=== PATIENT | female | born 1950 | race Caucasian/White ===

== ENCOUNTER → 2016-07-30 | Outpatient (CLI) | payer MEDICARE, MEDICAID ==
[~2016-07-30] MED LIST: ALBU8.5H2 IH; BONINE PO; BUDE10.22 IH; CETI10CA PO; CIPR500T78 PO; CLIN-81 PO; DICL75TA2 PO; ESTR0.5T PO; ESTR1TAB24 PO; FLUT16SP22 NS; FLUT9.9S INH; HYDR-3583 PO; IBUP-30 PO; IBUP200T48 PO; LACT10SO33 PO; LACT10SO46 PO; LCT30U PO; MECL25TA56 PO; METO25TA PO; METR500T PO; MIRT30TA6 PO; MONT10TA21 PO; PRM25T PO; PROC5TAB PO; SCOP1PAT TD; SERT50TA2 PO; SLMFT1E INH; SOFO400T PO; TMZP15C PO; TRAM-42 PO; VENL150T4 PO; VENL75TA6 PO; ZOLP10TA5 PO; [UNRECOGNIZED DRUG - CODE]; [UNRECOGNIZED DRUG - CODE] PO; depression med; lactulose PO
== END ==
DX: I65.23 Occlusion and stenosis of bilateral carotid arteries (principal); G89.29 Other chronic pain; R06.00 Dyspnea, unspecified; B19.20 Unspecified viral hepatitis C without hepatic coma; E78.2 Mixed hyperlipidemia

== ENCOUNTER → 2016-09-24 | Outpatient (CLI) | payer MEDICARE, MEDICAID ==
--- NOTE | 2016-09-24 09:47 | Diagnostic Imaging Report ---
Hepatic ultrasound. INDICATION: Hepatitis. On the prior abdominal ultrasound exam of 07/10/2009, the liver was enlarged measuring 21 cm in maximum dimension. On this study the liver remains enlarged measuring 20 cm in maximum dimension. There is still no focal mass involving the liver, and the biliary tree is not abnormally dilated. Spectral and color flow imaging of the portal vein shows that the vein is patent and that there is normal directional flow within the vein. The hepatic veins also seem unremarkable. As noted on the prior exam the gallbladder is surgically absent. The common bile duct is not dilated measuring 6.2 mm. Previously it measures 7.0 mm. The right kidney is unremarkable. The pancreas is obscured by bowel gas. IMPRESSION: 1. The liver is enlarged but seems similar in appearance to the prior exam. There is no acute abnormality involving the liver. 2. The gallbladder is surgically absent. Dictated by: Dictated on workstation # [id number]
== END ==
LOC: RAD 08:32
PROVIDERS: ATTEND Internal Medicine
DX: B18.2 Chronic viral hepatitis C (principal); Z90.49 Acquired absence of other specified parts of digestive tract
CPT/HCPCS: 76705

== ENCOUNTER → 2016-11-25 | Outpatient (CLI) | payer MEDICARE, MEDICAID ==
[~2016-11-25] VITALS: Ht 154.9 cm; Wt 97.1 kg
[~2016-11-25] MED LIST changes: +CATHETER FLUSH 10 ML SYR IV PRN; +REGADENOSON 0.4 MG/5 ML SYR (LEXISCAN) IV ONE
[2016-11-25 09:35] VITALS: BP 137/45
--- NOTE | 2016-11-26 08:46 | STRESS TEST ---
DATE OF SERVICE: 11/25/2016 LEXISCAN MYOVIEW STRESS TEST REPORT Baseline heart rate is 75. Baseline blood pressure 137/45. Baseline EKG is sinus rhythm with no ischemic changes. In summary, the patient was injected with 10.06 mCi of technetium-99 Myoview and the resting images were obtained. Then, the patient received 0.4 mg of Lexiscan followed by 29.2 mCi of technetium-99 Myoview. Throughout the test, there were no EKG changes. The resting and stress images were reviewed and compared in the short axis, horizontal long axis, and vertical long axis views. Review of the images showed breast attenuation with no significant ischemia or infarction on SPECT images. SSS 4, SDS 0, TID value 1.09. On the gated images, the left ventricle appeared to be normal size with normal contractility. Calculated ejection fraction 71%. CONCLUSION: 1. The patient tolerated Lexiscan well. 2. Breast attenuation with no significant ischemia or infarction on SPECT images. 3. Normal left ventricular size with normal contractility. Calculated ejection fraction 71%. Job ID: [id number] DocumentID: [id number] Dictated Date: 11/25/2016 13:45:31 [employer]pper Date: 11/25/2016 21:22:30 Dictated By: DAVID BERNARD MD
== END ==
LOC: CARD 07:32
PROVIDERS: ATTEND Internal Medicine Cardiovascular Disease
DX: I65.23 Occlusion and stenosis of bilateral carotid arteries (principal); R06.00 Dyspnea, unspecified; E78.2 Mixed hyperlipidemia; G89.29 Other chronic pain; B19.20 Unspecified viral hepatitis C without hepatic coma
CPT/HCPCS: 78452; 93017

== ENCOUNTER 2017-12-06 15:00 | Outpatient (RCR) | payer MEDICARE, MEDICAID ==
[~2017-12-06 15:00] MED LIST changes: +ALBU18HF2 INH; -CATHETER FLUSH 10 ML SYR IV PRN; +CIPR500T4 PO; +CYCL10TA9 PO; +FLUT1BLS IH; +LACT10SO64 PO; +MECL-106 PO; +MELO7.5T46 PO; +METO-387 PO; -REGADENOSON 0.4 MG/5 ML SYR (LEXISCAN) IV ONE; -SCOP1PAT TD; +SCOP1PAT11 TD; +SPIR50TA4 PO; +TEMA15CA PO; +VENL75CA93 PO
== END 2018-01-19 10:32 | disposition home or self-care (01) ==
PROVIDERS: ATTEND Internal Medicine
DX: H81.13 Benign paroxysmal vertigo, bilateral (principal)

== ENCOUNTER 2018-05-08 20:29 | Emergency (ER) | payer MEDICARE, MEDICAID ==
[~2018-05-08] VITALS: Ht 154.9 cm; Wt 90.7 kg
--- OUTSIDE RECORDS SUMMARY | 2018-05-08 20:35 | XMS REPORT ---
Author Author Migration, Doctor Organization [facility] Address Unknown Phone Unavailable Care Team Providers Care [employer]p [employer] Name Role Phone Migration, Doctor Unavailable Unavailable PROBLEMS Type Condition ICD9-CM Code LPW56-OF Code Onset Dates Condition Status SNOMED Code Problem Sleep apnea, unspecified type G47.30 Active 10832026 Problem Benign positional vertigo, bilateral H81.13 Active 506399102 Problem Arthritis M19.90 Active 9970513 Problem Peripheral vascular disease I73.9 Active 864564786 Problem Chronic obstructive pulmonary disease, unspecified COPD type J44.9 Active 20519659 Problem Other cirrhosis of liver K74.69 Active 57718022 Problem Chronic viral hepatitis C B18.2 Active 432003351 Problem Insomnia G47.00 Active 183010832 Problem Vertigo R42 Active 706224972 Problem Prediabetes R73.03 Active 107265625 Problem Recurrent major depressive disorder, in full remission F33.42 Active 280608513 ALLERGIES No Information ENCOUNTERS Encounter Location Date Diagnosis [address] [address] Apr, [facility] [id number] [place] [address] 42808- 4176 Mar, [facility] [id number] [place] [address] 76425- 4509 Feb, [facility] [id number] [place] [address] 97739- 5011 Jan, [facility] [id number] [place] [address] 04689- 0314 Dec, [facility] [id number] [place] [address] 67271- 8881 Nov, [facility] [id number] [place] [address] 49775- 1212 Nov, Benign positional vertigo, bilateral H81.13 [facility] [address] [address] 45[address] Nov, [facility] [id number] [place] [address] 60838- 4004 Nov, [facility] [id number] [place] [address] 62539- 2202 Nov, [facility] [id number] [place] [address] 15802- 8965 Oct, [facility] [id number] [place] [address] 10817- 1001 Sep, [facility] [id number] [place] [address] 53114- 5480 Sep, Compression fracture of body of thoracic vertebra S22.000A and Benign positional vertigo, bilateral H81.13 [facility] [id number] [place] [address] 62498- 9533 Sep, [facility] [id number] [address] 27[address] Sep, Benign positional vertigo, bilateral H81.13 ; Impacted cerumen of both ears H61.23 ; Chronic obstructive pulmonary disease, unspecified COPD type J44.9 ; Recurrent major depressive disorder, in full remission F33.42 and Other cirrhosis of liver K74.69 [facility] [address] [address] Aug, [facility] [address] [address] 54[address] Aug, Lightheadedness R42 [facility] [id number] [address] 2[address] Jul, Lightheadedness R42 [facility] [address] [address] 9[address] Jul, Medicare annual wellness visit, initial Z00.00 ; Chronic obstructive pulmonary disease, unspecified COPD type J44.9 ; Depression, unspecified depression type F32.9 ; Insomnia G47.00 ; Chronic viral hepatitis C B18.2 ; Parkinson disease G20 ; Prediabetes R73.03 ; Arthritis M19.90 ; Routine adult health maintenance Z00.00 and Encounter for immunization Z23 [facility] [id number] [place] [address] 23897- 4403 Jul, [facility] [id number] [place] [address] 71499- 8050 June, [facility] [id number] [place] [address] 10405- 9512 June, [facility] [id number] [place] [address] 25412- 1729 June, [facility] [id number] [place] [address] 03489- 3899 June, [facility] [id number] [place] [address] 30067- 6848 May, Acute cystitis without hematuria N30.00 [facility] [id number] [place] [address] 55763- 1392 May, Prediabetes R73.03 [place] [id number] [place] [address] 70719- 2397 May, Acute cystitis without hematuria N30.00 ; Type 2 diabetes mellitus without complication, without long-term current use of insulin E11.9 ; Vertigo R42 ; Chronic obstructive pulmonary disease, unspecified COPD type J44.9 ; Chronic viral hepatitis C B18.2 and Prediabetes R73.03 [place] [id number] [place] [address] 10668- 2287 May, [facility] [id number] [place] [address] 75451- 1467 May, Chronic viral hepatitis C B18.2 [facility] [id number] [place] [address] 41764- 6134 Mar, [facility] [id number] [place] [address] 30552- 8720 Dec, Vertigo R42 [facility] [address] 78915- 2907 Dec, Neck pain M54.2 ; Encounter for immunization Z23 ; Vertigo R42 and Parkinson disease G20 [facility] [address] 02552- 1832 Nov, [facility] [id number] [place] [address] 43802- 9070 Nov, [facility] [address] 69076- 7705 Sep, [place] [address] 54537- 1303 Sep, Chronic viral hepatitis C B18.2 [facility] [id number] [place] [address] 48535- 6213 Sep, Chronic viral hepatitis C B18.2 [place] [address] 32560- 2531 Sep, Chronic viral hepatitis C B18.2 [facility] [id number] [place] [address] 09912- 8773 Aug, Type 2 diabetes mellitus without complication, without long- term current use of insulin E11.9 ; Chronic viral hepatitis C B18.2 ; Vertigo R42 and Depression, unspecified depression type F32.9 [facility] [id number] [place] [address] 31269- 8886 Jul, Insomnia G47.00 [facility] [id number] [place] [address] 45509- 2159 Jul, Type 2 diabetes mellitus without complication, without long- term current use of insulin E11.9 [place] [id number] [place] [address] 49337- 5559 Apr, [facility] [id number] [address] Apr, Dental examination Z01.20 [facility] [id number] [place] [address] [id number] Feb, Encounter for dental examination Z01.20 [facility] [address] [id number] Jan, Dental caries K02.9 [facility] [id number] [place] [address] 97549- 6412 Jan, Arthritis M19.90 [facility] [address] 17110- 7570 Jan, Benign positional vertigo, bilateral H81.13 and Type 2 diabetes mellitus without complication, without long-term current use of insulin E11.9 [place] [id number] [place] [address] 24973- 6594 Dec, [facility] [id number] [place] [address] 87998- 8368 Dec, [facility] [id number] [place] [address] 52417- 4456 Dec, Encounter for immunization Z23 and Elevated blood pressure reading R03.0 [facility] [id number] [place] [address] 05324- 9245 Dec, [facility] [id number] [place] [address] 72342- 2375 Dec, [facility] [id number] [place] [address] 80731- 0524 Nov, Type 2 diabetes mellitus without complication, without long- term current use of insulin E11.9 and Chronic viral hepatitis C B18.2 [facility] [id number] [place] [address] 26289- 9849 Nov, [facility] [id number] [place] [address] 21690- 9760 Nov, [facility] [address], [place] [address]- 9726 Oct, [facility] [address] [id number] Oct, Dental examination Z01.20 [facility] [id number] [place] [address] 20006- 8795 Sep, [facility] [id number] [place] [address] 35794- 6965 Sep, [facility] [id number] [place] [address] 99903- 4667 Sep, Type 2 diabetes mellitus without complication, without long- term current use of insulin E11.9 and Chronic obstructive pulmonary disease, unspecified COPD type J44.9 [facility] [id number] [place] [address] 80060- 9361 Sep, Rectal bleeding K62.5 [facility] [id number] [place] [address] 28693 -6913 Aug, Rectal bleeding K62.5 ; Postmenopausal vaginal bleeding N95.0 ; Dysuria R30.0 ; Dermatitis L30.9 ; Acute cystitis with hematuria N30.01 ; Glycosuria R81 and Adnexal pain R10.2 [facility] [address] [address]- 3141 May, [facility] [id number] [place] [address] 04293- 5605 May, Chronic viral hepatitis C B18.2 [facility] [id number] [place] [address] 66515- 2490 Apr, [facility] [id number] [place] [address] 91571- 6855 Mar, [facility] [id number] [place] [address] 47508- 1372 Mar, Insomnia G47.00 [facility] [id number] [place] [address] 99281- 9598 Feb, Chronic viral hepatitis C B18.2 and Fatigue R53.83 [facility] [address] 35436- 1008 15 Feb, 2015 Rash R21 ; Fatigue R53.83 and Chronic viral hepatitis C B18.2 [facility] [address] 24167- 7154 Feb, Chronic viral hepatitis C B18.2 [facility] [address] 37904- 7128 Jan, Dermatitis L30.9 and Chronic viral hepatitis C B18.2 [facility] [address] 63587- 9550 Jan, [facility] [address] 86076- 3914 Dec, [facility] [address] 59442- 9678 Nov, [facility] [address] 05885- 2100 Nov, Hep C w/o coma, chronic 070.54 [facility] [address] 30735- 7315 Oct, Lower back pain 724.2 and Urinary tract infection 599.0 [facility] [id number] [place] [address] 72889- 8912 Oct, [facility] [address] 46687- 3905 Oct, [facility] [address] 58024- 2357 Oct, Dark urine 791.9 and Rectal bleeding 569.3 [facility] [address] [place] [address]- 2657 Sep, Hep C w/o coma, chronic 070.54 [facility] [id number] [place] [address] 03957- 0899 Sep, [facility] [address] [address]- 5012 Aug, [facility] [id number] [place] [address] 91136- 4470 Aug, [facility] [id number] [place] [address] 24591- 0399 Jul, Hep C w/o coma, chronic 070.54 [facility] [id number] [place] [address] 93211- 9377 Jul, Hep C w/o coma, chronic 070.54 [facility] [id number] [place] [address] 28725- 7136 June, Local infection of skin and subcutaneous tissue 686.9 [facility] [address] [address]- 2432 June, Foot pain, right 729.5 [facility] [address] [address]- 2999 June, [facility] [address] [address]- 1477 May, [facility] [address] [address]- 4070 May, [facility] [address] [address]- 5393 Apr, [facility] [address] 7433 Apr, [facility] [address] [address]- 1254 Apr, [facility] [id number] [place] [address]- 5850 Apr, [facility] [place] [facility] [address] [id number] [place] [address]- 6361 Apr, [facility] [place] [facility] [address] [id number] [place] [address]- 3101 Apr, [facility] [place] [facility] [address] [id number] [place] [address]- 4725 Jan, [facility] [place] [facility] [address] [id number] [place] [address]- 7374 Jan, [facility] [place] [facility] [address] [id number] [place] [address]- 3750 Jan, [facility] [place] [facility] [address] [id number] [place] [address]- 1613 Dec, [facility] [place] [facility] [address] [id number] [place] [address]- 0280 Dec, [facility] [place] [facility] [address] [id number] [place] [address]- 0070 Dec, [facility] [place] [facility] [address] [id number] [place] [address]- 7032 Dec, [facility] [place] [facility] [address] [facility] [id number] [place] [address]- 1300 Nov, [facility] [place] [facility] [address] [id number] [place] [address]- 8882 Nov, [facility] [place] [facility] [address] [id number] [place] [address]- 5114 Nov, [facility] [place] [facility] [address] [id number] [place] [address]- 1311 Nov, [facility] [place] [facility] [address] [id number] [place] [address]- 1399 Nov, [facility] [place] [facility] [address] [id number] [place] [address]- 2524 Nov, [facility] [place] [facility] [address] [id number] [place] [address]- 9258 14 Nov, 2013 [facility] [place] [facility] [address] [id number] [place] [address]- 6985 Nov, [facility] [place] [facility] [address] [id number] [place] 0446 Nov, [facility] [place] [facility] [address] [id number] [place] [address]- 2744 Nov, [facility] [place] [facility] [address] [id number] [place] [address]- 2523 Oct, [facility] [place] [facility] [address] [id number] [place] [address]- 8939 Oct, [facility] [place] [facility] [address] [id number] [place] [address]- 3463 Oct, [facility] [place] [facility] [address] [id number] [place] [address]- 1770 24 Oct, 2013 [facility] [place] [facility] [address] [id number] [place] [address]- 1934 Oct, [facility] [place] [facility] [address] [id number] [place] [address]- 1076 Oct, [facility] [place] [facility] [address] [id number] [place] [address]- 5607 Oct, [facility] [place] [facility] [address] [id number] [place] [address]- 7241 Oct, [facility] [place] [facility] [address] [id number] [place] [address]- 7265 Aug, [facility] [place] [facility] [address] [id number] [place] [address]- 3306 Aug, [facility] [place] [facility] [address] [id number] [place] [address]- 0732 Aug, [facility] [place] [facility] [address] [id number] [place] [address]- 1192 Aug, [facility] [place] [facility] [address] [id number] [place] [address]- 6359 Aug, [facility] [place] [facility] [address] [id number] [place] [address]- 8276 Aug, [facility] [place] [facility] [address] [id number] [place] [address]- 2093 Aug, [facility] [place] [facility] [address] [id number] [place] [address]- 0019 Aug, [facility] [place] [facility] [address] [id number] [place] [address]- 1334 June, [facility] [place] [facility] [address] [id number] [place] [address]- 5907 June, [facility] [place] [facility] [address] [id number] [place] [address]- 6866 May, [facility] [place] [facility] [address] [id number] [place] [address]- 5283 May, [facility] [place] [facility] [address] [id number] [place] [address]- 0518 Apr, [facility] [place] [facility] [address] [id number] [place] [address]- 9361 Apr, [facility] [place] [facility] [address] [id number] [place] [address]- 7626 Apr, [facility] [place] [facility] [address] [id number] [place] [address]- 7852 Mar, [facility] [place] [facility] [address] [id number] [place] [address]- 8200 Mar, [facility] [place] [facility] [address] [id number] [place] [address]- 5675 Mar, [facility] [place] [facility] [address] [id number] [place] [address]- 7387 Mar, [facility] [place] [facility] [address] [id number] [place] [address]- 4657 Mar, [facility] [place] [facility] [address] [id number] [place] [address]- 2066 Mar, [facility] [place] [facility] [address] [id number] [place] [address]- 9649 Jan, [facility] [place] [facility] [address] [id number] [place] [address]- 4248 Jan, [facility] [place] [facility] [address] [id number] [place] [address]- 9609 Jan, [facility] [place] [facility] [address] [id number] [place] [address]- 5497 Jan, [facility] [place] [facility] [address] [facility] [id number] [place] [address]- 9252 Jan, [facility] [place] [facility] [address] [id number] [place] [address]- 9477 Jan, [facility] [place] [facility] [address] [id number] [place] [address]- 7444 14 Dec, 2012 [facility] [place] [facility] [address] [id number] [place] [address]- 5340 14 Dec, 2012 [facility] [place] [facility] [address] [id number] [place] [address]- 7828 Dec, [facility] [place] [facility] [address] [id number] [place] [address]- 6955 Dec, [facility] [place] [facility] [address] [id number] [place] [address]- 2036 Dec, [facility] [place] [facility] [address] [id number] [place] [address]- 8730 07 Dec, 2012 [facility] [place] [facility] [address] [id number] [place] [address]- 3633 07 Dec, 2012 [facility] [place] [facility] [address] [id number] [place] [address]- 1966 Dec, [facility] [address] [id number] [place] [address]- 4387 26 Oct, 2012 [facility] [address] [id number] [place] [address]- 2546 17 Oct, 2012 [facility] [address] [id number] [place] [address] 2546 Sep, [facility] [place] [facility] [address] [id number] [place] [address]- 8917 Aug, [facility] [address] [id number] [place] [address]- 3995 Aug, [facility] [address] [id number] [place] [address]- 6134 June, [facility] [address] [id number] [place] [address]- 1506 June, [facility] [address] [id number] [place] [address]- 2117 June, [facility] [address] [id number] [place] [address]- 8257 June, [facility] [address] [id number] [place] [address]- 2856 May, [facility] [address] [id number] [place] [address] 2543 May, [facility] [place] [facility] [address] [id number] [place] [address]- 2546 Apr, [facility] [place] [facility] [address] [id number] [place] [address]- 2546 Apr, [facility] [place] [facility] [address] [id number] [place] [address] Jan, [facility] [place] [facility] [address] [id number] [place] [address] Jan, [facility] [address] [id number] [place] [address] 24 Jan, 2012 [facility] [address] [id number] [place] [address] 17 Jan, 2012 [facility] [place] [facility] [address] [id number] [place] 17 Jan, 2012 [facility] [address] [id number] [place] [address] 13 Jan, 2012 [facility] [place] [facility] [address] [id number] [place] [address] 13 Jan, 2012 [facility] [address] [id number] [place] [address] 10 Jan, 2012 [facility] [address] [id number] [place] [address] 10 Jan, 2012 [facility] [address] [id number] [place] [address] 05 Jan, 2012 [facility] [address] [id number] [place] [address] 04 Jan, 2012 [facility] [place] [facility] [address] [id number] [place] [address] 29 Dec, 2011 [facility] [address] [facility] [id number] [place] [address] 29 Dec, 2011 [facility] [place] [facility] [address] [id number] [place] [address] 254 Dec, [facility] [place] [facility] [address] [id number] [place] [address] 23 Dec, 2011 [facility] [place] [facility] [address] [id number] [place] [address] 14 Dec, 2011 [facility] [place] [facility] [address] [id number] [place] [address] 14 Dec, 2011 [facility] [place] [facility] [address] [id number] [place] [address] Nov, [facility] [place] [facility] [address] [id number] [place] [address] Nov, [facility] [place] [facility] [address] [id number] [place] [address] Nov, [facility] [place] [facility] [address] [id number] [place] [address] Oct, [facility] [place] [facility] [address] [id number] [place] [address] Oct, [facility] [place] [facility] [address] [id number] [place] [address] Sep, [facility] [place] [facility] [address] [id number] [place] [address] Sep, [facility] [place] [facility] [address] [id number] [place] [address] Sep, [facility] [place] [facility] [address] [id number] [place] [address] Sep, [facility] [place] [facility] [address] [id number] [place] [address] Aug, [facility] [place] [facility] [address] [id number] [place] [address] June, [facility] [place] [facility] [address] [id number] [place] [address] May, [facility] [place] [facility] [address] [id number], [place] [address] 16 May, 2011 [facility] [place] [facility] [address] [id number] [place] [address] 14 May, 2011 [facility] [place] [facility] [address] [id number] [place] [address] 05 May, 2011 [facility] [place] [facility] [address] [id number] [place] [address] Apr, [facility] [place] [facility] [address] [id number], [place] [address] 15 Mar, 2011 [facility] [address] [id number] [place] [address] 10 Mar, 2011 [facility] [address] [id number] [place] [address] 20 Feb, 2011 [facility] [address] [id number] [place] [address] Feb, [facility] [place] [facility] [address] [id number] [place] [address] 10 Feb, 2011 [facility] [address] [id number] [place] [address] Jan, [facility] [place] [facility] [address] [id number] [place] [address] 16 Jan, 2011 [facility] [address] [facility] [id number] [place] [address] 16 Jan, 2011 [facility] [place] [facility] [address] [id number] [place] [address] 15 Jan, 2011 [facility] [address] [id number] [place] [address] Jan, [facility] [address] [facility] [id number] [place] [address] Jan, [facility] [address] [id number] [place] [address] 05 Jan, 2011 [facility] [place] [facility] [address] [id number] [place] [address] 28 Dec, 2010 [facility] [place] [facility] [address] [id number] [place] [address] 17 Dec, 2010 [facility] [place] [facility] [address] [id number] [place] [address] 10 Dec, 2010 [facility] [place] [facility] [address] [facility] [id number] [place] [address] Dec, [facility] [place] [facility] [address] [id number] [address] Dec, [facility] [address] [id number] [address] Nov, [facility] [id number] [address] Nov, [facility] [id number] [place] [address] Jul, [facility] [id number] [place] [address] June, [facility] [id number] [place] [address] Mar, [facility] [id number] [address] Feb, [facility] [id number], [place] [address] Dec, IMMUNIZATIONS No Known Immunizations SOCIAL HISTORY Never Assessed REASON FOR VISIT EMR-[facility] [place]AN OF CARE VITAL SIGNS MEDICATIONS Unknown Medications RESULTS No Results PROCEDURES No Known procedures INSTRUCTIONS MEDICATIONS ADMINISTERED No Known Medications MEDICAL (GENERAL) HISTORY Type Description Date Medical History hepatitis C (completed 24 weeks of Sovaldi/Ribipack 11/2014) Medical History chronic obstructive pulmonary disease (COPD) Medical History plantar fasciitis Medical History cardiovascular disease Surgical History partial hysterectomy Surgical History cholecystectomy Surgical History hemorrhoidectomy Surgical History spine surgery Hospitalization History surgeries Hospitalization History Sepsis 2/2 UTI from actinomyces- [facility] 05/19/17 Hospitalization History Constipation 06/25
--- OUTSIDE RECORDS SUMMARY | 2018-05-08 20:35 | XMS REPORT ---
Author Author Migration, Doctor Organization [facility] Address Unknown Phone Unavailable Care Team Providers Care Behavior Analyst Name Role Phone Migration, Doctor Unavailable Unavailable PROBLEMS Type Condition ICD9-CM Code JGE60-VX Code Onset Dates Condition Status SNOMED Code Problem Sleep apnea, unspecified type G47.30 Active 46867615 Problem Benign positional vertigo, bilateral H81.13 Active 789817737 Problem Arthritis M19.90 Active 4603966 Problem Peripheral vascular disease I73.9 Active 691044246 Problem Chronic obstructive pulmonary disease, unspecified COPD type J44.9 Active 83072108 Problem Other cirrhosis of liver K74.69 Active 70734542 Problem Chronic viral hepatitis C B18.2 Active 136116705 Problem Insomnia G47.00 Active 731907007 Problem Vertigo R42 Active 963994009 Problem Prediabetes R73.03 Active 981008566 Problem Recurrent major depressive disorder, in full remission F33.42 Active [id number] ALLERGIES No Information ENCOUNTERS Encounter Location Date Diagnosis [address] [address] Apr, [facility] [id number] [place] [address] 35396- 1022 Mar, [facility] [id number] [place] [address] 06705- 3092 Feb, [facility] [id number] [place] [address] 40962- 1846 Jan, [facility] [id number] [place] [address] 61463- 3080 Dec, [facility] [id number] [place] [address] 76764- 8120 Nov, [facility] [id number] [place] [address] 09046- 4975 Nov, Benign positional vertigo, bilateral H81.13 [facility] [address] [address] 0083 Nov, [facility] [id number] [place] [address] 84522- 1943 Nov, [facility] [id number] [place] [address] 47123- 4004 Nov, [facility] [id number] [place] [address] 18798- 3511 Oct, [facility] [id number] [place] [address] 81183- 7568 Sep, [facility] [id number] [place] [address] 59436- 6353 Sep, Compression fracture of body of thoracic vertebra S22.000A and Benign positional vertigo, bilateral H81.13 [facility] [id number] [place] [address] 32427- 4341 Sep, [facility] [id number] [address] Sep, Benign positional vertigo, bilateral H81.13 ; Impacted cerumen of both ears H61.23 ; Chronic obstructive pulmonary disease, unspecified COPD type J44.9 ; Recurrent major depressive disorder, in full remission F33.42 and Other cirrhosis of liver K74.69 [facility] [address] [address] Aug, [facility] [address] [address] Aug, Lightheadedness R42 [facility] [id number] [address] 8279 Jul, Lightheadedness R42 [facility] [address] [address] 36[address] Jul, Medicare annual wellness visit, initial Z00.00 ; Chronic obstructive pulmonary disease, unspecified COPD type J44.9 ; Depression, unspecified depression type F32.9 ; Insomnia G47.00 ; Chronic viral hepatitis C B18.2 ; Parkinson disease G20 ; Prediabetes R73.03 ; Arthritis M19.90 ; Routine adult health maintenance Z00.00 and Encounter for immunization Z23 [facility] [id number] [place] [address] 42513- 7584 Jul, [facility] [id number] [place] [address] 28152- 9326 June, [facility] [id number] [place] [address] 67648- 3430 June, [facility] [id number] [place] [address] 81723- 1695 June, [facility] [id number] [place] [address] 99072- 9717 June, [facility] [id number] [place] [address] 88804- 9245 May, Acute cystitis without hematuria N30.00 [facility] [id number] [place] [address] 57224- 2356 May, Prediabetes R73.03 [facility] [id number] [place] [address] 61907- 9162 May, Acute cystitis without hematuria N30.00 ; Type 2 diabetes mellitus without complication, without long-term current use of insulin E11.9 ; Vertigo R42 ; Chronic obstructive pulmonary disease, unspecified COPD type J44.9 ; Chronic viral hepatitis C B18.2 and Prediabetes R73.03 [facility] [id number] [place] [address] 71722- 1956 May, [facility] [id number] [place] [address] 10051- 4781 May, Chronic viral hepatitis C B18.2 [facility] [id number] [place] [address] 14488- 4855 Mar, [facility] [id number] [place] [address] 08184- 9955 Dec, Vertigo R42 [facility] [address] 20392- 6730 Dec, Neck pain M54.2 ; Encounter for immunization Z23 ; Vertigo R42 and Parkinson disease G20 [facility] [address] 86276- 3092 Nov, [facility] [id number] [place] [address] 52147- 0079 Nov, [facility] [address] 00692- 3537 Sep, [facility] [address] 23269- 2187 Sep, Chronic viral hepatitis C B18.2 [facility] [id number] [place] [address] 39470- 0702 Sep, Chronic viral hepatitis C B18.2 [facility] [address] 83827- 7493 Sep, Chronic viral hepatitis C B18.2 [facility] [id number] [place] [address] 19347- 9183 Aug, Type 2 diabetes mellitus without complication, without long- term current use of insulin E11.9 ; Chronic viral hepatitis C B18.2 ; Vertigo R42 and Depression, unspecified depression type F32.9 [facility] [id number] [place] [address] 45447- 9923 Jul, Insomnia G47.00 [facility] [id number] [place] [address] 72662- 3965 Jul, Type 2 diabetes mellitus without complication, without long- term current use of insulin E11.9 [facility] [id number] [place] [address] 93917- 3056 Apr, [facility] [id number] [address] Apr, Dental examination Z01.20 [facility] [id number] [place] [address] [id number] Feb, Encounter for dental examination Z01.20 [facility] [address] [address] Jan, Dental caries K02.9 [facility] [id number] [place] [address] 69037- 2410 Jan, Arthritis M19.90 [facility] [address] 09036- 7129 Jan, Benign positional vertigo, bilateral H81.13 and Type 2 diabetes mellitus without complication, without long-term current use of insulin E11.9 [facility] [id number] [place] [address] 62321- 9438 Dec, [facility] [id number] [place] [address] 82798- 5862 Dec, [facility] [id number] [place] [address] 45136- 6368 Dec, Encounter for immunization Z23 and Elevated blood pressure reading R03.0 [facility] [id number] [place] [address] 46379- 0588 Dec, [facility] [id number] [place] [address] 95675- 8268 Dec, [facility] [id number] [place] [address] 24245- 8099 Nov, Type 2 diabetes mellitus without complication, without long- term current use of insulin E11.9 and Chronic viral hepatitis C B18.2 [facility] [id number] [place] [address] 48196- 1026 Nov, [facility] [id number] [place] [address] 03533- 3321 Nov, [facility] [address], [place] [address]- 2909 Oct, [facility] [address] [id number] Oct, Dental examination Z01.20 [facility] [id number] [place] [address] 31606- 4519 Sep, [facility] [id number] [place] [address] 27980- 7265 Sep, [facility] [id number] [place] [address] 42298- 7379 Sep, Type 2 diabetes mellitus without complication, without long- term current use of insulin E11.9 and Chronic obstructive pulmonary disease, unspecified COPD type J44.9 [facility] [id number] [place] [address] 33185- 5789 Sep, Rectal bleeding K62.5 [facility] [id number] [place] [address] 35762 -5506 Aug, Rectal bleeding K62.5 ; Postmenopausal vaginal bleeding N95.0 ; Dysuria R30.0 ; Dermatitis L30.9 ; Acute cystitis with hematuria N30.01 ; Glycosuria R81 and Adnexal pain R10.2 [facility] [address] [address]- 8411 May, [facility] [id number] [place] [address] 26259- 0186 May, Chronic viral hepatitis C B18.2 [facility] [id number] [place] [address] 79662- 4314 Apr, [facility] [id number] [place] [address] 84743- 4504 Mar, [facility] [address] [place] [address] 60053- 0356 Mar, Insomnia G47.00 [facility] [id number] [place] [address] 61221- 1500 Feb, Chronic viral hepatitis C B18.2 and Fatigue R53.83 [facility] [address] 59286- 6852 15 Feb, 2015 Rash R21 ; Fatigue R53.83 and Chronic viral hepatitis C B18.2 [facility] [address] 30118- 1951 Feb, Chronic viral hepatitis C B18.2 [facility] [address] 10271- 6839 Jan, Dermatitis L30.9 and Chronic viral hepatitis C B18.2 [facility] [address] 45897- 8617 Jan, [facility] [address] 10042- 5589 Dec, [facility] [address] 62127- 8313 Nov, [facility] [address] 54649- 9383 Nov, Hep C w/o coma, chronic 070.54 [facility] [address] 75981- 9935 Oct, Lower back pain 724.2 and Urinary tract infection 599.0 [facility] [id number] [place] [address] 02174- 1553 Oct, [facility] [address] 27788- 3307 Oct, [facility] [address] 76627- 0309 Oct, Dark urine 791.9 and Rectal bleeding 569.3 [facility] [address] [place] [address]- 0797 Sep, Hep C w/o coma, chronic 070.54 [facility] [id number] [place] [address] 85752- 0297 Sep, [facility] [address] [address]- 8488 Aug, [facility] [id number] [place] [address] 72967- 1067 Aug, [facility] [id number] [place] [address] 66788- 3740 Jul, Hep C w/o coma, chronic 070.54 [facility] [id number] [place] [address] 38452- 7740 Jul, Hep C w/o coma, chronic 070.54 [facility] [id number] [place] [address] 63470- 5094 June, Local infection of skin and subcutaneous tissue 686.9 [facility] [address] [address]- 7437 June, Foot pain, right 729.5 [facility] [address], [place] [address]- 7528 June, [facility] [address], [place] [address]- 1260 May, [facility] [address], [place] [address]- 2517 May, [facility] [address], [place] [address]- 4548 Apr, [facility] [address] 7071 Apr, [facility] [address], [place] [address]- 6543 Apr, [facility] [id number] [place] [address]- 1851 Apr, [facility] [place] [facility] [address] [id number] [place] [address]- 0875 Apr, [facility] [place] [facility] [address] [id number] [place] [address]- 7460 Apr, [facility] [place] [facility] [address] [id number] [place] [address]- 6126 Jan, [facility] [place] [facility] [address] [id number] [place] [address]- 5278 Jan, [facility] [place] [facility] [address] [id number] [place] [address]- 1664 Jan, [facility] [place] [facility] [address] [id number] [place] [address]- 0347 Dec, [facility] [place] [facility] [address] [id number] [place] [address]- 9371 Dec, [facility] [place] [facility] [address] [id number] [place] [address]- 9849 Dec, [facility] [place] [facility] [address] [id number] [place] [address]- 8832 Dec, [facility] [place] [facility] [address] [facility] [id number] [place] [address]- 6827 Nov, [facility] [place] [facility] [address] [id number] [place] [address]- 9285 Nov, [facility] [place] [facility] [address] [id number] [place] [address]- 3218 Nov, [facility] [place] [facility] [address] [id number] [place] [address]- 3174 Nov, [facility] [place] [facility] [address] [id number] [place] [address]- 3251 Nov, [facility] [place] [facility] [address] [id number] [place] [address]- 2666 Nov, [facility] [place] [facility] [address] [id number] [place] [address]- 8462 14 Nov, 2013 [facility] [place] [facility] [address] [id number] [place] [address]- 2805 Nov, [facility] [place] [facility] [address] [id number] [place] 7691 Nov, [facility] [place] [facility] [address] [id number] [place] [address]- 1778 Nov, [facility] [place] [facility] [address] [id number] [place] [address]- 8124 Oct, [facility] [place] [facility] [address] [id number] [place] [address]- 4030 Oct, [facility] [place] [facility] [address] [id number] [place] [address]- 1122 Oct, [facility] [place] [facility] [address] [id number] [place] [address]- 5331 24 Oct, 2013 [facility] [place] [facility] [address] [id number] [place] [address]- 1064 Oct, [facility] [place] [facility] [address] [id number] [place] [address]- 1730 Oct, [facility] [place] [facility] [address] [id number] [place] [address]- 1842 Oct, [facility] [place] [facility] [address] [id number] [place] [address]- 3798 Oct, [facility] [place] [facility] [address] [id number] [place] [address]- 3438 Aug, [facility] [place] [facility] [address] [id number] [place] [address]- 2937 Aug, [facility] [place] [facility] [address] [id number] [place] [address]- 9316 Aug, [facility] [place] [facility] [address] [id number] [place] [address]- 0729 Aug, [facility] [place] [facility] [address] [id number] [place] [address]- 8837 Aug, [facility] [place] [facility] [address] [id number] [place] [address]- 2023 Aug, [facility] [place] [facility] [address] [id number] [place] [address]- 9041 Aug, [facility] [place] [facility] [address] [id number] [place] [address]- 3415 Aug, [facility] [place] [facility] [address] [id number] [place] [address]- 7767 June, [facility] [place] [facility] [address] [id number] [place] [address]- 7211 June, [facility] [place] [facility] [address] [id number] [place] [address]- 4181 May, [facility] [place] [facility] [address] [id number] [place] [address]- 7556 May, [facility] [place] [facility] [address] [id number] [place] [address]- 1685 Apr, [facility] [place] [facility] [address] [id number] [place] [address]- 1494 Apr, [facility] [place] [facility] [address] [id number] [place] [address]- 4229 Apr, [facility] [place] [facility] [address] [id number] [place] [address]- 5714 Mar, [facility] [place] [facility] [address] [id number] [place] [address]- 9067 Mar, [facility] [place] [facility] [address] [id number] [place] [address]- 4439 Mar, [facility] [place] [facility] [address] [id number] [place] [address]- 9491 Mar, [facility] [place] [facility] [address] [id number] [place] [address]- 8961 Mar, [facility] [place] [facility] [address] [id number] [place] [address]- 7183 Mar, [facility] [place] [facility] [address] [id number] [place] [address]- 5429 Jan, [facility] [place] [facility] [address] [id number] [place] [address]- 7696 Jan, [facility] [place] [facility] [address] [id number] [place] [address]- 4002 Jan, [facility] [place] [facility] [address] [id number] [place] [address]- 7291 Jan, [facility] [place] [facility] [address] [facility] [id number] [place] [address]- 2943 Jan, [facility] [place] [facility] [address] [id number] [place] [address]- 4906 Jan, [facility] [place] [facility] [address] [id number] [place] [address]- 1419 14 Dec, 2012 [facility] [place] [facility] [address] [id number] [place] [address]- 2842 14 Dec, 2012 [facility] [place] [facility] [address] [id number] [place] [address]- 7424 Dec, [facility] [place] [facility] [address] [id number] [place] [address]- 7066 Dec, [facility] [place] [facility] [address] [id number] [place] [address]- 3405 Dec, [facility] [place] [facility] [address] [id number] [place] [address]- 1916 07 Dec, 2012 [facility] [place] [facility] [address] [id number] [place] [address]- 4441 07 Dec, 2012 [facility] [place] [facility] [address] [id number] [place] [address]- 1116 Dec, [facility] [address] [id number] [place] [address]- 5509 26 Oct, 2012 [facility] [address] [id number] [place] [address]- 2546 17 Oct, 2012 [facility] [address] [id number] [place] [address] 2546 Sep, [facility] [place] [facility] [address] [id number] [place] [address]- 3769 Aug, [facility] [address] [id number] [place] [address]- 8738 Aug, [facility] [address] [id number] [place] [address]- 7317 June, [facility] [address] [id number] [place] [address]- 1966 June, [facility] [address] [id number] [place] [address]- 5567 June, [facility] [address] [id number] [place] [address]- 9114 June, [facility] [address] [id number] [place] [address]- 1037 May, [facility] [address] [id number] [place] [address] 2549 May, [facility] [place] [facility] [address] [id number] [place] [address]- 2546 Apr, [facility] [place] [facility] [address] [id number] [place] [address]- 2546 Apr, [facility] [place] [facility] [address] [id number] [place] [address] 2546 Jan, [facility] [place] [facility] [address] [id number] [place] [address]- 2546 Jan, [facility] [address] [id number] [place] [address]- 7655 24 Jan, 2012 [facility] [address] [id number] [place] [address]- 1896 17 Jan, 2012 [facility] [place] [facility] [address] [id number] [place] 9456 17 Jan, 2012 [facility] [address] [id number] [place] [address]- 8046 13 Jan, 2012 [facility] [place] [facility] [address] [id number] [place] [address]- 6175 13 Jan, 2012 [facility] [address] [id number] [place] [address]- 7455 10 Jan, 2012 [facility] [address] [id number] [place] [address] 10 Jan, 2012 [facility] [address] [id number] [place] [address] 05 Jan, 2012 [facility] [address] [id number] [place] [address] 04 Jan, 2012 [facility] [place] [facility] [address] [id number] [place] [address] 29 Dec, [address] [facility] [address] [facility] [id number] [place] [address] 29 Dec, 2011 [facility] [place] [facility] [address] [id number] [place] [address] Dec, [facility] [place] [facility] [address] [id number] [place] [address] 2836 23 Dec, 2011 [facility] [place] [facility] [address] [id number] [place] [address]707 14 Dec, 2011 [facility] [place] [facility] [address] [id number] [place] [address]96 14 Dec, 2011 [facility] [place] [facility] [address] [id number] [place] [address] Nov, [facility] [place] [facility] [address] [id number] [place] [address] Nov, [facility] [place] [facility] [address] [id number] [place] [address] 79[address] Nov, [facility] [place] [facility] [address] [id number] [place] [address] Oct, [facility] [place] [facility] [address] [id number] [place] [address] Oct, [facility] [place] [facility] [address] [id number] [place] [address] Sep, [facility] [place] [facility] [address] [id number] [place] [address] Sep, [facility] [place] [facility] [address] [id number] [place] [address] Sep, [facility] [place] [facility] [address] [id number] [place] [address] Sep, [facility] [place] [facility] [address] [id number] [place] [address]278 Aug, [facility] [place] [facility] [address] [id number] [place] [address] June, [facility] [place] [facility] [address] [id number] [place] [address] May, [facility] [place] [facility] [address] [id number] [address] 16 May, 2011 [facility] [place] [facility] [address] [id number] [place] [address] 14 May, 2011 [facility] [place] [facility] [address] [id number] [place] [address] 4281 05 May, 2011 [facility] [place] [facility] [address] [id number] [place] [address]453 Apr, [facility] [place] [facility] [address] [id number] [address] 15 Mar, 2011 [facility] [address] [id number] [place] [address] 2542 10 Mar, 2011 [facility] [address] [id number] [place] [address] 20 Feb, 2011 [facility] [address] [id number] [place] [address] 35[address] Feb, [facility] [place] [facility] [address] [id number] [place] [address]60 10 Feb, 2011 [facility] [address] [id number] [place] [address] Jan, [facility] [place] [facility] [address] [id number] [place] [address]296 16 Jan, 2011 [facility] [address] [facility] [id number] [place] [address] 16 Jan, 2011 [facility] [place] [facility] [address] [id number] [place] [address] 8827 15 Jan, 2011 [facility] [address] [id number] [place] [address] Jan, [facility] [facility] [address] [facility] [id number] [place] [address] Jan, [facility] [address] [id number] [place] [address] 05 Jan, 2011 [facility] [place] [facility] [address] [id number] [place] [address] 28 Dec, 2010 [facility] [place] [facility] [address] [id number] [place] [address] 17 Dec, 2010 [facility] [place] [facility] [address] [id number] [place] [address] 10 Dec, 2010 [facility] [place] [facility] [address] [facility] [id number] [place] [address] Dec, [facility] [place] [facility] [address] [id number] [address] Dec, [facility] [address] [id number] [address] Nov, [facility] [id number] [address] Nov, [facility] [id number] [address] Jul, [facility] [id number] [address] June, [facility] [id number] [address] Mar, [facility] [id number] [address] Feb, [facility] [id number] [address] Dec, IMMUNIZATIONS No Known Immunizations SOCIAL HISTORY Never Assessed REASON FOR VISIT EMR-[facility] [place] [facility] PLAN OF CARE VITAL SIGNS MEDICATIONS Unknown [...] Hospitalization History Sepsis 2/2 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
--- OUTSIDE RECORDS SUMMARY | 2018-05-08 20:36 | XMS REPORT ---
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 Name Role Phone TORREY FELIX Unavailable PROBLEMS Type Condition ICD9-CM Code KIQ64-ZW Code Onset Dates Condition Status SNOMED Code Problem Sleep apnea, unspecified type G47.30 Active 80644639 Problem Arthritis M19.90 Active 0504713 Problem Benign positional vertigo, bilateral H81.13 Active 408147344 Problem Chronic viral hepatitis C B18.2 Active 128467647 Problem Chronic obstructive pulmonary disease, unspecified COPD type J44.9 Active 39082181 Problem Other cirrhosis of liver K74.69 Active 04142469 Problem Peripheral vascular disease I73.9 Active 712118943 Problem Vertigo R42 Active 716060622 Problem Insomnia G47.00 Active 253862034 Problem Recurrent major depressive disorder, in full remission F33.42 Active 320077495 Problem Prediabetes R73.03 Active 723960111 ALLERGIES No Information ENCOUNTERS Encounter Location Date Diagnosis [facility] [id number] [place] [address] 96143- 1883 Jan, [facility] [id number] [place] [address] 01434- 1552 Dec, [facility] [id number] [place] [address] 34228- 3826 Nov, [facility] [id number] [place] [address] 57387- 0448 Nov, Benign positional vertigo, bilateral H81.13 [facility] [id number] [place] [address] 92393- 9137 Nov, [facility] [address] 24606- 6524 Nov, [place] [id number] [place] [address] 374487- 2319 Nov, [facility] [id number] [place] [address] 359248- 2863 Oct, [place] [id number] [place] [address] 993136- 6695 Sep, [place] [id number] [place] [address] 99333- 4500 Sep, Compression fracture of body of thoracic vertebra S22.000A and Benign positional vertigo, bilateral H81.13 [place] [id number] [place] [address] 52344- 1737 Sep, [place] [id number] [place] [address] 91947- 4319 Sep, Benign positional vertigo, bilateral H81.13 ; Impacted cerumen of both ears H61.23 ; Chronic obstructive pulmonary disease, unspecified COPD type J44.9 ; Recurrent major depressive disorder, in full remission F33.42 and Other cirrhosis of liver K74.69 [place] [id number] [place] [address] 43178- 1466 Aug, [place] [id number] [place] [address] 94124- 3610 Aug, Lightheadedness R42 [place] [id number] [place] [address] 30048- 4559 Jul, Lightheadedness R42 [place] [id number] [place] [address] 19662- 2127 Jul, Medicare annual wellness visit, initial Z00.00 ; Chronic obstructive pulmonary disease, unspecified COPD type J44.9 ; Depression, unspecified depression type F32.9 ; Insomnia G47.00 ; Chronic viral hepatitis C B18.2 ; Parkinson disease G20 ; Prediabetes R73.03 ; Arthritis M19.90 ; Routine adult health maintenance Z00.00 and Encounter for immunization Z23 [facility] [address] [address] 7377 Jul, [facility] [address] [address]- 2223 June, [facility] [address] [address]- 9610 June, [facility] [id number] [place] [address] 31769- 0351 June, [facility] [id number] [place] [address] 54100- 5008 June, [facility] [id number] [place] [address] 74569- 1057 May, Acute cystitis without hematuria N30.00 [facility] [id number] [place] [address] 20892- 9995 May, Prediabetes R73.03 [facility] [address], [place] [address]- 9980 May, Acute cystitis without hematuria N30.00 ; Type 2 diabetes mellitus without complication, without long-term current use of insulin E11.9 ; Vertigo R42 ; Chronic obstructive pulmonary disease, unspecified COPD type J44.9 ; Chronic viral hepatitis C B18.2 and Prediabetes R73.03 [facility] [address], [place] [address]- 5306 May, [facility] [address] [place] [address]- 3045 May, Chronic viral hepatitis C B18.2 [facility] [address] [address]- 7726 Mar, [facility] [address] [place] [address]- 0388 Dec, Vertigo R42 [facility] [id number] [place] [address] 82990- 2864 Dec, Neck pain M54.2 ; Encounter for immunization Z23 ; Vertigo R42 and Parkinson disease G20 [place] [id number] [place] [address] 39099- 2254 Nov, [facility] [address] 16876- 9719 Nov, [place] [address] 70507- 0598 Sep, [place] [address] 54872- 1279 Sep, Chronic viral hepatitis C B18.2 [place] [id number] [place] [address] 70590- 8159 Sep, Chronic viral hepatitis C B18.2 [place] [address] 60559- 9345 Sep, Chronic viral hepatitis C B18.2 [place] [id number] [place] [address] 58490- 4343 Aug, Type 2 diabetes mellitus without complication, without long- term current use of insulin E11.9 ; Chronic viral hepatitis C B18.2 ; Vertigo R42 and Depression, unspecified depression type F32.9 [place] [id number] [place] [address] 24126- 9656 Jul, Insomnia G47.00 [place] [id number] [place] [address] 33893- 4153 Jul, Type 2 diabetes mellitus without complication, without long- term current use of insulin E11.9 [place] [id number] [place] [address] 40572- 2985 Apr, [facility] [id number] [place] [address] [id number] Apr, Dental examination Z01.20 [facility] [address] [id number] Feb, Encounter for dental examination Z01.20 [facility] [address] [place] [address] [id number] Jan, Dental caries K02.9 [facility] [id number] [place] [address] 11992- 3363 Jan, Arthritis M19.90 [facility] [id number] [place] [address] 50129- 5426 Jan, Benign positional vertigo, bilateral H81.13 and Type 2 diabetes mellitus without complication, without long-term current use of insulin E11.9 [facility] [id number] [place] [address] 93273- 4676 Dec, [facility] [id number] [place] [address] 31201- 9751 Dec, [facility] [id number] [place] [address] 31813- 4538 Dec, Encounter for immunization Z23 and Elevated blood pressure reading R03.0 [facility] [id number] [place] [address] 87002- 4873 Dec, [facility] [id number] [place] [address] 45479- 0779 Dec, [facility] [id number] [place] [address] 61139- 5370 Nov, Type 2 diabetes mellitus without complication, without long- term current use of insulin E11.9 and Chronic viral hepatitis C B18.2 [facility] [id number] [place] [address] 01772- 9918 Nov, [facility] [id number] [place] [address] 41258- 7814 Nov, [facility] [id number] [place] [address] 24928- 6064 Oct, [facility] [id number] [place] [address] [id number] Oct, Dental examination Z01.20 [facility] [id number] [place] [address] 85467- 2927 Sep, [facility] [id number] [place] [address] 63422- 0418 Sep, [place] [id number] [place] [address] 35447- 0683 Sep, Type 2 diabetes mellitus without complication, without long- term current use of insulin E11.9 and Chronic obstructive pulmonary disease, unspecified COPD type J44.9 [place] [id number] [place] [address] 62755- 1466 Sep, Rectal bleeding K62.5 [facility] [id number] [place] [address] 83920 -0953 Aug, Rectal bleeding K62.5 ; Postmenopausal vaginal bleeding N95.0 ; Dysuria R30.0 ; Dermatitis L30.9 ; Acute cystitis with hematuria N30.01 ; Glycosuria R81 and Adnexal pain R10.2 [place] [id number] [place] [address] 96072- 3033 May, [place] [id number] [place] [address] 22711- 9259 May, Chronic viral hepatitis C B18.2 [place] [id number] [place] [address] 71938- 5618 Apr, [facility] [id number] [place] [address] 51123- 8775 Mar, [place] [id number] [place] [address] 94261- 5341 Mar, Insomnia G47.00 [place] [id number] [place] [address] 68751- 0511 Feb, Chronic viral hepatitis C B18.2 and Fatigue R53.83 [place] [address] 00509- 6488 Feb, Rash R21 ; Fatigue R53.83 and Chronic viral hepatitis C B18.2 [facility] [address] 19748- 1400 Feb, Chronic viral hepatitis C B18.2 [facility] [address] 05983- 5744 Jan, Dermatitis L30.9 and Chronic viral hepatitis C B18.2 [facility] [address] 04518- 9190 Jan, [facility] [address] 20045- 0166 Dec, [facility] [address] 79700- 7703 Nov, [facility] [address] 85292- 4284 Nov, Hep C w/o coma, chronic 070.54 [facility] [address] 02418- 2739 Oct, Lower back pain 724.2 and Urinary tract infection 599.0 [place] [id number] [place] [address] 49206- 3901 Oct, [facility] [address] 50151- 1356 Oct, [facility] [id number] [place] [address] 00823- 7217 Oct, Dark urine 791.9 and Rectal bleeding 569.3 [place] [address] 97945- 8222 Sep, Hep C w/o coma, chronic 070.54 [facility] [id number] [place] [address] 23771- 7616 Sep, [place] [address] [facility] [id number] [address]- 3384 Aug, [facility] [address], [place] [address]- 4436 Aug, [facility] [address], [place] [address]- 6187 Jul, Hep C w/o coma, chronic 070.54 [facility] [address] [facility] [id number] [address]- 6152 Jul, Hep C w/o coma, chronic 070.54 [facility] [id number] [place] [address] 67590- 9019 June, Local infection of skin and subcutaneous tissue 686.9 [facility] [address], [place] [address]- 9038 June, Foot pain, right 729.5 [facility] [address], [place] [address]- 9763 June, [facility] [address], [place] [address]- 6036 May, [facility] [address], [place] [address]- 9764 May, [facility] [address], [place] [address]- 1616 Apr, [facility] [id number] [address]- 4204 Apr, [facility] [id number] [address]- 6670 Apr, [facility] [id number] [address]- 2358 Apr, [facility] [id number], [place] [address]- 4184 Apr, [facility] [address] [address]- 9874 Apr, [facility] [place] [facility] [address] [id number] [place] [address]- 2356 Jan, [facility] [place] [facility] [address] [id number] [place] 9424 Jan, [facility] [place] [facility] [address] [id number] [place] [address]- 9992 Jan, [facility] [place] [facility] [address] [id number] [place] [address]- 4128 Dec, [facility] [place] [facility] [address] [id number] [place] 0859 Dec, [facility] [place] [facility] [address] [id number] [place] [address]- 4723 Dec, [facility] [place] [facility] [address] [id number] [place] [address]- 8453 Dec, [facility] [place] [facility] [address] [id number] [place] [address]- 8825 Nov, [facility] [place] [facility] [address] [id number] [place] [address]- 4546 Nov, [facility] [place] [facility] [address] [id number] [place] [address]- 4080 Nov, [facility] [place] [facility] [address] [id number] [place] [address]- 6755 Nov, [facility] [place] [facility] [address] [id number] [place] [address]- 9233 Nov, [facility] [place] [facility] [address] [id number] [place] 8800 Nov, [facility] [place] [facility] [address] [id number] [place] [address]- 7041 14 Nov, 2013 [facility] [place] [facility] [address] [id number] [place] 1894 Nov, [facility] [place] [facility] [address] [id number] [place] [address]- 7698 Nov, [facility] [place] [facility] [address] [id number] [place] [address]- 5545 Nov, [facility] [place] [facility] [address] [id number] [place] [address]- 1511 Oct, [facility] [place] [facility] [address] [id number] [place] [address]- 4094 Oct, [facility] [place] [facility] [address] [id number] [place] [address]- 9749 Oct, [facility] [place] [facility] [address] [id number] [place] [address]- 8095 Oct, [facility] [place] [facility] [address] [id number] [place] [address]- 1294 Oct, [facility] [place] [facility] [address] [id number] [place] [address]- 8612 Oct, [facility] [place] [facility] [address] [id number] [place] [address]- 2593 Oct, [facility] [place] [facility] [address] [id number] [place] [address]- 9423 Oct, [facility] [place] [facility] [address] [id number] [place] [address]- 3771 Aug, [facility] [place] [facility] [address] [id number] [place] [address]- 0406 Aug, [facility] [place] [facility] [address] [id number] [place] [address]- 6395 Aug, [facility] [place] [facility] [address] [id number] [place] [address]- 9134 Aug, [facility] [place] [facility] [address] [id number] [place] [address]- 7193 Aug, [facility] [place] [facility] [address] [id number] [place] [address]- 2546 Aug, [facility] [place] [facility] [address] [id number] [place] [address]- 5120 Aug, [facility] [place] [facility] [address] [id number] [place] [address]- 5942 Aug, [facility] [place] [facility] [address] [id number] [place] [address]- 3743 June, [facility] [place] [facility] [address] [id number] [place] [address]- 1687 June, [facility] [place] [facility] [address] [id number] [place] [address]- 3331 May, [facility] [place] [facility] [address] [id number] [place] [address]- 7631 May, [facility] [place] [facility] [address] [id number] [place] [address]- 9188 Apr, [facility] [place] [facility] [address] [id number] [place] [address]- 7951 Apr, [facility] [place] [facility] [address] [id number] [place] [address]- 6604 Apr, [facility] [place] [facility] [address] [id number] [place] [address]- 8112 Mar, [facility] [place] [facility] [address] [id number] [place] [address]- 2450 Mar, [facility] [place] [facility] [address] [id number] [place] [address]- 7912 Mar, [facility] [place] [facility] [address] [id number] [place] 0820 Mar, [facility] [place] [facility] [address] [id number] [place] [address]- 6156 Mar, [facility] [place] [facility] [address] [facility] [id number] [place] [address]- 8221 Mar, [facility] [place] [facility] [address] [id number] [place] [address]- 2634 09 Jan, 2012 [facility] [place] [facility] [address] [id number] [place] [address]- 5831 Jan, [facility] [place] [facility] [address] [id number] [place] [address]- 2543 Jan, 2012 [facility] [place] [facility] [address] [id number] [place] [address]- 0449 05 Jan, 2013 [facility] [place] [facility] [address] [id number] [place] [address]- 8742 Jan, [facility] [place] [facility] [address] [id number] [place] [address]- 1694 Jan, [facility] [address] [id number] [place] [address]- 4598 14 Dec, 2012 [facility] [place] [facility] [address] [id number] [place] [address]- 1719 14 Dec, 2012 [facility] [place] [facility] [address] [id number] [place] [address]- 3714 Dec, [facility] [place] [facility] [address] [id number] [place] [address]- 2226 Dec, [facility] [place] [facility] [address] [id number] [place] [address]- 8230 Dec, [facility] [place] [facility] [address] [id number] [place] [address]- 9518 07 Dec, 2012 [facility] [place] [facility] [address] [id number] [place] [address]- 7928 Dec, [facility] [place] [facility] [address] [id number] [place] [address]- 3291 Dec, [facility] [place] [facility] [address] [id number] [place] [address]- 5885 26 Oct, 2012 [facility] [place] [facility] [address] [id number] [place] [address]- 4008 Oct, [facility] [address] [id number] [place] [address]- 6699 Sep, [facility] [address] [id number] [place] [address]- 3266 Aug, [facility] [address] [id number] [place] [address] 2546 Aug, [facility] [address] [id number] [place] [address]- 7656 June, [facility] [address] [id number] [place] [address]- 2626 June, [facility] [address] [id number] [place] [address]- 7796 June, [facility] [address] [id number] [place] [address]- 2546 June, [facility] [address] [id number] [place] [address]- 0340 May, [facility] [address] [id number] [place] [address]- 4679 May, [facility] [place] [facility] [address] [id number] [place] [address] 2546 Apr, [facility] [address] [id number] [place] [address]- 2546 Apr, [facility] [place] [facility] [address] [id number] [place] [address]- 2946 Jan, [facility] [place] [facility] [address] [id number] [place] [address]- 5716 Jan, [facility] [place] [facility] [address] [id number] [place] [address]- 9696 Jan, [facility] [place] [facility] [address] [id number] [place] [address]- 2546 Jan, [facility] [place] [facility] [address] [id number] [place] [address]- 7784 17 Jan, 2012 [facility] [address] [id number] [place] [address]- 3128 13 Jan, 2012 [facility] [place] [facility] [address] [id number] [place] [address] 13 Jan, 2012 [facility] [address] [id number] [place] [address] 10 Jan, 2012 [facility] [place] [facility] [address] [id number] [place] [address] 9661 10 Jan, 2012 [facility] [place] [facility] [address] [id number] [place] [address] 05 Jan, 2012 [facility] [place] [facility] [address] [id number] [place] [address] Jan, [facility] [place] [facility] [address] [id number] [place] [address] Dec, [facility] [place] [facility] [address] [id number] [place] [address] 29 Dec, 2011 [facility] [place] [facility] [address] [id number] [place] [address] Dec, [facility] [place] [facility] [address] [facility] [id number] [place] [address] 23 Dec, 2011 [facility] [place] [facility] [address] [id number] [place] [address] 29[address] 14 Dec, 2011 [facility] [place] [facility] [address] [id number] [place] [address] 38[address] 14 Dec, 2011 [facility] [place] [facility] [address] [id number] [place] [address] Nov, [facility] [place] [facility] [address] [id number] [place] [address] Nov, [facility] [place] [facility] [address] [id number] [place] [address] Nov, [facility] [place] [facility] [address] [id number] [place] [address] Oct, [facility] [place] [facility] [address] [id number] [place] [address] Oct, [facility] [place] [facility] [address] [id number] [place] [address] Sep, [facility] [place] [facility] [address] [id number] [place] [address] Sep, [facility] [place] [facility] [address] [id number] [place] [address] 79[address] Sep, [facility] [place] [facility] [address] [id number] [place] [address] Sep, [facility] [place] [facility] [address] [id number] [place] [address] Aug, [facility] [place] [facility] [address] [id number] [place] [address] 98[address] June, [facility] [place] [facility] [address] [id number] [place] [address] May, [facility] [place] [facility] [address] [id number] [place] [address] 16 May, 2011 [facility] [place] [facility] [address] [id number] [place] [address] May, [facility] [place] [facility] [address] [id number], [place] [address] 05 May, 2011 [facility] [place] [facility] [address] [id number] [place] [address] Apr, [facility] [place] [facility] [address] [id number] [place] [address] 15 Mar, 2011 [facility] [place] [facility] [address] [id number] [place] [address] 68[address] Mar, [facility] [place] [facility] [address] [id number], [place] [address] 20 Feb, 2011 [facility] [address] [id number] [place] [address] Feb, [facility] [place] [facility] [address] [id number] [place] [address] 9[address] 10 Feb, 2011 [facility] [address] [facility] [id number] [place] [address] Jan, [facility] [place] [facility] [address] [id number] [place] [address] 0[address] 16 Jan, 2011 [facility] [address] [id number] [place] [address] 1785 16 Jan, 2011 [facility] [place] [facility] [address] [id number] [place] [address] 15 Jan, 2011 [facility] [address] [facility] [id number] [place] [address] Jan, [facility] [place] [facility] [address] [facility] [id number] [place] [address] Jan, [facility] [address] [id number] [address] 05 Jan, 2011 [facility] [place] [facility] [address] [facility] [id number] [place] [address] 47[address] 28 Dec, 2010 [facility] [address] [id number], [place] [address] 17 Dec, 2010 [facility] [place] [facility] [address] [id number], [place] [address] 10 Dec, 2010 [facility] [place] [facility] [address] [id number] [place] [address] 10 Dec, 2010 [facility] [place] [facility] [address] [facility] [id number], [place] [address] 09 Dec, 2009 [facility] [place] [facility] [address] [facility] [id number], [place] [address] 16 Nov, 2009 [facility] [place] [facility] [address] [facility] [id number] [address] 11 Nov, 2009 [facility] [address] [id number], [place] [address] Jul, [facility] [address] [id number], [place] [address] June, [facility] [address] [facility] [id number], [place] [address] Mar, [facility] [address] [id number], [place] [address] Feb, [facility] [address] [id number], [place] [address] Dec, IMMUNIZATIONS No Known Immunizations SOCIAL HISTORY Never Assessed REASON FOR VISIT Controlled Med Refill 01/27 PLAN OF CARE VITAL SIGNS MEDICATIONS Medication Instructions Dosage Frequency Start Date End Date Duration Status Temazepam 15MG Orally Once a day 1 capsule 24h Active RESULTS No Results PROCEDURES No Known procedures [...] Hospitalization History Sepsis 2/2 UTI from actinomyces- [facility] 05/19/17 Hospitalization History Constipation 06/25
--- OUTSIDE RECORDS SUMMARY | 2018-05-08 20:36 | XMS REPORT ---
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 Name Role Phone Migration, Doctor Unavailable Unavailable PROBLEMS Type Condition ICD9-CM Code WGV21-YV Code Onset Dates Condition Status SNOMED Code Problem Sleep apnea, unspecified type G47.30 Active 98960786 Problem Benign positional vertigo, bilateral H81.13 Active 428311741 Problem Arthritis M19.90 Active 9822736 Problem Peripheral vascular disease I73.9 Active 448961043 Problem Chronic obstructive pulmonary disease, unspecified COPD type J44.9 Active 02870977 Problem Other cirrhosis of liver K74.69 Active 28708689 Problem Chronic viral hepatitis C B18.2 Active 172917787 Problem Insomnia G47.00 Active 520818617 Problem Vertigo R42 Active 266507304 Problem Prediabetes R73.03 Active 153386646 Problem Recurrent major depressive disorder, in full remission F33.42 Active 428499082 ALLERGIES No Information ENCOUNTERS Encounter Location Date Diagnosis [facility] [address] [address] Mar, [facility] [id number] [place] [address] 26486- 1942 Feb, [facility] [id number] [place] [address] 77420- 7026 Jan, [facility] [id number] [place] [address] 10876- 1606 Dec, [facility] [address] [address]- 2470 Nov, [facility] [id number] [place] [address] 13033- 3773 Nov, Benign positional vertigo, bilateral H81.13 [facility] [address] [address]- 5598 Nov, [facility] [address] [address] 15[address] Nov, [facility] [id number] [place] [address] 912635- 5006 Nov, [facility] [id number] [place] [address] 44280- 5927 Oct, [facility] [id number] [place] [address] 527447- 6072 Sep, [facility] [id number] [place] [address] 77058- 0737 Sep, Compression fracture of body of thoracic vertebra S22.000A and Benign positional vertigo, bilateral H81.13 [facility] [id number] [place] [address] 45629- 6129 Sep, [facility] [id number] [place] [address] 23179- 0712 Sep, Benign positional vertigo, bilateral H81.13 ; Impacted cerumen of both ears H61.23 ; Chronic obstructive pulmonary disease, unspecified COPD type J44.9 ; Recurrent major depressive disorder, in full remission F33.42 and Other cirrhosis of liver K74.69 [facility] [address] [address]- 2423 Aug, [facility] [id number] [place] [address] 84071- 7720 Aug, Lightheadedness R42 [facility] [address] [address]- 7323 Jul, Lightheadedness R42 [facility] [address] [address]- 7692 Jul, Medicare annual wellness visit, initial Z00.00 ; Chronic obstructive pulmonary disease, unspecified COPD type J44.9 ; Depression, unspecified depression type F32.9 ; Insomnia G47.00 ; Chronic viral hepatitis C B18.2 ; Parkinson disease G20 ; Prediabetes R73.03 ; Arthritis M19.90 ; Routine adult health maintenance Z00.00 and Encounter for immunization Z23 [facility] [address] [address]- 0770 Jul, [facility] [id number] [address]- 5883 June, [facility] [id number] [place] [address] 87043- 1033 June, [facility] [id number] [place] [address] 88235- 6257 June, [facility] [id number] [place] [address] 01374- 0928 June, [facility] [id number] [place] [address] 62178- 3351 May, Acute cystitis without hematuria N30.00 [facility] [address] [address]- 2853 May, Prediabetes R73.03 [facility] [id number] [place] [address] 57960- 0941 May, Acute cystitis without hematuria N30.00 ; Type 2 diabetes mellitus without complication, without long-term current use of insulin E11.9 ; Vertigo R42 ; Chronic obstructive pulmonary disease, unspecified COPD type J44.9 ; Chronic viral hepatitis C B18.2 and Prediabetes R73.03 [facility] [address] [address]- 4044 May, [facility] [id number] [place] [address] 58458- 9045 May, Chronic viral hepatitis C B18.2 [facility] [address] [address]- 9333 Mar, [facility] [id number] [place] [address] 21221- 1518 Dec, Vertigo R42 [facility] [id number] [place] [address] 77676- 0316 Dec, Neck pain M54.2 ; Encounter for immunization Z23 ; Vertigo R42 and Parkinson disease G20 [facility] [id number] [place] [address] 44837- 6040 Nov, [facility] [address] 32471- 3859 Nov, [facility] [id number] [place] [address] 49587- 8315 Sep, [facility] [address] 34184- 7949 Sep, Chronic viral hepatitis C B18.2 [facility] [address] 81794- 2804 Sep, Chronic viral hepatitis C B18.2 [facility] [id number] [place] [address] 92996- 3683 Sep, Chronic viral hepatitis C B18.2 [facility] [id number] [place] [address] 16685- 0079 Aug, Type 2 diabetes mellitus without complication, without long- term current use of insulin E11.9 ; Chronic viral hepatitis C B18.2 ; Vertigo R42 and Depression, unspecified depression type F32.9 [facility] [id number] [place] [address] 01876- 5455 Jul, Insomnia G47.00 [facility] [id number] [place] [address] 72691- 2466 Jul, Type 2 diabetes mellitus without complication, without long- term current use of insulin E11.9 [facility] [id number] [place] [address] 14107- 3604 Apr, [facility] [id number] [place] [address] [id number] Apr, Dental examination Z01.20 [facility] [id number] [id number] Feb, Encounter for dental examination Z01.20 [facility] [address] [id number] Jan, Dental caries K02.9 [facility] [id number] [place] [address] 19114- 0051 Jan, Arthritis M19.90 [facility] [id number] [place] [address] 07504- 9556 Jan, Benign positional vertigo, bilateral H81.13 and Type 2 diabetes mellitus without complication, without long-term current use of insulin E11.9 [facility] [address] [place] [address] 97812- 8997 Dec, [facility] [id number] [place] [address] 78648- 3665 Dec, [facility] [id number] [place] [address] 04458- 8323 Dec, Encounter for immunization Z23 and Elevated blood pressure reading R03.0 [facility] [id number] [place] [address] 99041- 7952 Dec, [facility] [id number] [place] [address] 03128- 6817 Dec, [facility] [id number] [place] [address] 49980- 5123 Nov, Type 2 diabetes mellitus without complication, without long- term current use of insulin E11.9 and Chronic viral hepatitis C B18.2 [facility] [id number] [place] [address] 50340- 7382 Nov, [facility] [id number] [place] [address] 88753- 3807 Nov, [facility] [address] [address]- 1739 Oct, [facility] [id number] [place] [address] [id number] Oct, Dental examination Z01.20 [facility] [id number] [place] [address] 80479- 3619 Sep, [facility] [id number] [place] [address] 19437- 8584 Sep, [facility] [id number] [place] [address] 28097- 6037 Sep, Type 2 diabetes mellitus without complication, without long- term current use of insulin E11.9 and Chronic obstructive pulmonary disease, unspecified COPD type J44.9 [facility] [id number] [place] [address] 20956- 1043 Sep, Rectal bleeding K62.5 [facility] [id number] [place] [address] 62908 -8831 Aug, Rectal bleeding K62.5 ; Postmenopausal vaginal bleeding N95.0 ; Dysuria R30.0 ; Dermatitis L30.9 ; Acute cystitis with hematuria N30.01 ; Glycosuria R81 and Adnexal pain R10.2 [facility] [address] [place] [address] 32900- 0033 May, [facility] [id number] [place] [address] 33352- 8002 May, Chronic viral hepatitis C B18.2 [facility] [id number] [place] [address] 51320- 9870 Apr, [facility] [id number] [place] [address] 34157- 3007 Mar, [facility] [id number] [place] [address] 94685- 6747 Mar, Insomnia G47.00 [facility] [id number] [place] [address] 98101- 6353 Feb, Chronic viral hepatitis C B18.2 and Fatigue R53.83 [facility] [address] 53924- 9250 Feb, Rash R21 ; Fatigue R53.83 and Chronic viral hepatitis C B18.2 [facility] [address] 94097- 8238 Feb, Chronic viral hepatitis C B18.2 [facility] [address] 09081- 2034 Jan, Dermatitis L30.9 and Chronic viral hepatitis C B18.2 [facility] [address] 40781- 7974 Jan, [facility] [address] 09251- 8215 Dec, [facility] [address] 50715- 3943 Nov, [facility] [address] 78127- 0543 Nov, Hep C w/o coma, chronic 070.54 [facility] [id number] [place] [address] 90890- 4133 Oct, Lower back pain 724.2 and Urinary tract infection 599.0 [facility] [id number] [place] [address] 24570- 2148 Oct, [facility] [address] 27671- 3905 Oct, [facility] [address] 27222- 3473 Oct, Dark urine 791.9 and Rectal bleeding 569.3 [facility] [id number] [place] [address] 55974- 1893 Sep, Hep C w/o coma, chronic 070.54 [facility] [address] [address]- 3248 Sep, [facility] [address] [place] [address] 72757- 3153 Aug, [facility] [address] [address]- 2620 Aug, [facility] [address] [place] [address] 89493- 7390 Jul, Hep C w/o coma, chronic 070.54 [facility] [id number] [place] [address] 95690- 5012 Jul, Hep C w/o coma, chronic 070.54 [facility] [id number] [place] [address] 66348- 5264 June, Local infection of skin and subcutaneous tissue 686.9 [facility] [address] [address]- 1920 June, Foot pain, right 729.5 [facility] [address] [place] [address] 19089- 4494 June, [facility] [address] [address]- 1561 May, [facility] [address] [address]- 3806 May, [facility] [address] [address]- 7108 Apr, [facility] [address] [address]- 0433 Apr, [facility] [address] [address]- 2234 Apr, [facility] [address] [address]- 1707 Apr, [facility] [place] [facility] [address] [id number] [place] [address]- 8016 Apr, 2014 [facility] [place] [facility] [address] [id number] [place] 3259 Apr, [facility] [place] [facility] [address] [id number] [place] 1857 Jan, [facility] [place] [facility] [address] [id number] [place] [address]- 8949 Jan, [facility] [place] [facility] [address] [id number] [place] 7446 Jan, [facility] [place] [facility] [address] [id number] [place] [address]- 4233 Dec, [facility] [place] [facility] [address] [id number] [place] [address]- 7747 Dec, [facility] [place] [facility] [address] [id number] [place] [address]- 0864 Dec, [facility] [place] [facility] [address] [id number] [place] [address]- 6346 Dec, [facility] [place] [facility] [address] [id number] [place] [address]- 8398 Nov, [facility] [place] [facility] [address] [id number] [place] [address]- 9992 Nov, [facility] [place] [facility] [address] [id number] [place] [address]- 8304 Nov, [facility] [place] [facility] [address] [id number] [place] [address]- 8940 Nov, [facility] [place] [facility] [address] [id number] [place] [address]- 5766 Nov, [facility] [place] [facility] [address] [id number] [place] [address]- 8972 Nov, [facility] [place] [facility] [address] [id number] [place] [address]- 6201 14 Nov, 2013 [facility] [place] [facility] [address] [id number] [place] [address]- 8701 14 Nov, 2013 [facility] [place] [facility] [address] [id number] [place] [address]- 4499 Nov, [facility] [place] [facility] [address] [id number] [place] [address]- 6527 Nov, [facility] [place] [facility] [address] [id number] [place] [address]- 1985 Oct, [facility] [place] [facility] [address] [id number] [place] [address]- 3904 Oct, [facility] [place] [facility] [address] [id number] [place] [address]- 4589 Oct, [facility] [place] [facility] [address] [id number] [place] [address]- 6440 Oct, [facility] [place] [facility] [address] [id number] [place] [address]- 8227 Oct, [facility] [place] [facility] [address] [id number] [place] [address]- 8651 Oct, [facility] [place] [facility] [address] [id number] [place] [address]- 2240 Oct, [facility] [place] [facility] [address] [id number] [place] [address]- 9992 Oct, [facility] [place] [facility] [address] [id number] [place] [address]- 1948 Aug, [facility] [place] [facility] [address] [id number] [place] [address]- 9496 Aug, [facility] [place] [facility] [address] [id number] [place] [address]- 4096 Aug, [facility] [place] [facility] [address] [id number] [place] [address]- 7963 Aug, [facility] [place] [facility] [address] [id number] [place] [address]- 2154 Aug, [facility] [place] [facility] [address] [id number] [place] [address]- 0018 Aug, [facility] [place] [facility] [address] [id number] [place] [address]- 2307 Aug, [facility] [place] [facility] [address] [id number] [place] [address]- 9511 Aug, [facility] [place] [facility] [address] [id number] [place] [address]- 0289 June, [facility] [place] [facility] [address] [id number] [place] [address]- 8927 June, [facility] [place] [facility] [address] [id number] [place] [address]- 0207 May, [facility] [place] [facility] [address] [id number] [place] [address]- 5256 May, [facility] [place] [facility] [address] [id number] [place] [address]- 5137 Apr, [facility] [place] [facility] [address] [id number] [place] [address]- 1522 Apr, [facility] [place] [facility] [address] [facility] [id number] [place] [address]- 3273 Apr, [facility] [place] [facility] [address] [id number] [place] [address]- 5863 Mar, [facility] [place] [facility] [address] [id number] [place] [address]- 6840 Mar, [facility] [place] [facility] [address] [id number] [place] [address]- 4180 Mar, [facility] [place] [facility] [address] [id number] [place] [address]- 6455 Mar, [facility] [place] [facility] [address] [id number] [place] [address]- 3963 Mar, [facility] [address] [id number] [place] [address]- 7424 Mar, [facility] [place] [facility] [address] [id number] [place] [address]- 0770 Jan, [facility] [place] [facility] [address] [id number] [place] 2275 Jan, [facility] [place] [facility] [address] [id number] [place] [address]- 2618 Jan, [facility] [place] [facility] [address] [id number] [place] [address]- 5360 Jan, [facility] [place] [facility] [address] [id number] [place] [address]- 1264 Jan, [facility] [place] [facility] [address] [id number] [place] [address]- 7930 Jan, [facility] [place] [facility] [address] [id number] [place] [address]- 6189 14 Dec, 2012 [facility] [place] [facility] [address] [id number] [place] [address]- 2241 14 Dec, 2012 [facility] [place] [facility] [address] [facility] [id number] [place] [address]- 3080 Dec, [facility] [place] [facility] [address] [id number] [place] [address]- 9775 Dec, [facility] [place] [facility] [address] [id number] [place] [address]- 4904 Dec, [facility] [place] [facility] [address] [id number] [place] [address]- 9840 Dec, [facility] [place] [facility] [address] [id number] [place] [address]- 2968 Dec, [facility] [place] [facility] [address] [facility] [id number] [place] [address]- 7828 Dec, [facility] [place] [facility] [address] [id number] [place] [address]- 6542 26 Oct, 2012 [facility] [address] [id number] [place] [address]- 0413 17 Oct, 2012 [facility] [address] [id number] [place] [address]- 4766 16 Sep, 2012 [facility] [address] [id number] [place] [address]- 8647 Aug, [facility] [address] [id number] [place] [address]- 9005 Aug, [facility] [address] [id number] [place] [address]- 4492 June, [facility] [address] [id number] [place] [address]- 8036 June, [facility] [address] [id number] [place] [address]- 4055 June, [facility] [address] [id number] [place] [address]- 0092 June, [facility] [address] [id number] [place] [address]- 0710 May, [facility] [address] [id number] [place] [address]- 8239 May, [facility] [address] [id number] [place] [address]- 9946 Apr, [facility] [address] [id number] [place] [address]- 2546 Apr, [facility] [address] [id number] [place] [address]- 2374 Jan, [facility] [address] [id number] [place] [address]- 6166 Jan, [facility] [address] [id number] [place] [address]- 0706 Jan, [facility] [place] [facility] [address] [id number] [place] [address]- 5986 17 Jan, 2012 [facility] [place] [facility] [address] [id number] [place] [address] 17 Jan, 2012 [facility] [place] [facility] [address] [id number] [place] [address]46 13 Jan, 2012 [facility] [place] [facility] [address] [id number] [place] [address] 13 Jan, 2012 [facility] [place] [facility] [address] [id number] [place] [address]46 10 Jan, 2012 [facility] [place] [facility] [address] [id number] [place] [address] Jan, [facility] [place] [facility] [address] [id number] [place] [address] 05 Jan, 2012 [facility] [place] [facility] [address] [id number] [place] [address] Jan, [facility] [place] [facility] [address] [id number] [place] [address] Dec, [facility] [place] [facility] [address] [id number] [place] [address] 2543 29 Dec, 2011 [facility] [place] [facility] [address] [id number] [place] [address] Dec, [facility] [place] [facility] [address] [id number] [place] [address] Dec, [facility] [place] [facility] [address] [id number] [place] [address]46 14 Dec, 2011 [facility] [place] [facility] [address] [id number] [place] [address] 14 Dec, 2011 [facility] [place] [facility] [address] [id number] [place] [address] Nov, [facility] [place] [facility] [address] [id number] [place] [address] Nov, [facility] [place] [facility] [address] [id number] [place] [address] Nov, [facility] [place] [facility] [address] [id number] [place] [address] Oct, [facility] [place] [facility] [address] [id number] [place] [address] Oct, [facility] [place] [facility] [address] [id number] [place] [address] Sep, [facility] [place] [facility] [address] [id number] [place] [address] Sep, [facility] [place] [facility] [address] [id number] [place] [address] Sep, [facility] [place] [facility] [address] [id number] [place] [address] Sep, [facility] [place] [facility] [address] [id number] [place] [address] Aug, [facility] [place] [facility] [address] [id number] [place] [address] June, [facility] [place] [facility] [address] [id number] [place] [address] May, [facility] [place] [facility] [address] [id number] [place] [address] 16 May, 2011 [facility] [place] [facility] [address] [id number] [place] [address] 14 May, 2011 [facility] [place] [facility] [address] [id number] [place] [address] May, [facility] [place] [facility] [address] [id number] [place] [address] Apr, [facility] [place] [facility] [address] [id number] [place] [address] 15 Mar, 2011 [facility] [place] [facility] [address] [id number] [place] [address]68 10 Mar, 2011 [facility] [address] [id number] [place] [address] Feb, [facility] [address] [id number] [place] [address] 19 Feb, 2011 [facility] [address] [id number] [place] [address] Feb, [facility] [address] [id number] [place] [address] Jan, [facility] [address] [id number] [place] [address] 16 Jan, 2011 [facility] [address] [id number] [place] [address] 16 Jan, 2011 [facility] [address] [id number] [place] [address] 15 Jan, 2011 [facility] [address] [id number] [place] [address] Jan, [facility] [address] [id number] [place] [address] Jan, [facility] [address] [facility] [id number] [place] [address] 05 Jan, 2011 [facility] [address] [id number] [place] [address] 28 Dec, 2010 [facility] [address] [id number] [place] [address] 17 Dec, 2010 [facility] [place] [facility] [address] [id number] [place] [address] 10 Dec, 2010 [facility] [place] [facility] [address] [id number] [place] [address] Dec, [facility] [address] [id number] [place] [address] Dec, [facility] [id number] [address] Nov, [facility] [address] [id number] [address] Nov, [facility] [id number] [address] Jul, [facility] [id number] [address] June, [facility] [id number] [address] Mar, [facility] [id number] [address] Feb, [facility] [id number] [address] Dec, IMMUNIZATIONS No Known Immunizations SOCIAL HISTORY Never Assessed REASON FOR VISIT [facility] PLAN OF CARE VITAL SIGNS MEDICATIONS Unknown [...] surgeries Hospitalization History Sepsis 2/2 [facility] 05/19/17 Hospitalization History Constipation 06/25
--- OUTSIDE RECORDS SUMMARY | 2018-05-08 20:37 | XMS REPORT ---
Author Author TORREY FELIX Organization [facility] Address [address] [place] [address] Care Team Providers Care Ventilating Expert Name Role Phone TORREY FELIX Unavailable PROBLEMS Type Condition ICD9-CM Code WRS97-FB Code Onset Dates Condition Status SNOMED Code Problem Sleep apnea, unspecified type G47.30 Active 04554205 Problem Arthritis M19.90 Active 9040202 Problem Benign positional vertigo, bilateral H81.13 Active 453005928 Problem Chronic viral hepatitis C B18.2 Active 755628970 Problem Chronic obstructive pulmonary disease, unspecified COPD type J44.9 Active 24232820 Problem Other cirrhosis of liver K74.69 Active 94974143 Problem Peripheral vascular disease I73.9 Active 677789702 Problem Vertigo R42 Active 677081913 Problem Insomnia G47.00 Active 818044778 Problem Recurrent major depressive disorder, in full remission F33.42 Active 542566964 Problem Prediabetes R73.03 Active 281856275 ALLERGIES No Information ENCOUNTERS Encounter Location Date Diagnosis [facility] [id number] [place] [address] 94609- 3364 Nov, [facility] [id number] [place] [address] 21338- 0624 Nov, Benign positional vertigo, bilateral H81.13 [facility] [id number] [place] [address] 51402- 6087 Nov, [facility] [address] 17489- 4968 Nov, [facility] [id number] [place] [address] 91701- 9427 Nov, [facility] [id number] [place] [address] 21973- 1414 Oct, [place] [id number] [place] [address] 97625- 0697 Sep, [place] [id number] [place] [address] 23175- 2740 Sep, Compression fracture of body of thoracic vertebra S22.000A and Benign positional vertigo, bilateral H81.13 [place] [id number] [place] [address] 71004- 0259 Sep, [place] [id number] [place] [address] 50973- 9803 Sep, Benign positional vertigo, bilateral H81.13 ; Impacted cerumen of both ears H61.23 ; Chronic obstructive pulmonary disease, unspecified COPD type J44.9 ; Recurrent major depressive disorder, in full remission F33.42 and Other cirrhosis of liver K74.69 [place] [id number] [place] [address] 03096- 9533 Aug, [place] [id number] [place] [address] 31374- 9688 Aug, Lightheadedness R42 [place] [id number] [place] [address] 65633- 2577 Jul, Lightheadedness R42 [place] [id number] [place] [address] 65960- 6201 Jul, Medicare annual wellness visit, initial Z00.00 ; Chronic obstructive pulmonary disease, unspecified COPD type J44.9 ; Depression, unspecified depression type F32.9 ; Insomnia G47.00 ; Chronic viral hepatitis C B18.2 ; Parkinson disease G20 ; Prediabetes R73.03 ; Arthritis M19.90 ; Routine adult health maintenance Z00.00 and Encounter for immunization Z23 [place] [id number] [place] [address] 50998- 8084 Jul, [place] [id number] [place] [address] 56884- 6239 June, [facility] [id number] [place] [address] 26131- 5226 June, [facility] [id number] [place] [address] 08059- 2799 June, [facility] [id number] [place] [address] 43305- 2381 June, [facility] [id number] [place] [address] 61345- 5048 May, Acute cystitis without hematuria N30.00 [facility] [id number] [place] [address] 67187- 8774 May, Prediabetes R73.03 [facility] [id number] [place] [address] 23424- 9716 May, Acute cystitis without hematuria N30.00 ; Type 2 diabetes mellitus without complication, without long-term current use of insulin E11.9 ; Vertigo R42 ; Chronic obstructive pulmonary disease, unspecified COPD type J44.9 ; Chronic viral hepatitis C B18.2 and Prediabetes R73.03 [place] [id number] [place] [address] 61795- 3165 May, [facility] [id number] [place] [address] 20006- 2767 May, Chronic viral hepatitis C B18.2 [place] [id number] [place] [address] 61557- 0885 Mar, [facility] [id number] [place] [address] 92454- 5870 Dec, Vertigo R42 [facility] [id number] [place] [address] 39165- 6766 Dec, Neck pain M54.2 ; Encounter for immunization Z23 ; Vertigo R42 and Parkinson disease G20 [facility] [id number] [place] [address] 13667- 8764 Nov, [facility] [address] [address]- 7963 Nov, [facility] [id number] [place] [address] 49518- 5731 Sep, [facility] [id number] [place] [address] 47527- 3746 Sep, Chronic viral hepatitis C B18.2 [facility] [id number] [place] [address] 28342- 2314 Sep, Chronic viral hepatitis C B18.2 [facility] [id number] [place] [address] 07694- 0865 Sep, Chronic viral hepatitis C B18.2 [facility] [id number] [place] [address] 65266- 5132 Aug, Type 2 diabetes mellitus without complication, without long- term current use of insulin E11.9 ; Chronic viral hepatitis C B18.2 ; Vertigo R42 and Depression, unspecified depression type F32.9 [facility] [id number] [place] [address] 34546- 2748 Jul, Insomnia G47.00 [facility] [id number] [place] [address] 22653- 9168 Jul, Type 2 diabetes mellitus without complication, without long- term current use of insulin E11.9 [facility] [address] [address]- 3066 Apr, [facility] [id number] [place] [address] [id number] Apr, Dental examination Z01.20 [facility] [id number] [place] [address] [id number] Feb, Encounter for dental examination Z01.20 [facility] [id number] [place] [address] [id number] Jan, Dental caries K02.9 [facility] [id number] [place] [address] 23412- 1211 Jan, Arthritis M19.90 [facility] [address] 46897- 3669 Jan, Benign positional vertigo, bilateral H81.13 and Type 2 diabetes mellitus without complication, without long-term current use of insulin E11.9 [facility] [address] 06136- 3855 Dec, [facility] [address] 11042- 2610 Dec, [place] [address] 20047- 9432 Dec, Encounter for immunization Z23 and Elevated blood pressure reading R03.0 [place] [address] 83282- 2267 Dec, [facility] [address] 43919- 4291 Dec, [facility] [address] 96218- 8268 Nov, Type 2 diabetes mellitus without complication, without long- term current use of insulin E11.9 and Chronic viral hepatitis C B18.2 [place] [address] 07467- 8880 Nov, [facility] [address] 29261- 8720 Nov, [facility] [id number] [place] [address] 15210- 6155 Oct, [facility] [address] [id number] Oct, Dental examination Z01.20 [facility] [address] 03313- 1297 Sep, [facility] [address] [place] [address]- 4860 Sep, [place] [address] 34509- 5451 Sep, Type 2 diabetes mellitus without complication, without long- term current use of insulin E11.9 and Chronic obstructive pulmonary disease, unspecified COPD type J44.9 [place] [id number] [place] [address] 58778- 4345 Sep, Rectal bleeding K62.5 [facility] [id number] [place] [address] 93939 -7111 Aug, Rectal bleeding K62.5 ; Postmenopausal vaginal bleeding N95.0 ; Dysuria R30.0 ; Dermatitis L30.9 ; Acute cystitis with hematuria N30.01 ; Glycosuria R81 and Adnexal pain R10.2 [place] [address] 23732- 5658 May, [place] [address] 05086- 3254 May, Chronic viral hepatitis C B18.2 [place] [address] 56089- 4039 Apr, [place] [id number] [place] [address] 60023- 6937 Mar, [place] [address] 22205- 5545 Mar, Insomnia G47.00 [place] [address] 89146- 9588 Feb, Chronic viral hepatitis C B18.2 and Fatigue R53.83 [place] [address] 58239- 8888 Feb, Rash R21 ; Fatigue R53.83 and Chronic viral hepatitis C B18.2 [place] [address] 00631- 8244 Feb, Chronic viral hepatitis C B18.2 [facility] [id number] [place] [address] 66062- 3686 Jan, Dermatitis L30.9 and Chronic viral hepatitis C B18.2 [facility] [id number] [place] [address] 558040- 0624 Jan, [facility] [address] 83129- 0256 Dec, [facility] [id number] [place] [address] 05638- 9499 Nov, [facility] [address] 48202- 4024 Nov, Hep C w/o coma, chronic 070.54 [facility] [id number] [place] [address] 47436- 3852 Oct, Lower back pain 724.2 and Urinary tract infection 599.0 [facility] [id number] [place] [address] 45030- 6839 Oct, [facility] [id number] [place] [address] 98799- 6360 Oct, [facility] [id number] [place] [address] 02342- 2420 Oct, Dark urine 791.9 and Rectal bleeding 569.3 [facility] [id number] [place] [address] 25187- 5532 Sep, Hep C w/o coma, chronic 070.54 [facility] [id number] [place] [address] 75353- 5427 Sep, [facility] [id number] [place] [address] 99394- 0793 Aug, [facility] [id number] [place] [address] 42978- 8637 Aug, [facility] [address] [facility] [id number] [address]- 9259 Jul, Hep C w/o coma, chronic 070.54 [facility] [address] [address]- 8299 Jul, Hep C w/o coma, chronic 070.54 [facility] [id number] [place] [address] 05843- 3448 June, Local infection of skin and subcutaneous tissue 686.9 [facility] [address] [address]- 3987 June, Foot pain, right 729.5 [facility] [id number] [place] [address] 42303- 4565 June, [facility] [id number] [address]- 5124 May, [facility] [address] [address]- 4765 May, [facility] [address] [address]- 2722 Apr, [facility] [address] [address]- 0620 Apr, [facility] [address] [address]- 4299 Apr, [facility] [address] [place] [address]- 3426 Apr, [facility] [id number] [address]- 8031 Apr, [facility] [address] [place] [address]- 4480 Apr, [facility] [id number] [address]- 1539 Jan, [facility] [id number] [place] [address]- 8350 Jan, [facility] [place] [facility] [address] [id number] [place] 1713 Jan, [facility] [place] [facility] [address] [id number] [place] [address]- 2637 Dec, [facility] [place] [facility] [address] [id number] [place] [address]- 2703 Dec, [facility] [place] [facility] [address] [id number] [place] [address]- 9350 Dec, [facility] [place] [facility] [address] [id number] [place] 6713 Dec, [facility] [place] [facility] [address] [id number] [place] [address]- 7076 Nov, [facility] [place] [facility] [address] [id number] [place] [address]- 7264 Nov, [facility] [place] [facility] [address] [id number] [place] [address]- 2659 Nov, [facility] [place] [facility] [address] [id number] [place] [address]- 7922 Nov, [facility] [place] [facility] [address] [id number] [place] [address]- 2323 Nov, [facility] [place] [facility] [address] [id number] [place] [address]- 2519 Nov, [facility] [place] [facility] [address] [id number] [place] [address]- 4343 Nov, [facility] [place] [facility] [address] [id number] [place] [address]- 9444 Nov, [facility] [place] [facility] [address] [id number] [place] [address]- 8189 Nov, [facility] [place] [facility] [address] [id number] [place] 1705 Nov, [facility] [place] [facility] [address] [id number] [place] [address]- 6242 Oct, 2013 [facility] [place] [facility] [address] [id number] [place] [address]- 7218 Oct, [facility] [place] [facility] [address] [id number] [place] [address]- 7897 Oct, [facility] [place] [facility] [address] [id number] [place] [address]- 4177 Oct, 2013 [facility] [place] [facility] [address] [id number] [place] [address]- 3622 Oct, [facility] [place] [facility] [address] [id number] [place] [address]- 3213 Oct, [facility] [place] [facility] [address] [id number] [place] [address]- 8984 Oct, [facility] [place] [facility] [address] [id number] [place] [address]- 7308 Oct, [facility] [place] [facility] [address] [id number] [place] [address]- 7252 Aug, [facility] [place] [facility] [address] [id number] [place] [address]- 2847 Aug, [facility] [place] [facility] [address] [id number] [place] [address]- 5552 Aug, [facility] [place] [facility] [address] [id number] [place] [address]- 7590 Aug, [facility] [place] [facility] [address] [id number] [place] [address]- 6168 Aug, [facility] [place] [facility] [address] [id number] [place] [address]- 7362 Aug, [facility] [place] [facility] [address] [id number] [place] [address]- 1189 Aug, [facility] [place] [facility] [address] [id number] [place] [address]- 2546 Aug, [facility] [place] [facility] [address] [id number] [place] [address]- 7193 June, [facility] [place] [facility] [address] [id number] [place] [address]- 2696 June, [facility] [place] [facility] [address] [facility] [id number] [place] [address]- 4362 May, [facility] [place] [facility] [address] [id number] [place] [address]- 9151 May, [facility] [place] [facility] [address] [id number] [place] 9578 Apr, [facility] [place] [facility] [address] [facility] [id number] [place] 4995 Apr, [facility] [place] [facility] [address] [facility] [id number] [place] [address]- 2919 Apr, [facility] [place] [facility] [address] [id number] [place] [address]- 9034 Mar, [facility] [place] [facility] [address] [id number] [place] [address]- 2371 Mar, [facility] [place] [facility] [address] [facility] [id number] [place] [address]- 9618 Mar, [facility] [place] [facility] [address] [id number] [place] [address]- 9758 Mar, [facility] [place] [facility] [address] [facility] [id number] [place] [address]- 6442 Mar, [facility] [place] [facility] [address] [id number] [place] [address]- 6767 Mar, [facility] [place] [facility] [address] [facility] [id number] [place] [address]- 7072 Jan, [facility] [place] [facility] [address] [facility] [id number] [place] [address]- 0870 Jan, [facility] [place] [facility] [address] [id number] [place] [address]- 5893 05 Jan, 2013 [facility] [place] [facility] [address] [id number] [place] [address]- 9465 05 Jan, 2013 [facility] [place] [facility] [address] [id number] [place] [address]- 1545 Jan, [facility] [place] [facility] [address] [id number] [place] [address]- 4506 02 Jan, 2013 [facility] [place] [facility] [address] [id number] [place] [address]- 0839 14 Dec, 2012 [facility] [place] [facility] [address] [id number] [place] [address]- 4511 14 Dec, 2012 [facility] [place] [facility] [address] [id number] [place] [address]- 9440 Dec, [facility] [place] [facility] [address] [id number] [place] [address]- 2870 Dec, [facility] [place] [facility] [address] [id number] [place] [address]- 0070 Dec, [facility] [place] [facility] [address] [id number] [place] [address]- 5743 Dec, [facility] [place] [facility] [address] [id number] [place] [address]- 1375 Dec, [facility] [place] [facility] [address] [id number] [place] [address]- 8377 Dec, [facility] [place] [facility] [address] [id number] [place] [address]- 4654 26 Oct, 2012 [facility] [place] [facility] [address] [id number] [place] [address]- 3259 17 Oct, 2012 [facility] [place] [facility] [address] [id number] [place] [address]- 2460 16 Sep, 2012 [facility] [place] [facility] [address] [id number] [place] [address]- 9238 Aug, [facility] [address] [id number] [place] [address]- 0330 Aug, [facility] [address] [id number] [place] [address]- 4936 June, [facility] [address] [id number] [place] [address] 2546 June, [facility] [address] [id number] [place] [address]- 2546 June, [facility] [address] [id number] [place] [address]- 2546 June, [facility] [address] [id number] [place] [address]- 0806 May, [facility] [address] [id number] [place] [address]- 3626 May, [facility] [address] [id number] [place] [address]- 9673 Apr, [facility] [address] [id number] [place] [address]- 6820 Apr, [facility] [address] [id number] [place] [address]- 3726 Jan, [facility] [address] [id number] [place] [address]- 0359 Jan, [facility] [place] [facility] [address] [id number] [place] [address] 254 24 Jan, 2012 [facility] [place] [facility] [address] [id number] [place] [address]- 2546 Jan, [facility] [place] [facility] [address] [id number] [place] [address]- 0036 Jan, [facility] [place] [facility] [address] [id number] [place] [address]- 2546 Jan, [facility] [place] [facility] [address] [id number] [place] [address]- 8971 13 Jan, 2012 [facility] [address] [id number] [place] [address]- 1311 Jan, [facility] [place] [facility] [address] [id number] [place] [address]- 1276 10 Jan, 2012 [facility] [address] [id number] [place] [address]- 5419 05 Jan, 2012 [facility] [place] [facility] [address] [id number] [place] [address] Jan, [facility] [place] [facility] [address] [id number] [place] [address] Dec, [facility] [place] [facility] [address] [id number] [place] [address] Dec, [facility] [place] [facility] [address] [id number] [place] [address] Dec, [facility] [place] [facility] [address] [id number] [place] [address] Dec, [facility] [place] [facility] [address] [id number] [place] [address] Dec, [facility] [place] [facility] [address] [facility] [id number] [place] [address] 14 Dec, 2011 [facility] [place] [facility] [address] [id number] [place] [address] Nov, [facility] [place] [facility] [address] [id number] [place] [address] Nov, [facility] [place] [facility] [address] [id number] [place] [address] 08 Nov, 2011 [facility] [place] [facility] [address] [id number] [place] [address] 27 Oct, 2011 [facility] [place] [facility] [address] [id number] [place] [address] Oct, [facility] [place] [facility] [address] [id number] [place] [address] Sep, [facility] [place] [facility] [address] [id number] [place] [address]- [address] Sep, [facility] [place] [facility] [address] [id number] [place] [address] Sep, [facility] [place] [facility] [address] [id number] [place] [address] Sep, [facility] [place] [facility] [address] [id number] [place] [address] Aug, [facility] [place] [facility] [address] [id number] [place] [address] June, [facility] [place] [facility] [address] [id number] [place] [address] May, [facility] [place] [facility] [address] [id number] [place] [address] May, [facility] [place] [facility] [address] [id number] [place] [address] May, [facility] [place] [facility] [address] [id number] [place] [address] May, [facility] [place] [facility] [address] [id number] [place] [address] Apr, [facility] [place] [facility] [address] [id number][place] [address] 15 Mar, 2011 [facility] [place] [facility] [address] [id number] [place] [address] Mar, [facility] [place] [facility] [address] [id number] [place] [address] Feb, [facility] [place] [facility] [address] [id number] [place] [address] Feb, [facility] [place] [facility] [address] [id number], [place] [address] 10 Feb, 2011 [facility] [address] [id number] [place] [address] Jan, [facility] [place] [facility] [address] [id number] [place] [address] 16 Jan, 2011 [facility] [place] [facility] [address] [facility] [id number] [place] [address]- [address] 16 Jan, 2011 [facility] [place] [facility] [address] [id number] [place] [address] 15 Jan, 2011 [facility] [address] [facility] [id number] [place] [address] Jan, [facility] [place] [facility] [address] [facility] [id number] [place] [address] Jan, [facility] [address] [facility] [id number], [place] [address] 05 Jan, 2011 [facility] [place] [facility] [address] [id number] [place] [address] 28 Dec, 2010 [facility] [id number] [address] 17 Dec, 2010 [facility] [address] [facility] [id number] [address] Dec, [facility] [address] [facility] [id number], [place] [address] 10 Dec, 2010 [facility] [address] [facility] [id number][place] [address] 09 Dec, 2009 [facility] [address] [id number][place] [address] 16 Nov, 2009 [facility] [address] [facility] [id number][place] [address] 11 Nov, 2009 [facility] [address] [facility] [id number], [place] [address] 15 Jul, 2009 [facility] [address] [facility] [id number] [place] [address] June, [facility] [address] [facility] [id number][place] [address] Mar, [facility] [address] [facility] [id number][place] [address] Feb, [facility] [address] [facility] [id number], [place] [address] Dec, IMMUNIZATIONS No Known Immunizations SOCIAL HISTORY Never Assessed REASON FOR VISIT PA for Transdermal sc 1.5MG PLAN OF CARE VITAL SIGNS MEDICATIONS Unknown [...] Hospitalization History Sepsis 2/2 UTI from actinomyces- [facility] 05/19/17 Hospitalization History Constipation 06/25
--- OUTSIDE RECORDS SUMMARY | 2018-05-08 20:37 | XMS REPORT ---
Author Author TORREY FELIX Organization [facility] Address [address] [place] [address] Care Team Providers Care Training Project Manager Name Role Phone TORREY FELIX Unavailable PROBLEMS Type Condition ICD9-CM Code FIA93-CV Code Onset Dates Condition Status SNOMED Code Problem Sleep apnea, unspecified type G47.30 Active 89446997 Problem Arthritis M19.90 Active 9438431 Problem Benign positional vertigo, bilateral H81.13 Active 652248677 Problem Chronic viral hepatitis C B18.2 Active 189808477 Problem Chronic obstructive pulmonary disease, unspecified COPD type J44.9 Active 08741715 Problem Other cirrhosis of liver K74.69 Active 68631960 Problem Peripheral vascular disease I73.9 Active 876162185 Problem Vertigo R42 Active 102655135 Problem Insomnia G47.00 Active 966447260 Problem Recurrent major depressive disorder, in full remission F33.42 Active 549769533 Problem Prediabetes R73.03 Active 633331516 ALLERGIES No Information ENCOUNTERS Encounter Location Date Diagnosis [facility] [id number] [place] [address] 57767- 7331 Dec, [facility] [id number] [place] [address] 96319- 6195 Nov, [facility] [id number] [place] [address] 50729- 5510 Nov, Benign positional vertigo, bilateral H81.13 [facility] [id number] [place] [address] 82398- 7718 Nov, [facility] [id number] [place] [address] 44282- 6904 Nov, [facility] [id number] [place] [address] 61352- 3822 Nov, [place] [address], [place] [address] 6209 Oct, [facility] [id number] [place] [address] 78433- 3258 Sep, [facility] [id number] [place] [address] 66367- 8859 Sep, Compression fracture of body of thoracic vertebra S22.000A and Benign positional vertigo, bilateral H81.13 [facility] [id number] [place] [address] 30120- 9230 Sep, [facility] [id number] [place] [address] 38830- 2709 Sep, Benign positional vertigo, bilateral H81.13 ; Impacted cerumen of both ears H61.23 ; Chronic obstructive pulmonary disease, unspecified COPD type J44.9 ; Recurrent major depressive disorder, in full remission F33.42 and Other cirrhosis of liver K74.69 [facility] [id number] [place] [address] 46283- 6035 Aug, [facility] [id number] [place] [address] 15429- 7253 Aug, Lightheadedness R42 [facility] [id number] [place] [address] 21292- 5211 Jul, Lightheadedness R42 [facility] [id number] [place] [address] 87547- 2842 Jul, Medicare annual wellness visit, initial Z00.00 ; Chronic obstructive pulmonary disease, unspecified COPD type J44.9 ; Depression, unspecified depression type F32.9 ; Insomnia G47.00 ; Chronic viral hepatitis C B18.2 ; Parkinson disease G20 ; Prediabetes R73.03 ; Arthritis M19.90 ; Routine adult health maintenance Z00.00 and Encounter for immunization Z23 [facility] [facility] [id number] [place] [address] 45480- 5108 Jul, [facility] [address], [place] [address] 8105 June, [facility] [id number] [place] [address] 28695- 0416 June, [facility] [id number] [place] [address] 50640- 3814 June, [facility] [id number] [place] [address] 62129- 9550 June, [facility] [id number] [place] [address] 86787- 1950 May, Acute cystitis without hematuria N30.00 [facility] [id number] [place] [address] 99112- 1591 May, Prediabetes R73.03 [facility] [id number] [place] [address] 41095- 5261 16 May, 2017 Acute cystitis without hematuria N30.00 ; Type 2 diabetes mellitus without complication, without long-term current use of insulin E11.9 ; Vertigo R42 ; Chronic obstructive pulmonary disease, unspecified COPD type J44.9 ; Chronic viral hepatitis C B18.2 and Prediabetes R73.03 [facility] [id number] [place] [address] 26073- 0204 May, [facility] [id number] [place] [address] 18333- 9893 May, Chronic viral hepatitis C B18.2 [facility] [id number] [place] [address] 99358- 4812 Mar, [facility] [id number] [place] [address] 91141- 4356 Dec, Vertigo R42 [facility] [id number] [place] [address] 46960- 7196 Dec, Neck pain M54.2 ; Encounter for immunization Z23 ; Vertigo R42 and Parkinson disease G20 [facility] [address], [place] [address]- 2408 Nov, [facility] [id number] [place] [address] 76731- 1796 Nov, [facility] [id number] [place] [address] 85989- 5835 Sep, [facility] [id number] [place] [address] 32227- 7343 Sep, Chronic viral hepatitis C B18.2 [facility] [id number] [place] [address] 46086- 3531 Sep, Chronic viral hepatitis C B18.2 [facility] [id number] [place] [address] 96235- 3264 Sep, Chronic viral hepatitis C B18.2 [facility] [id number] [place] [address] 24720- 6031 Aug, Type 2 diabetes mellitus without complication, without long- term current use of insulin E11.9 ; Chronic viral hepatitis C B18.2 ; Vertigo R42 and Depression, unspecified depression type F32.9 [facility] [address] [place] [address] 04448- 3266 Jul, Insomnia G47.00 [facility] [id number] [place] [address] 95381- 6324 Jul, Type 2 diabetes mellitus without complication, without long- term current use of insulin E11.9 [facility] [id number] [place] [address] 69580- 3850 Apr, [facility] [id number] [place] [address] [id number] Apr, Dental examination Z01.20 [facility] [id number] [place] [address] [id number] Feb, Encounter for dental examination Z01.20 [facility] [id number] [place] [address] [id number] Jan, Dental caries K02.9 [facility] [id number] [place] [address] 28171- 2108 Jan, Arthritis M19.90 [facility] [address] 32825- 3014 Jan, Benign positional vertigo, bilateral H81.13 and Type 2 diabetes mellitus without complication, without long-term current use of insulin E11.9 [facility] [id number] [place] [address] 87415- 6985 Dec, [facility] [address] 17981- 8805 Dec, [facility] [address] 11009- 8002 Dec, Encounter for immunization Z23 and Elevated blood pressure reading R03.0 [facility] [id number] [place] [address] 62067- 0379 Dec, [facility] [address] 15924- 2526 Dec, [facility] [id number] [place] [address] 21209- 8063 Nov, Type 2 diabetes mellitus without complication, without long- term current use of insulin E11.9 and Chronic viral hepatitis C B18.2 [facility] [id number] [place] [address] 05358- 9066 Nov, [facility] [id number] [place] [address] 08789- 7672 Nov, [facility] [id number] [place] [address] 63697- 7301 Oct, [facility] [id number] [place] [address] [id number] Oct, Dental examination Z01.20 [facility] [address] 68473- 4702 Sep, [facility] [address] 85864- 2491 Sep, [place] [address] 48306- 4797 Sep, Type 2 diabetes mellitus without complication, without long- term current use of insulin E11.9 and Chronic obstructive pulmonary disease, unspecified COPD type J44.9 [place] [address] 00052- 9470 Sep, Rectal bleeding K62.5 [facility] [address] 39700 -3001 Aug, Rectal bleeding K62.5 ; Postmenopausal vaginal bleeding N95.0 ; Dysuria R30.0 ; Dermatitis L30.9 ; Acute cystitis with hematuria N30.01 ; Glycosuria R81 and Adnexal pain R10.2 [place] [address] 10102- 8873 May, [place] [address] 45966- 2865 May, Chronic viral hepatitis C B18.2 [place] [address] 93385- 8794 Apr, [place] [address] 85143- 2988 Mar, [place] [address] 63924- 7754 Mar, Insomnia G47.00 [place] [address] 09433- 8894 Feb, Chronic viral hepatitis C B18.2 and Fatigue R53.83 [place] [address] 04960- 7069 Feb, Rash R21 ; Fatigue R53.83 and Chronic viral hepatitis C B18.2 [facility] [id number] [place] [address] 90197- 6216 Feb, Chronic viral hepatitis C B18.2 [facility] [id number] [place] [address] 58432- 4602 Jan, Dermatitis L30.9 and Chronic viral hepatitis C B18.2 [facility] [address] 73726- 7757 Jan, [facility] [id number] [place] [address] 81541- 3196 Dec, [facility] [address] 88325- 7719 Nov, [facility] [address] 05868- 1933 Nov, Hep C w/o coma, chronic 070.54 [facility] [id number] [place] [address] 06144- 3416 Oct, Lower back pain 724.2 and Urinary tract infection 599.0 [facility] [address] 62896- 7057 Oct, [facility] [address] 52484- 0489 Oct, [facility] [address] 21400- 8477 Oct, Dark urine 791.9 and Rectal bleeding 569.3 [facility] [id number] [place] [address] 36778- 0433 Sep, Hep C w/o coma, chronic 070.54 [facility] [id number] [place] [address] 06208- 9276 Sep, [facility] [id number] [place] [address] 45531- 9362 Aug, [facility] [address] [facility] [id number] [address]- 9240 Aug, [facility] [address] [facility] [id number], [place] [address]- 6401 Jul, Hep C w/o coma, chronic 070.54 [facility] [address] [facility] [id number] [address]- 8506 Jul, Hep C w/o coma, chronic 070.54 [facility] [address] [facility] [id number], [place] [address]- 0905 June, Local infection of skin and subcutaneous tissue 686.9 [facility] [id number] [address]- 4792 June, Foot pain, right 729.5 [facility] [address], [place] [address]- 2229 June, [facility] [address], [place] [address]- 5726 May, [facility] [address], [place] [address]- 8248 May, [facility] [address], [place] [address]- 8367 Apr, [facility] [address], [place] [address]- 9757 Apr, [facility] [address] [facility] [id number], [place] [address]- 0419 Apr, [facility] [address] [facility] [id number], [place] [address]- 2638 Apr, [facility] [id number], [place] [address]- 6794 Apr, [facility] [id number], [place] [address]- 5965 Apr, [facility] [address] [facility] [id number] [place] 7044 Jan, [facility] [place] [facility] [address] [id number] [place] [address]- 5529 Jan, [facility] [place] [facility] [address] [id number] [place] 7950 Jan, [facility] [place] [facility] [address] [id number] [place] 9158 Dec, [facility] [place] [facility] [address] [id number] [place] [address]- 3041 Dec, [facility] [place] [facility] [address] [id number] [place] [address]- 4384 Dec, [facility] [place] [facility] [address] [id number] [place] [address]- 9903 Dec, [facility] [place] [facility] [address] [id number] [place] [address]- 8068 Nov, [facility] [place] [facility] [address] [id number] [place] [address]- 2160 Nov, [facility] [place] [facility] [address] [id number] [place] [address]- 8308 Nov, [facility] [place] [facility] [address] [id number] [place] [address]- 0557 Nov, [facility] [place] [facility] [address] [id number] [place] [address]- 1783 Nov, [facility] [place] [facility] [address] [id number] [place] [address]- 1973 17 Nov, 2013 [facility] [place] [facility] [address] [id number] [place] [address]- 0165 14 Nov, 2013 [facility] [place] [facility] [address] [id number] [place] [address]- 1587 14 Nov, 2013 [facility] [place] [facility] [address] [id number] [place] 9316 Nov, [facility] [place] [facility] [address] [id number] [place] [address]- 3748 Nov, [facility] [place] [facility] [address] [id number] [place] [address]- 9983 Oct, [facility] [place] [facility] [address] [id number] [place] [address]- 8473 Oct, [facility] [place] [facility] [address] [id number] [place] [address]- 8527 Oct, [facility] [place] [facility] [address] [id number] [place] [address]- 4244 Oct, [facility] [place] [facility] [address] [id number] [place] [address]- 2095 Oct, [facility] [place] [facility] [address] [id number] [place] [address]- 4676 Oct, [facility] [place] [facility] [address] [id number] [place] [address]- 8050 Oct, [facility] [place] [facility] [address] [id number] [place] [address]- 2179 Oct, [facility] [place] [facility] [address] [id number] [place] [address]- 4855 Aug, [facility] [place] [facility] [address] [id number] [place] [address]- 3161 Aug, [facility] [place] [facility] [address] [id number] [place] [address]- 8036 Aug, [facility] [place] [facility] [address] [id number] [place] [address]- 0744 Aug, [facility] [place] [facility] [address] [id number] [place] [address]- 4525 Aug, [facility] [place] [facility] [address] [id number] [place] [address]- 2670 Aug, [facility] [place] [facility] [address] [id number] [place] [address]- 2546 Aug, [facility] [place] [facility] [address] [id number] [place] [address]- 4447 Aug, [facility] [place] [facility] [address] [id number] [place] [address]- 0188 June, [facility] [place] [facility] [address] [id number] [place] [address]- 9185 June, [facility] [place] [facility] [address] [id number] [place] [address]- 3525 May, [facility] [place] [facility] [address] [id number] [place] [address]- 1959 May, [facility] [place] [facility] [address] [id number] [place] [address]- 7472 Apr, [facility] [place] [facility] [address] [id number] [place] [address]- 1172 Apr, [facility] [place] [facility] [address] [id number] [place] [address]- 6884 Apr, [facility] [place] [facility] [address] [id number] [place] [address]- 9741 Mar, [facility] [place] [facility] [address] [id number] [place] [address]- 7615 Mar, [facility] [place] [facility] [address] [id number] [place] [address]- 4361 Mar, [facility] [place] [facility] [address] [id number] [place] [address]- 5435 Mar, [facility] [place] [facility] [address] [id number] [place] [address]- 2635 Mar, [facility] [place] [facility] [address] [id number] [place] [address]- 2186 Mar, [facility] [place] [facility] [address] [facility] [id number] [place] [address]- 7338 Jan, [facility] [place] [facility] [address] [id number] [place] [address]- 0524 09 Jan, 2013 [facility] [place] [facility] [address] [id number] [place] [address]- 5145 Jan, [facility] [place] [facility] [address] [id number] [place] [address]- 6902 05 Jan, 2013 [facility] [place] [facility] [address] [id number] [place] [address]- 8325 Jan, [facility] [place] [facility] [address] [id number] [place] [address]- 4060 Jan, [facility] [place] [facility] [address] [id number] [place] [address]- 4022 Dec, [facility] [place] [facility] [address] [id number] [place] [address]- 3439 14 Dec, 2012 [facility] [place] [facility] [address] [id number] [place] [address]- 2020 Dec, [facility] [place] [facility] [address] [id number] [place] [address]- 5831 Dec, [facility] [place] [facility] [address] [id number] [place] [address]- 9515 Dec, [facility] [place] [facility] [address] [id number] [place] [address]- 0377 Dec, [facility] [place] [facility] [address] [id number] [place] [address]- 4186 Dec, [facility] [place] [facility] [address] [id number] [place] [address]- 8729 07 Dec, 2012 [facility] [place] [facility] [address] [id number] [place] [address]- 2150 26 Oct, 2012 [facility] [place] [facility] [address] [id number] [place] [address]- 2902 17 Sep2012 [facility] [place] [facility] [address] [id number] [place] [address]- 9337 Sep, [facility] [address] [id number] [place] [address]- 4429 Aug, [facility] [address] [id number] [place] [address]- 9176 Aug, [facility] [address] [id number] [place] [address] 2546 June, [facility] [place] [facility] [address] [id number] [place] [address]- 2546 June, [facility] [address] [id number] [place] [address]- 2546 June, [facility] [address] [id number] [place] [address]- 9186 June, [facility] [address] [id number] [place] [address]- 2936 May, [facility] [place] [facility] [address] [id number] [place] [address]- 1300 May, [facility] [address] [id number] [place] [address]- 3322 Apr, [facility] [place] [facility] [address] [id number] [place] [address] 2546 Apr, [facility] [address] [id number] [place] [address]- 6849 Jan, [facility] [place] [facility] [address] [id number] [place] [address]- 7476 Jan, [facility] [place] [facility] [address] [id number] [place] [address]- 7[address] Jan, [facility] [place] [facility] [address] [id number] [place] [address] Jan, [facility] [place] [facility] [address] [id number] [place] [address] Jan, [facility] [place] [facility] [address] [id number] [place] [address] 13 Jan, 2012 [facility] [address] [id number] [place] [address] 13 Jan, 2012 [facility] [place] [facility] [address] [id number] [place] [address] Jan, [facility] [address] [id number] [place] [address] Jan, [facility] [place] [facility] [address] [id number] [place] [address]77 05 Jan, 2012 [facility] [place] [facility] [address] [id number] [place] [address] Jan, [facility] [place] [facility] [address] [id number] [place] [address] Dec, [facility] [place] [facility] [address] [id number] [place] [address] Dec, [facility] [place] [facility] [address] [id number] [place] [address] Dec, [facility] [place] [facility] [address] [id number] [place] [address] Dec, [facility] [address] [facility] [id number] [place] [address] Dec, [facility] [place] [facility] [address] [id number] [place] [address] 8426 Dec, [facility] [place] [facility] [address] [id number] [place] [address] Nov, [facility] [place] [facility] [address] [id number] [place] [address] 8518 Nov, [facility] [place] [facility] [address] [facility] [id number] [place] [address] Nov, [facility] [place] [facility] [address] [id number] [place] [address] 27 Oct, 2011 [facility] [place] [facility] [address] [id number] [place] [address] Oct, [facility] [place] [facility] [address] [id number] [place] [address]- [address] Sep, [facility] [place] [facility] [address] [id number] [place] [address] Sep, [facility] [place] [facility] [address] [id number] [place] [address]- [address] Sep, [facility] [place] [facility] [address] [id number] [place] [address] Sep, [facility] [place] [facility] [address] [id number] [place] [address] 6847 Aug, [facility] [place] [facility] [address] [id number] [place] [address] 2027 June, [facility] [place] [facility] [address] [id number] [place] [address] May, [facility] [place] [facility] [address] [id number] [place] [address]293 May, [facility] [place] [facility] [address] [id number] [place] [address]297 May, [facility] [place] [facility] [address] [id number] [place] [address] 8417 May, [facility] [place] [facility] [address] [id number], [place] [address] Apr, [facility] [place] [facility] [address] [id number] [place] [address] 15 Mar, 2011 [facility] [place] [facility] [address] [id number] [place] [address]64 10 Mar, 2011 [facility] [place] [facility] [address] [id number] [place] [address] Feb, [facility] [place] [facility] [address] [id number], [place] [address] Feb, [facility] [address] [id number] [place] [address] Feb, [facility] [place] [facility] [address] [id number] [place] [address] Jan, [facility] [place] [facility] [address] [facility] [id number] [place] [address] 16 Jan, 2011 [facility] [place] [facility] [address] [id number] [place] [address] 16 Jan, 2011 [facility] [place] [facility] [address] [facility] [id number] [place] [address] 15 Jan, 2011 [facility] [place] [facility] [address] [facility] [id number] [place] [address] 1069 Jan, [facility] [address] [id number] [place] [address] Jan, [facility] [place] [facility] [address] [id number] [place] [address]- [address]20 05 Jan, 2011 [facility] [place] [facility] [address] [id number] [place] [address] 28 Dec, 2010 [facility] [place] [facility] [address] [facility] [id number] [place] [address]209 17 Dec, 2010 [facility] [place] [facility] [address] [facility] [id number], [place] [address] Dec, [facility] [place] [facility] [address] [id number], [place] [address] Dec, [facility] [place] [facility] [address] [facility] [id number], [place] [address] 09 Dec, 2009 [facility] [address] [facility] [id number], [place] [address] 16 Nov, 2009 [facility] [address] [facility] [id number], [place] [address] 11 Nov, 2009 [facility] [address] [facility] [id number] [place] [address] 15 Jul, 2009 [facility] [address] [facility] [id number], [place] [address] June, [facility] [address] [id number], [place] [address] Mar, [facility] [address] [facility] [id number], [place] [address] Feb, [facility] [address] [facility] [id number], [place] [address] Dec, IMMUNIZATIONS No Known Immunizations SOCIAL HISTORY Never Assessed REASON FOR VISIT Controlled Med Refill PLAN OF CARE VITAL SIGNS MEDICATIONS Medication [...] Hospitalization History Sepsis 2/2 UTI from actinomyces- [facility] 05/19/17 Hospitalization History Constipation 06/25
--- OUTSIDE RECORDS SUMMARY | 2018-05-08 20:38 | XMS REPORT ---
Author Author RICHIE MENDOZA Organization [facility] Address [address] [place] [address] Care Team Providers Care Load Builder Name Role Phone RICHIE MENDOZA Unavailable PROBLEMS Type Condition ICD9-CM Code FDC46-KT Code Onset Dates Condition Status SNOMED Code Problem Sleep apnea, unspecified type G47.30 Active 37318028 Problem Arthritis M19.90 Active 7152556 Problem Benign positional vertigo, bilateral H81.13 Active 526938210 Problem Chronic viral hepatitis C B18.2 Active 399509722 Problem Chronic obstructive pulmonary disease, unspecified COPD type J44.9 Active 12501229 Problem Other cirrhosis of liver K74.69 Active 11736333 Problem Peripheral vascular disease I73.9 Active 394997654 Problem Vertigo R42 Active 328680231 Problem Insomnia G47.00 Active 646813765 Problem Recurrent major depressive disorder, in full remission F33.42 Active 600365713 Problem Prediabetes R73.03 Active 553652457 ALLERGIES No Information ENCOUNTERS Encounter Location Date Diagnosis [facility] [id number] [place] [address] 42792- 3838 Nov, [facility] [address] [address] 3928 Nov, [facility] [id number] [place] [address] 20696- 2782 Nov, [facility] [id number] [place] [address] 67611- 4047 Nov, [facility] [id number] [place] [address] 86461- 9232 Oct, [facility] [address] [address] 6125 Sep, [facility] [id number] [place] [address] 03454- 7607 Sep, Compression fracture of body of thoracic vertebra S22.000A and Benign positional vertigo, bilateral H81.13 [facility] [id number] [place] [address] 82478- 6788 Sep, [facility] [id number] [place] [address] 11809- 9608 Sep, Benign positional vertigo, bilateral H81.13 ; Impacted cerumen of both ears H61.23 ; Chronic obstructive pulmonary disease, unspecified COPD type J44.9 ; Recurrent major depressive disorder, in full remission F33.42 and Other cirrhosis of liver K74.69 [facility] [id number] [place] [address] 26542- 6691 Aug, [facility] [id number] [place] [address] 14161- 0717 Aug, Lightheadedness R42 [facility] [id number] [place] [address] 38417- 6399 Jul, Lightheadedness R42 [facility] [id number] [place] [address] 21030- 7688 Jul, Medicare annual wellness visit, initial Z00.00 ; Chronic obstructive pulmonary disease, unspecified COPD type J44.9 ; Depression, unspecified depression type F32.9 ; Insomnia G47.00 ; Chronic viral hepatitis C B18.2 ; Parkinson disease G20 ; Prediabetes R73.03 ; Arthritis M19.90 ; Routine adult health maintenance Z00.00 and Encounter for immunization Z23 [facility] [id number] [place] [address] 25529- 5471 Jul, [facility] [id number] [place] [address] 26959- 7552 June, [facility] [address] [address]- 6204 June, [facility] [id number] [place] [address] 24655- 4562 June, [facility] [id number] [place] [address] 82849- 0759 June, [facility] [id number] [place] [address] 92441- 2235 May, Acute cystitis without hematuria N30.00 [facility] [address] 97697- 3872 May, Prediabetes R73.03 [facility] [id number] [place] [address] 92873- 2674 May, Acute cystitis without hematuria N30.00 ; Type 2 diabetes mellitus without complication, without long-term current use of insulin E11.9 ; Vertigo R42 ; Chronic obstructive pulmonary disease, unspecified COPD type J44.9 ; Chronic viral hepatitis C B18.2 and Prediabetes R73.03 [facility] [id number] [place] [address] 11610- 9739 May, [facility] [id number] [place] [address] 54153- 7945 May, Chronic viral hepatitis C B18.2 [facility] [id number] [place] [address] 62367- 7584 Mar, [facility] [id number] [place] [address] 67371- 7432 Dec, Vertigo R42 [facility] [id number] [place] [address] 07342- 0333 Dec, Neck pain M54.2 ; Encounter for immunization Z23 ; Vertigo R42 and Parkinson disease G20 [facility] [id number] [place] [address] 04688- 9616 Nov, [facility] [id number] [place] [address] 43465- 7981 Nov, [facility] [address] [address]- 4676 Sep, [facility] [id number] [place] [address] 09346- 8919 Sep, Chronic viral hepatitis C B18.2 [facility] [id number] [place] [address] 66426- 1422 Sep, Chronic viral hepatitis C B18.2 [facility] [id number] [place] [address] 29323- 4358 Sep, Chronic viral hepatitis C B18.2 [facility] [id number] [place] [address] 17350- 4050 Aug, Type 2 diabetes mellitus without complication, without long- term current use of insulin E11.9 ; Chronic viral hepatitis C B18.2 ; Vertigo R42 and Depression, unspecified depression type F32.9 [facility] [id number] [place] [address] 77707- 2087 Jul, Insomnia G47.00 [facility] [id number] [place] [address] 22931- 0338 Jul, Type 2 diabetes mellitus without complication, without long- term current use of insulin E11.9 [facility] [id number] [place] [address] 89943- 3018 Apr, [facility] [id number] [place] [address] [id number] Apr, Dental examination Z01.20 [facility] [id number] [place] [address] [id number] Feb, Encounter for dental examination Z01.20 [facility] [id number] [place] [address] [id number] Jan, Dental caries K02.9 [facility] [id number] [place] [address] 17029- 2331 Jan, Arthritis M19.90 [facility] [id number] [place] [address] 13316- 5919 Jan, Benign positional vertigo, bilateral H81.13 and Type 2 diabetes mellitus without complication, without long-term current use of insulin E11.9 [facility] [id number] [place] [address] 96885- 5195 Dec, [facility] [id number] [place] [address] 27329- 5876 Dec, [facility] [id number] [place] [address] 35004- 1364 Dec, Encounter for immunization Z23 and Elevated blood pressure reading R03.0 [facility] [address] 99843- 2752 Dec, [facility] [id number] [place] [address] 55088- 6235 Dec, [facility] [id number] [place] [address] 31269- 0974 Nov, Type 2 diabetes mellitus without complication, without long- term current use of insulin E11.9 and Chronic viral hepatitis C B18.2 [facility] [id number] [place] [address] 15751- 6544 Nov, [facility] [id number] [place] [address] 68287- 9362 Nov, [facility] [id number] [place] [address] 44797- 3388 Oct, [facility] [id number] [place] [address] [id number] Oct, Dental examination Z01.20 [facility] [id number] [place] [address] 61645- 4208 Sep, [facility] [id number] [place] [address] 30422- 7179 Sep, [facility] [id number] [place] [address] 29876- 2092 Sep, Type 2 diabetes mellitus without complication, without long- term current use of insulin E11.9 and Chronic obstructive pulmonary disease, unspecified COPD type J44.9 [facility] [address] 08387- 9249 Sep, Rectal bleeding K62.5 [facility] [address] 00797 -2092 Aug, Rectal bleeding K62.5 ; Postmenopausal vaginal bleeding N95.0 ; Dysuria R30.0 ; Dermatitis L30.9 ; Acute cystitis with hematuria N30.01 ; Glycosuria R81 and Adnexal pain R10.2 [facility] [address] 17801- 4546 May, [facility] [address] 61097- 2606 May, Chronic viral hepatitis C B18.2 [facility] [address] 64042- 1797 Apr, [facility] [address] 86737- 4349 Mar, [facility] [address] 24135- 7509 Mar, Insomnia G47.00 [facility] [address] 02861- 6701 Feb, Chronic viral hepatitis C B18.2 and Fatigue R53.83 [facility] [address] 16643- 1299 Feb, Rash R21 ; Fatigue R53.83 and Chronic viral hepatitis C B18.2 [facility] [address] 93860- 0237 Feb, Chronic viral hepatitis C B18.2 [facility] [address] 26003- 7749 Jan, Dermatitis L30.9 and Chronic viral hepatitis C B18.2 [facility] [id number] [place] [address] 44135- 2816 Jan, [facility] [id number] [place] [address] 36466- 2372 Dec, [facility] [address] 99780- 8667 Nov, [facility] [address] 28519- 8441 Nov, Hep C w/o coma, chronic 070.54 [facility] [address] 17747- 5229 Oct, Lower back pain 724.2 and Urinary tract infection 599.0 [facility] [address] 04479- 3373 Oct, [facility] [id number] [place] [address] 31127- 8880 Oct, [facility] [id number] [place] [address] 80805- 4331 Oct, Dark urine 791.9 and Rectal bleeding 569.3 [facility] [id number] [place] [address] 31984- 3297 Sep, Hep C w/o coma, chronic 070.54 [facility] [id number] [place] [address] 02199- 7200 Sep, [facility] [id number] [place] [address] 46667- 6900 Aug, [facility] [id number] [place] [address] 75321- 5006 Aug, [facility] [id number] [place] [address] 05410- 0044 Jul, Hep C w/o coma, chronic 070.54 [facility] [address] [facility] [id number] [place] [address]- 4203 Jul, Hep C w/o coma, chronic 070.54 [facility] [address] [place] [address]- 9782 June, Local infection of skin and subcutaneous tissue 686.9 [facility] [address] [place] [address]- 4396 June, Foot pain, right 729.5 [facility] [address] [facility] [id number] [place] [address]- 7467 June, [facility] [address] [place] [address], [place] [address]- 9688 May, [facility] [address] [place] [address]- 7220 May, [facility] [address] [place] [address], [place] [address]- 1062 Apr, [facility] [id number] [place] [address]- 7696 Apr, [facility] [address] [place] [address]- 8060 Apr, [facility] [id number] [place] [address]- 5268 Apr, [facility] [address] [place] [address]- 7517 Apr, [facility] [address] [facility] [id number] [place] [address]- 4158 Apr, [facility] [address] [place] [address]- 5431 Jan, [facility] [address] [facility] [id number] [place] [address]- 2216 Jan, [facility] [id number] [place] [address]- 2528 Jan, [facility] [place] [facility] [address] [id number] [place] [address]- 5351 Dec, [facility] [place] [facility] [address] [id number] [place] [address]- 8132 Dec, [facility] [place] [facility] [address] [id number] [place] [address]- 2494 Dec, [facility] [place] [facility] [address] [id number] [place] [address]- 9689 Dec, [facility] [place] [facility] [address] [id number] [place] [address]- 9785 Nov, [facility] [place] [facility] [address] [id number] [place] [address]- 6686 Nov, [facility] [place] [facility] [address] [id number] [place] [address]- 4200 Nov, [facility] [place] [facility] [address] [id number] [place] [address]- 1178 Nov, [facility] [place] [facility] [address] [id number] [place] [address]- 3903 Nov, [facility] [place] [facility] [address] [id number] [place] [address]- 6703 Nov, [facility] [place] [facility] [address] [id number] [place] [address]- 5397 Nov, [facility] [place] [facility] [address] [id number] [address]- 3634 Nov, [facility] [place] [facility] [address] [id number] [place] [address]- 5452 Nov, [facility] [place] [facility] [address] [id number] [place] 6308 Nov, [facility] [place] [facility] [address] [id number] [place] [address]- 9741 Oct, [facility] [place] [facility] [address] [id number] [place] [address]- 1330 26 Oct, 2013 [facility] [place] [facility] [address] [id number] [place] [address]- 4450 24 Oct, 2013 [facility] [place] [facility] [address] [id number] [place] [address]- 3708 Oct, [facility] [place] [facility] [address] [id number] [place] [address]- 9596 Oct, 2013 [facility] [place] [facility] [address] [id number] [place] [address]- 9514 Oct, [facility] [place] [facility] [address] [id number] [place] [address]- 1380 Oct, [facility] [place] [facility] [address] [id number] [place] [address]- 9468 Oct, [facility] [place] [facility] [address] [id number] [place] [address]- 3856 Aug, [facility] [place] [facility] [address] [id number] [place] [address]- 9884 Aug, [facility] [place] [facility] [address] [id number] [place] [address]- 6371 Aug, [facility] [place] [facility] [address] [id number] [place] [address]- 9514 Aug, [facility] [place] [facility] [address] [id number] [place] [address]- 0545 Aug, [facility] [place] [facility] [address] [id number] [place] [address]- 5319 Aug, [facility] [place] [facility] [address] [id number] [place] [address]- 0696 Aug, [facility] [place] [facility] [address] [id number] [place] [address]- 1287 Aug, [facility] [place] [facility] [address] [id number] [place] [address]- 9039 June, [facility] [place] [facility] [address] [id number] [place] [address]- 9966 June, [facility] [place] [facility] [address] [id number] [place] [address]- 1599 May, [facility] [place] [facility] [address] [id number] [place] [address]- 7710 May, [facility] [place] [facility] [address] [id number] [place] [address]- 6505 Apr, [facility] [place] [facility] [address] [id number] [place] [address]- 5953 Apr, [facility] [place] [facility] [address] [id number] [place] [address]- 4248 Apr, [facility] [place] [facility] [address] [facility] [id number] [place] [address]- 2856 Mar, [facility] [place] [facility] [address] [id number] [place] [address]- 0586 Mar, [facility] [place] [facility] [address] [id number] [place] [address]- 3079 Mar, [facility] [place] [facility] [address] [facility] [id number] [place] [address]- 0168 Mar, [facility] [place] [facility] [id number] [place] [address]- 0730 Mar, [facility] [place] [facility] [address] [id number] [place] [address]- 4814 Mar, [facility] [place] [facility] [address] [id number] [place] [address]- 2502 Jan, [facility] [place] [facility] [address] [id number] [place] [address]- 9486 Jan, [facility] [place] [facility] [address] [facility] [id number] [place] [address]- 4999 Jan, [facility] [place] [facility] [address] [facility] [id number] [place] [address]- 7300 05 Jan, 2013 [facility] [address] [id number] [place] [address]- 0140 02 Jan, 2013 [facility] [place] [facility] [address] [id number] [place] [address]- 8843 02 Jan, 2013 [facility] [address] [facility] [id number] [place] [address]- 8638 14 Dec, 2012 [facility] [place] [facility] [address] [id number] [place] [address]- 6043 14 Dec, 2012 [facility] [address] [facility] [id number] [place] [address]- 8984 Dec, [facility] [place] [facility] [address] [id number] [place] [address]- 1686 Dec, [facility] [address] [address]- 2393 07 Dec, 2012 [facility] [place] [facility] [address] [facility] [id number] [place] [address]- 7303 07 Dec, 2012 [facility] [address] [id number] [place] [address]- 8262 07 Dec, 2012 [facility] [place] [facility] [address] [id number] [place] [address]- 1323 07 Dec, 2012 [facility] [address] [facility] [id number] [place] [address]- 2358 26 Oct, 2012 [facility] [place] [facility] [address] [id number] [place] [address]- 2570 17 Oct, 2012 [facility] [place] [facility] [address] [id number] [place] [address]- 5522 16 Sep, 2012 [facility] [place] [facility] [address] [facility] [id number] [place] [address]- 0799 24 Aug, 2012 [facility] [place] [facility] [address] [facility] [id number] [place] [address]- 7339 18 Aug, 2012 [facility] [place] [facility] [address] [id number] [place] [address]- 2546 June, [facility] [address] [id number] [place] [address]- 7816 June, [facility] [place] [facility] [address] [id number] [place] [address]- 2546 June, [facility] [address] [id number] [place] [address]- 2546 June, [facility] [place] [facility] [address] [id number] [place] [address]- 3636 May, [facility] [place] [facility] [address] [id number] [place] [address]- 8976 May, [facility] [address] [id number] [place] [address]- 2546 Apr, [facility] [place] [facility] [address] [id number] [place] [address]- 2546 Apr, [facility] [address] [id number] [place] [address]- 0589 Jan, [facility] [address] [id number] [place] [address]- 7886 24 Jan, 2012 [facility] [address] [id number] [place] [address]- 5202 24 Jan, 2012 [facility] [place] [facility] [address] [id number] [place] [address]- 5066 17 Jan, 2012 [facility] [place] [facility] [address] [id number] [place] [address]- 2546 17 Jan, 2012 [facility] [place] [facility] [address] [id number] [place] [address]- 5616 13 Jan, 2012 [facility] [place] [facility] [address] [id number] [place] [address]- 2546 13 Jan, 2012 [facility] [place] [facility] [address] [id number] [place] [address] Jan, [facility] [place] [facility] [address] [id number] [place] [address] Jan, [facility] [place] [facility] [address] [id number] [place] [address] Jan, [facility] [place] [facility] [address] [facility] [id number] [place] [address] Jan, [facility] [place] [facility] [address] [id number] [place] [address] Dec, [facility] [place] [facility] [address] [id number] [place] [address] Dec, [facility] [place] [facility] [address] [id number] [place] [address] Dec, [facility] [place] [facility] [address] [id number] [place] [address] Dec, [facility] [place] [facility] [address] [id number] [place] [address] Dec, [facility] [place] [facility] [address] [id number] [place] [address] Dec, [facility] [place] [facility] [address] [facility] [id number] [place] [address] Nov, [facility] [place] [facility] [address] [id number] [address] Nov, [facility] [place] [facility] [address] [id number] [place] [address] Nov, [facility] [place] [facility] [address] [id number] [place] [address] Oct, [facility] [place] [facility] [address] [id number] [place] [address] Oct, [facility] [place] [facility] [address] [facility] [id number] [place] [address] Sep, [facility] [place] [facility] [address] [id number] [place] [address] Sep, [facility] [address] [id number] [place] [address] Sep, [facility] [place] [facility] [address] [id number] [place] [address] Sep, [facility] [address] [id number] [place] [address] Aug, [facility] [place] [facility] [address] [id number] [place] [address] June, [facility] [address] [id number] [place] [address] May, [facility] [place] [facility] [address] [id number] [place] [address] 16 May, 2011 [facility] [address] [id number] [place] [address] May, [facility] [address] [id number] [place] [address] May, [facility] [address] [id number] [place] [address] Apr, [facility] [address] [id number] [place] [address] 15 Mar, 2011 [facility] [address] [id number] [place] [address] Mar, [facility] [place] [facility] [address] [id number] [place] [address] Feb, [facility] [place] [facility] [address] [id number] [place] [address] Feb, [facility] [place] [facility] [address] [id number] [place] [address] Feb, [facility] [place] [facility] [address] [id number] [place] [address] Jan, [facility] [place] [facility] [address] [id number] [place] [address] 16 Jan, 2011 [facility] [place] [facility] [address] [id number] [place] [address] 16 Jan, 2011 [facility] [place] [facility] [address] [id number] [place] [address] 15 Jan, 2011 [facility] [place] [facility] [address] [id number] [place] [address] Jan, [facility] [place] [facility] [address] [id number] [place] [address] Jan, [facility] [place] [facility] [address] [id number] [place] [address] 05 Jan, 2011 [facility] [place] [facility] [address] [id number] [place] [address] 28 Dec, 2010 [facility] [place] [facility] [address] [id number] [place] [address] 17 Dec, 2010 [facility] [place] [facility] [address] [id number] [place] [address] Dec, [facility] [place] [facility] [address] [id number] [place] [address] Dec, [facility] [place] [facility] [address] [id number] [place] [address] Dec, [facility] [place] [facility] [address] [id number] [place] [address] 16 Nov, 2009 [facility] [place] [facility] [address] [id number] [place] [address] Nov, [facility] [place] [facility] [address] [id number] [place] [address] 15 Jul, 2009 [facility] [place] [facility] [address] [id number] [place] [address] June, [facility] [place] [facility] [address] [id number] [place] [address] Mar, [facility] [address] [facility] [id number] [place] [address] Feb, [facility] [address] [facility] [id number] [place] [address] Dec, IMMUNIZATIONS No Known Immunizations SOCIAL HISTORY Never Assessed REASON FOR VISIT Medication question PLAN OF CARE VITAL SIGNS MEDICATIONS Medication Instructions Dosage Frequency Start Date End Date Duration Status Venlafaxine HCl ER 150 MG Orally Once a day 1 Capsule 24h 90 Active Temazepam 15MG Orally Once a day 1 capsule 24h Active Aldactone 50 mg Orally Twice a day 1 tablet 12h Active Mobic 7.5 MG Orally Once a day 1 tablet 24h 30 Active RESULTS No Results PROCEDURES No Known [...] Hospitalization History Sepsis 2/2 UTI from actinomyces- [facility] 05/19/17 Hospitalization History Constipation 06/25
--- OUTSIDE RECORDS SUMMARY | 2018-05-08 20:38 | XMS REPORT ---
Author Author TORREY FELIX Organization [facility] Address [address] [place] [address] Care Team Providers Care Cost Recovery Technician Name Role Phone TORREY FELIX Unavailable PROBLEMS Type Condition ICD9-CM Code PZT11-AS Code Onset Dates Condition Status SNOMED Code Problem Sleep apnea, unspecified type G47.30 Active 33878211 Problem Arthritis M19.90 Active 0274574 Problem Benign positional vertigo, bilateral H81.13 Active 482342225 Problem Chronic viral hepatitis C B18.2 Active 048800027 Problem Chronic obstructive pulmonary disease, unspecified COPD type J44.9 Active 31292222 Problem Other cirrhosis of liver K74.69 Active 51743882 Problem Peripheral vascular disease I73.9 Active 891336322 Problem Vertigo R42 Active 185538833 Problem Insomnia G47.00 Active 186054485 Problem Recurrent major depressive disorder, in full remission F33.42 Active 396730965 Problem Prediabetes R73.03 Active [id number] ALLERGIES No Information ENCOUNTERS Encounter Location Date Diagnosis [place] [id number] [place] [address] 55581- 0933 Nov, [facility] [id number] [place] [address] 36826- 2869 Oct, [facility] [id number] [place] [address] 08664- 3201 Sep, [facility] [id number] [place] [address] 81744- 6387 Sep, Compression fracture of body of thoracic vertebra S22.000A and Benign positional vertigo, bilateral H81.13 [facility] [id number] [place] [address] 70425- 6219 Sep, [place] [address] [place] [address] 456[address] Sep, Benign positional vertigo, bilateral H81.13 ; Impacted cerumen of both ears H61.23 ; Chronic obstructive pulmonary disease, unspecified COPD type J44.9 ; Recurrent major depressive disorder, in full remission F33.42 and Other cirrhosis of liver K74.69 [facility] [id number] [place] [address] 40564- 9885 Aug, [facility] [id number] [place] [address] 88794- 1580 Aug, Lightheadedness R42 [place] [id number] [place] [address] 18976- 8252 Jul, Lightheadedness R42 [place] [id number] [place] [address] 21708- 6607 Jul, Medicare annual wellness visit, initial Z00.00 ; Chronic obstructive pulmonary disease, unspecified COPD type J44.9 ; Depression, unspecified depression type F32.9 ; Insomnia G47.00 ; Chronic viral hepatitis C B18.2 ; Parkinson disease G20 ; Prediabetes R73.03 ; Arthritis M19.90 ; Routine adult health maintenance Z00.00 and Encounter for immunization Z23 [facility] [id number] [place] [address] 84242- 9001 Jul, [facility] [id number] [place] [address] 51151- 2920 June, [facility] [id number] [place] [address] 29154- 5957 June, [facility] [id number] [place] [address] 75571- 6242 June, [facility] [id number] [place] [address] 29980- 7975 June, [facility] [id number] [place] [address] 02528- 7661 May, Acute cystitis without hematuria N30.00 [facility] [id number] [place] [address] 65144- 9172 16 May, 2017 Prediabetes R73.03 [facility] [id number] [place] [address] 39718- 8166 16 May, 2017 Acute cystitis without hematuria N30.00 ; Type 2 diabetes mellitus without complication, without long-term current use of insulin E11.9 ; Vertigo R42 ; Chronic obstructive pulmonary disease, unspecified COPD type J44.9 ; Chronic viral hepatitis C B18.2 and Prediabetes R73.03 [facility] [id number] [place] [address] 41854- 3486 May, [facility] [id number] [place] [address] 37965- 8744 May, Chronic viral hepatitis C B18.2 [place] [address] 80396- 4763 Mar, [facility] [id number] [place] [address] 79955- 0348 Dec, Vertigo R42 [facility] [address] 91464- 2426 Dec, Neck pain M54.2 ; Encounter for immunization Z23 ; Vertigo R42 and Parkinson disease G20 [facility] [id number] [place] [address] 86568- 6871 Nov, [facility] [id number] [place] [address] 32491- 0921 Nov, [facility] [id number] [place] [address] 17452- 5516 Sep, [facility] [id number] [place] [address] 82616- 0561 Sep, Chronic viral hepatitis C B18.2 [facility] [id number] [place] [address] 93968- 6184 Sep, Chronic viral hepatitis C B18.2 [place] [id number] [place] [address] 16533- 5263 Sep, Chronic viral hepatitis C B18.2 [place] [id number] [place] [address] 60089- 9023 Aug, Type 2 diabetes mellitus without complication, without long- term current use of insulin E11.9 ; Chronic viral hepatitis C B18.2 ; Vertigo R42 and Depression, unspecified depression type F32.9 [place] [id number] [place] [address] 40424- 1010 Jul, Insomnia G47.00 [place] [address] 97147- 5917 Jul, Type 2 diabetes mellitus without complication, without long- term current use of insulin E11.9 [place] [address] 41244- 7526 Apr, [facility] [address] [id number] Apr, Dental examination Z01.20 [facility] [address] [id number] Feb, Encounter for dental examination Z01.20 [facility] [address] [id number] Jan, Dental caries K02.9 [place] [id number] [place] [address] 61468- 0255 Jan, Arthritis M19.90 [place] [address] 47728- 8918 Jan, Benign positional vertigo, bilateral H81.13 and Type 2 diabetes mellitus without complication, without long-term current use of insulin E11.9 [place] [id number] [place] [address] 45932- 4451 Dec, [place] [address] 25677- 8349 Dec, [facility] [id number] [place] [address] 76065- 3281 Dec, Encounter for immunization Z23 and Elevated blood pressure reading R03.0 [facility] [id number] [place] [address] 29537- 6148 Dec, [facility] [id number] [place] [address] 45630- 4123 Dec, [facility] [id number] [place] [address] 70202- 2993 Nov, Type 2 diabetes mellitus without complication, without long- term current use of insulin E11.9 and Chronic viral hepatitis C B18.2 [facility] [id number] [place] [address] 21885- 0261 Nov, [facility] [id number] [place] [address] 36226- 5970 Nov, [facility] [id number] [place] [address] 61147- 9616 Oct, [facility] [id number] [place] [address] [id number] Oct, Dental examination Z01.20 [facility] [id number] [place] [address] 05871- 2260 Sep, [facility] [id number] [place] [address] 90716- 7918 Sep, [facility] [id number] [place] [address] 19930- 2375 Sep, Type 2 diabetes mellitus without complication, without long- term current use of insulin E11.9 and Chronic obstructive pulmonary disease, unspecified COPD type J44.9 [facility] [id number] [place] [address] 25197- 2783 Sep, Rectal bleeding K62.5 [facility] [id number] [place] [address] 62702 -3799 Aug, Rectal bleeding K62.5 ; Postmenopausal vaginal bleeding N95.0 ; Dysuria R30.0 ; Dermatitis L30.9 ; Acute cystitis with hematuria N30.01 ; Glycosuria R81 and Adnexal pain R10.2 [place] [id number] [place] [address] 87647- 0937 May, [place] [address] 10313- 7712 May, Chronic viral hepatitis C B18.2 [place] [address] 93819- 9277 Apr, [place] [address] 21294- 1787 Mar, [place] [address] 19402- 0370 Mar, Insomnia G47.00 [place] [address] 27339- 0471 Feb, Chronic viral hepatitis C B18.2 and Fatigue R53.[address] 90572- 9669 Feb, Rash R21 ; Fatigue R53.83 and Chronic viral hepatitis C B18.2 [place] [id number] [place] [address] 87181- 1673 Feb, Chronic viral hepatitis C B18.2 [place] [id number] [place] [address] 32201- 8024 Jan, Dermatitis L30.9 and Chronic viral hepatitis C B18.2 [place] [address] 74650- 6616 Jan, [place] [id number] [place] [address] 37858- 2702 Dec, [place] [address] [place] [address]- 1492 Nov, [facility] [id number] [place] [address] 25833- 5208 Nov, Hep C w/o coma, chronic 070.54 [facility] [address] [place] [address] 79201- 9607 Oct, Lower back pain 724.2 and Urinary tract infection 599.0 [facility] [id number] [place] [address] 85333- 3576 Oct, [facility] [id number] [place] [address] 09793- 3323 Oct, [facility] [id number] [place] [address] 21190- 2219 Oct, Dark urine 791.9 and Rectal bleeding 569.3 [facility] [id number] [place] [address] 09190- 3622 Sep, Hep C w/o coma, chronic 070.54 [facility] [id number] [place] [address] 16319- 4720 Sep, [facility] [id number] [place] [address] 15192- 1104 Aug, [facility] [address] [place] [address] 03480- 8790 Aug, [facility] [address] [place] [address] 78327- 9304 Jul, Hep C w/o coma, chronic 070.54 [facility] [address] [place] [address] 45789- 4125 Jul, Hep C w/o coma, chronic 070.54 [facility] [id number] [place] [address] 54300- 3484 June, Local infection of skin and subcutaneous tissue 686.9 [facility] [id number] [place] [address]- 7633 June, Foot pain, right 729.5 [facility] [address] [id number] [place] [address]- 5025 June, [facility] [place] [facility] [address] [id number] [place] [address]- 9809 May, [facility] [place] [facility] [id number] [place] [address], [place] [address]- 6569 May, [facility] [place] [facility] [address] [id number] [place] [address]- 7816 Apr, [facility] [place] [facility] [address] [id number] [place] [address]- 3181 Apr, [facility] [place] [facility] [address] [facility] [id number] [place] [address]- 3199 Apr, [facility] [place] [facility] [id number] [place] [address]- 4123 Apr, [facility] [place] [facility] [address] [facility] [id number] [place] [address]- 5059 Apr, [facility] [place] [facility] [address] [facility] [id number] [place] [address]- 3438 Apr, [facility] [place] [facility] [address] [facility] [id number] [place] [address]- 9661 Jan, [facility] [place] [facility] [address] [facility] [id number] [place] [address]- 3655 Jan, [facility] [place] [facility] [address] [facility] [id number] [place] [address]- 9285 Jan, [facility] [place] [facility] [address] [facility] [id number] [place] 9718 Dec, [facility] [place] [facility] [address] [facility] [id number] [place] [address]- 3147 Dec, [facility] [place] [facility] [address] [facility] [id number] [place] [address]- 8338 Dec, [facility] [place] [facility] [address] [id number] [place] [address]- 3195 Dec, [facility] [place] [facility] [address] [id number] [place] [address]- 6707 Nov, [facility] [place] [facility] [address] [id number] [place] 2090 Nov, [facility] [place] [facility] [address] [id number] [place] [address]- 2613 Nov, [facility] [place] [facility] [address] [id number] [place] [address]- 9658 Nov, [facility] [place] [facility] [address] [id number] [place] [address]- 8043 Nov, [facility] [place] [facility] [address] [id number] [place] [address]- 1957 Nov, [facility] [place] [facility] [address] [id number] [place] [address]- 2025 Nov, [facility] [place] [facility] [address] [id number] [place] [address]- 7801 Nov, [facility] [place] [facility] [address] [id number] [place] [address]- 6796 Nov, [facility] [place] [facility] [address] [id number] [place] [address]- 7446 Nov, [facility] [place] [facility] [address] [id number], [place] [address]- 5887 Oct, [facility] [place] [facility] [address] [id number] [place] [address]- 6618 Oct, [facility] [place] [facility] [address] [id number] [place] [address]- 5420 24 Oct, 2013 [facility] [place] [facility] [address] [id number] [place] [address]- 2264 24 Oct, 2013 [facility] [place] [facility] [address] [id number] [place] [address]- 3855 2013 [facility] [address] [id number] [place] [address]- 7968 Oct, [facility] [place] [facility] [address] [id number] [place] 3777 Oct, [facility] [place] [facility] [address] [id number] [place] [address]- 3705 Oct, [facility] [place] [facility] [address] [id number] [place] [address]- 8217 Aug, [facility] [place] [facility] [address] [id number] [place] [address]- 1564 Aug, [facility] [place] [facility] [address] [id number] [place] [address]- 7883 Aug, [facility] [place] [facility] [address] [id number] [place] [address]- 7389 Aug, [facility] [address] [id number] [place] [address]- 6818 Aug, [facility] [place] [facility] [address] [id number] [place] [address]- 4117 Aug, [facility] [place] [facility] [address] [id number] [place] [address]- 5863 Aug, [facility] [place] [facility] [address] [id number] [place] [address]- 2451 Aug, [facility] [place] [facility] [address] [id number] [place] [address]- 8985 June, [facility] [place] [facility] [address] [id number] [place] [address]- 3088 June, [facility] [place] [facility] [address] [id number] [place] [address]- 4596 May, [facility] [place] [facility] [address] [id number] [place] [address]- 0620 May, [facility] [place] [facility] [address] [id number] [place] [address]- 1953 Apr, [facility] [place] [facility] [address] [id number] [place] [address]- 2344 Apr, [facility] [place] [facility] [address] [id number] [place] [address]- 1126 Apr, [facility] [place] [facility] [address] [id number] [place] [address]- 6228 Mar, [facility] [place] [facility] [address] [id number] [place] [address]- 3088 Mar, [facility] [place] [facility] [address] [id number] [place] [address]- 9834 Mar, [facility] [place] [facility] [address] [id number] [place] [address]- 4503 Mar, [facility] [place] [facility] [address] [id number] [place] [address]- 9656 Mar, [facility] [place] [facility] [address] [id number] [place] [address]- 8916 Mar, [facility] [place] [facility] [address] [facility] [id number] [place] [address]- 5441 Jan, [facility] [place] [facility] [address] [facility] [id number], [place] [address]- 9498 Jan, [facility] [place] [facility] [address] [id number], [place] [address]- 3593 Jan, [facility] [place] [facility] [address] [id number] [place] [address]- 8329 Jan, [facility] [place] [facility] [address] [id number] [place] [address]- 1631 Jan, [facility] [place] [facility] [address] [facility] [id number] [place] [address]- 8269 Jan, [facility] [place] [facility] [address] [id number] [place] [address]- 3395 14 Dec, 2012 [facility] [address] [id number] [place] [address]- 0415 14 Dec, 2012 [facility] [place] [facility] [address] [id number] [place] [address]- 5856 13 Dec, 2012 [facility] [address] [id number] [place] [address]- 6940 13 Dec, 2012 [facility] [place] [facility] [address] [id number] [place] [address]- 9830 07 Dec, 2012 [facility] [address] [id number] [place] 4180 07 Dec, 2012 [facility] [place] [facility] [address] [id number] [place] [address]- 3450 07 Dec, 2012 [facility] [address] [id number] [place] [address]- 0424 07 Dec, 2012 [facility] [place] [facility] [address] [id number] [place] [address]- 7904 26 Oct, 2012 [facility] [place] [facility] [address] [id number] [place] [address]- 8818 17 Oct, 2012 [facility] [place] [facility] [address] [id number] [place] [address]- 7898 16 Sep, 2012 [facility] [place] [facility] [address] [id number] [place] [address]- 8237 Aug, [facility] [place] [facility] [address] [id number] [place] [address]- 3565 Aug, [facility] [place] [facility] [address] [id number] [place] [address]- 8089 June, [facility] [place] [facility] [address] [id number] [place] [address]- 4812 June, [facility] [place] [facility] [address] [id number] [place] [address]- 1534 June, [facility] [place] [facility] [address] [id number] [place] [address]- 9498 June, [facility] [address] [id number] [place] [address]- 4341 May, [facility] [address] [id number] [place] [address]- 5044 May, [facility] [address] [id number] [place] [address]- 4158 Apr, [facility] [address] [id number] [place] [address]- 6440 Apr, [facility] [address] [id number] [place] [address]- 9097 Jan, [facility] [address] [id number] [place] [address]- 3749 Jan, [facility] [address] [id number] [place] [address]- 7778 24 Jan, 2012 [facility] [address] [id number] [place] [address]- 2866 Jan, [facility] [address] [id number] [place] [address]- 5365 Jan, [facility] [address] [id number] [place] [address]- 4495 Jan, [facility] [address] [id number] [place] [address]- 6262 Jan, [facility] [address] [id number] [place] 0743 Jan, [facility] [place] [facility] [address] [id number] [place] [address]- 5926 Jan, [facility] [address] [id number] [place] [address]- 3416 05 Jan, 2012 [facility] [address] [id number] [place] [address]- 8520 Jan, [facility] [place] [facility] [address] [id number] [place] [address]- 7488 Dec, [facility] [place] [facility] [address] [id number] [place] 0816 Dec, [facility] [place] [facility] [address] [id number] [place] [address]- 4053 Dec, [facility] [place] [facility] [address] [id number] [place] [address]- 8069 Dec, [facility] [place] [facility] [address] [id number] [place] [address]- 7485 Dec, [facility] [place] [facility] [address] [id number] [place] [address] Dec, [facility] [place] [facility] [address] [id number] [place] [address] Nov, [facility] [place] [facility] [address] [id number] [place] [address] Nov, [facility] [place] [facility] [address] [id number] [place] [address] Nov, [facility] [place] [facility] [address] [id number] [place] [address] Oct, [facility] [place] [facility] [address] [id number] [place] [address] Oct, [facility] [place] [facility] [address] [id number] [place] [address] Sep, [facility] [place] [facility] [address] [id number] [place] [address] Sep, [facility] [place] [facility] [address] [id number] [place] [address] Sep, [facility] [place] [facility] [address] [id number] [place] [address] Sep, [facility] [place] [facility] [address] [id number] [place] [address] 31 Aug, 2011 [facility] [address] [id number] [place] [address] June, [facility] [address] [id number] [place] [address] 26 May, 2011 [facility] [address] [id number] [place] [address] 16 May, 2011 [facility] [address] [id number] [place] [address] 14 May, 2011 [facility] [address] [id number] [place] [address] 05 May, 2011 [facility] [address] [id number] [place] [address] Apr, [facility] [address] [id number] [place] [address] 15 Mar, 2011 [facility] [address] [id number] [place] [address] 10 Mar, 2011 [facility] [address] [id number] [place] [address] Feb, [facility] [address] [id number] [place] [address] Feb, [facility] [address] [id number] [place] [address] Feb, [facility] [address] [id number] [place] [address] Jan, [facility] [place] [facility] [address] [id number] [place] [address] Jan, [facility] [place] [facility] [address] [id number] [place] [address] Jan, [facility] [place] [facility] [address] [id number] [place] [address] Jan, [facility] [address] [facility] [id number], [place] [address] Jan, [facility] [address] [facility] [id number], [place] [address] Jan, [facility] [address] [facility] [id number][place] [address] [address] Jan, [facility] [address] [facility] [id number], [place] [address] Dec, [facility] [address] [facility] [id number], [place] [address] Dec, [facility] [address] [facility] [id number], [place] [address] Dec, [facility] [address] [facility] [id number], [place] [address] Dec, [facility] [address] [id number], [place] [address] Dec, [facility] [address] [facility] [id number], [place] [address] Nov, [facility] [address] [facility] [id number], [place] [address] Nov, [facility] [address] [facility] [id number], [place] [address] Jul, [facility] [address] [facility] [id number], [place] [address] June, [facility] [address] [facility] [id number], [place] [address] Mar, [facility] [address] [facility] [id number], [place] [address] 16 Feb, 2009 [facility] [address] [facility] [id number], [place] [address] Dec, IMMUNIZATIONS No Known Immunizations SOCIAL HISTORY Never Assessed REASON FOR VISIT PA-Flexeril (approved) PLAN OF CARE VITAL SIGNS MEDICATIONS Unknown Medications RESULTS No Results PROCEDURES No Known procedures INSTRUCTIONS MEDICATIONS ADMINISTERED No Known Medications MEDICAL (GENERAL) HISTORY Type Description Date Medical History hepatitis C (completed 24 weeks of Sovaldi/Ribipaclinton 11/2014) Medical History chronic obstructive pulmonary disease (COPD) Medical History plantar fasciitis Medical History cardiovascular disease Surgical History partial hysterectomy Surgical History cholecystectomy Surgical History hemorrhoidectomy Surgical History spine surgery Hospitalization History surgeries Hospitalization History Sepsis 2/2 UTI from [facility] [place] 05/19/17 Hospitalization History Constipation 06/25
--- OUTSIDE RECORDS SUMMARY | 2018-05-08 20:39 | XMS REPORT ---
Author Author TORREY FELIX Organization [facility] Address [address] [place] [address] Care Team Providers Care Executive Community Planning Name Role Phone TORREY FELIX Unavailable PROBLEMS Type Condition ICD9-CM Code EWE62-XF Code Onset Dates Condition Status SNOMED Code Problem Sleep apnea, unspecified type G47.30 Active 12117935 Problem Arthritis M19.90 Active 7624546 Problem Benign positional vertigo, bilateral H81.13 Active 964384338 Problem Chronic viral hepatitis C B18.2 Active 903858458 Problem Chronic obstructive pulmonary disease, unspecified COPD type J44.9 Active 82347806 Problem Other cirrhosis of liver K74.69 Active 70266259 Problem Peripheral vascular disease I73.9 Active 563538522 Problem Vertigo R42 Active 885395869 Problem Insomnia G47.00 Active 511982059 Problem Recurrent major depressive disorder, in full remission F33.42 Active 965759130 Problem Prediabetes R73.03 Active 435443406 ALLERGIES Substance Reaction Event Type Date Status Hydrocodone-Acetaminophen vomiting Drug Allergy Sep, Active Plastic tape Unknown Non Drug Allergy Sep, Active ENCOUNTERS Encounter Location Date Diagnosis [facility] [address] [address] Nov, [facility] [id number] [place] [address] 33959- 9305 Sep, [facility] [id number] [place] [address] 67172- 0405 Sep, Compression fracture of body of thoracic vertebra S22.000A and Benign positional vertigo, bilateral H81.13 [facility] [address] [address] Sep, [facility] [id number] [place] [address] 30990- 9507 Sep, Benign positional vertigo, bilateral H81.13 ; Impacted cerumen of both ears H61.23 ; Chronic obstructive pulmonary disease, unspecified COPD type J44.9 ; Recurrent major depressive disorder, in full remission F33.42 and Other cirrhosis of liver K74.69 [facility] [id number] [address] Aug, [facility] [id number] [place] [address] 98104- 5076 Aug, Lightheadedness R42 [facility] [id number] [place] [address] 03693- 4298 Jul, Lightheadedness R42 [facility] [id number] [place] [address] 81479- 4484 Jul, Medicare annual wellness visit, initial Z00.00 ; Chronic obstructive pulmonary disease, unspecified COPD type J44.9 ; Depression, unspecified depression type F32.9 ; Insomnia G47.00 ; Chronic viral hepatitis C B18.2 ; Parkinson disease G20 ; Prediabetes R73.03 ; Arthritis M19.90 ; Routine adult health maintenance Z00.00 and Encounter for immunization Z23 [facility] [id number] [address] 4978 Jul, [facility] [id number] [address] 3369 June, [facility] [id number] [place] [address] 26556- 6745 June, [facility] [id number] [place] [address] 05980- 1465 June, [facility] [id number] [place] [address] 86522- 2310 June, [facility] [id number] [address]- 2093 May, Acute cystitis without hematuria N30.00 [facility] [id number] [place] [address] 01926- 5266 May, Prediabetes R73.03 [facility] [id number] [place] [address] 60102- 2504 May, Acute cystitis without hematuria N30.00 ; Type 2 diabetes mellitus without complication, without long-term current use of insulin E11.9 ; Vertigo R42 ; Chronic obstructive pulmonary disease, unspecified COPD type J44.9 ; Chronic viral hepatitis C B18.2 and Prediabetes R73.03 [facility] [id number] [place] [address] 77754- 9742 May, [facility] [id number] [place] [address] 47684- 1440 May, Chronic viral hepatitis C B18.2 [facility] [id number] [place] [address] 56909- 8909 Mar, [facility] [id number] [place] [address] 08679- 0131 Dec, Vertigo R42 [facility] [id number] [place] [address] 50930- 3854 Dec, Neck pain M54.2 ; Encounter for immunization Z23 ; Vertigo R42 and Parkinson disease G20 [facility] [id number] [place] [address] 75102- 8095 Nov, [facility] [id number] [place] [address] 02233- 1614 Nov, [facility] [id number] [place] [address] 68647- 4219 Sep, [facility] [id number] [place] [address] 91251- 6981 Sep, Chronic viral hepatitis C B18.2 [facility] [id number] [place] [address] 10852- 5722 Sep, Chronic viral hepatitis C B18.2 [facility] [id number] [place] [address] 14410- 3536 Sep, Chronic viral hepatitis C B18.2 [facility] [id number] [place] [address] 456695- 1516 Aug, Type 2 diabetes mellitus without complication, without long- term current use of insulin E11.9 ; Chronic viral hepatitis C B18.2 ; Vertigo R42 and Depression, unspecified depression type F32.9 [facility] [id number] [place] [address] 72172- 0220 Jul, Insomnia G47.00 [facility] [address] 66482- 5591 Jul, Type 2 diabetes mellitus without complication, without long- term current use of insulin E11.9 [facility] [id number] [place] [address] 88737- 3189 Apr, [facility] [address] [id number] Apr, Dental examination Z01.20 [facility] [address] [id number] Feb, Encounter for dental examination Z01.20 [facility] [address] [id number] Jan, Dental caries K02.9 [facility] [id number] [place] [address] 00206- 0068 Jan, Arthritis M19.90 [facility] [id number] [place] [address] 58676- 2974 Jan, Benign positional vertigo, bilateral H81.13 and Type 2 diabetes mellitus without complication, without long-term current use of insulin E11.9 [facility] [id number] [place] [address] 49524- 3353 Dec, [facility] [address] 21724- 9712 Dec, [facility] [id number] [place] [address] 16870- 8511 Dec, Encounter for immunization Z23 and Elevated blood pressure reading R03.0 [facility] [id number] [place] [address] 05171- 2990 Dec, [facility] [address] 68617- 6156 Dec, [facility] [address] 05310- 8407 Nov, Type 2 diabetes mellitus without complication, without long- term current use of insulin E11.9 and Chronic viral hepatitis C B18.2 [facility] [id number] [place] [address] 22085- 5476 Nov, [facility] [address] 20924- 8593 Nov, [facility] [id number] [place] [address] 07240- 9010 Oct, [facility] [address] [id number] Oct, Dental examination Z01.20 [facility] [id number] [place] [address] 27985- 5617 Sep, [facility] [id number] [place] [address] 15754- 7779 Sep, [facility] [id number] [place] [address] 57645- 3877 Sep, Type 2 diabetes mellitus without complication, without long- term current use of insulin E11.9 and Chronic obstructive pulmonary disease, unspecified COPD type J44.9 [facility] [id number] [place] [address] 32343- 1954 Sep, Rectal bleeding K62.5 [facility] [id number] [place] [address] 63493 -7171 Aug, Rectal bleeding K62.5 ; Postmenopausal vaginal bleeding N95.0 ; Dysuria R30.0 ; Dermatitis L30.9 ; Acute cystitis with hematuria N30.01 ; Glycosuria R81 and Adnexal pain R10.2 [facility] [id number] [place] [address] 27780- 6100 May, [facility] [address] 40352- 0879 May, Chronic viral hepatitis C B18.2 [facility] [address] 66461- 7498 Apr, [facility] [address] 51980- 9899 Mar, [facility] [address] 31073- 5916 Mar, Insomnia G47.00 [facility] [address] 83420- 9769 Feb, Chronic viral hepatitis C B18.2 and Fatigue R53.[address] 14344- 9302 Feb, Rash R21 ; Fatigue R53.83 and Chronic viral hepatitis C B18.2 [facility] [address] 59647- 1404 Feb, Chronic viral hepatitis C B18.2 [facility] [address] 86920- 2518 Jan, Dermatitis L30.9 and Chronic viral hepatitis C B18.2 [facility] [address] 62674- 4830 Jan, [facility] [address] 27080- 7252 Dec, [facility] [address] 20853- 0878 Nov, [facility] [address] [address]84 Nov, Hep C w/o coma, chronic 070.54 [facility] [address] [address]- 2982 Oct, Lower back pain 724.2 and Urinary tract infection 599.0 [facility] [id number] [place] [address] 45416- 8546 Oct, [facility] [id number] [place] [address] 237497- 4791 Oct, [facility] [id number] [place] [address] 18064- 1320 Oct, Dark urine 791.9 and Rectal bleeding 569.3 [facility] [id number] [place] [address] 93381- 5496 Sep, Hep C w/o coma, chronic 070.54 [facility] [id number] [place] [address] 71787- 4387 Sep, [facility] [id number] [place] [address] 00816- 5023 Aug, [facility] [address] [address]- 6674 Aug, [facility] [id number] [place] [address] 34832971- 8902 Jul, Hep C w/o coma, chronic 070.54 [facility] [id number] [place] [address] 042109- 1934 Jul, Hep C w/o coma, chronic 070.54 [facility] [id number] 6979 June, Local infection of skin and subcutaneous tissue 686.9 [facility] [id number] [place] [address] [place] [address]- 7364 June, Foot pain, right 729.5 [facility] [address] [id number] [place] [address]- 0853 June, [facility] [address] [id number] [place] [address]- 3635 May, [facility] [address] [id number] [place] [address]- 9937 May, [facility] [address] [id number] [place] [address]- 2706 Apr, [facility] [address] [id number] [place] [address]- 9576 Apr, [facility] [address] [facility] [id number] [place] [address]- 9927 Apr, [facility] [address] [place] [address]- 3961 Apr, [facility] [address] [id number] [place] [address]- 0076 Apr, [facility] [address] [place] [address]- 4010 Apr, [facility] [id number] [place] [address]- 9305 Jan, [facility] [address] [id number] [place] [address]- 6076 Jan, [facility] [address] [id number] [place] [address]- 1772 Jan, [facility] [place] [facility] [address] [id number] [place] [address]- 6845 Dec, [facility] [place] [facility] [address] [facility] [id number] [place] [address]- 9346 Dec, [facility] [id number] [place] [address]- 2467 Dec, [facility] [place] [facility] [address] [id number] [place] [address]- 7442 Dec, [facility] [place] [facility] [address] [id number] [place] [address]- 3817 Nov, [facility] [place] [facility] [address] [id number] [place] [address]- 9252 Nov, [facility] [place] [facility] [address] [id number] [place] [address]- 3834 Nov, [facility] [place] [facility] [address] [id number] [place] [address]- 7493 Nov, [facility] [place] [facility] [address] [id number] [place] [address]- 6421 Nov, [facility] [place] [facility] [address] [id number] [place] [address]- 8705 Nov, [facility] [place] [facility] [address] [id number] [place] [address]- 3928 Nov, [facility] [place] [facility] [address] [id number] [place] [address]- 7111 Nov, [facility] [place] [facility] [address] [id number] [place] [address]- 9030 Nov, [facility] [place] [facility] [address] [id number] [place] [address]- 2063 Nov, [facility] [place] [facility] [address] [id number] [address]- 4275 Oct, [facility] [place] [facility] [address] [id number] [place] [address]- 5008 Oct, [facility] [place] [facility] [address] [id number] [place] [address]- 4849 Oct, [facility] [place] [facility] [address] [id number] [place] [address]- 3322 24 Oct, 2013 [facility] [place] [facility] [address] [id number] [place] [address]- 1056 Oct, [facility] [place] [facility] [address] [id number] [place] [address]- 7302 Oct, [facility] [place] [facility] [address] [id number] [place] [address]- 9720 Oct, [facility] [place] [facility] [address] [id number] [place] [address]- 3810 Oct, [facility] [place] [facility] [address] [id number] [place] [address]- 6095 Aug, [facility] [place] [facility] [address] [id number] [place] [address]- 5540 Aug, [facility] [place] [facility] [address] [id number] [place] [address]- 8217 Aug, [facility] [place] [facility] [address] [id number] [place] [address]- 8713 Aug, [facility] [place] [facility] [address] [id number] [place] [address]- 9896 Aug, [facility] [place] [facility] [address] [id number] [place] [address]- 0938 Aug, [facility] [place] [facility] [address] [id number] [place] [address]- 1193 Aug, [facility] [place] [facility] [address] [id number] [place] [address]- 5857 Aug, [facility] [place] [facility] [address] [id number] [place] [address]- 8722 June, [facility] [place] [facility] [address] [id number] [place] [address]- 8833 June, [facility] [place] [facility] [address] [id number] [place] [address]- 7673 May, [facility] [place] [facility] [address] [id number] [place] [address]- 9271 May, [facility] [place] [facility] [address] [id number] [place] [address]- 1859 Apr, [facility] [place] [facility] [address] [id number] [place] [address]- 5912 Apr, [facility] [place] [facility] [address] [id number] [place] [address]- 1707 Apr, [facility] [place] [facility] [address] [id number] [place] [address]- 6629 Mar, [facility] [place] [facility] [address] [id number] [place] [address]- 5488 Mar, [facility] [place] [facility] [address] [id number] [place] [address]- 5281 Mar, [facility] [place] [facility] [address] [facility] [id number] [place] [address]- 0463 Mar, [facility] [place] [facility] [address] [facility] [id number] [place] [address]- 8624 Mar, [facility] [place] [facility] [address] [facility] [id number] [place] [address]- 1242 Mar, [facility] [place] [facility] [address] [facility] [id number] [place] [address]- 4818 Jan, [facility] [place] [facility] [address] [facility] [id number] [address]- 5111 Jan, [facility] [place] [facility] [address] [id number] [place] [address]- 9375 Jan, [facility] [place] [facility] [address] [id number] [place] [address]- 6564 Jan, [facility] [place] [facility] [address] [id number] [place] [address]- 0928 Jan, [facility] [place] [facility] [address] [facility] [id number] 6775 Jan, [facility] [place] [facility] [address] [id number] [place] [address]- 8140 14 Dec, 2012 [facility] [address] [id number] [place] [address]- 9006 14 Dec, 2012 [facility] [place] [facility] [address] [id number] [place] [address]- 7659 Dec, [facility] [place] [facility] [address] [id number] [place] [address]- 8290 13 Dec, 2012 [facility] [place] [facility] [address] [id number] [place] [address]- 2001 07 Dec, 2012 [facility] [place] [facility] [address] [id number] [place] [address]- 9227 07 Dec, 2012 [facility] [place] [facility] [address] [id number] [place] [address]- 2127 07 Dec, 2012 [facility] [address] [id number] [place] [address]- 7130 Dec, [facility] [place] [facility] [address] [id number] [place] [address]- 3744 26 Oct, 2012 [facility] [place] [facility] [address] [id number] [place] [address]- 8352 17 Oct, 2012 [facility] [place] [facility] [address] [id number] [place] [address]- 2975 Sep, [facility] [place] [facility] [address] [id number] [place] [address]- 2635 Aug, [facility] [place] [facility] [address] [id number] [place] [address]- 0359 Aug, [facility] [place] [facility] [address] [id number] [place] 6653 June, [facility] [place] [facility] [address] [id number] [place] [address]- 7712 June, [facility] [place] [facility] [address] [facility] [id number] [place] [address]- 7728 June, [facility] [place] [facility] [address] [id number] [place] [address] 2546 07 Jun, 2012 [facility] [address] [id number] [place] [address]- 3726 May, [facility] [place] [facility] [address] [id number] [place] [address]- 2546 May, [facility] [address] [id number] [place] [address]- 8316 Apr, [facility] [place] [facility] [address] [id number] [place] [address]- 2546 Apr, [facility] [address] [id number] [place] [address]- 9350 Jan, [facility] [address] [id number] [place] [address]- 3497 24 Jan, 2012 [facility] [address] [id number] [place] [address]- 8339 24 Jan, 2012 [facility] [address] [id number] [place] [address]- 4641 17 Jan, 2012 [facility] [address] [id number] [place] [address]- 4786 17 Jan, 2012 [facility] [address] [id number] [place] 5566 13 Jan, 2012 [facility] [place] [facility] [address] [id number] [place] [address]- 2946 13 Jan, 2012 [facility] [place] [facility] [address] [id number] [place] [address]- 2546 10 Jan, 2012 [facility] [place] [facility] [address] [id number] [place] [address]- 9626 10 Jan, 2012 [facility] [place] [facility] [address] [id number] [place] [address]- 2546 05 Jan, 2012 [facility] [place] [facility] [address] [id number] [place] [address]- 2637 Jan, [facility] [place] [facility] [address] [id number] [place] [address]- 8317 Dec, [facility] [place] [facility] [address] [id number] [place] [address]- 5180 Dec, [facility] [place] [facility] [address] [id number] [place] [address]- 6881 Dec, [facility] [place] [facility] [address] [id number] [place] [address]- 8839 Dec, [facility] [place] [facility] [address] [id number] [place] [address]- 2267 Dec, [facility] [place] [facility] [address] [id number] [place] [address]- 1163 Dec, [facility] [place] [facility] [address] [facility] [id number] [place] [address]- 4298 Nov, [facility] [place] [facility] [address] [id number] [place] [address]- 9667 Nov, [facility] [place] [facility] [address] [id number] [place] [address]- 7282 Nov, [facility] [place] [facility] [address] [id number] [place] [address]- 5175 Oct, [facility] [place] [facility] [address] [id number] [place] [address]- 8078 Oct, [facility] [place] [facility] [address] [id number] [place] [address]- [address] Sep, [facility] [place] [facility] [address] [id number] [place] [address] Sep, [facility] [place] [facility] [address] [id number] [place] [address] Sep, [facility] [place] [facility] [address] [facility] [id number] [place] [address] Sep, [facility] [place] [facility] [address] [id number] [place] [address] 31 Aug, 2011 [facility] [address] [id number] [place] [address] June, [facility] [place] [facility] [address] [id number] [place] [address] 26 May, 2011 [facility] [address] [id number] [place] [address] 16 May, 2011 [facility] [place] [facility] [address] [id number] [place] [address] 14 May, 2011 [facility] [address] [id number] [place] [address] 05 May, 2011 [facility] [place] [facility] [address] [id number] [place] [address] Apr, [facility] [address] [id number] [place] [address] 15 Mar, 2011 [facility] [address] [id number] [place] [address] 10 Mar, 2011 [facility] [place] [facility] [address] [id number] [place] [address] Feb, [facility] [address] [id number] [place] [address] Feb, [facility] [place] [facility] [address] [id number] [place] [address] Feb, [facility] [place] [facility] [address] [id number] [place] [address] Jan, [facility] [place] [facility] [address] [id number] [place] [address] 16 Jan, 2011 [facility] [place] [facility] [address] [id number] [place] [address] 16 Jan, 2011 [facility] [place] [facility] [address] [id number] [place] [address] 15 Jan, 2011 [facility] [address] [facility] [id number] [place] [address] Jan, [facility] [address] [facility] [id number] [place] [address] Jan, [facility] [address] [facility] [id number] [place] [address] Jan, [facility] [address] [facility] [id number] [place] [address] Dec, [facility] [address] [facility] [id number] [place] [address] Dec, [facility] [address] [facility] [id number] [place] [address] Dec, [facility] [address] [id number] [place] [address] Dec, [facility] [address] [id number] [address] Dec, [facility] [address] [id number] [address] Nov, [facility] [address] [id number] [address] Nov, [facility] [id number] [address] Jul, [facility] [address] [id number] [address] June, [facility] [address] [facility] [id number] [place] [address] Mar, [facility] [address] [id number] [address] Feb, [facility] [address] [id number] [address] Dec, IMMUNIZATIONS No Known Immunizations SOCIAL HISTORY Never Assessed REASON FOR VISIT Dizziness-JUAN carrillo, falling down a lot PLAN OF CARE Activity Details Follow Up 2 Months Reason: Pending Test Ultrasound : Liver Future/Pending Procedure EAR L[facility] VITAL SIGNS Height 61 in 2017-09-20 Weight 210.2 lbs 2017-09-20 Temperature 98.4 degrees Fahrenheit 2017-09-20 Heart Rate 75 bpm 2017-09-20 Respiratory Rate 20 2017-09-20 Oximetry on room air:98 % 2017-09-20 BMI 39.71 kg/m2 2017-09-20 Blood pressure systolic 103 mmHg 2017-09-20 Blood pressure diastolic 64 mmHg 2017-09-20 MEDICATIONS Medication Instructions Dosage Frequency Start Date End Date Duration Status Lactulose 10GM/15 TAKE THREE TEASPOONSFUL BY MOUTH TWICE DAILY Active Ventolin HFA 108 (90 Base) MCG/ACT Inhalation every 4 hrs 2 puffs as needed 4h Active Cetirizine HCl 10 MG Orally Once a day 1 tablet 24h Active Mobic 7.500MG Orally Once a day 1 tablet 24h Not-Taking Aldactone 50MG Orally Twice a day 1 tablet 12h Active Folding Walker/Adult - to assist ambulation Jan, Active Breo Ellipta 200-25 MCG/INH Inhalation Once a day 1 puff 24h 05 Sep, 2015 Active Venlafaxine HCl ER 75MG TAKE TWO CAPSULES BY MOUTH ONCE DAILY WITH FOOD 90 Active Metoprolol Succinate ER 25 MG Orally Once a day 1 tablet 24h Active Cyclobenzaprine HCl 10MG Orally hs 1 Active Mobic 7.5 MG Orally Once a day 1 tablet 24h 30 Active Temazepam 15MG Orally Once a day 1 capsule 24h Active Meclizine HCl 25MG Orally 4 times a day, prn dizziness 1 tablet Active RESULTS No Results PROCEDURES Procedure Date Ordered Result Body Site EAR IRRIGATION Sep 20, 2017 INSTRUCTIONS MEDICATIONS ADMINISTERED No Known Medications MEDICAL (GENERAL) HISTORY Type Description Date Medical History hepatitis C (completed 24 weeks of Sovaldi/Ribipack 11/2014) Medical History chronic obstructive pulmonary disease (COPD) Medical History plantar fasciitis Medical History cardiovascular disease Surgical History partial hysterectomy Surgical History cholecystectomy Surgical History hemorrhoidectomy Surgical History spine surgery Hospitalization History surgeries Hospitalization History Sepsis 2/2 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
--- OUTSIDE RECORDS SUMMARY | 2018-05-08 20:39 | XMS REPORT ---
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 Name Role Phone TORREY FELIX Unavailable PROBLEMS Type Condition ICD9-CM Code GPN80-VT Code Onset Dates Condition Status SNOMED Code Problem Sleep apnea, unspecified type G47.30 Active 16070374 Problem Arthritis M19.90 Active 2169357 Problem Benign positional vertigo, bilateral H81.13 Active 366144531 Problem Chronic viral hepatitis C B18.2 Active 528905357 Problem Chronic obstructive pulmonary disease, unspecified COPD type J44.9 Active 29324337 Problem Other cirrhosis of liver K74.69 Active 51391923 Problem Peripheral vascular disease I73.9 Active 064378159 Problem Vertigo R42 Active 801298695 Problem Insomnia G47.00 Active 217376456 Problem Recurrent major depressive disorder, in full remission F33.42 Active 455129267 Problem Prediabetes R73.03 Active 398587691 ALLERGIES No Information ENCOUNTERS Encounter Location Date Diagnosis [facility] [id number] [place] [address] 96474- 3695 Nov, [facility] [id number] [place] [address] 19029- 7788 Oct, [facility] [id number] [place] [address] 66646- 8128 Sep, [facility] [id number] [place] [address] 50142- 1153 Sep, Compression fracture of body of thoracic vertebra S22.000A and Benign positional vertigo, bilateral H81.13 [facility] [id number] [place] [address] 33092- 5520 Sep, [facility] [address] [place] [address] 3388 Sep, Benign positional vertigo, bilateral H81.13 ; Impacted cerumen of both ears H61.23 ; Chronic obstructive pulmonary disease, unspecified COPD type J44.9 ; Recurrent major depressive disorder, in full remission F33.42 and Other cirrhosis of liver K74.69 [facility] [id number] [place] [address] 09381- 2684 Aug, [facility] [id number] [place] [address] 34821- 4663 Aug, Lightheadedness R42 [facility] [id number] [place] [address] 82576- 0731 Jul, Lightheadedness R42 [facility] [id number] [place] [address] 62395- 8781 Jul, Medicare annual wellness visit, initial Z00.00 ; Chronic obstructive pulmonary disease, unspecified COPD type J44.9 ; Depression, unspecified depression type F32.9 ; Insomnia G47.00 ; Chronic viral hepatitis C B18.2 ; Parkinson disease G20 ; Prediabetes R73.03 ; Arthritis M19.90 ; Routine adult health maintenance Z00.00 and Encounter for immunization Z23 [facility] [id number] [place] [address] 17998- 0411 Jul, [facility] [id number] [place] [address] 93205- 8643 June, [facility] [id number] [place] [address] 47469- 0002 June, [facility] [id number] [place] [address] 45282- 1342 June, [facility] [id number] [place] [address] 16451- 3032 June, [facility] [id number] [place] [address] 48511- 6967 May, Acute cystitis without hematuria N30.00 [facility] [id number] [place] [address] 97829- 5899 16 May, 2017 Prediabetes R73.03 [facility] [id number] [place] [address] 19545- 1230 16 May, 2017 Acute cystitis without hematuria N30.00 ; Type 2 diabetes mellitus without complication, without long-term current use of insulin E11.9 ; Vertigo R42 ; Chronic obstructive pulmonary disease, unspecified COPD type J44.9 ; Chronic viral hepatitis C B18.2 and Prediabetes R73.03 [facility] [id number] [place] [address] 49984- 2948 May, [facility] [id number] [place] [address] 39316- 2155 May, Chronic viral hepatitis C B18.2 [facility] [address] 57793- 8430 Mar, [facility] [id number] [place] [address] 81067- 8161 Dec, Vertigo R42 [facility] [address] 56906- 0416 Dec, Neck pain M54.2 ; Encounter for immunization Z23 ; Vertigo R42 and Parkinson disease G20 [facility] [id number] [place] [address] 22964- 4007 Nov, [facility] [id number] [place] [address] 41520- 5974 Nov, [facility] [id number] [place] [address] 92466- 1930 Sep, [facility] [id number] [place] [address] 75540- 2174 Sep, Chronic viral hepatitis C B18.2 [facility] [id number] [place] [address] 07325- 9229 Sep, Chronic viral hepatitis C B18.2 [facility] [id number] [place] [address] 16075- 3508 Sep, Chronic viral hepatitis C B18.2 [facility] [id number] [place] [address] 06246- 3110 Aug, Type 2 diabetes mellitus without complication, without long- term current use of insulin E11.9 ; Chronic viral hepatitis C B18.2 ; Vertigo R42 and Depression, unspecified depression type F32.9 [facility] [id number] [place] [address] 23236- 0787 Jul, Insomnia G47.00 [facility] [address] 35991- 6273 Jul, Type 2 diabetes mellitus without complication, without long- term current use of insulin E11.9 [facility] [address] 41850- 4327 Apr, [facility] [address] [id number] Apr, Dental examination Z01.20 [facility] [address] [id number] Feb, Encounter for dental examination Z01.20 [facility] [address] [id number] Jan, Dental caries K02.9 [facility] [id number] [place] [address] 07031- 3523 Jan, Arthritis M19.90 [facility] [address] 53048- 7511 Jan, Benign positional vertigo, bilateral H81.13 and Type 2 diabetes mellitus without complication, without long-term current use of insulin E11.9 [facility] [id number] [place] [address] 38330- 6453 Dec, [facility] [address] 32406- 4171 Dec, [facility] [id number] [place] [address] 87461- 0106 Dec, Encounter for immunization Z23 and Elevated blood pressure reading R03.0 [facility] [id number] [place] [address] 34438- 5575 Dec, [facility] [id number] [place] [address] 76866- 8554 Dec, [facility] [id number] [place] [address] 80942- 1519 Nov, Type 2 diabetes mellitus without complication, without long- term current use of insulin E11.9 and Chronic viral hepatitis C B18.2 [facility] [id number] [place] [address] 71585- 5974 Nov, [facility] [id number] [place] [address] 04181- 6947 Nov, [facility] [id number] [place] [address] 03528- 5616 Oct, [facility] [id number] [place] [address] [id number] Oct, Dental examination Z01.20 [facility] [id number] [place] [address] 72935- 3991 Sep, [facility] [id number] [place] [address] 72085- 2053 Sep, [facility] [id number] [place] [address] 05548- 8705 Sep, Type 2 diabetes mellitus without complication, without long- term current use of insulin E11.9 and Chronic obstructive pulmonary disease, unspecified COPD type J44.9 [facility] [id number] [place] [address] 04210- 1721 Sep, Rectal bleeding K62.5 [facility] [id number] [place] [address] 08366 -0492 Aug, Rectal bleeding K62.5 ; Postmenopausal vaginal bleeding N95.0 ; Dysuria R30.0 ; Dermatitis L30.9 ; Acute cystitis with hematuria N30.01 ; Glycosuria R81 and Adnexal pain R10.2 [facility] [id number] [place] [address] 41607- 9575 May, [facility] [address] 18130- 0593 May, Chronic viral hepatitis C B18.2 [facility] [address] 86977- 7491 Apr, [facility] [facility] [address] 02633- 8016 Mar, [facility] [facility] [address] 25714- 2117 Mar, Insomnia G47.00 [facility] [facility] [address] 78273- 5664 Feb, Chronic viral hepatitis C B18.2 and Fatigue R53.[address] 24046- 9187 Feb, Rash R21 ; Fatigue R53.83 and Chronic viral hepatitis C B18.2 [facility] [facility] [id number] [place] [address] 16075- 5192 Feb, Chronic viral hepatitis C B18.2 [facility] [id number] [place] [address] 65181- 2099 Jan, Dermatitis L30.9 and Chronic viral hepatitis C B18.2 [facility] [address] 65944- 8173 Jan, [facility] [id number] [place] [address] 83642- 4945 Dec, [facility] [address] [place] [address]- 7761 Nov, [facility] [id number] [place] [address] 28843- 1827 Nov, Hep C w/o coma, chronic 070.54 [facility] [id number] [place] [address] 36814- 5486 Oct, Lower back pain 724.2 and Urinary tract infection 599.0 [facility] [id number] [place] [address] 35530- 0418 Oct, [facility] [id number] [place] [address] 50801- 4703 Oct, [facility] [id number] [place] [address] 07128- 7373 Oct, Dark urine 791.9 and Rectal bleeding 569.3 [facility] [id number] [place] [address] 44573- 4004 Sep, Hep C w/o coma, chronic 070.54 [facility] [id number] [place] [address] 62259- 9900 Sep, [facility] [id number] [place] [address] 99755- 9015 Aug, [facility] [id number] [place] [address] 98412- 4016 Aug, [facility] [address] [place] [address] 66741- 4348 Jul, Hep C w/o coma, chronic 070.54 [facility] [address] [place] [address] 70936- 1431 Jul, Hep C w/o coma, chronic 070.54 [facility] [id number] [place] [address] 82256- 8780 June, Local infection of skin and subcutaneous tissue 686.9 [facility] [id number] [address]- 9652 June, Foot pain, right 729.5 [facility] [address] [id number] [place] [address]- 4992 June, [facility] [place] [facility] [address] [id number] [place] [address]- 8241 May, [facility] [place] [facility] [id number] [place] [address], [place] [address]- 4083 May, [facility] [place] [facility] [address] [id number] [place] [address]- 0175 Apr, [facility] [place] [facility] [address] [id number] [place] [address]- 8705 Apr, [facility] [place] [facility] [address] [facility] [id number] [place] [address]- 0930 Apr, [facility] [place] [facility] [id number] [place] [address]- 0352 Apr, [facility] [place] [facility] [address] [facility] [id number] [place] [address]- 0515 Apr, [facility] [place] [facility] [address] [facility] [id number] [place] [address]- 2425 Apr, [facility] [place] [facility] [address] [facility] [id number] [place] [address]- 3628 Jan, [facility] [place] [facility] [address] [facility] [id number] [place] [address]- 9230 Jan, [facility] [place] [facility] [address] [facility] [id number] [place] [address]- 7950 Jan, [facility] [place] [facility] [address] [facility] [id number] [place] [address]- 9245 Dec, [facility] [place] [facility] [address] [facility] [id number] [place] [address]- 6547 Dec, [facility] [place] [facility] [address] [facility] [id number] [place] [address]- 4673 Dec, [facility] [place] [facility] [address] [id number] [place] [address]- 6523 Dec, [facility] [place] [facility] [address] [id number] [place] [address]- 3829 Nov, [facility] [place] [facility] [address] [id number] [place] 6197 Nov, [facility] [place] [facility] [address] [id number] [place] [address]- 6055 Nov, [facility] [place] [facility] [address] [id number] [place] [address]- 6954 Nov, [facility] [place] [facility] [address] [id number] [place] [address]- 4173 Nov, [facility] [place] [facility] [address] [id number] [place] [address]- 4980 Nov, [facility] [place] [facility] [address] [id number] [place] [address]- 5786 Nov, [facility] [place] [facility] [address] [id number] [place] [address]- 0232 Nov, [facility] [place] [facility] [address] [id number] [place] [address]- 6633 Nov, [facility] [place] [facility] [address] [id number] [place] [address]- 4805 Nov, [facility] [place] [facility] [address] [id number], [place] [address]- 0468 Oct, [facility] [place] [facility] [address] [id number] [place] [address]- 6186 Oct, [facility] [place] [facility] [address] [id number] [place] [address]- 4589 24 Oct, 2013 [facility] [place] [facility] [address] [id number] [place] [address]- 6506 24 Oct, 2013 [facility] [place] [facility] [address] [id number] [place] [address]- 2293 2013 [facility] [address] [id number] [place] [address]- 0163 Oct, [facility] [place] [facility] [address] [id number] [place] 7055 Oct, [facility] [place] [facility] [address] [id number] [place] [address]- 6654 Oct, [facility] [place] [facility] [address] [id number] [place] [address]- 7629 Aug, [facility] [place] [facility] [address] [id number] [place] [address]- 4271 Aug, [facility] [place] [facility] [address] [id number] [place] [address]- 8676 Aug, [facility] [place] [facility] [address] [id number] [place] [address]- 2649 Aug, [facility] [address] [id number] [place] [address]- 6218 Aug, [facility] [place] [facility] [address] [id number] [place] [address]- 5441 Aug, [facility] [place] [facility] [address] [id number] [place] [address]- 7747 Aug, [facility] [place] [facility] [address] [id number] [place] [address]- 8263 Aug, [facility] [place] [facility] [address] [id number] [place] [address]- 1498 June, [facility] [place] [facility] [address] [id number] [place] [address]- 3509 June, [facility] [place] [facility] [address] [id number] [place] [address]- 2868 May, [facility] [place] [facility] [address] [id number] [place] [address]- 1582 May, [facility] [place] [facility] [address] [id number] [place] [address]- 5251 Apr, [facility] [place] [facility] [address] [id number] [place] [address]- 9506 Apr, [facility] [place] [facility] [address] [id number] [place] [address]- 3466 Apr, [facility] [place] [facility] [address] [id number] [place] [address]- 6574 Mar, [facility] [place] [facility] [address] [id number] [place] [address]- 4147 Mar, [facility] [place] [facility] [address] [id number] [place] [address]- 3929 Mar, [facility] [place] [facility] [address] [id number] [place] [address]- 8748 Mar, [facility] [place] [facility] [address] [id number] [place] [address]- 4525 Mar, [facility] [place] [facility] [address] [id number] [place] [address]- 2840 Mar, [facility] [place] [facility] [address] [facility] [id number] [place] [address]- 0013 Jan, [facility] [place] [facility] [address] [facility] [id number], [place] [address]- 2050 Jan, [facility] [place] [facility] [address] [id number], [place] [address]- 7260 Jan, [facility] [place] [facility] [address] [id number] [place] [address]- 8918 Jan, [facility] [place] [facility] [address] [id number] [place] [address]- 1799 Jan, [facility] [place] [facility] [address] [facility] [id number] [place] [address]- 0921 Jan, [facility] [place] [facility] [address] [id number] [place] [address]- 4461 14 Dec, 2012 [facility] [address] [id number] [place] [address]- 4972 14 Dec, 2012 [facility] [place] [facility] [address] [id number] [place] [address]- 8984 13 Dec, 2012 [facility] [address] [id number] [place] [address]- 9982 13 Dec, 2012 [facility] [place] [facility] [address] [id number] [place] [address]- 9777 07 Dec, 2012 [facility] [address] [id number] [place] 6714 07 Dec, 2012 [facility] [place] [facility] [address] [id number] [place] [address]- 6406 07 Dec, 2012 [facility] [address] [id number] [place] [address]- 2880 07 Dec, 2012 [facility] [place] [facility] [address] [id number] [place] [address]- 8289 26 Oct, 2012 [facility] [place] [facility] [address] [id number] [place] [address]- 2249 17 Oct, 2012 [facility] [place] [facility] [address] [id number] [place] [address]- 7995 16 Sep, 2012 [facility] [place] [facility] [address] [id number] [place] [address]- 8254 Aug, [facility] [place] [facility] [address] [id number] [place] [address]- 5611 Aug, [facility] [place] [facility] [address] [id number] [place] [address]- 7362 June, [facility] [place] [facility] [address] [id number] [place] [address]- 4267 June, [facility] [place] [facility] [address] [id number] [place] [address]- 5631 June, [facility] [place] [facility] [address] [id number] [place] [address]- 5146 June, [facility] [address] [id number] [place] [address]- 8669 May, [facility] [address] [id number] [place] [address]- 4128 May, [facility] [address] [id number] [place] [address]- 3702 Apr, [facility] [address] [id number] [place] [address]- 6554 Apr, [facility] [address] [id number] [place] [address]- 5801 Jan, [facility] [address] [id number] [place] [address]- 8241 Jan, [facility] [address] [id number] [place] [address]- 5220 24 Jan, 2012 [facility] [address] [id number] [place] [address]- 8612 Jan, [facility] [address] [id number] [place] [address]- 6879 Jan, [facility] [address] [id number] [place] [address]- 4135 Jan, [facility] [address] [id number] [place] [address]- 5992 Jan, [facility] [address] [id number] [place] 4865 Jan, [facility] [place] [facility] [address] [id number] [place] [address] Jan, [facility] [address] [id number] [place] [address] 05 Jan, 2012 [facility] [address] [id number] [place] [address] Jan, [facility] [place] [facility] [address] [id number] [place] [address] Dec, [facility] [place] [facility] [address] [id number] [place] [address] Dec, [facility] [place] [facility] [address] [id number] [place] [address] Dec, [facility] [place] [facility] [address] [id number] [place] [address] Dec, [facility] [place] [facility] [address] [id number] [place] [address] Dec, [facility] [place] [facility] [address] [id number] [place] [address] Dec, [facility] [place] [facility] [address] [id number] [place] [address] Nov, [facility] [place] [facility] [address] [id number] [place] [address] Nov, [facility] [place] [facility] [address] [id number] [place] [address] Nov, [facility] [place] [facility] [address] [id number] [place] [address] Oct, [facility] [place] [facility] [address] [id number] [place] [address] Oct, [facility] [place] [facility] [address] [id number] [place] [address] Sep, [facility] [place] [facility] [address] [id number] [place] [address] Sep, [facility] [place] [facility] [address] [id number] [place] [address] Sep, [facility] [place] [facility] [address] [id number] [place] [address] Sep, [facility] [place] [facility] [address] [id number] [place] [address] 31 Aug, 2011 [facility] [address] [id number] [place] [address] June, [facility] [address] [id number] [place] [address] 26 May, 2011 [facility] [address] [id number] [place] [address] 16 May, 2011 [facility] [address] [id number] [place] [address] 14 May, 2011 [facility] [address] [id number] [place] [address] 05 May, 2011 [facility] [address] [id number] [place] [address] Apr, [facility] [address] [id number] [place] [address] 15 Mar, 2011 [facility] [address] [id number] [place] [address] 10 Mar, 2011 [facility] [address] [id number] [place] [address] Feb, [facility] [address] [id number] [place] [address] Feb, [facility] [address] [id number] [place] [address] Feb, [facility] [address] [id number] [place] [address] Jan, [facility] [place] [facility] [address] [id number] [place] [address] Jan, [facility] [place] [facility] [address] [id number] [place] [address] Jan, [facility] [facility] [place] [facility] [address] [id number] [place] [address] Jan, [facility] [address] [facility] [id number], [place] [address] Jan, [facility] [address] [id number], [place] [address] Jan, [facility] [address] [facility] [id number] [address] Jan, [facility] [address] [facility] [id number], [place] [address] Dec, [facility] [address] [facility] [id number] [place] [address] Dec, [facility] [address] [facility] [id number], [place] [address] Dec, [facility] [address] [facility] [id number], [place] [address] Dec, [facility] [address] [facility] [id number], [place] [address] Dec, [facility] [address] [facility] [id number], [place] [address] Nov, [facility] [address] [facility] [id number], [place] [address] Nov, [facility] [address] [facility] [id number], [place] [address] Jul, [facility] [address] [facility] [id number], [place] [address] June, [facility] [address] [facility] [id number], [place] [address] Mar, [facility] [address] [facility] [id number], [place] [address] 16 Feb, 2009 [facility] [address] [facility] [id number], [place] [address] Dec, IMMUNIZATIONS No Known Immunizations SOCIAL HISTORY Never Assessed REASON FOR VISIT Controlled Med Refill PLAN OF CARE VITAL SIGNS MEDICATIONS Medication Instructions Dosage Frequency Start Date End Date Duration Status Temazepam 15MG Orally Once a day 1 capsule 24h Active Cyclobenzaprine HCl 10MG Orally hs 1 Active RESULTS No Results PROCEDURES No Known [...] Hospitalization History Sepsis 2/2 UTI from actinomyces- [facility] 05/19/17 Hospitalization History Constipation 06/25
--- OUTSIDE RECORDS SUMMARY | 2018-05-08 20:40 | XMS REPORT ---
Author Author TORREY FELIX Organization [facility] Address [address] [place] [address] Care Team Providers Care Disk Sander Name Role Phone TORREY FELIX Unavailable PROBLEMS Type Condition ICD9-CM Code HSG47-CS Code Onset Dates Condition Status SNOMED Code Problem Sleep apnea, unspecified type G47.30 Active 24292212 Problem Arthritis M19.90 Active 8345600 Problem Benign positional vertigo, bilateral H81.13 Active 960050028 Problem Chronic viral hepatitis C B18.2 Active 782326260 Problem Chronic obstructive pulmonary disease, unspecified COPD type J44.9 Active 55260902 Problem Other cirrhosis of liver K74.69 Active 79101293 Problem Peripheral vascular disease I73.9 Active 743775105 Problem Vertigo R42 Active 090307432 Problem Insomnia G47.00 Active 004613142 Problem Recurrent major depressive disorder, in full remission F33.42 Active 021239193 Problem Prediabetes R73.03 Active 551707325 ALLERGIES No Information ENCOUNTERS Encounter Location Date Diagnosis [place] [id number] [place] [address]19- 8771 Sep, [address] [address] Sep, Compression fracture of body of thoracic vertebra S22.000A and Benign positional vertigo, bilateral H81.13 [place] [id number] [place] [address] 40569- 7999 Sep, [address] 00594- 7761 Sep, Benign positional vertigo, bilateral H81.13 ; Impacted cerumen of both ears H61.23 ; Chronic obstructive pulmonary disease, unspecified COPD type J44.9 ; Recurrent major depressive disorder, in full remission F33.42 and Other cirrhosis of liver K74.69 [facility] [address] [address] Aug, [facility] [address] [address] 6[address] Aug, Lightheadedness R42 [facility] [address] [address] 14[address] Jul, Lightheadedness R42 [facility] [address] [address] 35[address] Jul, Medicare annual wellness visit, initial Z00.00 ; Chronic obstructive pulmonary disease, unspecified COPD type J44.9 ; Depression, unspecified depression type F32.9 ; Insomnia G47.00 ; Chronic viral hepatitis C B18.2 ; Parkinson disease G20 ; Prediabetes R73.03 ; Arthritis M19.90 ; Routine adult health maintenance Z00.00 and Encounter for immunization Z23 [facility] [id number] [address] Jul, [place] [id number] [place] [address] 67770- 9503 June, [facility] [id number] [address]- 0217 June, [facility] [address] [address] 9291 June, [facility] [address] [address]- 5124 June, [facility] [address] [address]- 9875 May, Acute cystitis without hematuria N30.00 [facility] [address] [address]- 2363 May, Prediabetes R73.03 [facility] [id number] [address] 8142 May, Acute cystitis without hematuria N30.00 ; Type 2 diabetes mellitus without complication, without long-term current use of insulin E11.9 ; Vertigo R42 ; Chronic obstructive pulmonary disease, unspecified COPD type J44.9 ; Chronic viral hepatitis C B18.2 and Prediabetes R73.03 [facility] [address] [address]- 4469 May, [facility] [address] [address]60- 5109 May, Chronic viral hepatitis C B18.2 [place] [address] [address]26- 9093 Mar, [facility] [address] 10679- 7818 Dec, Vertigo R42 [facility] [address] 10267- 5585 Dec, Neck pain M54.2 ; Encounter for immunization Z23 ; Vertigo R42 and Parkinson disease G20 [facility] [address] 9[address]64- 8169 Nov, [facility] [address] [address]01- 2153 Nov, [facility] [id number] [place] [address] 25876- 4230 Sep, [facility] [address] 14048- 6152 Sep, Chronic viral hepatitis C B18.2 [facility] [id number] [place] [address] 04678- 5578 Sep, Chronic viral hepatitis C B18.2 [facility] [id number] [place] [address] 43065- 3933 Sep, Chronic viral hepatitis C B18.2 [facility] [address] [place] [address]- 9888 Aug, Type 2 diabetes mellitus without complication, without long- term current use of insulin E11.9 ; Chronic viral hepatitis C B18.2 ; Vertigo R42 and Depression, unspecified depression type F32.9 [facility] [id number] [place] [address] 35208- 9924 Jul, Insomnia G47.00 [facility] [address] 77782- 8230 Jul, Type 2 diabetes mellitus without complication, without long- term current use of insulin E11.9 [place] [id number] [place] [address] 49871- 2847 Apr, [facility] [id number] [place] [address] [id number] Apr, Dental examination Z01.20 [facility] [address] [id number] Feb, Encounter for dental examination Z01.20 [facility] [address] [id number] Jan, Dental caries K02.9 [place] [id number] [place] [address] 50538- 1295 Jan, Arthritis M19.90 [place] [id number] [place] [address] 58242- 5008 Jan, Benign positional vertigo, bilateral H81.13 and Type 2 diabetes mellitus without complication, without long-term current use of insulin E11.9 [place] [id number] [place] [address] 97168- 0665 Dec, [place] [id number] [place] [address] 75420- 4218 Dec, [place] [id number] [place] [address] 96312- 7939 Dec, Encounter for immunization Z23 and Elevated blood pressure reading R03.0 [place] [address] [address]- 6678 Dec, [facility] [id number] [place] [address] 30656- 5931 Dec, [facility] [id number] [place] [address] 15760- 4530 Nov, Type 2 diabetes mellitus without complication, without long- term current use of insulin E11.9 and Chronic viral hepatitis C B18.2 [facility] [id number] [place] [address] 01329- 0723 Nov, [place] [id number] [place] [address] 93209- 4620 Nov, [facility] [id number] [place] [address] 09656- 4474 Oct, [facility] [id number] [place] [address] [id number] Oct, Dental examination Z01.20 [facility] [id number] [place] [address] 51978- 8526 Sep, [facility] [id number] [place] [address] 81070- 0977 Sep, [facility] [id number] [place] [address] 05418- 2616 Sep, Type 2 diabetes mellitus without complication, without long- term current use of insulin E11.9 and Chronic obstructive pulmonary disease, unspecified COPD type J44.9 [facility] [id number] [place] [address] 41414- 1603 Sep, Rectal bleeding K62.5 [facility] [address] [address] Aug, Rectal bleeding K62.5 ; Postmenopausal vaginal bleeding N95.0 ; Dysuria R30.0 ; Dermatitis L30.9 ; Acute cystitis with hematuria N30.01 ; Glycosuria R81 and Adnexal pain R10.2 [facility] [id number] [place] [address] 46279- 7010 May, [facility] [address] 91170- 1071 May, Chronic viral hepatitis C B18.2 [facility] [address] 24705- 4356 Apr, [facility] [address] 86507- 4784 Mar, [facility] [address] 41277- 3137 Mar, Insomnia G47.00 [facility] [address] 50999- 9625 Feb, Chronic viral hepatitis C B18.2 and Fatigue R53.83 [facility] [address] 37117- 0946 Feb, Rash R21 ; Fatigue R53.83 and Chronic viral hepatitis C B18.2 [facility] [address] 15116- 2412 Feb, Chronic viral hepatitis C B18.2 [facility] [address] 36075- 7479 Jan, Dermatitis L30.9 and Chronic viral hepatitis C B18.2 [facility] [id number] [place] [address] 61909- 3655 Jan, [facility] [address] 90967- 5809 Dec, [facility] [address] 20122- 1401 Nov, [facility] [address] 40099- 6125 Nov, Hep C w/o coma, chronic 070.54 [facility] [address] [address]- 4745 Oct, Lower back pain 724.2 and Urinary tract infection 599.0 [facility] [id number] [place] [address] 39627- 3943 Oct, [facility] [id number] [place] [address] 79688- 4821 Oct, [facility] [id number] [place] [address] 24751- 6397 Oct, Dark urine 791.9 and Rectal bleeding 569.3 [facility] [address] 50419- 4954 Sep, Hep C w/o coma, chronic 070.54 [facility] [id number] [place] [address] 63625- 4575 Sep, [facility] [id number] [place] [address] 82950- 8761 Aug, [facility] [id number] [place] [address] 56027- 5085 Aug, [facility] [id number] [place] [address] 93840- 5419 Jul, Hep C w/o coma, chronic 070.54 [facility] [id number] [place] [address] 88051- 6356 Jul, Hep C w/o coma, chronic 070.54 [facility] [id number] [place] [address] 23315- 1175 June, Local infection of skin and subcutaneous tissue 686.9 [facility] [id number] [place] [address] 83876- 0880 June, Foot pain, right 729.5 [facility] [id number] [place] [address] 94482- 5656 June, [facility] [place] [facility] [address] [id number] [place] [address]- 9882 14 May, 2014 [facility] [place] [facility] [address] [id number] [place] [address]- 1627 13 May, 2014 [facility] [place] [facility] [address] [id number] [place] [address]- 7666 30 Apr, 2014 [facility] [place] [facility] [address] [id number] [place] [address]- 0698 30 Apr, 2014 [facility] [place] [facility] [address] [id number] [place] [address]- 4190 Apr, [facility] [place] [facility] [address] [id number] [place] [address]- 2954 Apr, [facility] [place] [facility] [address] [id number] [place] [address]- 2553 Apr, [facility] [place] [facility] [address] [id number] [place] [address]- 3308 Apr, [facility] [place] [facility] [address] [id number] [place] [address]- 9649 Jan, [facility] [place] [facility] [address] [id number] [place] [address]- 9299 Jan, [facility] [place] [facility] [address] [id number] [place] [address]- 3014 Jan, [facility] [place] [facility] [address] [id number] [place] [address]- 1602 Dec, [facility] [place] [facility] [address] [id number] [place] 7692 Dec, [facility] [place] [facility] [address] [id number] [place] [address]- 1640 Dec, [facility] [place] [facility] [address] [id number] [place] [address]- 3806 Dec, [facility] [place] [facility] [address] [id number] [place] [address]- 5596 Nov, [facility] [place] [facility] [address] [id number] [place] [address]- 6758 Nov, [facility] [place] [facility] [address] [id number] [place] [address]- 9570 Nov, [facility] [place] [facility] [address] [id number] [place] 8412 Nov, [facility] [place] [facility] [address] [id number] [place] [address]- 8304 Nov, [facility] [place] [facility] [address] [id number] [place] [address]- 9525 Nov, [facility] [place] [facility] [address] [id number] [place] [address]- 8868 Nov, [facility] [place] [facility] [address] [id number] [place] [address]- 3676 Nov, [facility] [place] [facility] [address] [id number] [place] [address]- 9801 Nov, [facility] [place] [facility] [address] [id number] [place] [address]- 1366 Nov, [facility] [place] [facility] [address] [id number] [place] [address]- 7422 26 Oct, 2013 [facility] [place] [facility] [address] [id number] [place] [address]- 2649 26 Oct, 2013 [facility] [place] [facility] [address] [id number] [place] [address]- 7697 24 Oct, 2013 [facility] [place] [facility] [address] [id number] [place] [address]- 1900 24 Oct, 2013 [facility] [place] [facility] [address] [id number] [place] [address]- 1160 2013 [facility] [place] [facility] [address] [id number] [place] [address]- 1937 2013 [facility] [place] [facility] [address] [id number] [place] [address]- 0522 Oct, [facility] [address] [id number] [place] [address]- 3348 Oct, [facility] [place] [facility] [address] [id number] [place] [address]- 5296 Aug, [facility] [place] [facility] [address] [id number] [place] [address]- 4151 Aug, [facility] [place] [facility] [address] [id number] [place] [address]- 1145 Aug, [facility] [place] [facility] [address] [id number] [place] [address]- 2823 Aug, [facility] [address] [id number] [place] [address]- 4297 Aug, [facility] [address] [id number] [place] [address]- 6699 Aug, [facility] [address] [id number] [place] [address]- 4651 Aug, [facility] [place] [facility] [address] [id number] [place] [address]- 3498 Aug, [facility] [address] [id number] [place] [address]- 7396 June, [facility] [place] [facility] [address] [id number] [place] [address]- 5043 June, [facility] [place] [facility] [address] [id number] [place] [address]- 3054 May, [facility] [place] [facility] [address] [id number] [place] [address]- 8550 May, [facility] [place] [facility] [address] [id number] [place] [address]- 1386 Apr, [facility] [place] [facility] [address] [id number] [place] [address]- 1442 Apr, [facility] [place] [facility] [address] [id number] [place] [address]- 5414 Apr, [facility] [place] [facility] [address] [id number] [place] [address]- 9194 Mar, [facility] [place] [facility] [address] [id number] [place] [address]- 1612 Mar, [facility] [place] [facility] [address] [id number] [place] [address]- 0466 Mar, [facility] [place] [facility] [address] [id number] [place] 4794 Mar, [facility] [place] [facility] [address] [id number] [place] [address]- 1647 Mar, [facility] [place] [facility] [address] [facility] [id number] [place] [address]- 2764 Mar, [facility] [place] [facility] [address] [id number] [place] [address]- 0499 Jan, [facility] [place] [facility] [address] [id number] [place] [address]- 2997 Jan, [facility] [place] [facility] [address] [facility] [id number] [place] [address]- 6985 Jan, [facility] [place] [facility] [address] [facility] [id number] [place] [address]- 0928 Jan, [facility] [place] [facility] [address] [id number] [place] [address]- 4444 Jan, [facility] [place] [facility] [address] [id number] [place] [address]- 5854 Jan, [facility] [place] [facility] [address] [id number] [place] [address]- 1926 Dec, [facility] [place] [facility] [address] [facility] [id number] [place] [address]- 6933 Dec, [facility] [place] [facility] [address] [id number] [place] [address]- 9526 13 Dec, 2012 [facility] [address] [id number] [place] [address]- 0665 13 Dec, 2012 [facility] [place] [facility] [address] [id number] [place] [address]- 4603 07 Dec, 2012 [facility] [address] [id number] [place] [address]- 6806 07 Dec, 2012 [facility] [place] [facility] [address] [id number] [place] [address]- 6686 07 Dec, 2012 [facility] [address] [id number] [place] [address]- 7825 Dec, [facility] [place] [facility] [address] [id number] [place] [address]- 9526 26 Oct, 2012 [facility] [address] [id number] [place] [address]- 2969 17 Oct, 2012 [facility] [address] [id number] [place] [address]- 7671 Sep, [facility] [place] [facility] [address] [id number] [place] [address]- 3689 Aug, [facility] [address] [id number] [place] [address]- 3223 Aug, [facility] [place] [facility] [address] [id number] [place] [address]- 2948 June, [facility] [place] [facility] [address] [id number] [place] [address]- 9715 June, [facility] [place] [facility] [address] [id number] [place] [address]- 0008 June, [facility] [place] [facility] [address] [id number] [place] [address]- 5986 June, [facility] [place] [facility] [address] [id number] [place] [address]- 1031 May, [facility] [place] [facility] [address] [id number] [place] [address]- 3390 May, [facility] [address] [id number] [place] [address]- 7656 Apr, [facility] [address] [id number] [place] [address]- 2356 Apr, [facility] [address] [id number] [place] [address]- 9098 Jan, [facility] [address] [id number] [place] [address]- 0841 Jan, [facility] [address] [id number] [place] [address]- 5069 Jan, [facility] [address] [id number] [place] [address]- 3799 Jan, [facility] [address] [id number] [place] [address]- 4647 Jan, [facility] [address] [id number] [place] [address]- 4821 Jan, [facility] [address] [id number] [place] [address]- 1537 Jan, [facility] [address] [id number] [place] [address]- 7559 Jan, [facility] [address] [id number] [place] [address]- 2845 Jan, [facility] [address] [id number] [place] [address]- 3400 05 Jan, 2012 [facility] [place] [facility] [address] [id number] [place] [address]- 4396 04 Jan, 2012 [facility] [address] [id number] [place] [address]- 5229 29 Dec, 2011 [facility] [address] [id number] [place] [address]- 1902 Dec, [facility] [place] [facility] [address] [id number] [place] [address]- 5308 Dec, [facility] [place] [facility] [address] [id number] [place] 2966 Dec, [facility] [place] [facility] [address] [id number] [place] [address]- 3836 Dec, [facility] [place] [facility] [address] [id number] [place] [address]- 6329 Dec, [facility] [place] [facility] [address] [id number] [place] [address]- 5983 Nov, [facility] [place] [facility] [address] [id number] [place] [address]- 7541 Nov, [facility] [place] [facility] [address] [id number] [place] [address]- 0986 Nov, [facility] [place] [facility] [address] [id number] [place] [address]- 1490 Oct, [facility] [place] [facility] [address] [id number] [place] [address]- 5490 Oct, [facility] [place] [facility] [address] [id number] [place] [address]- 2365 Sep, [facility] [place] [facility] [address] [id number] [place] [address]- 4148 Sep, [facility] [place] [facility] [address] [id number] [place] [address]- 2685 Sep, [facility] [place] [facility] [address] [id number] [place] 6911 Sep, [facility] [place] [facility] [address] [id number] [place] [address]882 Aug, [facility] [place] [facility] [address] [id number] [place] 6153 June, [facility] [place] [facility] [address] [id number] [place] [address] 26 May, 2011 [facility] [address] [id number] [place] [address] 16 May, 2011 [facility] [address] [id number] [place] [address] 14 May, 2011 [facility] [address] [id number] [place] [address] 05 May, 2011 [facility] [address] [id number] [place] [address] Apr, [facility] [address] [id number] [place] [address] 15 Mar, 2011 [facility] [address] [id number] [place] [address] 10 Mar, 2011 [facility] [address] [id number] [place] [address] Feb, [facility] [address] [id number] [place] [address] Feb, [facility] [address] [id number] [place] [address] Feb, [facility] [address] [id number] [place] [address] Jan, [facility] [address] [id number] [place] [address] Jan, [facility] [address] [id number] [place] [address] Jan, [facility] [place] [facility] [address] [id number] [place] [address] Jan, [facility] [place] [facility] [address] [id number] [place] [address] Jan, [facility] [address] [id number] [place] [address] Jan, [facility] [id number] [address] Jan, [facility] [id number] [address] Dec, [facility] [id number] [address] Dec, [facility] [id number] [place] [address] Dec, [facility] [id number] [address] Dec, [facility] [id number] [place] [address] Dec, [facility] [id number] [address] Nov, [facility] [id number] [address] Nov, [facility] [id number] [address] Jul, [facility] [id number] [address] June, [facility] [id number] [address] Mar, [facility] [id number] [address] Feb, [facility] [id number] [address] Dec, IMMUNIZATIONS No Known Immunizations SOCIAL HISTORY Never Assessed REASON FOR VISIT Lab (walk-in) PLAN OF CARE VITAL SIGNS MEDICATIONS Unknown Medications RESULTS No Results PROCEDURES Procedure Date Ordered Result Body Site LAB NOT BILLED BY [facility] August 23, 2017 VENIPUNCT, ROUTINE* August 23, 2017 INSTRUCTIONS MEDICATIONS ADMINISTERED No Known Medications MEDICAL (GENERAL) HISTORY Type Description Date Medical History hepatitis C (completed 24 weeks of Sovaldi/Ribipack 11/2014) Medical History chronic obstructive pulmonary disease (COPD) Medical History plantar fasciitis Medical History cardiovascular disease Surgical History partial hysterectomy Surgical History cholecystectomy Surgical History hemorrhoidectomy Surgical History spine surgery Hospitalization History surgeries Hospitalization History Sepsis 2/2 UTI from actinomyces- [facility] 05/19/17 Hospitalization History Constipation 06/25
--- OUTSIDE RECORDS SUMMARY | 2018-05-08 20:40 | XMS REPORT ---
Author Author TORREY FELIX Organization [facility] Address [address] [place] [address] Care Team Providers Care Freight Caller Name Role Phone TORREY FELIX Unavailable PROBLEMS Type Condition ICD9-CM Code AZA25-LF Code Onset Dates Condition Status SNOMED Code Problem Sleep apnea, unspecified type G47.30 Active 30374868 Problem Arthritis M19.90 Active 4350612 Problem Benign positional vertigo, bilateral H81.13 Active 155972116 Problem Chronic viral hepatitis C B18.2 Active 577760695 Problem Chronic obstructive pulmonary disease, unspecified COPD type J44.9 Active 92785600 Problem Other cirrhosis of liver K74.69 Active 07881585 Problem Peripheral vascular disease I73.9 Active 884867390 Problem Vertigo R42 Active 557400529 Problem Insomnia G47.00 Active 380923892 Problem Recurrent major depressive disorder, in full remission F33.42 Active 367899515 Problem Prediabetes R73.03 Active 927922327 ALLERGIES No Information ENCOUNTERS Encounter Location Date Diagnosis [facility] [id number] [place] [address] 92604- 1637 Nov, [facility] [address] 00974- 4924 Sep, [facility] [id number] [place] [address] 04360- 4259 Sep, Compression fracture of body of thoracic vertebra S22.000A and Benign positional vertigo, bilateral H81.13 [facility] [address] 91899- 3518 Sep, [facility] [id number] [place] [address] 47886- 0958 Sep, Benign positional vertigo, bilateral H81.13 ; Impacted cerumen of both ears H61.23 ; Chronic obstructive pulmonary disease, unspecified COPD type J44.9 ; Recurrent major depressive disorder, in full remission F33.42 and Other cirrhosis of liver K74.69 [facility] [id number] [place] [address] 64932- 8693 Aug, [facility] [id number] [place] [address] 08181- 8485 Aug, Lightheadedness R42 [facility] [facility] [id number] [place] [address] 55585- 6705 Jul, [facility] [place] [id number] [place] [address] 32370- 1199 Jul, Medicare annual wellness visit, initial Z00.00 ; Chronic obstructive pulmonary disease, unspecified COPD type J44.9 ; Depression, unspecified depression type F32.9 ; Insomnia G47.00 ; Chronic viral hepatitis C B18.2 ; Parkinson disease G20 ; Prediabetes R73.03 ; Arthritis M19.90 ; Routine adult health maintenance Z00.00 and Encounter for immunization Z23 [facility] [id number] [place] [address] 47439- 0002 Jul, [facility] [id number] [place] [address] 84877- 0632 June, [facility] [address] [address] 1965 June, [facility] [id number] [place] [address] 40348- 3245 June, [facility] [id number] [place] [address] 68342- 1903 June, [facility] [id number] [place] [address] 00155- 0490 May, Acute cystitis without hematuria N30.00 [facility] [id number] [place] [address] 88618- 4689 May, Prediabetes R73.03 [facility] [id number] [place] [address] 36684- 9212 May, Acute cystitis without hematuria N30.00 ; Type 2 diabetes mellitus without complication, without long-term current use of insulin E11.9 ; Vertigo R42 ; Chronic obstructive pulmonary disease, unspecified COPD type J44.9 ; Chronic viral hepatitis C B18.2 and Prediabetes R73.03 [facility] [id number] [place] [address] 27504- 3424 May, [facility] [place] [id number] [place] [address] 79758- 8442 May, Chronic viral hepatitis C B18.2 [facility] [id number] [place] [address] 41832- 6512 Mar, [facility] [address] 43174- 0721 Dec, Vertigo R42 [facility] [address] 04276- 7352 Dec, Neck pain M54.2 ; Encounter for immunization Z23 ; Vertigo R42 and Parkinson disease G20 [facility] [id number] [place] [address] 75983- 1538 Nov, [facility] [place] [id number] [place] [address] 77329- 7051 Nov, [facility] [id number] [place] [address] 24508- 6613 Sep, [facility] [id number] [place] [address] 14750- 8161 Sep, Chronic viral hepatitis C B18.2 [facility] [id number] [place] [address] 64013- 9215 Sep, Chronic viral hepatitis C B18.2 [facility] [id number] [place] [address] 50519- 8534 Sep, Chronic viral hepatitis C B18.2 [facility] [id number] [place] [address] 80540- 2107 Aug, Type 2 diabetes mellitus without complication, without long- term current use of insulin E11.9 ; Chronic viral hepatitis C B18.2 ; Vertigo R42 and Depression, unspecified depression type F32.9 [facility] [address] 96865- 0449 Jul, Insomnia G47.00 [facility] [facility] [address] 27132- 5795 Jul, Type 2 diabetes mellitus without complication, without long- term current use of insulin E11.9 [facility] [facility] [id number] [place] [address] 56884- 6742 Apr, [facility] [address] [id number] Apr, Dental examination Z01.20 [facility] [address] [id number] Feb, Encounter for dental examination Z01.20 [facility] [address] [id number] Jan, Dental caries K02.9 [facility] [facility] [address] 93472- 9279 Jan, Arthritis M19.90 [facility] [address] 79639- 4987 Jan, Benign positional vertigo, bilateral H81.13 and Type 2 diabetes mellitus without complication, without long-term current use of insulin E11.9 [facility] [facility] [id number] [place] [address] 19599- 2947 Dec, [place] [id number] [place] [address] 58503- 6109 Dec, [facility] [address] 70297- 7580 Dec, Encounter for immunization Z23 and Elevated blood pressure reading R03.0 [facility] [id number] [place] [address] 75237- 3306 Dec, [facility] [id number] [place] [address] 87273- 9109 Dec, [facility] [id number] [place] [address] 61102- 8010 Nov, Type 2 diabetes mellitus without complication, without long- term current use of insulin E11.9 and Chronic viral hepatitis C B18.2 [facility] [id number] [place] [address] 56274- 1790 Nov, [facility] [id number] [place] [address] 44221- 5668 Nov, [facility] [id number] [place] [address] 46141- 5915 Oct, [facility] [address] [place] [address] [id number] Oct, Dental examination Z01.20 [facility] [id number] [place] [address] 40925- 4614 Sep, [facility] [id number] [place] [address] 24714- 7879 Sep, [facility] [id number] [place] [address] 04288- 0706 Sep, Type 2 diabetes mellitus without complication, without long- term current use of insulin E11.9 and Chronic obstructive pulmonary disease, unspecified COPD type J44.9 [facility] [id number] [place] [address] 09518- 0287 Sep, Rectal bleeding K62.5 [facility] [address] [address]57 Aug, Rectal bleeding K62.5 ; Postmenopausal vaginal bleeding N95.0 ; Dysuria R30.0 ; Dermatitis L30.9 ; Acute cystitis with hematuria N30.01 ; Glycosuria R81 and Adnexal pain R10.2 [facility] [address] 60287- 9656 May, [facility] [address] 39442- 4664 May, Chronic viral hepatitis C B18.2 [facility] [address] 35486- 9087 Apr, [facility] [address] 35259- 3106 Mar, [facility] [address] 26129- 9477 Mar, Insomnia G47.00 [place] [address] 23518- 0567 Feb, Chronic viral hepatitis C B18.2 and Fatigue R53.83 [place] [address] 11273- 6904 Feb, Rash R21 ; Fatigue R53.83 and Chronic viral hepatitis C B18.2 [place] [id number] [place] [address] 39161- 0546 Feb, Chronic viral hepatitis C B18.2 [place] [address] 01937- 4213 Jan, Dermatitis L30.9 and Chronic viral hepatitis C B18.2 [facility] [id number] [place] [address] 99036- 7536 Jan, [place] [address] 64097- 2001 Dec, [facility] [id number] [place] [address] 28356- 7426 Nov, [facility] [address] [place] [address]- 5551 Nov, Hep C w/o coma, chronic 070.54 [facility] [id number] [place] [address] 50566- 9338 Oct, Lower back pain 724.2 and Urinary tract infection 599.0 [facility] [id number] [place] [address] 27046- 1175 Oct, [facility] [address] 30068- 6654 Oct, [facility] [address] 01754- 0061 Oct, Dark urine 791.9 and Rectal bleeding 569.3 [facility] [id number] [place] [address] 61528- 2966 Sep, Hep C w/o coma, chronic 070.54 [facility] [id number] [place] [address] 26568- 0570 Sep, [facility] [id number] [place] [address] 38561- 0768 Aug, [facility] [id number] [place] [address] 24855- 1148 Aug, [facility] [id number] [place] [address] 59483- 8678 Jul, Hep C w/o coma, chronic 070.54 [facility] [id number] [place] [address] 09941- 4304 Jul, Hep C w/o coma, chronic 070.54 [facility] [id number] [place] [address] 78307- 1319 June, Local infection of skin and subcutaneous tissue 686.9 [facility] [address] [place] [address] 49231- 0465 June, Foot pain, right 729.5 [facility] [place] [facility] [address] [id number] [place] [address]- 3780 June, [facility] [place] [facility] [address] [id number] [place] [address]- 1566 May, [facility] [place] [facility] [address] [id number] [place] [address]- 2436 May, [facility] [place] [facility] [address] [id number] [place] [address]- 7597 Apr, [facility] [place] [facility] [address] [id number] [place] [address]- 0102 Apr, [facility] [place] [facility] [address] [id number] [place] [address]- 2386 Apr, [facility] [place] [facility] [address] [id number] [place] [address]- 1420 Apr, [facility] [place] [facility] [address] [id number] [place] [address]- 4410 Apr, [facility] [place] [facility] [address] [id number] [place] [address]- 9925 Apr, [facility] [place] [facility] [address] [id number] [place] [address]- 6357 Jan, [facility] [place] [facility] [address] [id number] [place] [address]- 0563 Jan, [facility] [place] [facility] [address] [id number] [place] [address]- 6158 Jan, [facility] [place] [facility] [address] [id number] [place] [address]- 7406 Dec, [facility] [place] [facility] [address] [id number] [place] [address]- 1603 Dec, [facility] [place] [facility] [address] [id number] [place] [address]- 9676 Dec, [facility] [place] [facility] [address] [id number] [place] [address]- 8798 Dec, [facility] [place] [facility] [address] [id number] [place] [address]- 1694 Nov, [facility] [place] [facility] [address] [id number] [place] [address]- 8390 Nov, [facility] [place] [facility] [address] [id number] [place] 2219 Nov, [facility] [place] [facility] [address] [id number] [place] [address]- 7097 Nov, [facility] [place] [facility] [address] [id number] [place] [address]- 4288 Nov, [facility] [place] [facility] [address] [id number] [place] [address]- 5601 Nov, [facility] [place] [facility] [address] [id number] [place] [address]- 8787 Nov, [facility] [place] [facility] [address] [id number] [place] [address]- 6500 Nov, [facility] [place] [facility] [address] [id number] [place] [address]- 0698 Nov, [facility] [place] [facility] [address] [id number] [place] [address]- 4492 Nov, [facility] [place] [facility] [address] [id number] [place] [address]- 0186 26 Oct, 2013 [facility] [place] [facility] [address] [id number], [place] [address]- 2735 26 Oct, 2013 [facility] [place] [facility] [address] [id number] [place] [address]- 9610 24 Oct, 2013 [facility] [place] [facility] [address] [id number] [place] [address]- 4096 24 Oct, 2013 [facility] [place] [facility] [address] [id number] [place] [address]- 5417 2013 [facility] [place] [facility] [address] [id number] [place] [address]- 0523 2013 [facility] [address] [id number] [place] [address]- 5309 Oct, [facility] [place] [facility] [address] [id number] [place] [address]- 0133 Oct, [facility] [place] [facility] [address] [id number] [place] [address]- 3831 Aug, [facility] [place] [facility] [address] [id number] [place] [address]- 1448 Aug, [facility] [place] [facility] [address] [id number] [place] [address]- 6241 Aug, [facility] [place] [facility] [address] [id number] [place] [address]- 2391 Aug, [facility] [address] [id number] [place] [address]- 3410 Aug, [facility] [address] [id number] [place] [address]- 6981 Aug, [facility] [place] [facility] [address] [id number] [place] [address]- 4569 Aug, [facility] [place] [facility] [address] [id number] [place] [address]- 1673 Aug, [facility] [place] [facility] [address] [id number] [place] [address]- 2567 June, [facility] [place] [facility] [address] [id number] [place] [address]- 9973 June, [facility] [place] [facility] [address] [id number] [place] [address]- 7671 May, [facility] [place] [facility] [address] [id number] [place] [address]- 4746 May, [facility] [place] [facility] [address] [id number] [place] [address]- 0729 Apr, [facility] [place] [facility] [address] [id number] [place] [address]- 3554 Apr, [facility] [place] [facility] [address] [id number] [place] [address]- 1437 Apr, [facility] [place] [facility] [address] [id number] [place] [address]- 6634 Mar, [facility] [place] [facility] [address] [id number] [place] [address]- 4771 Mar, [facility] [place] [facility] [address] [id number] [place] [address]- 6150 Mar, [facility] [place] [facility] [address] [id number] [place] [address]- 9494 Mar, [facility] [place] [facility] [address] [facility] [id number] [place] [address]- 0232 Mar, [facility] [place] [facility] [address] [id number] [place] [address]- 8284 Mar, [facility] [place] [facility] [address] [id number] [place] [address]- 1797 Jan, [facility] [place] [facility] [address] [facility] [id number] [place] [address]- 2794 Jan, [facility] [place] [facility] [address] [facility] [id number], [place] [address]- 8192 Jan, [facility] [place] [facility] [address] [id number], [place] [address]- 2446 Jan, [facility] [place] [facility] [address] [id number] [place] [address]- 3431 Jan, [facility] [place] [facility] [address] [id number] [place] [address]- 2535 Jan, [facility] [place] [facility] [address] [facility] [id number] [place] [address]- 6913 14 Dec, 2012 [facility] [place] [facility] [address] [id number] [place] [address]- 2587 14 Dec, 2012 [facility] [address] [id number] [place] [address]- 7901 13 Dec, 2012 [facility] [place] [facility] [address] [id number] [place] [address]- 8038 13 Dec, 2012 [facility] [address] [id number] [place] [address]- 9866 07 Dec, 2012 [facility] [place] [facility] [address] [id number] [place] [address]- 4535 07 Dec, 2012 [facility] [address] [id number] [place] [address]- 5844 07 Dec, 2012 [facility] [place] [facility] [address] [id number] [place] [address]- 1775 Dec, [facility] [address] [id number] [place] [address]- 0595 26 Oct, 2012 [facility] [place] [facility] [address] [id number] [place] [address]- 3675 17 Oct, 2012 [facility] [place] [facility] [address] [id number] [place] [address]- 9299 Sep, [facility] [address] [id number] [place] [address]- 8745 Aug, [facility] [place] [facility] [address] [id number] [place] [address]- 0052 Aug, [facility] [place] [facility] [address] [id number] [place] [address]- 5802 June, [facility] [place] [facility] [address] [id number] [place] [address]- 3142 June, [facility] [place] [facility] [address] [id number] [place] [address]- 2867 June, [facility] [place] [facility] [address] [id number] [place] [address]- 0983 June, [facility] [place] [facility] [address] [id number] [place] [address]- 8112 May, [facility] [address] [id number] [place] [address]- 8516 May, [facility] [address] [id number] [place] [address]- 8536 Apr, [facility] [address] [id number] [place] [address]- 8672 Apr, [facility] [address] [id number] [place] [address]- 6146 Jan, [facility] [address] [id number] [place] [address]- 6758 Jan, [facility] [address] [id number] [place] [address]- 2596 Jan, [facility] [address] [id number] [place] [address]- 6596 Jan, [facility] [address] [id number] [place] [address]- 7192 Jan, [facility] [address] [id number] [place] [address]- 5418 Jan, [facility] [address] [id number] [place] [address]- 2993 Jan, [facility] [address] [id number] [place] [address]- 2094 Jan, [facility] [address] [id number] [place] [address] Jan, [facility] [place] [facility] [address] [id number] [place] [address] 05 Jan, 2012 [facility] [address] [id number] [place] [address] 04 Jan, 2012 [facility] [address] [id number] [place] [address] Dec, [facility] [place] [facility] [address] [id number] [place] [address] Dec, [facility] [place] [facility] [address] [id number] [place] [address] Dec, [facility] [place] [facility] [address] [id number] [place] [address] Dec, [facility] [place] [facility] [address] [id number] [place] [address] Dec, [facility] [place] [facility] [address] [id number] [place] [address] Dec, [facility] [place] [facility] [address] [id number] [place] [address] Nov, [facility] [place] [facility] [address] [id number] [place] [address] Nov, [facility] [place] [facility] [address] [id number] [place] [address] Nov, [facility] [place] [facility] [address] [id number] [place] [address] Oct, [facility] [place] [facility] [address] [id number] [place] [address] Oct, [facility] [place] [facility] [address] [id number] [place] [address] Sep, [facility] [place] [facility] [address] [id number] [place] [address] Sep, [facility] [place] [facility] [address] [id number] [place] [address] Sep, [facility] [place] [facility] [address] [id number] [place] [address] Sep, [facility] [place] [facility] [address] [id number] [place] [address] Aug, [facility] [place] [facility] [address] [id number] [place] [address] June, [facility] [address] [id number] [place] [address] 26 May, 2011 [facility] [place] [facility] [address] [id number] [place] [address] 16 May, 2011 [facility] [address] [id number] [place] [address] 14 May, 2011 [facility] [address] [id number] [place] [address] 05 May, 2011 [facility] [address] [id number] [place] [address] Apr, [facility] [address] [id number] [place] [address] 15 Mar, 2011 [facility] [address] [id number] [place] [address] 10 Mar, 2011 [facility] [address] [id number] [place] [address] Feb, [facility] [address] [id number] [place] [address] Feb, [facility] [address] [id number] [place] [address] 10 Feb, 2011 [facility] [address] [id number] [place] [address] Jan, [facility] [address] [id number] [place] [address] Jan, [facility] [place] [facility] [address] [id number] [place] [address] 1316 Jan, [facility] [place] [facility] [address] [id number] [place] [address] Jan, [facility] [place] [facility] [address] [id number] [place] [address] Jan, [facility] [address] [facility] [id number], [place] [address] Jan, [facility] [address] [facility] [id number], [place] [address] Jan, [facility] [address] [facility] [id number], [place] [address] Dec, [facility] [address] [facility] [id number], [place] [address] Dec, [facility] [address] [facility] [id number] [address] [address] Dec, [facility] [address] [facility] [id number] [place] [address] Dec, [facility] [id number], [place] [address] Dec, [facility] [id number], [place] [address] Nov, [facility] [id number], [place] [address] Nov, [facility] [id number], [place] [address] Jul, [facility] [id number] [address] June, [facility] [id number] [address] Mar, [facility] [id number] [address] Feb, [facility] [id number] [address] Dec, IMMUNIZATIONS No Known Immunizations SOCIAL HISTORY [...] Hospitalization History Sepsis 2/2 UTI from actinomyces- [facility] [place] [facility] 05/19/17 Hospitalization History Constipation 06/25
--- OUTSIDE RECORDS SUMMARY | 2018-05-08 20:41 | XMS REPORT ---
Author Author TORREY FELIX Organization [facility] Address [address] [place] [address] Care Team Providers Care Rn Intensive Care Unit Name Role Phone TORREY FELIX Unavailable PROBLEMS Type Condition ICD9-CM Code CSY76-LE Code Onset Dates Condition Status SNOMED Code Problem Sleep apnea, unspecified type G47.30 Active 07616176 Problem Arthritis M19.90 Active 5411021 Problem Benign positional vertigo, bilateral H81.13 Active 792796189 Problem Chronic viral hepatitis C B18.2 Active 108659130 Problem Chronic obstructive pulmonary disease, unspecified COPD type J44.9 Active 91211590 Problem Other cirrhosis of liver K74.69 Active 86200213 Problem Peripheral vascular disease I73.9 Active 289100773 Problem Vertigo R42 Active 432023830 Problem Insomnia G47.00 Active 871311214 Problem Recurrent major depressive disorder, in full remission F33.42 Active 951155212 Problem Prediabetes R73.03 Active 458250870 ALLERGIES Substance Reaction Event Type Date Status Hydrocodone-Acetaminophen vomiting Drug Allergy Jul, Active Plastic tape Unknown Non Drug Allergy Jul, Active ENCOUNTERS Encounter Location Date Diagnosis [place] [id number] [place] [address] 17732- 5710 Sep, [place] [id number] [place] [address] 72181- 9469 Sep, Compression fracture of body of thoracic vertebra S22.000A and Benign positional vertigo, bilateral H81.13 [place] [id number] [place] [address] 29473- 0116 Sep, [place] [id number] [place] [address] 13084- 4609 Sep, Benign positional vertigo, bilateral H81.13 ; Impacted cerumen of both ears H61.23 ; Chronic obstructive pulmonary disease, unspecified COPD type J44.9 ; Recurrent major depressive disorder, in full remission F33.42 and Other cirrhosis of liver K74.69 [facility] [id number] [place] [address] 42521- 7259 Aug, [facility] [id number] [address] 4803 Aug, Lightheadedness R42 [facility] [id number] [place] [address] 54531- 3638 Jul, Lightheadedness R42 [place] [address] [address] [id number] [place] [address] 96562- 9954 Jul, Medicare annual wellness visit, initial Z00.00 ; Chronic obstructive pulmonary disease, unspecified COPD type J44.9 ; Depression, unspecified depression type F32.9 ; Insomnia G47.00 ; Chronic viral hepatitis C B18.2 ; Parkinson disease G20 ; Prediabetes R73.03 ; Arthritis M19.90 ; Routine adult health maintenance Z00.00 and Encounter for immunization Z23 [facility] [id number] [address] 7649 Jul, [facility] [address] [id number] [place] [address] 77906- 6207 June, [facility] [address] [address] 6169 June, [facility] [id number] [place] [address] 62034- 7085 June, [facility] [address] [address] 0947 June, [facility] [address] [id number] [place] [address] 85686- 2405 May, Acute cystitis without hematuria N30.00 [facility] [address] [address] 2623 May, Prediabetes R73.03 [facility] [id number] [place] [address] 28897- 0305 May, Acute cystitis without hematuria N30.00 ; Type 2 diabetes mellitus without complication, without long-term current use of insulin E11.9 ; Vertigo R42 ; Chronic obstructive pulmonary disease, unspecified COPD type J44.9 ; Chronic viral hepatitis C B18.2 and Prediabetes R73.03 [place] [address] 22821- 3840 May, [place] [address] 43470- 3072 May, Chronic viral hepatitis C B18.2 [place] [address] 10680- 9749 Mar, [place] [address] 21452- 0394 Dec, Vertigo R42 [place] [address] 77000- 2773 Dec, Neck pain M54.2 ; Encounter for immunization Z23 ; Vertigo R42 and Parkinson disease G20 [place] [address] [address] [id number] [place] [address] 70992- 0890 Nov, [place] [address] [place] [id number] [place] [address] 76887- 3233 Nov, [place] [address] [place] [id number] [place] [address] 46989- 2947 Sep, [place] [address] [place] [id number] [place] [address] 02981- 9427 Sep, Chronic viral hepatitis C B18.2 [place] [address] [place] [id number] [place] [address] 34105- 9572 Sep, Chronic viral hepatitis C B18.2 [place] [address] [place] [id number] [place] [address] 25731- 8647 Sep, Chronic viral hepatitis C B18.2 [facility] [address] [id number] [place] [address] 48722- 2354 Aug, Type 2 diabetes mellitus without complication, without long- term current use of insulin E11.9 ; Chronic viral hepatitis C B18.2 ; Vertigo R42 and Depression, unspecified depression type F32.9 [place] [address] 10952- 1944 Jul, Insomnia G47.00 [place] [address] 95012- 5276 Jul, Type 2 diabetes mellitus without complication, without long- term current use of insulin E11.9 [place] [address] [place] [id number] [place] [address] 58008- 5277 Apr, [facility] [address] [id number] Apr, Dental examination Z01.20 [facility] [address] [id number] Feb, Encounter for dental examination Z01.20 [facility] [address] [id number] Jan, Dental caries K02.9 [place] [address] [place] [id number] [place] [address] 34129- 0091 Jan, Arthritis M19.90 [place] [address] 55871- 3943 Jan, Benign positional vertigo, bilateral H81.13 and Type 2 diabetes mellitus without complication, without long-term current use of insulin E11.9 [place] [address] 58914- 6045 Dec, [place] [address] [place] [id number] [place] [address] 03196- 8587 Dec, [place] [address] 55003- 8631 Dec, Encounter for immunization Z23 and Elevated blood pressure reading R03.0 [facility] [address] [place] [address] [id number] [place] [address] 23923- 7701 Dec, [facility] [address] 86939- 1025 Dec, [facility] [address] 00295- 6989 Nov, Type 2 diabetes mellitus without complication, without long- term current use of insulin E11.9 and Chronic viral hepatitis C B18.2 [place] [address] 70608- 6238 Nov, [facility] [address] 30532- 7729 Nov, [place] [address] 48396- 9062 Oct, [facility] [address] [id number] Oct, Dental examination Z01.20 [facility] [address] 20693- 7028 Sep, [facility] [address] [address] [id number] [place] [address] 84309- 8547 Sep, [facility] [address] [id number] [place] [address] 66656- 8492 Sep, Type 2 diabetes mellitus without complication, without long- term current use of insulin E11.9 and Chronic obstructive pulmonary disease, unspecified COPD type J44.9 [facility] [address] 99759- 0250 Sep, Rectal bleeding K62.5 [facility] [id number] [place] [address] 38776 -6345 Aug, Rectal bleeding K62.5 ; Postmenopausal vaginal bleeding N95.0 ; Dysuria R30.0 ; Dermatitis L30.9 ; Acute cystitis with hematuria N30.01 ; Glycosuria R81 and Adnexal pain R10.2 [facility] [id number] [place] [address] 37400- 7866 May, [facility] [address] [id number] [place] [address] 15973- 1459 May, Chronic viral hepatitis C B18.2 [facility] [address] 89700- 4880 Apr, [facility] [address] 63547- 0447 Mar, [facility] [address] 60591- 9653 Mar, Insomnia G47.00 [place] [address] 04578- 1102 Feb, Chronic viral hepatitis C B18.2 and Fatigue R53.83 [place] [address] [place] [id number] [place] [address] 59587- 1793 Feb, Rash R21 ; Fatigue R53.83 and Chronic viral hepatitis C B18.2 [place] [address] [place] [id number] [place] [address] 20581- 1522 Feb, Chronic viral hepatitis C B18.2 [place] [address] [place] [id number] [place] [address] 62618- 4641 Jan, Dermatitis L30.9 and Chronic viral hepatitis C B18.2 [facility] [address] [place] [id number] [place] [address] 02187- 0221 Jan, [facility] [address] 94882- 9980 Dec, [facility] [address] [place] [id number] [place] [address] 22613- 6633 Nov, [facility] [address] 84108- 6143 Nov, Hep C w/o coma, chronic 070.54 [facility] [address] [place] [address] 75956- 4397 Oct, Lower back pain 724.2 and Urinary tract infection 599.0 [facility] [address] [id number] [place] [address] 43483- 4756 Oct, [facility] [address] [id number] [place] [address] 14601- 0195 Oct, [facility] [address] [place] [id number] [place] [address] 54743- 4343 Oct, Dark urine 791.9 and Rectal bleeding 569.3 [facility] [address] [place] [id number] [place] [address] 03585- 7343 Sep, Hep C w/o coma, chronic 070.54 [facility] [address] [id number] [place] [address] 07946- 6488 Sep, [facility] [id number] [place] [address] 17816- 1921 Aug, [facility] [address] [place] [id number] [place] [address] 32664- 7131 Aug, [facility] [address] [place] [address] 80290- 9738 Jul, Hep C w/o coma, chronic 070.54 [facility] [address] [place] [address] 79656- 9103 Jul, Hep C w/o coma, chronic 070.54 [facility] [address] [place] [id number] [place] [address] 16445- 4998 June, Local infection of skin and subcutaneous tissue 686.9 [facility] [address] [place] [address] 43667- 7078 June, Foot pain, right 729.5 [facility] [address] [place] [id number] [place] [address]- 1416 June, [facility] [address] [id number] [place] [address]- 0054 May, [facility] [place] [facility] [address] [id number] [place] [address]- 0786 May, [facility] [address] [id number] [place] [address]- 1159 Apr, [facility] [place] [facility] [address] [id number] [place] [address]- 4013 Apr, [facility] [address] [id number] [place] [address]- 7603 Apr, [facility] [place] [facility] [address] [id number] [place] [address]- 9335 Apr, [facility] [address] [id number] [place] [address]- 2054 Apr, [facility] [address] [id number] [place] [address]- 3498 Apr, [facility] [place] [facility] [address] [id number] [place] [address]- 3481 Jan, [facility] [address] [id number] [place] [address]- 8310 Jan, [facility] [place] [facility] [address] [id number] [place] [address]- 8752 Jan, [facility] [place] [facility] [address] [id number] [place] [address]- 9198 Dec, [facility] [place] [facility] [address] [id number] [place] [address]- 8904 Dec, [facility] [place] [facility] [address] [id number] [place] [address]- 2546 Dec, [facility] [place] [facility] [address] [id number] [place] [address]- 1280 Dec, [facility] [place] [facility] [address] [id number] [place] [address]- 2092 Nov, [facility] [place] [facility] [address] [id number] [place] [address]- 6119 Nov, [facility] [place] [facility] [address] [id number] [place] [address]- 6050 Nov, [facility] [place] [facility] [address] [id number] [place] [address]- 2156 Nov, [facility] [place] [facility] [address] [id number] [place] [address]- 3752 Nov, [facility] [place] [facility] [address] [id number] [place] [address]- 5548 Nov, [facility] [place] [facility] [address] [id number] [place] [address]- 2861 Nov, [facility] [place] [facility] [address] [id number] [place] [address]- 4200 Nov, [facility] [place] [facility] [address] [id number] [place] [address]- 4170 Nov, [facility] [place] [facility] [address] [id number] [place] [address]- 6507 Nov, [facility] [place] [facility] [address] [id number] [place] [address]- 4156 Oct, [facility] [place] [facility] [address] [id number] [place] [address]- 1906 26 Oct, 2013 [facility] [place] [facility] [address] [id number] [place] [address]- 5415 24 Oct, 2013 [facility] [place] [facility] [address] [id number] [place] [address]- 7845 24 Oct, 2013 [facility] [place] [facility] [address] [id number] [place] [address]- 0491 2013 [facility] [place] [facility] [address] [id number] [place] [address]- 9210 Oct, [facility] [place] [facility] [address] [id number] [place] [address]- 6507 Oct, [facility] [place] [facility] [address] [id number] [place] [address]- 3814 Oct, [facility] [place] [facility] [address] [id number] [place] [address]- 7743 Aug, [facility] [place] [facility] [address] [id number] [place] [address]- 9385 Aug, [facility] [place] [facility] [address] [id number] [place] [address]- 3142 Aug, [facility] [place] [facility] [address] [id number] [place] [address]- 1388 Aug, [facility] [place] [facility] [address] [id number] [place] [address]- 6312 Aug, [facility] [place] [facility] [address] [id number] [place] [address]- 9363 Aug, [facility] [place] [facility] [address] [id number] [place] [address]- 2678 Aug, [facility] [place] [facility] [address] [id number] [place] [address]- 7236 Aug, [facility] [place] [facility] [address] [id number] [place] [address]- 0637 June, [facility] [place] [facility] [address] [id number] [place] [address]- 5260 June, [facility] [place] [facility] [address] [id number] [place] [address]- 5443 May, [facility] [place] [facility] [address] [id number] [place] [address]- 0997 May, [facility] [place] [facility] [address] [id number] [place] [address]- 2449 Apr, [facility] [place] [facility] [address] [id number] [place] [address]- 4830 Apr, [facility] [place] [facility] [address] [id number] [place] [address]- 8243 Apr, [facility] [place] [facility] [address] [id number] [place] [address]- 5147 Mar, [facility] [place] [facility] [address] [id number] [place] [address]- 8362 Mar, [facility] [place] [facility] [address] [id number] [place] [address]- 5063 Mar, [facility] [place] [facility] [address] [id number] [place] [address]- 9029 Mar, [facility] [place] [facility] [address] [facility] [id number] [place] [address]- 0395 Mar, [facility] [place] [facility] [address] [facility] [id number] [place] [address]- 3465 Mar, [facility] [place] [facility] [address] [facility] [id number] [place] [address]- 7974 Jan, [facility] [place] [facility] [address] [facility] [id number] [place] [address]- 3114 Jan, [facility] [place] [facility] [address] [facility] [id number] [address]- 8548 Jan, [facility] [place] [facility] [address] [id number], [place] [address]- 1018 05 Jan, 2013 [facility] [place] [facility] [address] [id number] [place] [address]- 4099 Jan, [facility] [place] [facility] [address] [id number] [place] [address]- 8063 Jan, [facility] [place] [facility] [address] [facility] [id number], [place] [address]- 4108 14 Dec, 2012 [facility] [place] [facility] [address] [id number], [place] [address]- 6615 14 Dec, 2012 [facility] [address] [id number] [place] [address]- 0115 Dec, [facility] [place] [facility] [address] [id number] [place] [address]- 5824 13 Dec, 2012 [facility] [address] [id number] [place] [address]- 0000 07 Dec, 2012 [facility] [place] [facility] [address] [id number] [place] [address]- 5140 07 Dec, 2012 [facility] [address] [id number] [place] [address]- 3167 Dec, [facility] [place] [facility] [address] [id number] [place] [address]- 5813 Dec, [facility] [address] [id number] [place] [address]- 3585 Oct, [facility] [place] [facility] [address] [id number] [place] [address]- 6951 Oct, [facility] [address] [id number] [place] [address]- 0257 Sep, [facility] [place] [facility] [address] [id number] [place] [address]- 3489 Aug, [facility] [place] [facility] [address] [id number] [place] [address]- 9577 Aug, [facility] [place] [facility] [address] [id number] [place] [address]- 3264 June, [facility] [place] [facility] [address] [id number] [place] [address]- 2747 June, [facility] [place] [facility] [address] [id number] [place] [address]- 8096 June, [facility] [place] [facility] [address] [facility] [id number] [place] [address]- 8807 June, [facility] [place] [facility] [address] [id number] [place] [address]- 1016 25 May, 2012 [facility] [address] [id number] [place] [address]- 6806 May, [facility] [place] [facility] [address] [id number] [place] [address]- 2546 Apr, [facility] [address] [id number] [place] [address]- 3566 Apr, [facility] [place] [facility] [address] [id number] [place] [address]- 7984 28 Jan, 2012 [facility] [address] [id number] [place] [address]- 7046 24 Jan, 2012 [facility] [place] [facility] [address] [id number] [place] 8859 24 Jan, 2012 [facility] [address] [id number] [place] [address]- 7536 17 Jan, 2012 [facility] [address] [id number] [place] [address]- 7526 17 Jan, 2012 [facility] [address] [id number] [place] [address]- 0846 Jan, [facility] [address] [id number] [place] 2126 13 Jan, 2012 [facility] [place] [facility] [address] [id number] [place] [address]- 2596 10 Jan, 2012 [facility] [place] [facility] [address] [id number] [place] [address] 2546 10 Jan, 2012 [facility] [place] [facility] [address] [id number] [place] [address]- 0466 05 Jan, 2012 [facility] [place] [facility] [address] [id number] [place] [address]- 2546 04 Jan, 2012 [facility] [place] [facility] [address] [id number] [place] [address]- 4624 Dec, [facility] [place] [facility] [address] [id number] [place] [address]- 5935 Dec, [facility] [place] [facility] [address] [id number] [place] [address]- 0814 Dec, [facility] [place] [facility] [address] [id number] [place] [address]- 4834 Dec, [facility] [place] [facility] [address] [id number] [place] [address]- 3[address] Dec, [facility] [place] [facility] [address] [id number] [place] [address] Dec, [facility] [place] [facility] [address] [id number] [place] [address] Nov, [facility] [place] [facility] [address] [id number] [place] [address] Nov, [facility] [place] [facility] [address] [id number] [place] [address] Nov, [facility] [place] [facility] [address] [id number] [place] [address] Oct, [facility] [place] [facility] [address] [id number] [place] [address] Oct, [facility] [place] [facility] [address] [id number], [place] [address] Sep, [facility] [place] [facility] [address] [id number], [place] [address] Sep, [facility] [place] [facility] [address] [id number] [place] [address] Sep, [facility] [place] [facility] [address] [id number] [place] [address] Sep, [facility] [place] [facility] [address] [id number] [place] [address] Aug, [facility] [place] [facility] [address] [id number] [place] [address] June, [facility] [address] [id number] [place] [address] 26 May, 2011 [facility] [place] [facility] [address] [id number] [place] [address] 16 May, 2011 [facility] [address] [id number] [place] [address] 14 May, 2011 [facility] [place] [facility] [address] [id number] [place] [address] 05 May, 2011 [facility] [address] [id number] [place] [address] Apr, [facility] [place] [facility] [address] [id number] [place] [address] 15 Mar, 2011 [facility] [address] [id number] [place] [address] 10 Mar, 2011 [facility] [address] [id number] [place] [address] 20 Feb, 2011 [facility] [place] [facility] [address] [id number] [place] [address] Feb, [facility] [address] [id number] [place] [address] 10 Feb, 2011 [facility] [address] [id number] [place] [address] Jan, [facility] [place] [facility] [address] [id number] [place] [address] 16 Jan, 2011 [facility] [place] [facility] [address] [id number] [place] [address] 16 Jan, 2011 [facility] [place] [facility] [address] [id number] [place] [address] 15 Jan, 2011 [facility] [place] [facility] [address] [id number] [place] [address] Jan, [facility] [address] [facility] [id number], [place] [address] Jan, [facility] [address] [facility] [id number], [place] [address] Jan, [facility] [address] [facility] [id number], [place] [address] Dec, [facility] [address] [facility] [id number], [place] [address] Dec, [facility] [address] [facility] [id number], [place] [address] Dec, [facility] [address] [facility] [id number], [place] [address] Dec, [facility] [id number], [place] [address] Dec, [facility] [id number], [place] [address] Nov, [facility] [id number], [place] [address] Nov, [facility] [address] [id number], [place] [address] Jul, [facility] [address] [id number], [place] [address] June, [facility] [address] [id number], [place] [address] Mar, [facility] [address] [id number], [place] [address] Feb, [facility] [address] [id number], [place] [address] Dec, IMMUNIZATIONS Vaccine Route Administration Date Status PCV 13 IM Intramuscular August 02, 2017 Administered SOCIAL HISTORY Never Assessed REASON FOR VISIT Medicare AWV - Initial Visit [facility] PLAN OF CARE Activity Details Follow Up 1 Year Reason: Pending Test Mammogram, Bilateral Screening VITAL SIGNS Height 61 in 2017-08-02 Weight 207 lbs 2017-08-02 Temperature 98.1 degrees Fahrenheit 2017-08-02 Heart Rate 80 bpm 2017-08-02 Respiratory Rate 20 2017-08-02 BMI 39.11 kg/m2 2017-08-02 Blood pressure systolic 116 mmHg 2017-08-02 Blood pressure diastolic 66 mmHg 2017-08-02 MEDICATIONS Medication Instructions Dosage Frequency Start Date End Date Duration Status Ventolin HFA 108 (90 Base) MCG/ACT Inhalation every 4 hrs 2 puffs as needed 4h Active Breo Ellipta 200-25 MCG/INH Inhalation Once a day 1 puff 24h Sep, Active Folding Walker/Adult - to assist ambulation Jan, Active Cetirizine HCl 10 MG Orally Once a day 1 tablet 24h Active Aldactone 50MG Orally Twice a day 1 tablet 12h Active Lactulose 10GM/15 TAKE THREE TEASPOONSFUL BY MOUTH TWICE DAILY Active Metoprolol Succinate ER 25 MG Orally Once a day 1 tablet 24h Active Venlafaxine HCl ER 75MG TAKE TWO CAPSULES BY MOUTH ONCE DAILY WITH FOOD 90 Active Mobic 7.5 MG Orally Once a day 1 tablet 24h 30 Active Temazepam 15MG Orally Once a day 1 capsule 24h Active Cyclobenzaprine HCl 10 mg Orally hs 1 Active Meclizine HCl 25MG Orally 4 times a day, prn dizziness 1 tablet Active Mobic 7.500MG Orally Once a day 1 tablet 24h Active RESULTS No Results PROCEDURES Procedure Date Ordered Result Body Site [facility] VISIT IPPE/AWV August 02, 2017 ANNUAL RANJITNES VST; PERSNL PPS INIT August 02, 2017 SINGLE IMMUNIZATION ADMIN August 02, 2017 PT TOBACCO SCREEN RCVD TLK August 02, 2017 FALL RISK ASSESSMENT DOCD August 02, 2017 PCV 13 August 02, 2017 NEG SCR D PT NOT ELIG F/U/PLN DOC August 02, 2017 INSTRUCTIONS MEDICATIONS ADMINISTERED No Known Medications MEDICAL (GENERAL) HISTORY Type Description Date Medical History hepatitis C (completed 24 weeks of Sovaldi/Ribipack 11/2014) Medical History chronic obstructive pulmonary disease (COPD) Medical History plantar fasciitis Medical History cardiovascular disease Surgical History partial hysterectomy Surgical History cholecystectomy Surgical History hemorrhoidectomy Surgical History spine surgery Hospitalization History surgeries Hospitalization History Sepsis 2/2 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
--- OUTSIDE RECORDS SUMMARY | 2018-05-08 20:41 | XMS REPORT ---
Author Author TORREY FELIX Organization [facility] [place] Address [address] [place] [address] Care Team Providers Care Computer Analyst Name Role Phone TORREY FELIX Unavailable PROBLEMS Type Condition ICD9-CM Code KHL03-XY Code Onset Dates Condition Status SNOMED Code Problem Sleep apnea, unspecified type G47.30 Active 47076375 Problem Arthritis M19.90 Active 7669865 Problem Benign positional vertigo, bilateral H81.13 Active 553907883 Problem Chronic viral hepatitis C B18.2 Active 578311172 Problem Chronic obstructive pulmonary disease, unspecified COPD type J44.9 Active 78960760 Problem Other cirrhosis of liver K74.69 Active 12361642 Problem Peripheral vascular disease I73.9 Active 579501033 Problem Vertigo R42 Active 106021508 Problem Insomnia G47.00 Active 382757409 Problem Recurrent major depressive disorder, in full remission F33.42 Active 219335110 Problem Prediabetes R73.03 Active 129525456 ALLERGIES No Information ENCOUNTERS Encounter Location Date Diagnosis [place] [id number] [place] [address] 72149- 9344 Sep, Compression fracture of body of thoracic vertebra S22.000A and Benign positional vertigo, bilateral H81.13 [place] [id number] [place] [address] 49454- 8404 Sep, [place] [address] [place] [id number] [place] [address] 97115- 6178 Sep, Benign positional vertigo, bilateral H81.13 ; Impacted cerumen of both ears H61.23 ; Chronic obstructive pulmonary disease, unspecified COPD type J44.9 ; Recurrent major depressive disorder, in full remission F33.42 and Other cirrhosis of liver K74.69 [place] [address] [place] [id number] [place] [address] 05260- 5658 Aug, [facility] [place] [address] [address] Aug, [facility] R42 [facility] [place] [address] [address] 0[address] Jul, [facility] R42 [facility] [place] [address] [address] Jul, Medicare annual wellness visit, initial Z00.00 ; Chronic obstructive pulmonary disease, unspecified COPD type J44.9 ; Depression, unspecified depression type F32.9 ; Insomnia G47.00 ; Chronic viral hepatitis C B18.2 ; Parkinson disease G20 ; Prediabetes R73.03 ; Arthritis M19.90 ; Routine adult health maintenance Z00.00 and Encounter for immunization Z23 [facility] [place] [address] [address] Jul, [facility] [place] [address] [place] [id number] [address] 77[address] June, [facility] [place] [address] [place] [address] 3559 June, [facility] [place] [address] [address] 3614 June, [facility] [place] [address] [place] [address] 1076 June, [facility] [place] [address] [place] [address] 3275 May, Acute cystitis without hematuria N30.00 [facility] [place] [address] [place] [address] 0756 May, Prediabetes R73.03 [facility] [place] [address] [place] [id number] [address] 6536 May, Acute cystitis without hematuria N30.00 ; Type 2 diabetes mellitus without complication, without long-term current use of insulin E11.9 ; Vertigo R42 ; Chronic obstructive pulmonary disease, unspecified COPD type J44.9 ; Chronic viral hepatitis C B18.2 and Prediabetes R73.03 [facility] [place] [address] [place] [id number] [place] [address] 02555- 7303 May, [facility] [place] [address] [place] [id number] [place] [address] 67557- 6088 May, Chronic viral hepatitis C B18.2 [facility] [place] [address] [id number] [place] [address] 28635- 6380 Mar, [facility] [place] [address] 01475- 1025 Dec, Vertigo R42 [place] [address] [place] [id number] [place] [address] 48625- 1115 Dec, Neck pain M54.2 ; Encounter for immunization Z23 ; Vertigo R42 and Parkinson disease G20 [facility] [place] [address] [place] [address] [id number] [place] [address] 00366- 0939 Nov, [facility] [place] [address] 40302- 2633 Nov, [facility] [place] [address] [place] [id number] [place] [address] 44631- 6885 Sep, [place] [address] [place] [id number] [place] [address] 35838- 9148 Sep, Chronic viral hepatitis C B18.2 [facility] [place] [address] [place] [id number] [place] [address] 32291- 1752 Sep, Chronic viral hepatitis C B18.2 [facility] [place] [address] [place] [id number] [place] [address] 43100- 8055 Sep, Chronic viral hepatitis C B18.2 [facility] [place] [address] [place] [id number] [place] [address] 00672- 8153 Aug, Type 2 diabetes mellitus without complication, without long- term current use of insulin E11.9 ; Chronic viral hepatitis C B18.2 ; Vertigo R42 and Depression, unspecified depression type F32.9 [facility] [place] [address] [place] [id number] [place] [address] 11340- 2686 Jul, Insomnia G47.00 [place] [address] 66542- 7979 Jul, Type 2 diabetes mellitus without complication, without long- term current use of insulin E11.9 [place] [address] [place] [id number] [place] [address] 80209- 9377 Apr, [facility] [address] [id number] Apr, Dental examination Z01.20 [facility] [address] [id number] Feb, Encounter for dental examination Z01.20 [facility] [address] [id number] Jan, Dental caries K02.9 [place] [address] [place] [id number] [place] [address] 43241- 8024 Jan, Arthritis M19.90 [place] [address] 33546- 4509 Jan, Benign positional vertigo, bilateral H81.13 and Type 2 diabetes mellitus without complication, without long-term current use of insulin E11.9 [place] [address] [place] [id number] [place] [address] 20501- 5706 Dec, [place] [address] [place] [address] [id number] [place] [address] 11024- 7262 Dec, [place] [address] 93550- 2254 Dec, Encounter for immunization Z23 and Elevated blood pressure reading R03.0 [place] [address] 37554- 1210 Dec, [place] [address] [place] [id number] [place] [address] 87479- 4896 Dec, [facility] [place] [address] [place] [id number] [place] [address] 41993- 0729 Nov, Type 2 diabetes mellitus without complication, without long- term current use of insulin E11.9 and Chronic viral hepatitis C B18.2 [place] [address] 08149- 9605 Nov, [facility] [place] [address] [place] [id number] [place] [address] 64084- 7025 Nov, [place] [address] 14711- 1833 Oct, [facility] [address] [place] [id number] [place] [address] [id number] Oct, Dental examination Z01.20 [place] [address] 53102- 6121 Sep, [facility] [place] [address] [place] [id number] [place] [address] 06479- 4976 Sep, [place] [address] [place] [id number] [place] [address] 62333- 4122 Sep, Type 2 diabetes mellitus without complication, without long- term current use of insulin E11.9 and Chronic obstructive pulmonary disease, unspecified COPD type J44.9 [facility] [place] [address] [place] [id number] [place] [address] 54154- 0914 Sep, Rectal bleeding K62.5 [facility] [id number] [place] [address] 44723 -6259 Aug, Rectal bleeding K62.5 ; Postmenopausal vaginal bleeding N95.0 ; Dysuria R30.0 ; Dermatitis L30.9 ; Acute cystitis with hematuria N30.01 ; Glycosuria R81 and Adnexal pain R10.2 [place] [address] [place] [id number] [place] [address] 49975- 3987 May, [facility] [place] [address] [place] [id number] [place] [address] 18874- 1408 May, Chronic viral hepatitis C B18.2 [facility] [place] [address] [place] [id number] [place] [address] 08355- 9436 Apr, [facility] [place] [address] 28333- 5549 Mar, [facility] [place] [address] 90098- 5571 Mar, Insomnia G47.00 [facility] [place] [address] 00605- 9477 Feb, Chronic viral hepatitis C B18.2 and Fatigue R53.83 [facility] [place] [address] 95035- 0811 Feb, Rash R21 ; Fatigue R53.83 and Chronic viral hepatitis C B18.2 [facility] [place] [address] [place] [id number] [place] [address] 85261- 6512 Feb, Chronic viral hepatitis C B18.2 [facility] [place] [address] 36158- 1104 Jan, Dermatitis L30.9 and Chronic viral hepatitis C B18.2 [facility] [place] [address] [place] [id number] [place] [address] 01074- 8086 Jan, [facility] [place] [address] [place] [id number] [place] [address] 71117- 6835 Dec, [facility] [place] [address] [place] [id number] [place] [address] 22202- 5530 Nov, [facility] [place] [address] 93884- 3438 Nov, Hep C w/o coma, chronic 070.54 [facility] [place] [address] [place] [id number] [place] [address] 98409- 6611 Oct, Lower back pain 724.2 and Urinary tract infection 599.0 [facility] [place] [address] [place] [address]- 6242 Oct, [facility] [place] [id number] [place] [address] 46538- 3260 Oct, [facility] [place] [address] [place] [id number] [place] [address] 25340- 5880 Oct, Dark urine 791.9 and Rectal bleeding 569.3 [facility] [place] [id number] [place] [address] 43800- 2962 Sep, Hep C w/o coma, chronic 070.54 [facility] [place] [address] [place] [id number] [place] [address] 53184- 2903 Sep, [facility] [place] [address] [place] [id number] [place] [address] 27191- 1204 Aug, [facility] [place] [id number] [place] [address] 17640- 2854 Aug, [facility] [place] [id number] [place] [address] 66126- 3494 Jul, Hep C w/o coma, chronic 070.54 [facility] [place] [address], [place] [address]- 9211 Jul, Hep C w/o coma, chronic 070.54 [facility] [place] [id number] [place] [address] 14573- 4552 June, Local infection of skin and subcutaneous tissue 686.9 [facility] [place] [address], [place] [address]- 3735 June, Foot pain, right 729.5 [facility] [place] [address], [place] [address]- 1601 June, [facility] [place] [address] [place] [address]- 6578 May, [facility] [place] [facility] [address] [id number] [place] [address]- 4186 May, 2014 [facility] [place] [facility] [address] [id number] [place] [address]- 1175 Apr, 2014 [facility] [place] [facility] [address] [id number] [place] [address]- 6387 Apr, 2014 [facility] [place] [facility] [address] [id number] [place] [address]- 4369 Apr, 2014 [facility] [place] [facility] [address] [id number] [place] [address]- 1800 Apr, 2014 [facility] [place] [facility] [address] [id number] [place] [address]- 0321 Apr, 2014 [facility] [place] [facility] [address] [id number] [place] [address]- 9714 Apr, 2014 [facility] [place] [facility] [address] [id number] [place] [address]- 2425 Jan, [facility] [place] [facility] [address] [id number] [place] [address]- 1180 Jan, [facility] [place] [facility] [address] [id number] [place] [address]- 5762 Jan, [facility] [place] [facility] [address] [id number] [place] [address]- 1229 Dec, [facility] [place] [facility] [address] [id number] [place] [address]- 0684 Dec, [facility] [place] [facility] [address] [id number] [place] [address]- 5779 Dec, [facility] [place] [facility] [address] [id number] [place] [address]- 8484 Dec, [facility] [place] [facility] [address] [id number] [place] [address]- 8169 Nov, [facility] [place] [facility] [address] [id number] [place] [address]- 3274 Nov, [facility] [place] [facility] [address] [id number] [place] [address]- 1573 Nov, [facility] [place] [facility] [address] [id number] [place] [address]- 9789 Nov, [facility] [place] [facility] [address] [id number] [place] 4974 Nov, [facility] [place] [facility] [address] [id number] [place] [address]- 0888 Nov, [facility] [place] [facility] [address] [id number] [place] [address]- 8431 Nov, [facility] [place] [facility] [address] [id number] [place] [address]- 2800 Nov, [facility] [place] [facility] [address] [id number] [place] [address]- 6639 Nov, [facility] [place] [facility] [address] [id number] [place] [address]- 5389 Nov, [facility] [place] [facility] [address] [id number] [place] [address]- 0232 26 Oct, 2013 [facility] [place] [facility] [address] [id number] [place] [address]- 9712 26 Oct, 2013 [facility] [place] [facility] [address] [id number] [place] [address]- 9563 24 Oct, 2013 [facility] [place] [facility] [address] [id number], [place] [address]- 2284 24 Oct, 2013 [facility] [place] [facility] [address] [id number] [place] [address]- 7635 2013 [facility] [place] [facility] [address] [id number] [place] [address]- 2691 2013 [facility] [place] [facility] [address] [id number] [place] [address]- 0024 02 Oct, 2013 [facility] [place] [facility] [address] [id number] [place] [address]- 5102 Oct, [facility] [address] [id number] [place] [address]- 8354 Aug, [facility] [place] [facility] [address] [id number] [place] [address]- 4956 Aug, [facility] [address] [id number] [place] [address]- 9597 Aug, [facility] [place] [facility] [address] [id number] [place] [address]- 9462 Aug, [facility] [place] [facility] [address] [id number] [place] [address]- 8048 Aug, [facility] [place] [facility] [address] [id number] [place] [address]- 3882 Aug, [facility] [address] [id number] [place] [address]- 6215 Aug, [facility] [address] [id number] [place] [address]- 4036 Aug, [facility] [place] [facility] [address] [id number] [place] [address]- 3150 June, [facility] [address] [id number] [place] [address]- 4209 June, [facility] [place] [facility] [address] [id number] [place] [address]- 0226 May, [facility] [place] [facility] [address] [id number] [place] [address]- 2546 May, [facility] [place] [facility] [address] [id number] [place] [address]- 3356 Apr, [facility] [place] [facility] [address] [id number] [place] [address]- 2546 Apr, [facility] [place] [facility] [address] [id number] [place] [address]- 3622 Apr, [facility] [place] [facility] [address] [id number] [place] [address]- 0405 Mar, [facility] [place] [facility] [address] [id number] [place] [address]- 1084 Mar, [facility] [place] [facility] [address] [id number] [place] [address]- 7587 Mar, [facility] [place] [facility] [address] [id number] [place] [address]- 4922 Mar, [facility] [place] [facility] [address] [id number] [place] [address]- 8127 Mar, [facility] [place] [facility] [address] [id number] [place] [address]- 3538 Mar, [facility] [place] [facility] [address] [facility] [id number] [place] [address]- 7899 Jan, [facility] [place] [facility] [address] [id number] [place] [address]- 1276 Jan, [facility] [place] [facility] [address] [facility] [id number] [place] [address]- 5873 Jan, [facility] [place] [facility] [address] [facility] [id number] [place] [address]- 0206 Jan, [facility] [place] [facility] [address] [facility] [id number], [place] [address]- 1736 Jan, [facility] [place] [facility] [address] [id number], [place] [address]- 5879 Jan, [facility] [place] [facility] [address] [id number] [place] [address]- 3300 Dec, [facility] [place] [facility] [address] [id number] [place] [address]- 7290 Dec, [facility] [place] [facility] [address] [facility] [id number] [place] [address]- 1026 Dec, [facility] [place] [facility] [address] [id number] [place] [address]- 1988 13 Dec, 2012 [facility] [address] [id number] [place] [address]- 8595 07 Dec, 2012 [facility] [place] [facility] [address] [id number] [place] [address]- 6108 07 Dec, 2012 [facility] [address] [id number] [place] [address]- 0321 07 Dec, 2012 [facility] [place] [facility] [address] [id number] [place] [address]- 0522 Dec, [facility] [address] [id number] [place] [address]- 4796 26 Oct, 2012 [facility] [place] [facility] [address] [id number] [place] [address]- 9629 17 Oct, 2012 [facility] [address] [id number] [place] [address]- 0178 16 Sep, 2012 [facility] [address] [id number] [place] [address]- 6460 Aug, [facility] [place] [facility] [address] [id number] [place] [address]- 3453 Aug, [facility] [address] [id number] [place] [address]- 7040 June, [facility] [address] [id number] [place] [address]- 0302 June, [facility] [place] [facility] [address] [id number] [place] [address]- 2549 June, [facility] [place] [facility] [address] [id number] [place] [address]- 0006 June, [facility] [place] [facility] [address] [id number] [place] [address]- 5062 May, [facility] [place] [facility] [address] [id number] [place] [address]- 3309 May, [facility] [place] [facility] [address] [id number] [place] [address] Apr, [facility] [address] [id number] [place] [address] Apr, [facility] [address] [id number] [place] [address] Jan, [facility] [address] [id number] [place] [address] Jan, [facility] [address] [id number] [place] [address] Jan, [facility] [address] [id number] [place] [address] Jan, [facility] [address] [id number] [place] [address] Jan, [facility] [address] [id number] [place] [address] Jan, [facility] [address] [id number] [place] [address] Jan, [facility] [address] [id number] [place] [address] Jan, [facility] [address] [id number] [place] [address] Jan, [facility] [address] [id number] [place] [address] 05 Jan, 2012 [facility] [place] [facility] [address] [id number] [place] [address] Jan, [facility] [place] [facility] [address] [id number] [place] [address] Dec, [facility] [place] [facility] [address] [id number] [place] [address] Dec, [facility] [address] [id number] [place] [address]- [address] Dec, [facility] [place] [facility] [address] [id number] [place] [address] Dec, [facility] [place] [facility] [address] [id number] [place] [address] Dec, [facility] [place] [facility] [address] [id number] [place] [address]228 Dec, [facility] [place] [facility] [address] [id number] [place] [address] Nov, [facility] [place] [facility] [address] [id number] [place] [address] Nov, [facility] [place] [facility] [address] [id number] [place] [address] Nov, [facility] [place] [facility] [address] [id number] [place] [address] Oct, [facility] [place] [facility] [address] [id number] [place] [address] Oct, [facility] [place] [facility] [address] [id number] [place] [address] Sep, [facility] [place] [facility] [address] [id number] [place] [address] Sep, [facility] [place] [facility] [address] [id number] [place] [address] Sep, [facility] [place] [facility] [address] [id number] [place] [address] Sep, [facility] [place] [facility] [address] [id number] [place] [address] Aug, [facility] [place] [facility] [address] [id number] [place] [address] June, [facility] [place] [facility] [address] [id number] [place] [address] May, [facility] [place] [facility] [address] [id number] [place] [address] 16 May, 2011 [facility] [address] [id number] [place] [address] 14 May, 2011 [facility] [address] [id number] [place] [address] 05 May, 2011 [facility] [address] [id number] [place] [address] Apr, [facility] [address] [id number] [place] [address] 15 Mar, 2011 [facility] [address] [id number] [place] [address] 10 Mar, 2011 [facility] [address] [id number] [place] [address] Feb, [facility] [address] [id number] [place] [address] Feb, [facility] [address] [id number] [place] [address] Feb, [facility] [address] [id number] [place] [address] Jan, [facility] [address] [id number] [place] [address] Jan, [facility] [address] [id number] [place] [address] Jan, [facility] [address] [id number] [place] [address] Jan, [facility] [place] [facility] [address] [id number] [place] [address] Jan, [facility] [place] [facility] [address] [id number] [place] [address] Jan, [facility] [address] [id number] [place] [address] Jan, [facility] [place] [id number] [address] Dec, [facility] [place] [id number] [address] Dec, [facility] [place] [id number] [address] Dec, [facility] [place] [id number] [place] [address] Dec, [facility] [place] [id number] [place] [address] Dec, [facility] [place] [id number] [place] [address] Nov, [facility] [place], [facility] [id number] [place] [address] Nov, [facility] [place] [id number] [place] [address] Jul, [facility] [place] [id number] [place] [address] June, [facility] [place] [id number] [place] [address] Mar, [facility] [place] [id number] [place] [address] Feb, [facility] [place] [id number] [address] Dec, IMMUNIZATIONS No Known Immunizations SOCIAL HISTORY Never Assessed REASON FOR VISIT PLAN OF CARE VITAL SIGNS MEDICATIONS Unknown [...] Hospitalization History Sepsis 2/2 UTI from actinomyces- [facility] 05/19/17 Hospitalization History Constipation 06/25
--- OUTSIDE RECORDS SUMMARY | 2018-05-08 20:42 | XMS REPORT ---
Author Author TORREY FELIX Organization [facility] Address [address] [place] [address] Care Team Providers Care Port Patrol Officer Name Role Phone TORREY FELIX Unavailable PROBLEMS Type Condition ICD9-CM Code ORE90-BS Code Onset Dates Condition Status SNOMED Code Problem Sleep apnea, unspecified type G47.30 Active 74203923 Problem Arthritis M19.90 Active 3670226 Problem Benign positional vertigo, bilateral H81.13 Active 120731677 Problem Chronic viral hepatitis C B18.2 Active 832066296 Problem Chronic obstructive pulmonary disease, unspecified COPD type J44.9 Active 79232879 Problem Other cirrhosis of liver K74.69 Active 82475488 Problem Peripheral vascular disease I73.9 Active 081217194 Problem Vertigo R42 Active 316328057 Problem Insomnia G47.00 Active 257548782 Problem Recurrent major depressive disorder, in full remission F33.42 Active 613829328 Problem Prediabetes R73.03 Active 685065542 ALLERGIES No Information ENCOUNTERS Encounter Location Date Diagnosis [place] [id number] [place] [address] 05907- 6256 Sep, Compression fracture of body of thoracic vertebra S22.000A and Benign positional vertigo, bilateral H81.13 [place] [id number] [place] [address] 88438- 5510 Sep, [place] [address] [place] [id number] [place] [address] 11939- 1739 Sep, Benign positional vertigo, bilateral H81.13 ; Impacted cerumen of both ears H61.23 ; Chronic obstructive pulmonary disease, unspecified COPD type J44.9 ; Recurrent major depressive disorder, in full remission F33.42 and Other cirrhosis of liver K74.69 [place] [address] [place] [id number] [place] [address] 96991- 5617 Aug, [facility] [address], [place] [address] 5191 Aug, [facility] R42 [facility] [address], [place] [address] 1599 Jul, [facility] R42 [facility] [address] [address] 3135 Jul, Medicare annual wellness visit, initial Z00.00 ; Chronic obstructive pulmonary disease, unspecified COPD type J44.9 ; Depression, unspecified depression type F32.9 ; Insomnia G47.00 ; Chronic viral hepatitis C B18.2 ; Parkinson disease G20 ; Prediabetes R73.03 ; Arthritis M19.90 ; Routine adult health maintenance Z00.00 and Encounter for immunization Z23 [facility] [address], [place] [address] 24[address] Jul, [facility] [id number] [address] 0867 June, [facility] [address], [place] [address]- 8806 June, [facility] [address], [place] [address]- 4492 June, [facility] [address], [place] [address]- 9723 June, [facility] [address], [place] [address]- 0820 May, Acute cystitis without hematuria N30.00 [facility] [address], [place] [address]- 3931 May, Prediabetes R73.03 [facility] [address] [id number] [address]- 7596 May, Acute cystitis without hematuria N30.00 ; Type 2 diabetes mellitus without complication, without long-term current use of insulin E11.9 ; Vertigo R42 ; Chronic obstructive pulmonary disease, unspecified COPD type J44.9 ; Chronic viral hepatitis C B18.2 and Prediabetes R73.03 [facility] [address] [place] [id number] [place] [address] 31983- 6430 May, [facility] [address] [place] [address] [id number] [place] [address] 11197- 9336 May, Chronic viral hepatitis C B18.2 [facility] [address] [place] [id number] [place] [address] 88116- 3546 Mar, [facility] [address] 82236- 6799 Dec, Vertigo R42 [place] [address] [place] [id number] [place] [address] 25198- 4807 Dec, Neck pain M54.2 ; Encounter for immunization Z23 ; Vertigo R42 and Parkinson disease G20 [facility] [address] [place] [address] [id number] [place] [address] 11374- 3954 Nov, [facility] [address] 66510- 3475 Nov, [facility] [address] [place] [id number] [place] [address] 78001- 0183 Sep, [place] [address] [place] [id number] [place] [address] 65796- 5457 Sep, Chronic viral hepatitis C B18.2 [facility] [address] [place] [id number] [place] [address] 94285- 8143 Sep, Chronic viral hepatitis C B18.2 [facility] [address] [place] [id number] [place] [address] 25705- 5522 Sep, Chronic viral hepatitis C B18.2 [facility] [address] [place] [id number] [place] [address] 14400- 6237 Aug, Type 2 diabetes mellitus without complication, without long- term current use of insulin E11.9 ; Chronic viral hepatitis C B18.2 ; Vertigo R42 and Depression, unspecified depression type F32.9 [facility] [address] [place] [address] [id number] [place] [address] 70456- 7464 Jul, Insomnia G47.00 [place] [address] 36878- 9832 Jul, Type 2 diabetes mellitus without complication, without long- term current use of insulin E11.9 [place] [address] [place] [id number] [place] [address] 50065- 3393 Apr, [facility] [address] [id number] Apr, Dental examination Z01.20 [facility] [address] [id number] Feb, Encounter for dental examination Z01.20 [facility] [address] [id number] Jan, Dental caries K02.9 [place] [address] [place] [id number] [place] [address] 99606- 7137 Jan, Arthritis M19.90 [place] [address] 89257- 8210 Jan, Benign positional vertigo, bilateral H81.13 and Type 2 diabetes mellitus without complication, without long-term current use of insulin E11.9 [place] [address] [place] [id number] [place] [address] 57627- 1519 Dec, [place] [address] [place] [id number] [place] [address] 05424- 6061 Dec, [place] [address] 57764- 4642 Dec, Encounter for immunization Z23 and Elevated blood pressure reading R03.0 [place] [address] 43563- 7503 Dec, [place] [address] [place] [id number] [place] [address] 29651- 1288 Dec, [facility] [address] [place] [id number] [place] [address] 13069- 1225 Nov, Type 2 diabetes mellitus without complication, without long- term current use of insulin E11.9 and Chronic viral hepatitis C B18.2 [place] [address] 31178- 9470 Nov, [facility] [address] [place] [id number] [place] [address] 44833- 3454 Nov, [place] [address] 28575- 0917 Oct, [facility] [address] [place] [address] [id number] [place] [address] [id number] Oct, Dental examination Z01.20 [place] [address] 74073- 2649 Sep, [facility] [address] [place] [id number] [place] [address] 53702- 5182 Sep, [place] [address] [place] [id number] [place] [address] 17834- 8791 Sep, Type 2 diabetes mellitus without complication, without long- term current use of insulin E11.9 and Chronic obstructive pulmonary disease, unspecified COPD type J44.9 [facility] [address] [place] [id number] [place] [address] 13334- 7155 Sep, Rectal bleeding K62.5 [facility] [address] [place] [address] 63028 -5624 Aug, Rectal bleeding K62.5 ; Postmenopausal vaginal bleeding N95.0 ; Dysuria R30.0 ; Dermatitis L30.9 ; Acute cystitis with hematuria N30.01 ; Glycosuria R81 and Adnexal pain R10.2 [place] [address] [place] [id number] [place] [address] 10519- 9690 May, [facility] [address] [place] [id number] [place] [address] 09821- 8341 May, Chronic viral hepatitis C B18.2 [facility] [address] [place] [address] [id number] [place] [address] 38104- 4016 Apr, [facility] [address] 45140- 4854 Mar, [facility] [address] 21053- 6349 Mar, Insomnia G47.00 [facility] [address] 06962- 6250 Feb, Chronic viral hepatitis C B18.2 and Fatigue R53.83 [facility] [address] 67623- 2892 Feb, Rash R21 ; Fatigue R53.83 and Chronic viral hepatitis C B18.2 [facility] [address] [place] [id number] [place] [address] 29656- 5150 Feb, Chronic viral hepatitis C B18.2 [facility] [address] 69066- 2115 Jan, Dermatitis L30.9 and Chronic viral hepatitis C B18.2 [facility] [address] [place] [id number] [place] [address] 72781- 6396 Jan, [facility] [address] [place] [id number] [place] [address] 22407- 9343 Dec, [facility] [address] [place] [address] [id number] [place] [address] 59278- 6980 Nov, [facility] [address] 14207- 1012 Nov, Hep C w/o coma, chronic 070.54 [facility] [address] [place] [id number] [place] [address] 46999- 9210 Oct, Lower back pain 724.2 and Urinary tract infection 599.0 [facility] [address], [place] [address]- 6615 Oct, [facility] [address] [place] [address] 94431- 0226 Oct, [facility] [address] [place] [id number] [place] [address] 25636- 3016 Oct, Dark urine 791.9 and Rectal bleeding 569.3 [facility] [address] [place] [address] 18415- 7580 Sep, Hep C w/o coma, chronic 070.54 [facility] [address] [place] [address] [id number] [place] [address] 06052- 2057 Sep, [facility] [address] [place] [address] [id number] [place] [address] 73745- 0291 Aug, [facility] [address] [place] [address] 98898- 4529 Aug, [facility] [address] [place] [address] 17170- 3801 Jul, Hep C w/o coma, chronic 070.54 [facility] [address] [address]- 9172 Jul, Hep C w/o coma, chronic 070.54 [facility] [address] [place] [address] 78155- 3916 June, Local infection of skin and subcutaneous tissue 686.9 [facility] [address], [place] [address]- 8716 June, Foot pain, right 729.5 [facility] [address], [place] [address]- 2357 June, [facility] [address], [place] [address]- 4580 May, [facility] [place] [facility] [address] [id number] [place] [address]- 7361 May, 2014 [facility] [place] [facility] [address] [id number] [place] [address]- 4689 Apr, 2014 [facility] [place] [facility] [address] [id number] [place] [address]- 1830 Apr, 2014 [facility] [place] [facility] [address] [id number] [place] [address]- 1571 Apr, 2014 [facility] [place] [facility] [address] [id number] [place] [address]- 5293 Apr, 2014 [facility] [place] [facility] [address] [id number] [place] [address]- 1203 Apr, 2014 [facility] [place] [facility] [address] [id number] [place] [address]- 8376 Apr, 2014 [facility] [place] [facility] [address] [id number] [place] [address]- 0316 Jan, [facility] [place] [facility] [address] [id number] [place] [address]- 5735 Jan, [facility] [place] [facility] [address] [id number] [place] [address]- 7528 Jan, [facility] [place] [facility] [address] [id number] [place] [address]- 1920 Dec, [facility] [place] [facility] [address] [id number] [place] [address]- 9062 Dec, [facility] [place] [facility] [address] [id number] [place] [address]- 6777 Dec, [facility] [place] [facility] [address] [id number] [place] [address]- 6247 Dec, [facility] [place] [facility] [address] [id number] [place] [address]- 6295 Nov, [facility] [place] [facility] [address] [id number] [place] [address]- 7385 Nov, [facility] [place] [facility] [address] [id number] [place] [address]- 4829 Nov, [facility] [place] [facility] [address] [id number] [place] [address]- 0623 Nov, [facility] [place] [facility] [address] [id number] [place] 5367 Nov, [facility] [place] [facility] [address] [id number] [place] [address]- 3002 Nov, [facility] [place] [facility] [address] [id number] [place] [address]- 9961 Nov, [facility] [place] [facility] [address] [id number] [place] [address]- 8371 Nov, [facility] [place] [facility] [address] [id number] [place] [address]- 7893 Nov, [facility] [place] [facility] [address] [id number] [place] [address]- 2800 Nov, [facility] [place] [facility] [address] [id number] [place] [address]- 6907 26 Oct, 2013 [facility] [place] [facility] [address] [id number] [place] [address]- 4078 26 Oct, 2013 [facility] [place] [facility] [address] [id number] [place] [address]- 5672 24 Oct, 2013 [facility] [place] [facility] [address] [id number] [address]- 9691 24 Oct, 2013 [facility] [place] [facility] [address] [id number] [place] [address]- 3816 2013 [facility] [place] [facility] [address] [id number] [place] [address]- 6810 2013 [facility] [place] [facility] [address] [id number] [place] [address]- 2849 02 Oct, 2013 [facility] [place] [facility] [address] [id number] [place] [address]- 9114 Oct, [facility] [address] [id number] [place] [address]- 1146 Aug, [facility] [place] [facility] [address] [id number] [place] [address]- 3980 Aug, [facility] [address] [id number] [place] [address]- 8753 Aug, [facility] [place] [facility] [address] [id number] [place] [address]- 3118 Aug, [facility] [place] [facility] [address] [id number] [place] [address]- 9282 Aug, [facility] [place] [facility] [address] [id number] [place] [address]- 3949 Aug, [facility] [address] [id number] [place] [address]- 7391 Aug, [facility] [address] [id number] [place] [address]- 9743 Aug, [facility] [place] [facility] [address] [id number] [place] [address]- 1595 June, [facility] [address] [id number] [place] [address]- 9190 June, [facility] [place] [facility] [address] [id number] [place] [address]- 2156 May, [facility] [place] [facility] [address] [id number] [place] [address]- 2546 May, [facility] [place] [facility] [address] [id number] [place] [address]- 5106 Apr, [facility] [place] [facility] [address] [id number] [place] [address]- 2546 Apr, [facility] [place] [facility] [address] [id number] [place] [address]- 9196 Apr, [facility] [place] [facility] [address] [id number] [place] [address]- 9682 Mar, [facility] [place] [facility] [address] [id number] [place] [address]- 9355 Mar, [facility] [place] [facility] [address] [id number] [place] [address]- 0374 Mar, [facility] [place] [facility] [address] [id number] [place] [address]- 8560 Mar, [facility] [place] [facility] [address] [id number] [place] [address]- 0766 Mar, [facility] [place] [facility] [address] [id number] [place] [address]- 3043 Mar, [facility] [place] [facility] [address] [facility] [id number] [place] [address]- 2065 Jan, [facility] [place] [facility] [address] [id number] [place] [address]- 4052 Jan, [facility] [place] [facility] [address] [facility] [id number] [place] [address]- 8082 Jan, [facility] [place] [facility] [address] [facility] [id number] [place] [address]- 5694 Jan, [facility] [place] [facility] [address] [facility] [id number], [place] [address]- 1639 Jan, [facility] [place] [facility] [address] [id number], [place] [address]- 5567 Jan, [facility] [place] [facility] [address] [id number] [place] [address]- 7613 Dec, [facility] [place] [facility] [address] [id number] [place] [address]- 6440 Dec, [facility] [place] [facility] [address] [facility] [id number] [place] [address]- 3512 Dec, [facility] [place] [facility] [address] [id number] [place] [address]- 7548 13 Dec, 2012 [facility] [address] [id number] [place] [address]- 2222 07 Dec, 2012 [facility] [place] [facility] [address] [id number] [place] [address]- 4060 07 Dec, 2012 [facility] [address] [id number] [place] [address]- 9542 07 Dec, 2012 [facility] [place] [facility] [address] [id number] [place] [address]- 0414 Dec, [facility] [address] [id number] [place] [address]- 6523 26 Oct, 2012 [facility] [place] [facility] [address] [id number] [place] [address]- 6121 17 Oct, 2012 [facility] [address] [id number] [place] [address]- 0611 16 Sep, 2012 [facility] [address] [id number] [place] [address]- 5769 Aug, [facility] [place] [facility] [address] [id number] [place] [address]- 9411 Aug, [facility] [address] [id number] [place] [address]- 8941 June, [facility] [address] [id number] [place] [address]- 2864 June, [facility] [place] [facility] [address] [id number] [place] [address]- 254 June, [facility] [place] [facility] [address] [id number] [place] [address]- 8411 June, [facility] [place] [facility] [address] [id number] [place] [address]- 8522 May, [facility] [place] [facility] [address] [id number] [place] [address]- 2914 May, [facility] [place] [facility] [address] [id number] [place] [address] 2543 Apr, [facility] [address] [id number] [place] [address]- 8826 Apr, [facility] [address] [id number] [place] [address]- 3701 Jan, [facility] [address] [id number] [place] [address]- 1126 Jan, [facility] [address] [id number] [place] [address]- 8556 Jan, [facility] [address] [id number] [place] [address]- 8596 Jan, [facility] [address] [id number] [place] [address]- 0623 Jan, [facility] [address] [id number] [place] [address]- 2879 Jan, [facility] [address] [id number] [place] [address]- 4154 Jan, [facility] [address] [id number] [place] [address]- 7346 Jan, [facility] [address] [id number] [place] [address]- 2379 Jan, [facility] [address] [id number] [place] [address]- 2416 05 Jan, 2012 [facility] [place] [facility] [address] [id number] [place] [address]- 9025 Jan, [facility] [place] [facility] [address] [id number] [place] [address]- 3716 Dec, [facility] [place] [facility] [address] [id number] [place] [address]- 7090 Dec, [facility] [address] [id number] [place] [address]- 0342 Dec, [facility] [place] [facility] [address] [id number] [place] 5257 Dec, [facility] [place] [facility] [address] [id number] [place] [address]- 9644 Dec, [facility] [place] [facility] [address] [id number] [place] [address]- 1702 Dec, [facility] [place] [facility] [address] [id number] [place] [address]- 4627 Nov, [facility] [place] [facility] [address] [id number] [place] 2634 Nov, [facility] [place] [facility] [address] [id number] [place] [address] Nov, [facility] [place] [facility] [address] [id number] [place] [address] Oct, [facility] [place] [facility] [address] [id number] [place] [address] 1994 Oct, [facility] [place] [facility] [address] [id number] [place] [address] Sep, [facility] [place] [facility] [address] [id number] [place] [address] Sep, [facility] [place] [facility] [address] [id number] [place] [address] Sep, [facility] [place] [facility] [address] [id number] [place] [address] Sep, [facility] [place] [facility] [address] [id number] [place] [address] Aug, [facility] [place] [facility] [address] [id number] [place] [address] June, [facility] [place] [facility] [address] [id number] [place] [address] May, [facility] [place] [facility] [address] [id number] [place] [address]46 16 May, 2011 [facility] [address] [id number] [place] [address] 14 May, 2011 [facility] [address] [id number] [place] [address]46 05 May, 2011 [facility] [address] [id number] [place] [address] 97[address] Apr, [facility] [address] [id number] [place] [address] 1996 15 Mar, 2011 [facility] [address] [id number] [place] [address] 10 Mar, 2011 [facility] [address] [id number] [place] [address] Feb, [facility] [address] [id number] [place] [address] 9181 Feb, [facility] [address] [id number] [place] [address] 6231 Feb, [facility] [address] [id number] [place] [address] 6101 Jan, [facility] [address] [id number] [place] [address] 8336 Jan, [facility] [address] [id number] [place] [address]- [address] Jan, [facility] [address] [id number] [place] [address] 3326 Jan, [facility] [place] [facility] [address] [id number] [place] [address]- 2546 Jan, [facility] [place] [facility] [address] [id number] [place] [address]- 2546 Jan, [facility] [address] [id number] [place] [address] Jan, [facility] [id number] [address] Dec, [facility] [id number] [address] Dec, [facility] [id number] [address] Dec, [facility] [id number] [place] [address]- [address] Dec, [facility] [id number] [address] Dec, [facility] [id number] [place] [address]- 8861 Nov, [facility] [id number] [place] [address]- [address]13 Nov, [facility] [id number] [place] [address]- [address] Jul, [facility] [id number] [place] [address]- [address] June, [facility] [id number] [address] Mar, [facility] [id number] [place] [address] Feb, [facility] [facility] [id number] [address] Dec, IMMUNIZATIONS No Known Immunizations SOCIAL HISTORY [...] Hospitalization History Sepsis 2/2 UTI from actinomyces- [facility] 05/19/17 Hospitalization History Constipation 06/25
--- OUTSIDE RECORDS SUMMARY | 2018-05-08 20:53 | XMS REPORT | Continuity of Care Document ---
Author Author [facility] Address Unknown Phone Unavailable Allergies Active Description Code Type Severity Reaction Onset Reported/Identified Relationship to Patient Clinical Status Yes PLASTIC TAPE PLASTIC TAPE Moderate RASH 02/09/2013 Yes hydrocodone [id number] Drug Allergy Unknown N/A 11/27/2014 Medications There is no data. 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, BILATERAL 06/27/2008 DAVID LOVE DO 070.44 HEPATITIS, C VIRUS - CHRONIC WITH HEPATIC COMA 06/27/2008 TORREY FELIX MD 070.44 HEPATITIS, C VIRUS - CHRONIC WITH HEPATIC COMA 06/27/2008 TORREY FELIX MD 070.44 HEPATITIS, C VIRUS - CHRONIC WITH HEPATIC COMA 06/27/2008 070.44 HEPATITIS, C VIRUS - CHRONIC WITH HEPATIC COMA 06/27/2008 070.44 HEPATITIS, C VIRUS - CHRONIC WITH HEPATIC COMA 06/27/2008 TORREY FELIX MD 070.44 HEPATITIS, C VIRUS - CHRONIC WITH HEPATIC COMA 06/27/2008 TORREY FELIX MD 070.44 HEPATITIS, C VIRUS - CHRONIC WITH HEPATIC COMA 06/27/2008 TORREY FELIX MD 070.44 HEPATITIS, C VIRUS - CHRONIC WITH HEPATIC COMA 06/27/2008 TORREY FELIX MD 070.44 HEPATITIS, C VIRUS - CHRONIC WITH HEPATIC COMA 06/27/2008 TORREY FELIX MD 070.44 HEPATITIS, C VIRUS - CHRONIC WITH HEPATIC COMA 06/27/2008 PHIL SARAVIA DDS 070.44 HEPATITIS, C VIRUS - CHRONIC WITH HEPATIC COMA 06/27/2008 TORREY FELIX MD 070.44 HEPATITIS, C VIRUS - CHRONIC WITH HEPATIC COMA 06/27/2008 TORREY FELIX MD 070.44 HEPATITIS, C VIRUS - CHRONIC WITH HEPATIC COMA 06/27/2008 TORREY FELIX MD 070.44 HEPATITIS, C VIRUS - CHRONIC WITH HEPATIC COMA 06/27/2008 REJI GRACE RICHIE Nicole 070.44 HEPATITIS, C VIRUS - CHRONIC WITH HEPATIC COMA 06/27/2008 TORREY FELIX MD 070.44 HEPATITIS, C VIRUS - CHRONIC WITH HEPATIC COMA 06/27/2008 TORREY FELIX MD 070.44 HEPATITIS, C VIRUS - CHRONIC WITH HEPATIC COMA 06/27/2008 LOVE DAVID PATTERSON K 070.44 HEPATITIS, C VIRUS - CHRONIC WITH HEPATIC COMA 09/07/2008 VARSHA LOVE DOA K 627.3 Vaginitis Postmenopausal Atrophic 09/07/2008 LOVE DO DAVID K 627.9 MENOPAUSAL DISORDER 09/07/2008 LOVE DO DAVID K 724.2 lower back pain 09/07/2008 DAVID LOVE DO K V72.31 Pelvic Exam (internal) 09/07/2008 TORREY FELIX MD 627.3 Vaginitis Postmenopausal Atrophic 09/07/2008 TORREY FELIX MD 627.9 MENOPAUSAL DISORDER 09/07/2008 TORREY FELIX MD 724.2 lower back pain 09/07/2008 TORREY FELIX MD V72.31 Pelvic Exam (internal) 09/07/2008 TORREY FELIX MD7.3 Vaginitis Postmenopausal Atrophic 09/07/2008 TORREY FELIX MD.9 MENOPAUSAL DISORDER 09/07/2008 TORREY FELIX MD 724.2 lower back pain 09/07/2008 TORREY FELIX MD V72.31 Pelvic Exam (internal) 09/07/2008 627.3 Vaginitis Postmenopausal Atrophic 09/07/2008 627.9 MENOPAUSAL DISORDER 09/07/2008 724.2 lower back pain 09/07/2008 V72.31 Pelvic Exam ( internal) 09/07/2008 627.3 Vaginitis Postmenopausal Atrophic 09/07/2008 627.9 MENOPAUSAL DISORDER 09/07/2008 724.2 lower back pain 09/07/2008 V72.31 Pelvic Exam ( internal) 09/07/2008 TORREY FELIX MD 627.3 Vaginitis Postmenopausal Atrophic 09/07/2008 TORREY FELIX MD 627.9 MENOPAUSAL DISORDER 09/07/2008 TORREY FELIX MD 724.2 lower back pain 09/07/2008 TORREY FELIX MD V72.31 Pelvic Exam (internal) 09/07/2008 TORREY FELIX MD 627.3 Vaginitis Postmenopausal Atrophic 09/07/2008 TORREY FELIX MD 627.9 MENOPAUSAL DISORDER 09/07/2008 TORREY FELIX MD 724.2 lower back pain 09/07/2008 TORREY FELIX MD V72.31 Pelvic Exam (internal) 09/07/2008 TORREY FELIX MD 627.3 Vaginitis Postmenopausal Atrophic 09/07/2008 TORREY FELIX MD 627.9 MENOPAUSAL DISORDER 09/07/2008 TORREY FELIX MD 724.2 lower back pain 09/07/2008 TORREY FELIX MD V72.31 Pelvic Exam (internal) 09/07/2008 TORREY FELIX MD 62Dylan.3 Vaginitis Postmenopausal Atrophic 09/07/2008 TORREY FELIX MD 62Dylan.9 MENOPAUSAL DISORDER 09/07/2008 TORREY FELIX MD 724.2 lower back pain 09/07/2008 TORREY FELIX MD V72.31 Pelvic Exam (internal) 09/07/2008 TORREY FELIX MD 62Dylan.3 Vaginitis Postmenopausal Atrophic 09/07/2008 TORREY FELIX MD 627.9 MENOPAUSAL DISORDER 09/07/2008 TORREY FELIX MD 724.2 lower back pain 09/07/2008 TORREY FELIX MD V72.31 Pelvic Exam (internal) 09/07/2008 MANJIT DDS, PHIL J 627.3 Vaginitis Postmenopausal Atrophic 09/07/2008 WHITE DDS, PHIL J 627.9 MENOPAUSAL DISORDER 09/07/2008 WHITE DDS, PHIL J 724.2 lower back pain 09/07/2008 MANJIT DDS, PHIL J V72.31 Pelvic Exam (internal) 09/07/2008 TORREY FELIX MD 627.3 Vaginitis Postmenopausal Atrophic 09/07/2008 TORREY FELIX MD 62Dylan.9 MENOPAUSAL DISORDER 09/07/2008 TORREY FELIX MD 724.2 lower back pain 09/07/2008 TORREY FELIX MD V72.31 Pelvic Exam (internal) 09/07/2008 TORREY FELIX MD 627.3 Vaginitis Postmenopausal Atrophic 09/07/2008 TORREY FELIX MD 627.9 MENOPAUSAL DISORDER 09/07/2008 TORREY FELIX MD 724.2 lower back pain 09/07/2008 TORREY FELIX MD V72.31 Pelvic Exam (internal) 09/07/2008 TORREY FELIX MD 627.3 Vaginitis Postmenopausal Atrophic 09/07/2008 TORREY FELIX MD 627.9 MENOPAUSAL DISORDER 09/07/2008 TORREY FELIX MD 724.2 lower back pain 09/07/2008 TORREY FELIX MD V72.31 Pelvic Exam (internal) 09/07/2008 RICHIE MENDOZA APRN 627.3 Vaginitis Postmenopausal Atrophic 09/07/2008 RICHIE MENDOZA APRN 627.9 MENOPAUSAL DISORDER 09/07/2008 RICHIE MENDOZA APRN 724.2 lower back pain 09/07/2008 RICHIE MENDOZA APRN V72.31 Pelvic Exam (internal) 09/07/2008 TORREY FELIX MD 627.3 Vaginitis Postmenopausal Atrophic 09/07/2008 TORREY FELIX MD 627.9 MENOPAUSAL DISORDER 09/07/2008 TORREY FELIX MD 724.2 lower back pain 09/07/2008 TORREY FELIX MD V72.31 Pelvic Exam (internal) 09/07/2008 TORREY FELIX MD 627.3 Vaginitis Postmenopausal Atrophic 09/07/2008 TORREY FELIX MD 627.9 MENOPAUSAL DISORDER 09/07/2008 TORREY FELIX MD 724.2 lower back pain 09/07/2008 TORREY FELIX MD V72.31 Pelvic Exam (internal) 09/07/2008 DAVID LOVE DO K 627.3 Vaginitis Postmenopausal Atrophic 09/07/2008 DAVID LOVE DO K 627.9 MENOPAUSAL DISORDER 09/07/2008 DAVID LOVE DO K 724.2 lower back pain 09/07/2008 LOVE DO DAVID K V72.31 Pelvic Exam (internal) 10/04/2008 DAVID LOVE DO K 465.9 Upper Respiratory Infection 10/04/2008 TORREY FELIX MD 465.9 Upper Respiratory Infection 10/04/2008 TORREY FELIX MD 465.9 Upper Respiratory Infection 10/04/2008 465.9 Upper Respiratory Infection 10/04/2008 465.9 Upper Respiratory Infection 10/04/2008 TORREY FELIX MD 465.9 Upper Respiratory Infection 10/04/2008 ELVIRA GOFF, TORREY 465.9 Upper Respiratory Infection 10/04/2008 ELVIRA GOFF, TORREY 465.9 Upper Respiratory Infection 10/04/2008 ELVIRA GOFF, TORREY 465.9 Upper Respiratory Infection 10/04/2008 ELVIRA GOFF, TORREY 465.9 Upper Respiratory Infection 10/04/2008 MANJIT HEREDIA, PHIL Reynoso 465.9 Upper Respiratory Infection 10/04/2008 ELVIRA GOFF, TORREY 465.9 Upper Respiratory Infection 10/04/2008 ELVIRA GOFF, TORREY 465.9 Upper Respiratory Infection 10/04/2008 ELVIRA GOFF, TORREY 465.9 Upper Respiratory Infection 10/04/2008 RICHIE MENDOZA APRN 465.9 Upper Respiratory Infection 10/04/2008 ELVIRA GOFF, TORREY 465.9 Upper Respiratory Infection 10/04/2008 ELVIRA GOFF, TORREY 465.9 Upper Respiratory Infection 10/04/2008 DAVID LOVE DO 465.9 Upper Respiratory Infection 02/23/2009 DAVID LOVE DO 564.00 Constipation 02/23/2009 ELVIRA GOFF, TORREY 564.00 Constipation 02/23/2009 ELVIRA GOFF, TORREY 564.00 Constipation 02/23/2009 564.00 Constipation 02/23/2009 564.00 Constipation 02/23/2009 ELVIRA GOFF, TORREY 564.00 Constipation 02/23/2009 ELVIRA GOFF, TORREY 564.00 Constipation 02/23/2009 ELVIRA GOFF, TORREY 564.00 Constipation 02/23/2009 ELVIRA GOFF, TORREY 564.00 Constipation 02/23/2009 ELVIRA GOFF, TORREY 564.00 Constipation 02/23/2009 MANJIT HEREDIA, PHIL Reynoso 564.00 Constipation 02/23/2009 ELVIRA GOFF, TORREY 564.00 Constipation 02/23/2009 ELVIRA GOFF, TORREY 564.00 Constipation 02/23/2009 ELVIRA GOFF, TORREY 564.00 Constipation 02/23/2009 RICHIE MENDOZA APRN 564.00 Constipation 02/23/2009 ELVIRA GOFF, TORREY 564.00 Constipation 02/23/2009 ELVIRA GOFF, TORREY 564.00 Constipation 02/23/2009 DAVID LOVE DO 564.00 Constipation 03/06/2009 DAVID LOVE DO 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 03/06/2009 TORREY FELIX MD 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 03/06/2009 TORREY FELIX MD 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 03/06/2009 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 03/06/2009 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 03/06/2009 TORREY FELIX MD 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 03/06/2009 TORREY FELIX MD 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 03/06/2009 TORREY FELIX MD 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 03/06/2009 TORREY FELIX MD 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 03/06/2009 TORREY FELIX MD 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 03/06/2009 PHIL SARAVIA DDS 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 03/06/2009 TORREY FELIX MD 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 03/06/2009 TORREY FELIX MD 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 03/06/2009 TORREY FELIX MD 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 03/06/2009 RICHIE MENDOZA APRN 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 03/06/2009 TORREY FELIX MD 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 03/06/2009 TORREY FELIX MD 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 03/06/2009 DAVID LOVE DO 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 03/21/2009 DAVID LOVE DO V74.1 Screening Examination For Pulmonary Tuberculosis 03/21/2009 TORREY FELIX MD V74.1 Screening Examination For Pulmonary Tuberculosis 03/21/2009 TORREY FELIX MD V74.1 Screening Examination For Pulmonary Tuberculosis 03/21/2009 V74.1 Screening Examination For Pulmonary Tuberculosis 03/21/2009 V74.1 Screening Examination For Pulmonary Tuberculosis 03/21/2009 TORREY FELIX MD V74.1 Screening Examination For Pulmonary Tuberculosis 03/21/2009 TORREY FELIX MD V74.1 Screening Examination For Pulmonary Tuberculosis 03/21/2009 TORREY FELIX MD4.1 Screening Examination For Pulmonary Tuberculosis 03/21/2009 ELVIRA GOFF, TORREY V74.1 Screening Examination For Pulmonary Tuberculosis 03/21/2009 TORREY FELIX MD V74.1 Screening Examination For Pulmonary Tuberculosis 03/21/2009 MANJIT HEREDIA, PHIL Reynoso V74.1 Screening Examination For Pulmonary Tuberculosis 03/21/2009 TORREY FELIX MD V74.1 Screening Examination For Pulmonary Tuberculosis 03/21/2009 TORREY FELIX MD V74.1 Screening Examination For Pulmonary Tuberculosis 03/21/2009 ELVIRA GOFF, TORREY V74.1 Screening Examination For Pulmonary Tuberculosis 03/21/2009 RICHIE MENDOZA APRN V74.1 Screening Examination For Pulmonary Tuberculosis 03/21/2009 ELVIRA GOFF, TORREY V74.1 Screening Examination For Pulmonary Tuberculosis 03/21/2009 TORREY FELIX MD V74.1 Screening Examination For Pulmonary Tuberculosis 03/21/2009 DAVID LOVE DO V74.1 Screening Examination For Pulmonary Tuberculosis 06/19/2009 Ot 788.20 06/21/2009 DAVID LOVE DO 599.9 Unspecified Disorder Of Urethra And Urinary Tract 06/21/2009 DAVID LOVE DO K 724.5 Backache Unspecified 06/21/2009 VARSHA LOVE DOA K 780.79 Fatigue 06/21/2009 TORREY FELIX MD 599.9 Unspecified Disorder Of Urethra And Urinary Tract 06/21/2009 TORREY FELIX MD 724.5 Backache Unspecified 06/21/2009 TORREY FELIX MD 780.79 Fatigue 06/21/2009 TORREY FELIX MD 599.9 Unspecified Disorder Of Urethra And Urinary Tract 06/21/2009 TORREY FELIX MD 724.5 Backache Unspecified 06/21/2009 TORREY FELIX MD 780.79 Fatigue 06/21/2009 599.9 Unspecified Disorder Of Urethra And Urinary Tract 06/21/2009 724.5 Backache Unspecified 06/21/2009 780.79 Fatigue 06/21/2009 599.9 Unspecified Disorder Of Urethra And Urinary Tract 06/21/2009 724.5 Backache Unspecified 06/21/2009 780.79 Fatigue 06/21/2009 TORREY FELIX MD9.9 Unspecified Disorder Of Urethra And Urinary Tract 06/21/2009 TORREY FELIX MD 724.5 Backache Unspecified 06/21/2009 TORREY FELIX MD 780.79 Fatigue 06/21/2009 TORREY FELIX MD 599.9 Unspecified Disorder Of Urethra And Urinary Tract 06/21/2009 TORREY FELIX MD 724.5 Backache Unspecified 06/21/2009 TORREY FELIX MD 780.79 Fatigue 06/21/2009 TORREY FELIX MD 599.9 Unspecified Disorder Of Urethra And Urinary Tract 06/21/2009 TORREY FELIX MD 724.5 Backache Unspecified 06/21/2009 TORREY FELIX MD 780.79 Fatigue 06/21/2009 TORREY FELIX MD 599.9 Unspecified Disorder Of Urethra And Urinary Tract 06/21/2009 TORREY FELIX MD 724.5 Backache Unspecified 06/21/2009 TORREY FELIX MD 780.79 Fatigue 06/21/2009 TORREY FELIX MD 599.9 Unspecified Disorder Of Urethra And Urinary Tract 06/21/2009 TORREY FELIX MD 724.5 Backache Unspecified 06/21/2009 TORREY FELIX MD 780.79 Fatigue 06/21/2009 MANJIT HEREDIA, PHIL J 599.9 Unspecified Disorder Of Urethra And Urinary Tract 06/21/2009 MANJIT JORDANS, PHIL J 724.5 Backache Unspecified 06/21/2009 MANJIT JORDANS, PHIL J 780.79 Fatigue 06/21/2009 TORREY FELIX MD 599.9 Unspecified Disorder Of Urethra And Urinary Tract 06/21/2009 TORREY FELIX MD 724.5 Backache Unspecified 06/21/2009 TORREY FELIX MD 780.79 Fatigue 06/21/2009 TORREY FELIX MD 599.9 Unspecified Disorder Of Urethra And Urinary Tract 06/21/2009 TORREY FELIX MD 724.5 Backache Unspecified 06/21/2009 TORREY FELIX MD 780.79 Fatigue 06/21/2009 TORREY FELIX MD 599.9 Unspecified Disorder Of Urethra And Urinary Tract 06/21/2009 TORREY FELIX MD 724.5 Backache Unspecified 06/21/2009 TORREY FELIX MD 780.79 Fatigue 06/21/2009 RICHIE MENDOZA APRN 599.9 Unspecified Disorder Of Urethra And Urinary Tract 06/21/2009 RICHIE MENDOZA APRN 724.5 Backache Unspecified 06/21/2009 RICHIE MENDOZA APRN 780.79 Fatigue 06/21/2009 TORREY FELIX MD 599.9 Unspecified Disorder Of Urethra And Urinary Tract 06/21/2009 TORREY FELIX MD 724.5 Backache Unspecified 06/21/2009 TORREY FELIX MD 780.79 Fatigue 06/21/2009 TORREY FELIX MD 599.9 Unspecified Disorder Of Urethra And Urinary Tract 06/21/2009 TORREY FELIX MD 724.5 Backache Unspecified 06/21/2009 TORREY FELIX MD 780.79 Fatigue 06/21/2009 LOVE DO, DAVID K 599.9 Unspecified Disorder Of Urethra And Urinary Tract 06/21/2009 LOVE DO, DAVID K 724.5 Backache Unspecified 06/21/2009 LOVE DO, DAVID K 780.79 Fatigue 06/27/2009 LOVE DO, DAVID K 486 Pneumonia Unspecified 06/27/2009 LOVE DO, DAVID K 786.05 Shortness Of Breath 06/27/2009 LOVE DO, DAVID K 786.2 Cough 06/27/2009 TORREY FELIX MD 486 Pneumonia Unspecified 06/27/2009 ELVIRA GOFF, TORREY 786.05 Shortness Of Breath 06/27/2009 ELVIRA GOFF, TORREY 786.2 Cough 06/27/2009 ELVIRA GOFF, TORREY 486 Pneumonia Unspecified 06/27/2009 ELVIRA GOFF, TORREY 786.05 Shortness Of Breath 06/27/2009 ELVIRA GOFF, TORREY 786.2 Cough 06/27/2009 486 Pneumonia Unspecified 06/27/2009 786.05 Shortness Of Breath 06/27/2009 786.2 Cough 06/27/2009 486 Pneumonia Unspecified 06/27/2009 786.05 Shortness Of Breath 06/27/2009 786.2 Cough 06/27/2009 ELVIRA GOFF, TORREY 486 Pneumonia Unspecified 06/27/2009 ELVIRA GOFF, TORREY 786.05 Shortness Of Breath 06/27/2009 ELVIRA GOFF, TORREY 786.2 Cough 06/27/2009 ELVIRA GOFF, TORREY 486 Pneumonia Unspecified 06/27/2009 ELVIRA GOFF, TORREY 786.05 Shortness Of Breath 06/27/2009 ELVIRA GOFF, TORREY 786.2 Cough 06/27/2009 ELVIRA GOFF, TORREY 486 Pneumonia Unspecified 06/27/2009 ELVIRA GOFF, TORREY 786.05 Shortness Of Breath 06/27/2009 ELVIRA GOFF, TORREY 786.2 Cough 06/27/2009 ELVIRA GOFF, TORREY 486 Pneumonia Unspecified 06/27/2009 ELVIRA GOFF, TORREY 786.05 Shortness Of Breath 06/27/2009 ELVIRA GOFF, TORREY 786.2 Cough 06/27/2009 ELVIRA GOFF, TORREY 486 Pneumonia Unspecified 06/27/2009 ELVIRA GOFF, TORREY 786.05 Shortness Of Breath 06/27/2009 ELVIRA GOFF, TORREY 786.2 Cough 06/27/2009 WHITE DDS, PHIL J 486 Pneumonia Unspecified 06/27/2009 WHITE DDS, PHIL J 786.05 Shortness Of Breath 06/27/2009 WHITE DDS, PHIL J 786.2 Cough 06/27/2009 ELVIRA GOFF, TORREY 486 Pneumonia Unspecified 06/27/2009 ELVIRA GOFF, TORREY 786.05 Shortness Of Breath 06/27/2009 ELVIRA GOFF, TORREY 786.2 Cough 06/27/2009 ELVIRA GOFF, TORREY 486 Pneumonia Unspecified 06/27/2009 ELVIRA GOFF, TORREY 786.05 Shortness Of Breath 06/27/2009 ELVIRA GOFF, TORREY 786.2 Cough 06/27/2009 ELVIRA GOFF, TORREY 486 Pneumonia Unspecified 06/27/2009 ELVIRA GOFF, TORREY 786.05 Shortness Of Breath 06/27/2009 ELVIRA GOFF, TORREY 786.2 Cough 06/27/2009 RICHIE MENDOZA APRN 486 Pneumonia Unspecified 06/27/2009 RICHIE MENDOZA APRN 786.05 Shortness Of Breath 06/27/2009 RICHIE MENDOZA APRN 786.2 Cough 06/27/2009 ELVIRA GOFF, TORREY 486 Pneumonia Unspecified 06/27/2009 ELVIRA GOFF, TORREY 786.05 Shortness Of Breath 06/27/2009 ELVIRA GOFF, TORREY 786.2 Cough 06/27/2009 ELVIRA GOFF, TORREY 486 Pneumonia Unspecified 06/27/2009 ELVIRA GOFF, TORREY 786.05 Shortness Of Breath 06/27/2009 ELVIRA GOFF, TORREY 786.2 Cough 06/27/2009 DAVID LOVE DO 486 Pneumonia Unspecified 06/27/2009 DAVID LOVE DO 786.05 Shortness Of Breath 06/27/2009 DAVID LOVE DO 786.2 Cough 07/11/2009 Ot 070.70 07/11/2009 Ot 246.8 07/11/2009 Ot 285.9 07/11/2009 Ot 530.10 07/11/2009 Ot 530.81 07/11/2009 Ot 535.50 07/11/2009 Ot 553.3 07/11/2009 Ot 564.00 07/11/2009 Ot 578.0 07/11/2009 Ot 790.6 08/08/2009 DAVID LOVE DO 070.54 HEPATITIS, C VIRUS - CHRONIC 08/08/2009 DAVID LOVE DO 790.6 Other Abnormal Blood Chemistry 08/08/2009 TORREY FELIX MD 070.54 HEPATITIS, C VIRUS - CHRONIC 08/08/2009 TORREY FELIX MD 790.6 Other Abnormal Blood Chemistry 08/08/2009 TORREY FELIX MD 070.54 HEPATITIS, C VIRUS - CHRONIC 08/08/2009 TORREY FELIX MD 790.6 Other Abnormal Blood Chemistry 08/08/2009 070.54 HEPATITIS, C VIRUS - CHRONIC 08/08/2009 790.6 Other Abnormal Blood Chemistry 08/08/2009 070.54 HEPATITIS, C VIRUS - CHRONIC 08/08/2009 790.6 Other Abnormal Blood Chemistry 08/08/2009 TORREY FELIX MD 070.54 HEPATITIS, C VIRUS - CHRONIC 08/08/2009 TORREY FELIX MD 790.6 Other Abnormal Blood Chemistry 08/08/2009 TORREY EFLIX MD 070.54 HEPATITIS, C VIRUS - CHRONIC 08/08/2009 TORREY FELIX MD 790.6 Other Abnormal Blood Chemistry 08/08/2009 TORREY FELIX MD 070.54 HEPATITIS, C VIRUS - CHRONIC 08/08/2009 TORREY FELIX MD 790.6 Other Abnormal Blood Chemistry 08/08/2009 TORREY FELIX MD 070.54 HEPATITIS, C VIRUS - CHRONIC 08/08/2009 TORREY FELIX MD 790.6 Other Abnormal Blood Chemistry 08/08/2009 TORREY FELIX MD 070.54 HEPATITIS, C VIRUS - CHRONIC 08/08/2009 TORREY FELIX MD 790.6 Other Abnormal Blood Chemistry 08/08/2009 WHITE DDS, PHIL J 070.54 HEPATITIS, C VIRUS - CHRONIC 08/08/2009 WHITE DDS, PHIL J 790.6 Other Abnormal Blood Chemistry 08/08/2009 TORREY FELIX MD 070.54 HEPATITIS, C VIRUS - CHRONIC 08/08/2009 TORREY FELIX MD 790.6 Other Abnormal Blood Chemistry 08/08/2009 TORREY FELIX MD 070.54 HEPATITIS, C VIRUS - CHRONIC 08/08/2009 TORREY FELIX MD 790.6 Other Abnormal Blood Chemistry 08/08/2009 TORREY FELIX MD 070.54 HEPATITIS, C VIRUS - CHRONIC 08/08/2009 TORREY FELIX MD 790.6 Other Abnormal Blood Chemistry 08/08/2009 RICHIE MENDOZA APRN 070.54 HEPATITIS, C VIRUS - CHRONIC 08/08/2009 RICHIE MENDOZA APRN 790.6 Other Abnormal Blood Chemistry 08/08/2009 TORREY FELIX MD 070.54 HEPATITIS, C VIRUS - CHRONIC 08/08/2009 TORREY FELIX MD 790.6 Other Abnormal Blood Chemistry 08/08/2009 TORREY FELIX MD 070.54 HEPATITIS, C VIRUS - CHRONIC 08/08/2009 TORREY FELIX MD 790.6 Other Abnormal Blood Chemistry 08/08/2009 DAVID LOVE DO K 070.54 HEPATITIS, C VIRUS - CHRONIC 08/08/2009 LOVE DO DAVID K 790.6 Other Abnormal Blood Chemistry 09/04/2009 KATE PATTERSON DAVID K 791.0 Proteinuria 09/04/2009 TORREY FELIX MD 791.0 Proteinuria 09/04/2009 TORREY FELIX MD 791.0 Proteinuria 09/04/2009 791.0 Proteinuria 09/04/2009 791.0 Proteinuria 09/04/2009 TORREY FELIX MD 791.0 Proteinuria 09/04/2009 TORREY FELIX MD 791.0 Proteinuria 09/04/2009 TORREY FELIX MD 791.0 Proteinuria 09/04/2009 TORREY FELIX MD 791.0 Proteinuria 09/04/2009 TORREY FELIX MD 791.0 Proteinuria 09/04/2009 WHITE DDS, PHIL J 791.0 Proteinuria 09/04/2009 ELVIRA GOFF, TORREY 791.0 Proteinuria 09/04/2009 ELVIRA GOFF, TORREY 791.0 Proteinuria 09/04/2009 ELVIRA GOFF, TORREY 791.0 Proteinuria 09/04/2009 RICHIE MENDOZA APRN 791.0 Proteinuria 09/04/2009 ELVIRA GOFF, TORREY 791.0 Proteinuria 09/04/2009 ELVIRA GOFF, TORREY 791.0 Proteinuria 09/04/2009 DAVID LOVE DO 791.0 Proteinuria 09/19/2009 DAVID LOVE DO 287.5 Thrombocytopenia Unspecified 09/19/2009 ELVIRA GOFF, TORREY 287.5 Thrombocytopenia Unspecified 09/19/2009 ELVIRA GOFF, TORREY 287.5 Thrombocytopenia Unspecified 09/19/2009 287.5 Thrombocytopenia Unspecified 09/19/2009 287.5 Thrombocytopenia Unspecified 09/19/2009 ELVIRA GOFF, TORREY 287.5 Thrombocytopenia Unspecified 09/19/2009 ELVIRA GOFF, TORREY 287.5 Thrombocytopenia Unspecified 09/19/2009 ELVIRA GOFF, TORREY 287.5 Thrombocytopenia Unspecified 09/19/2009 ELVIRA GOFF, TORREY 287.5 Thrombocytopenia Unspecified 09/19/2009 ELVIRA GOFF, TORREY 287.5 Thrombocytopenia Unspecified 09/19/2009 PHIL SARAVIA DDS 287.5 Thrombocytopenia Unspecified 09/19/2009 ELVIRA GOFF, TORREY 287.5 Thrombocytopenia Unspecified 09/19/2009 ELVIRA GOFF, TORREY 287.5 Thrombocytopenia Unspecified 09/19/2009 ELVIRA GOFF, TORREY 287.5 Thrombocytopenia Unspecified 09/19/2009 RICHIE MENDOZA APRN 287.5 Thrombocytopenia Unspecified 09/19/2009 ELVIRA GOFF, TORREY 287.5 Thrombocytopenia Unspecified 09/19/2009 ELVIRA GOFF, TORREY 287.5 Thrombocytopenia Unspecified 09/19/2009 KATE DOVARSHAA K 287.5 Thrombocytopenia Unspecified 11/01/2009 VARSHA LOVE DOA K 780.52 Insomnia Unspecified 11/01/2009 VARSHA LOVE DOA K V76.10 Breast Screening, Unspecified 11/01/2009 TORREY FELIX MD 780.52 Insomnia Unspecified 11/01/2009 TORREY FELIX MD V76.10 Breast Screening, Unspecified 11/01/2009 TORREY FELIX MD 780.52 Insomnia Unspecified 11/01/2009 ELVIRA GOFF, TORREY V76.10 Breast Screening, Unspecified 11/01/2009 780.52 Insomnia Unspecified 11/01/2009 V76.10 Breast Screening, Unspecified 11/01/2009 780.52 Insomnia Unspecified 11/01/2009 V76.10 Breast Screening, Unspecified 11/01/2009 ELVIRA GOFF, TORREY 780.52 Insomnia Unspecified 11/01/2009 ELVIRA GOFF, TORREY V76.10 Breast Screening, Unspecified 11/01/2009 ELVIRA GOFF, TORREY 780.52 Insomnia Unspecified 11/01/2009 ELVIRA GOFF, TORREY V76.10 Breast Screening, Unspecified 11/01/2009 ELVIRA GOFF, TORREY 780.52 Insomnia Unspecified 11/01/2009 ELVIRA GOFF, TORREY V76.10 Breast Screening, Unspecified 11/01/2009 ELVIRA GOFF, TORREY 780.52 Insomnia Unspecified 11/01/2009 ELVIRA GOFF, TORREY V76.10 Breast Screening, Unspecified 11/01/2009 ELVIRA GOFF, TORREY 780.52 Insomnia Unspecified 11/01/2009 ELVIRA GOFF, TORREY V76.10 Breast Screening, Unspecified 11/01/2009 PHIL SARAVIA DDS 780.52 Insomnia Unspecified 11/01/2009 PHIL SARAVIA DDS V76.10 Breast Screening, Unspecified 11/01/2009 ELVIRA GOFF, TORREY 780.52 Insomnia Unspecified 11/01/2009 ELVIRA GOFF, TORREY V76.10 Breast Screening, Unspecified 11/01/2009 ELVIRA GOFF, TORREY 780.52 Insomnia Unspecified 11/01/2009 ELVIRA GOFF, TORREY V76.10 Breast Screening, Unspecified 11/01/2009 ELVIRA GOFF, TORREY 780.52 Insomnia Unspecified 11/01/2009 ELVIRA GOFF, TORREY V76.10 Breast Screening, Unspecified 11/01/2009 RICHIE MENDOZA APRN 780.52 Insomnia Unspecified 11/01/2009 RICHIE MENDOZA APRN V76.10 Breast Screening, Unspecified 11/01/2009 ELVIRA GOFF, TORREY 780.52 Insomnia Unspecified 11/01/2009 TORREY FELIX MD V76.10 Breast Screening, Unspecified 11/01/2009 ELVIRA GOFF, TORREY 780.52 Insomnia Unspecified 11/01/2009 TORREY FELIX MD V76.10 Breast Screening, Unspecified 11/01/2009 DAVID LOVE DO 780.52 Insomnia Unspecified 11/01/2009 DAVID LOVE DO V76.10 Breast Screening, Unspecified 11/20/2009 Ot 070.70 11/20/2009 Ot 496 11/20/2009 Ot 568.0 11/20/2009 Ot 571.5 09/16/2010 DAVID LOVE DO 296.90 MOOD DISORDER 09/16/2010 TORREY FELIX MD 296.90 MOOD DISORDER 09/16/2010 TORREY FELIX MD 296.90 MOOD DISORDER 09/16/2010 296.90 MOOD DISORDER 09/16/2010 296.90 MOOD DISORDER 09/16/2010 TORREY FELIX MD 296.90 MOOD DISORDER 09/16/2010 TORREY FELIX MD 296.90 MOOD DISORDER 09/16/2010 TORREY FELIX MD 296.90 MOOD DISORDER 09/16/2010 TORREY FELIX MD 296.90 MOOD DISORDER 09/16/2010 TORREY FELIX MD 296.90 MOOD DISORDER 09/16/2010 MANJIT JORDANSPHIL 296.90 MOOD DISORDER 09/16/2010 TORREY FELIX MD 296.90 MOOD DISORDER 09/16/2010 TORREY FELIX MD 296.90 MOOD DISORDER 09/16/2010 TORREY FELIX MD 296.90 MOOD DISORDER 09/16/2010 RICHIE MENDOZA APRN 296.90 MOOD DISORDER 09/16/2010 TORREY FELIX MD 296.90 MOOD DISORDER 09/16/2010 TORREY FELIX MD 296.90 MOOD DISORDER 09/16/2010 DAVID LOVE DO K 296.90 MOOD DISORDER 12/18/2010 DAVID LOVE DO 728.85 Muscle Spasm 12/18/2010 DAVID LOVE DO K V04.81 Flu Dx (3 Yrs And Above, Im) 12/18/2010 DAVID LOVE DO K V68.1 Issue Of Repeat Prescriptions 12/18/2010 TORREY FELIX MD 728.85 Muscle Spasm 12/18/2010 TORREY FELIX MD V04.81 Flu Dx (3 Yrs And Above, Im) 12/18/2010 TORREY FELIX MD V68.1 Issue Of Repeat Prescriptions 12/18/2010 TORREY FELIX MD 728.85 Muscle Spasm 12/18/2010 TORREY FELIX MD V04.81 Flu Dx (3 Yrs And Above, Im) 12/18/2010 TORREY FELIX MD V68.1 Issue Of Repeat Prescriptions 12/18/2010 728.85 Muscle Spasm 12/18/2010 V04.81 Flu Dx (3 Yrs And Above, Im) 12/18/2010 V68.1 Issue Of Repeat Prescriptions 12/18/2010 728.85 Muscle Spasm 12/18/2010 V04.81 Flu Dx (3 Yrs And Above, Im) 12/18/2010 V68.1 Issue Of Repeat Prescriptions 12/18/2010 TORREY FELIX MD 728.85 Muscle Spasm 12/18/2010 TORREY FELIX MD V04.81 Flu Dx (3 Yrs And Above, Im) 12/18/2010 TORREY FELIX MD V68.1 Issue Of Repeat Prescriptions 12/18/2010 TORREY FELIX MD 728.85 Muscle Spasm 12/18/2010 TORREY FELIX MD V04.81 Flu Dx (3 Yrs And Above, Im) 12/18/2010 TORREY FELIX MD V68.1 Issue Of Repeat Prescriptions 12/18/2010 TORREY FELIX MD 728.85 Muscle Spasm 12/18/2010 TORREY FELIX MD V04.81 Flu Dx (3 Yrs And Above, Im) 12/18/2010 TORREY FELIX MD V68.1 Issue Of Repeat Prescriptions 12/18/2010 TORREY FELIX MD 728.85 Muscle Spasm 12/18/2010 TORREY FELIX MD V04.81 Flu Dx (3 Yrs And Above, Im) 12/18/2010 TORREY FELIX MD V68.1 Issue Of Repeat Prescriptions 12/18/2010 TORREY FELIX MD 728.85 Muscle Spasm 12/18/2010 TORREY FELIX MD V04.81 Flu Dx (3 Yrs And Above, Im) 12/18/2010 TORREY FELIX MD V68.1 Issue Of Repeat Prescriptions 12/18/2010 WHITE DDS, HPIL J 728.85 Muscle Spasm 12/18/2010 WHITE DDS, PHIL J V04.81 Flu Dx (3 Yrs And Above, Im) 12/18/2010 WHITE DDS, PHIL J V68.1 Issue Of Repeat Prescriptions 12/18/2010 TORREY FELIX MD 728.85 Muscle Spasm 12/18/2010 TORREY FELIX MD V04.81 Flu Dx (3 Yrs And Above, Im) 12/18/2010 TORREY FELIX MD V68.1 Issue Of Repeat Prescriptions 12/18/2010 TORREY FELIX MD 728.85 Muscle Spasm 12/18/2010 TORREY FELIX MD V04.81 Flu Dx (3 Yrs And Above, Im) 12/18/2010 TORREY FELIX MD V68.1 Issue Of Repeat Prescriptions 12/18/2010 TORREY FELIX MD 728.85 Muscle Spasm 12/18/2010 TORREY FELIX MD V04.81 Flu Dx (3 Yrs And Above, Im) 12/18/2010 TORREY FELIX MD V68.1 Issue Of Repeat Prescriptions 12/18/2010 RICHIE MENDOZA APRN 728.85 Muscle Spasm 12/18/2010 RICHIE MENDOZA APRN V04.81 Flu Dx (3 Yrs And Above, Im) 12/18/2010 RICHIE MENDOZA APRN V68.1 Issue Of Repeat Prescriptions 12/18/2010 TORREY FELIX MD 728.85 Muscle Spasm 12/18/2010 TORREY FELIX MD V04.81 Flu Dx (3 Yrs And Above, Im) 12/18/2010 TORREY FELIX MD V68.1 Issue Of Repeat Prescriptions 12/18/2010 TORREY FELIX MD 728.85 Muscle Spasm 12/18/2010 TORREY FELIX MD V04.81 Flu Dx (3 Yrs And Above, Im) 12/18/2010 TORREY FELIX MD V68.1 Issue Of Repeat Prescriptions 12/18/2010 DAVID LOVE DO 728.85 Muscle Spasm 12/18/2010 DAVID LOVE DO V04.81 Flu Dx (3 Yrs And Above, Im) 12/18/2010 DAVID LOVE DO V68.1 Issue Of Repeat Prescriptions 01/05/2011 DAVID LOVE DO 216.9 Mole/nevus - Site Unspecified 01/05/2011 TORREY FELIX MD 216.9 Mole/nevus - Site Unspecified 01/05/2011 TORREY FELIX MD 216.9 Mole/nevus - Site Unspecified 01/05/2011 216.9 Mole/nevus - Site Unspecified 01/05/2011 216.9 Mole/nevus - Site Unspecified 01/05/2011 ELVIRA GOFF, TORREY 216.9 Mole/nevus - Site Unspecified 01/05/2011 ELVIRA GOFF, TORREY 216.9 Mole/nevus - Site Unspecified 01/05/2011 TORREY FELIX MD 216.9 Mole/nevus - Site Unspecified 01/05/2011 TORREY FELIX MD 216.9 Mole/nevus - Site Unspecified 01/05/2011 TORREY FELIX MD 216.9 Mole/nevus - Site Unspecified 01/05/2011 WHITE DDS, PHIL J 216.9 Mole/nevus - Site Unspecified 01/05/2011 TORREY FELIX MD 216.9 Mole/nevus - Site Unspecified 01/05/2011 TORREY FELIX MD 216.9 Mole/nevus - Site Unspecified 01/05/2011 TORREY FELIX MD 216.9 Mole/nevus - Site Unspecified 01/05/2011 RICHIE MENDOZA APRN 216.9 Mole/nevus - Site Unspecified 01/05/2011 TORREY FELIX MD 216.9 Mole/nevus - Site Unspecified 01/05/2011 TORREY FELIX MD 216.9 Mole/nevus - Site Unspecified 01/05/2011 LOVE DO, DAVID K 216.9 Mole/nevus - Site Unspecified 01/16/2011 LOVE DO, DAVID K 701.9 Skin Tag 01/16/2011 TORREY FELIX MD 701.9 Skin Tag 01/16/2011 TORREY FELIX MD 701.9 Skin Tag 01/16/2011 701.9 Skin Tag 01/16/2011 701.9 Skin Tag 01/16/2011 TORREY FELIX MD 701.9 Skin Tag 01/16/2011 TORREY FELIX MD 701.9 Skin Tag 01/16/2011 TORREY FELIX MD 701.9 Skin Tag 01/16/2011 TORREY FELIX MD 701.9 Skin Tag 01/16/2011 TORREY FELIX MD 701.9 Skin Tag 01/16/2011 WHITE DDS, PHIL J 701.9 Skin Tag 01/16/2011 TORREY FELIX MD 701.9 Skin Tag 01/16/2011 ELVIRA GOFF, TORREY 701.9 Skin Tag 01/16/2011 ELVIRA GOFF, TORREY 701.9 Skin Tag 01/16/2011 RICHIE MENDOZA APRN 701.9 Skin Tag 01/16/2011 ELVIRA GOFF, TORREY 701.9 Skin Tag 01/16/2011 TORREY FEILX MD 701.9 Skin Tag 01/16/2011 DAVID LOVE DO 701.9 Skin Tag 01/23/2011 DAVID LOVE DO K V58.32 Suture Removal 01/23/2011 ELVIRA GOFF, TORREY V58.32 Suture Removal 01/23/2011 ELVIRA GOFF, TORREY V58.32 Suture Removal 01/23/2011 V58.32 Suture Removal 01/23/2011 V58.32 Suture Removal 01/23/2011 ELVIRA GOFF, TORREY V58.32 Suture Removal 01/23/2011 ELVIRA GOFF, TORREY V58.32 Suture Removal 01/23/2011 ELVIRA GOFF, TORREY V58.32 Suture Removal 01/23/2011 ELVIRA GOFF, TORREY V58.32 Suture Removal 01/23/2011 ELVIRA GOFF, TORREY V58.32 Suture Removal 01/23/2011 PHIL SARAVIA DDS V58.32 Suture Removal 01/23/2011 ELVIRA GOFF, TORREY V58.32 Suture Removal 01/23/2011 EVLIRA GOFF, TORREY V58.32 Suture Removal 01/23/2011 ELVIRA GOFF, TORREY V58.32 Suture Removal 01/23/2011 RICHIE MENDOZA APRN V58.32 Suture Removal 01/23/2011 ELVIRA GOFF, TORREY V58.32 Suture Removal 01/23/2011 ELVIRA GOFF, TORREY V58.32 Suture Removal 01/23/2011 LOVE DO DAVID K V58.32 Suture Removal 02/27/2011 DAVID LOVE DO K 287.5 THROMBOCYTOPENIA 02/27/2011 VARSHA LOVE DOA K 465.9 UPPER RESPIRATORY INFECTION 02/27/2011 VARSHA LOVE DOA K 625.6 STRESS INCONTINENCE FEMALE 02/27/2011 TORREY FELIX MD 287.5 THROMBOCYTOPENIA 02/27/2011 TORREY FELIX MD 465.9 UPPER RESPIRATORY INFECTION 02/27/2011 TORREY FELIX MD 625.6 STRESS INCONTINENCE FEMALE 02/27/2011 ELVIRA GOFF, TORREY 287.5 THROMBOCYTOPENIA 02/27/2011 ELVIRA GOFF, TORREY 465.9 UPPER RESPIRATORY INFECTION 02/27/2011 ELVIRA GOFF, TORREY 625.6 STRESS INCONTINENCE FEMALE 02/27/2011 287.5 THROMBOCYTOPENIA 02/27/2011 465.9 UPPER RESPIRATORY INFECTION 02/27/2011 625.6 STRESS INCONTINENCE FEMALE 02/27/2011 287.5 THROMBOCYTOPENIA 02/27/2011 465.9 UPPER RESPIRATORY INFECTION 02/27/2011 625.6 STRESS INCONTINENCE FEMALE 02/27/2011 ELVIRA GOFF, TORREY 287.5 THROMBOCYTOPENIA 02/27/2011 ELVIRA GOFF, TORREY 465.9 UPPER RESPIRATORY INFECTION 02/27/2011 ELVIRA GOFF, TORREY 625.6 STRESS INCONTINENCE FEMALE 02/27/2011 ELVIRA GOFF, TORREY 287.5 THROMBOCYTOPENIA 02/27/2011 ELVIRA GOFF, TORREY 465.9 UPPER RESPIRATORY INFECTION 02/27/2011 ELVIRA GOFF, TORREY 625.6 STRESS INCONTINENCE FEMALE 02/27/2011 ELVIRA GOFF, TORREY 287.5 THROMBOCYTOPENIA 02/27/2011 ELVIRA GOFF, TORREY 465.9 UPPER RESPIRATORY INFECTION 02/27/2011 ELVIRA GOFF, TORREY 625.6 STRESS INCONTINENCE FEMALE 02/27/2011 TORREY FELIX MD 287.5 THROMBOCYTOPENIA 02/27/2011 ELVIRA GOFF, TORREY 465.9 UPPER RESPIRATORY INFECTION 02/27/2011 ELVIRA GOFF, TORREY 625.6 STRESS INCONTINENCE FEMALE 02/27/2011 TORREY FELIX MD 287.5 THROMBOCYTOPENIA 02/27/2011 ELVIRA GOFF, TORREY 465.9 UPPER RESPIRATORY INFECTION 02/27/2011 ELVIRA GOFF, TORREY 625.6 STRESS INCONTINENCE FEMALE 02/27/2011 WHITE DDS, PHIL J 287.5 THROMBOCYTOPENIA 02/27/2011 WHITE DDS, PHIL J 465.9 UPPER RESPIRATORY INFECTION 02/27/2011 WHITE DDS, PHIL J 625.6 STRESS INCONTINENCE FEMALE 02/27/2011 TORREY FEILX MD 287.5 THROMBOCYTOPENIA 02/27/2011 ELVIRA GOFF, TORREY 465.9 UPPER RESPIRATORY INFECTION 02/27/2011 ELVIRA GOFF, TORREY 625.6 STRESS INCONTINENCE FEMALE 02/27/2011 TORREY FELIX MD 287.5 THROMBOCYTOPENIA 02/27/2011 ELVIRA GOFF, TORREY 465.9 UPPER RESPIRATORY INFECTION 02/27/2011 TORREY FELIX MD 625.6 STRESS INCONTINENCE FEMALE 02/27/2011 TORREY FELIX MD 287.5 THROMBOCYTOPENIA 02/27/2011 ELVIRA GOFF, TORREY 465.9 UPPER RESPIRATORY INFECTION 02/27/2011 ELVIRA GOFF, TORREY 625.6 STRESS INCONTINENCE FEMALE 02/27/2011 RICHIE MENDOZA APRN 287.5 THROMBOCYTOPENIA 02/27/2011 REJI GRACE, RICHIE T 465.9 UPPER RESPIRATORY INFECTION 02/27/2011 REJI GRACE, RICHIE T 625.6 STRESS INCONTINENCE FEMALE 02/27/2011 TORREY FELIX MD 287.5 THROMBOCYTOPENIA 02/27/2011 TORREY FELIX MD 465.9 UPPER RESPIRATORY INFECTION 02/27/2011 TORREY FELIX MD 625.6 STRESS INCONTINENCE FEMALE 02/27/2011 TORREY FELIX MD 287.5 THROMBOCYTOPENIA 02/27/2011 TORREY FELIX MD 465.9 UPPER RESPIRATORY INFECTION 02/27/2011 ELVIRA GOFF, TORREY 625.6 STRESS INCONTINENCE FEMALE 02/27/2011 DAVID LOVE DO 287.5 THROMBOCYTOPENIA 02/27/2011 DAVID LOVE DO 465.9 UPPER RESPIRATORY INFECTION 02/27/2011 DAVID LOVE DO 625.6 STRESS INCONTINENCE FEMALE 06/04/2011 DAVID LOVE DO 250.00 DIABETES MELLITUS WITHOUT MENTION OF COMPLICATION TYPE II OR UNSPECIFIED TYPE NOT STATED UNCONTROLLED 06/04/2011 DAVID LOVE DO 311 DEPRESSIVE DISORDER NOT ELSEWHERE CLASSIFIED 06/04/2011 DAVID LOVE DO 716.90 UNSPECIFIED ARTHROPATHY SITE UNSPECIFIED 06/04/2011 TORREY FELIX MD 250.00 DIABETES MELLITUS WITHOUT MENTION OF COMPLICATION TYPE II OR UNSPECIFIED TYPE NOT STATED UNCONTROLLED 06/04/2011 TORREY FELIX MD 311 DEPRESSIVE DISORDER NOT ELSEWHERE CLASSIFIED 06/04/2011 TORREY FELIX MD 716.90 UNSPECIFIED ARTHROPATHY SITE UNSPECIFIED 06/04/2011 TORREY FELIX MD 250.00 DIABETES MELLITUS WITHOUT MENTION OF COMPLICATION TYPE II OR UNSPECIFIED TYPE NOT STATED UNCONTROLLED 06/04/2011 TORREY FELIX MD 311 DEPRESSIVE DISORDER NOT ELSEWHERE CLASSIFIED 06/04/2011 TORREY FELIX MD 716.90 UNSPECIFIED ARTHROPATHY SITE UNSPECIFIED 06/04/2011 250.00 DIABETES MELLITUS WITHOUT MENTION OF COMPLICATION TYPE II OR UNSPECIFIED TYPE NOT STATED UNCONTROLLED 06/04/2011 311 DEPRESSIVE DISORDER NOT ELSEWHERE CLASSIFIED 06/04/2011 716.90 UNSPECIFIED ARTHROPATHY SITE UNSPECIFIED 06/04/2011 250.00 DIABETES MELLITUS WITHOUT MENTION OF COMPLICATION TYPE II OR UNSPECIFIED TYPE NOT STATED UNCONTROLLED 06/04/2011 311 DEPRESSIVE DISORDER NOT ELSEWHERE CLASSIFIED 06/04/2011 716.90 UNSPECIFIED ARTHROPATHY SITE UNSPECIFIED 06/04/2011 TORREY FELIX MD 250.00 DIABETES MELLITUS WITHOUT MENTION OF COMPLICATION TYPE II OR UNSPECIFIED TYPE NOT STATED UNCONTROLLED 06/04/2011 TORREY FELIX MD 311 DEPRESSIVE DISORDER NOT ELSEWHERE CLASSIFIED 06/04/2011 TORREY FELIX MD6.90 UNSPECIFIED ARTHROPATHY SITE UNSPECIFIED 06/04/2011 TORREY FELIX MD 250.00 DIABETES MELLITUS WITHOUT MENTION OF COMPLICATION TYPE II OR UNSPECIFIED TYPE NOT STATED UNCONTROLLED 06/04/2011 TORREY FELIX MD 311 DEPRESSIVE DISORDER NOT ELSEWHERE CLASSIFIED 06/04/2011 TORREY FELIX MD6.90 UNSPECIFIED ARTHROPATHY SITE UNSPECIFIED 06/04/2011 TORREY FELIX MD 250.00 DIABETES MELLITUS WITHOUT MENTION OF COMPLICATION TYPE II OR UNSPECIFIED TYPE NOT STATED UNCONTROLLED 06/04/2011 TORREY FELIX MD 311 DEPRESSIVE DISORDER NOT ELSEWHERE CLASSIFIED 06/04/2011 TORREY FELIX MD 716.90 UNSPECIFIED ARTHROPATHY SITE UNSPECIFIED 06/04/2011 TORREY FELIX MD 250.00 DIABETES MELLITUS WITHOUT MENTION OF COMPLICATION TYPE II OR UNSPECIFIED TYPE NOT STATED UNCONTROLLED 06/04/2011 TORREY FELIX MD DEPRESSIVE DISORDER NOT ELSEWHERE CLASSIFIED 06/04/2011 TORREY FELIX MD6.90 UNSPECIFIED ARTHROPATHY SITE UNSPECIFIED 06/04/2011 TORREY FELIX MD 250.00 DIABETES MELLITUS WITHOUT MENTION OF COMPLICATION TYPE II OR UNSPECIFIED TYPE NOT STATED UNCONTROLLED 06/04/2011 TORREY FELIX MD 311 DEPRESSIVE DISORDER NOT ELSEWHERE CLASSIFIED 06/04/2011 TORREY FELIX MD 716.90 UNSPECIFIED ARTHROPATHY SITE UNSPECIFIED 06/04/2011 WHITE DDS, PHIL J 250.00 DIABETES MELLITUS WITHOUT MENTION OF COMPLICATION TYPE II OR UNSPECIFIED TYPE NOT STATED UNCONTROLLED 06/04/2011 MANJIT JORDANSLESAON J 311 DEPRESSIVE DISORDER NOT ELSEWHERE CLASSIFIED 06/04/2011 WHITE DDS, PHIL J 716.90 UNSPECIFIED ARTHROPATHY SITE UNSPECIFIED 06/04/2011 TORREY FELIX MD 250.00 DIABETES MELLITUS WITHOUT MENTION OF COMPLICATION TYPE II OR UNSPECIFIED TYPE NOT STATED UNCONTROLLED 06/04/2011 TORREY FELIX MD 311 DEPRESSIVE DISORDER NOT ELSEWHERE CLASSIFIED 06/04/2011 TORREY FELIX MD 716.90 UNSPECIFIED ARTHROPATHY SITE UNSPECIFIED 06/04/2011 TORREY FELIX MD 250.00 DIABETES MELLITUS WITHOUT MENTION OF COMPLICATION TYPE II OR UNSPECIFIED TYPE NOT STATED UNCONTROLLED 06/04/2011 TORREY FELIX MD 311 DEPRESSIVE DISORDER NOT ELSEWHERE CLASSIFIED 06/04/2011 TORREY FELIX MD6.90 UNSPECIFIED ARTHROPATHY SITE UNSPECIFIED 06/04/2011 TORREY FELIX MD 250.00 DIABETES MELLITUS WITHOUT MENTION OF COMPLICATION TYPE II OR UNSPECIFIED TYPE NOT STATED UNCONTROLLED 06/04/2011 TORREY FELIX MD DEPRESSIVE DISORDER NOT ELSEWHERE CLASSIFIED 06/04/2011 TORREY FELIX MD6.90 UNSPECIFIED ARTHROPATHY SITE UNSPECIFIED 06/04/2011 RICHIE MENDOZA APRN 250.00 DIABETES MELLITUS WITHOUT MENTION OF COMPLICATION TYPE II OR UNSPECIFIED TYPE NOT STATED UNCONTROLLED 06/04/2011 RICHIE MENDOZA APRN 311 DEPRESSIVE DISORDER NOT ELSEWHERE CLASSIFIED 06/04/2011 RICHIE MENDOZA APRN 716.90 UNSPECIFIED ARTHROPATHY SITE UNSPECIFIED 06/04/2011 TORREY FELIX MD 250.00 DIABETES MELLITUS WITHOUT MENTION OF COMPLICATION TYPE II OR UNSPECIFIED TYPE NOT STATED UNCONTROLLED 06/04/2011 TORREY FELIX MD DEPRESSIVE DISORDER NOT ELSEWHERE CLASSIFIED 06/04/2011 TORREY FELIX MD 716.90 UNSPECIFIED ARTHROPATHY SITE UNSPECIFIED 06/04/2011 TORREY FELIX MD 250.00 DIABETES MELLITUS WITHOUT MENTION OF COMPLICATION TYPE II OR UNSPECIFIED TYPE NOT STATED UNCONTROLLED 06/04/2011 TORREY FELIX MD 311 DEPRESSIVE DISORDER NOT ELSEWHERE CLASSIFIED 06/04/2011 TORREY FELIX MD 716.90 UNSPECIFIED ARTHROPATHY SITE UNSPECIFIED 06/04/2011 LOVE DO DAVID K 250.00 DIABETES MELLITUS WITHOUT MENTION OF COMPLICATION TYPE II OR UNSPECIFIED TYPE NOT STATED UNCONTROLLED 06/04/2011 LOVE DO DAVID K 311 DEPRESSIVE DISORDER NOT ELSEWHERE CLASSIFIED 06/04/2011 LOVE DO DAVID K 716.90 UNSPECIFIED ARTHROPATHY SITE UNSPECIFIED 09/08/2011 LOVE DO DAVID K 780.4 DIZZINESS AND GIDDINESS 09/08/2011 LOVE DO DAVID K 789.00 ABDOMINAL PAIN UNSPECIFIED SITE 09/08/2011 TORREY FELIX MD 780.4 Dizziness And Giddiness 09/08/2011 TORREY FELIX MD 789.00 Abdominal Pain Unspecified Site 09/08/2011 TORREY FELIX MD 780.4 Dizziness And Giddiness 09/08/2011 TORREY FELIX MD 789.00 Abdominal Pain Unspecified Site 09/08/2011 780.4 Dizziness And Giddiness 09/08/2011 789.00 Abdominal Pain Unspecified Site 09/08/2011 780.4 Dizziness And Giddiness 09/08/2011 789.00 Abdominal Pain Unspecified Site 09/08/2011 TORREY FELIX MD 780.4 Dizziness And Giddiness 09/08/2011 TORREY FELIX MD 789.00 Abdominal Pain Unspecified Site 09/08/2011 TORREY FELIX MD 780.4 Dizziness And Giddiness 09/08/2011 TORREY FELIX MD 789.00 Abdominal Pain Unspecified Site 09/08/2011 TORREY FELIX MD 780.4 Dizziness And Giddiness 09/08/2011 TORREY FELIX MD 789.00 Abdominal Pain Unspecified Site 09/08/2011 TORREY FELIX MD 780.4 Dizziness And Giddiness 09/08/2011 TORREY FELIX MD 789.00 Abdominal Pain Unspecified Site 09/08/2011 TORREY FELIX MD 780.4 Dizziness And Giddiness 09/08/2011 TORREY FELIX MD 789.00 Abdominal Pain Unspecified Site 09/08/2011 MANJIT JORDANSPHIL 780.4 Dizziness And Giddiness 09/08/2011 MANJIT DDS, PHIL Reynoso 789.00 Abdominal Pain Unspecified Site 09/08/2011 TORREY FELIX MD 780.4 Dizziness And Giddiness 09/08/2011 TORREY FELIX MD 789.00 Abdominal Pain Unspecified Site 09/08/2011 TORREY FELIX MD 780.4 Dizziness And Giddiness 09/08/2011 TORREY FELIX MD 789.00 Abdominal Pain Unspecified Site 09/08/2011 TORREY FELIX MD 780.4 Dizziness And Giddiness 09/08/2011 TORREY FELIX MD 789.00 Abdominal Pain Unspecified Site 09/08/2011 RICHIE MENDOZA APRN 780.4 Dizziness And Giddiness 09/08/2011 RICHIE MENDOZA APRN 789.00 Abdominal Pain Unspecified Site 09/08/2011 TORREY FELIX MD 780.4 Dizziness And Giddiness 09/08/2011 TORREY FELIX MD 789.00 Abdominal Pain Unspecified Site 09/08/2011 TORREY FELIX MD 780.4 Dizziness And Giddiness 09/08/2011 TORREY FELIX MD 789.00 Abdominal Pain Unspecified Site 09/08/2011 DAVID LOVE DO 780.4 Dizziness And Giddiness 09/08/2011 DAVID LOVE DO 789.00 Abdominal Pain Unspecified Site 10/30/2011 Ot 070.70 UNSPECIFIED VIRAL HEPATITIS C WITHOUT HE 10/30/2011 Ot 278.00 OBESITY, NOS 10/30/2011 Ot 397.0 TRICUSPID VALVE DISEASE 10/30/2011 Ot 424.0 MITRAL VALVE DISORDER 10/30/2011 Ot 780.2 SYNCOPE AND COLLAPSE 10/30/2011 Ot 785.0 TACHYCARDIA NOS 10/30/2011 Ot 786.50 CHEST PAIN NOS 10/30/2011 Ot 790.29 OTHER ABNORMAL GLUCOSE 10/30/2011 Ot 790.5 ABN SERUM ENZY LEVEL NEC 10/30/2011 Ot 796.2 ELEV BL PRES W/O HYPERTN 10/30/2011 Ot V04.81 ND FOR PROPHYLACTIC VACCIN AND INOCULATI 10/30/2011 Ot V58.69 OTH MED,LT, CURRENT USE 10/30/2011 Ot V85.33 BODY MASS INDEX 33.0-33.9, ADULT 11/16/2011 DAVID LOVE DO 386.10 PERIPHERAL VERTIGO UNSPECIFIED 11/16/2011 DAVID LOVE DO 786.50 UNSPECIFIED CHEST PAIN 11/16/2011 TORREY FELIX MD 386.10 Peripheral Vertigo Unspecified 11/16/2011 TORREY FELIX MD 786.50 Unspecified Chest Pain 11/16/2011 TORREY FELIX MD 386.10 Peripheral Vertigo Unspecified 11/16/2011 TORREY FELIX MD 786.50 Unspecified Chest Pain 11/16/2011 386.10 Peripheral Vertigo Unspecified 11/16/2011 786.50 Unspecified Chest Pain 11/16/2011 386.10 Peripheral Vertigo Unspecified 11/16/2011 786.50 Unspecified Chest Pain 11/16/2011 ELVIRA GOFF, TORREY 386.10 Peripheral Vertigo Unspecified 11/16/2011 ELVIRA GOFF, TORREY 786.50 Unspecified Chest Pain 11/16/2011 ELVIRA GOFF, TORREY 386.10 Peripheral Vertigo Unspecified 11/16/2011 ELVIRA GOFF, TORREY 786.50 Unspecified Chest Pain 11/16/2011 ELVIRA GOFF, TORREY 386.10 Peripheral Vertigo Unspecified 11/16/2011 ELVIRA GOFF, TORREY 786.50 Unspecified Chest Pain 11/16/2011 ELVIRA GOFF, TORREY 386.10 Peripheral Vertigo Unspecified 11/16/2011 ELVIRA GOFF, TORREY 786.50 Unspecified Chest Pain 11/16/2011 ELVIRA GOFF, TORREY 386.10 Peripheral Vertigo Unspecified 11/16/2011 ELVIRA GOFF, TORREY 786.50 Unspecified Chest Pain 11/16/2011 MANJIT DDS, PHIL J 386.10 Peripheral Vertigo Unspecified 11/16/2011 WHITE DDS, PHIL J 786.50 Unspecified Chest Pain 11/16/2011 TORREY FELIX MD 386.10 Peripheral Vertigo Unspecified 11/16/2011 ELVIRA GOFF, TORREY 786.50 Unspecified Chest Pain 11/16/2011 ELVIRA GOFF, TORREY 386.10 Peripheral Vertigo Unspecified 11/16/2011 TORREY FELIX MD 786.50 Unspecified Chest Pain 11/16/2011 ELVIRA GOFF, TORREY 386.10 Peripheral Vertigo Unspecified 11/16/2011 TORREY FELIX MD 786.50 Unspecified Chest Pain 11/16/2011 RICHIE MENDOZA APRN 386.10 Peripheral Vertigo Unspecified 11/16/2011 RICHIE MENDOZA APRN 786.50 Unspecified Chest Pain 11/16/2011 TORREY FELIX MD 386.10 Peripheral Vertigo Unspecified 11/16/2011 TORREY FELIX MD 786.50 Unspecified Chest Pain 11/16/2011 TORREY FELIX MD 386.10 Peripheral Vertigo Unspecified 11/16/2011 TORREY FELIX MD 786.50 Unspecified Chest Pain 11/16/2011 LOVE DO, DAVID K 386.10 Peripheral Vertigo Unspecified 11/16/2011 LOVE DO, DAVID K 786.50 Unspecified Chest Pain 06/14/2012 780.2 SYNCOPE AND COLLAPSE 06/14/2012 TORREY FELIX MD 780.2 SYNCOPE AND COLLAPSE 06/14/2012 ELVIRA GOFF, TORREY 780.2 SYNCOPE AND COLLAPSE 06/14/2012 ELVIRA GOFF, TORREY 780.2 SYNCOPE AND COLLAPSE 06/14/2012 ELVIRA GOFF, TORREY 780.2 SYNCOPE AND COLLAPSE 06/14/2012 ELVIRA GOFF, TORREY 780.2 SYNCOPE AND COLLAPSE 06/14/2012 PHIL SARAVIA DDS 780.2 SYNCOPE AND COLLAPSE 06/14/2012 ELVIRA GOFF, TORREY 780.2 SYNCOPE AND COLLAPSE 06/14/2012 ELVIRA GOFF, TORREY 780.2 SYNCOPE AND COLLAPSE 06/14/2012 ELVIRA GOFF, TORREY 780.2 SYNCOPE AND COLLAPSE 06/14/2012 RICHIE MENDOZA APRN 780.2 SYNCOPE AND COLLAPSE 06/14/2012 ELVIRA GOFF, TORREY 780.2 SYNCOPE AND COLLAPSE 06/14/2012 ELVIRA GOFF, TORREY 780.2 SYNCOPE AND COLLAPSE 06/14/2012 DAVID LOVE DO 780.2 SYNCOPE AND COLLAPSE 12/22/2012 TORREY FELIX MD 578.1 BLOOD IN STOOL 12/22/2012 TORREY FELIX MD 578.1 BLOOD IN STOOL 12/22/2012 TROREY FELIX MD 578.1 BLOOD IN STOOL 12/22/2012 TORREY FELIX MD 578.1 BLOOD IN STOOL 12/22/2012 PHIL SARAVIA DDS 578.1 BLOOD IN STOOL 12/22/2012 TORREY FELIX MD 578.1 BLOOD IN STOOL 12/22/2012 TORREY FELIX MD 578.1 BLOOD IN STOOL 12/22/2012 TORREY FELIX MD 578.1 BLOOD IN STOOL 12/22/2012 RICHIE MENDOZA APRN 578.1 BLOOD IN STOOL 12/22/2012 TORREY FELIX MD 578.1 BLOOD IN STOOL 12/22/2012 TORREY FELIX MD 578.1 BLOOD IN STOOL 12/22/2012 DAVID LOVE DO 578.1 BLOOD IN STOOL 01/16/2013 TORREY FELIX MD 569.3 RECTAL BLEEDING 01/16/2013 TORREY FELIX MD 569.3 RECTAL BLEEDING 01/16/2013 TORREY FELIX MD 569.3 RECTAL BLEEDING 01/16/2013 PHIL SARAVIA DDS 569.3 RECTAL BLEEDING 01/16/2013 TORREY FELIX MD 569.3 RECTAL BLEEDING 01/16/2013 TORREY FELIX MD 569.3 RECTAL BLEEDING 01/16/2013 TORREY FELIX MD 569.3 RECTAL BLEEDING 01/16/2013 RICHIE MENDOZA APRN Nicole 569.3 RECTAL BLEEDING 01/16/2013 TORREY FELIX MD 569.3 RECTAL BLEEDING 01/16/2013 TORREY FELIX MD 569.3 RECTAL BLEEDING 01/16/2013 KATE PATTERSON DAVID Wild 569.3 RECTAL BLEEDING 01/23/2013 TESS GOFF, MARCO ANTONIO Zavala Ot 401.9 HYPERTENSION NOS 01/23/2013 TESS GOFF, MARCO ANTONIO Zavala Ot 455.0 INT HEMORRHOID W/O COMPL 01/23/2013 TESS GOFF, MARCO ANTONIO Zavala Ot 496 CHR AIRWAY OBSTRUCT NEC 01/23/2013 TESS GOFF, MARCO ANTONIO Zavala Ot 562.10 DIVERTICULOSIS COLON (W/O MENT OF HEMORR 02/09/2013 ANTHONY GOFF, YAIR Rivera Ot 599.0 URIN TRACT INFECTION NOS 02/09/2013 ANTHONY GOFF, YAIR Rivera Ot 789.00 ABDOMINAL PAIN, UNSPECIFIED SITE 02/09/2013 ANTHONY GOFF, YAIR Rivera Ot V15.09 ALLERGY, OTH THAN TO MEDICINAL AGENTS NE 04/27/2013 TORREY FELIX MD Ot 070.70 UNSPECIFIED VIRAL HEPATITIS C WITHOUT HE 04/27/2013 TORREY FELIX MD Ot 250.00 DIAB BIANCA WO COMPL, TYPE II OR UNSPEC TY 04/27/2013 TORREY FELIX MD Ot 278.00 OBESITY, NOS 04/27/2013 TORREY FELIX MD Ot 311 DEPRESSIVE DISORDER NEC 04/27/2013 TORREY FELIX MD Ot 401.9 HYPERTENSION NOS 04/27/2013 TORREY FELIX MD Ot 496 CHR AIRWAY OBSTRUCT NEC 04/27/2013 TORREY FELIX MD Ot 525.9 DENTAL DISORDER NOS 04/27/2013 TORREY FELIX MD Ot 784.0 HEADACHE 04/27/2013 TORREY FELIX MD Ot 784.2 SWELLING IN HEAD NECK 04/27/2013 TORREY FELIX MD Ot V85.38 BODY MASS INDEX 38.0-38.9, ADULT 05/11/2013 TORREY FELIX MD6 CHRONIC AIRWAY OBSTRUCTION NOT ELSEWHERE CLASSIFIED 05/11/2013 TORREY FELIX MD CHRONIC AIRWAY OBSTRUCTION NOT ELSEWHERE CLASSIFIED 05/11/2013 MANJIT JORDANSPHIL 496 CHRONIC AIRWAY OBSTRUCTION NOT ELSEWHERE CLASSIFIED 05/11/2013 TORREY FELIX MD CHRONIC AIRWAY OBSTRUCTION NOT ELSEWHERE CLASSIFIED 05/11/2013 TORREY FELIX MD CHRONIC AIRWAY OBSTRUCTION NOT ELSEWHERE CLASSIFIED 05/11/2013 TORREY FELIX MD CHRONIC AIRWAY OBSTRUCTION NOT ELSEWHERE CLASSIFIED 05/11/2013 RICHIE MENDOZA APRN 49Carina CHRONIC AIRWAY OBSTRUCTION NOT ELSEWHERE CLASSIFIED 05/11/2013 TORREY FELIX MD CHRONIC AIRWAY OBSTRUCTION NOT ELSEWHERE CLASSIFIED 05/11/2013 TORREY FELIX MD CHRONIC AIRWAY OBSTRUCTION NOT ELSEWHERE CLASSIFIED 05/11/2013 LOVE DO, DAVID K 496 CHRONIC AIRWAY OBSTRUCTION NOT ELSEWHERE CLASSIFIED 12/26/2013 RICHIE MENDOZA APRN 701.9 SKIN TAG 12/26/2013 RICHIE MENDOZA APRN 702.19 OTHER SEBORRHEIC KERATOSIS 12/26/2013 TORREY FELIX MD 701.9 SKIN TAG 12/26/2013 TORREY FELIX MD 702.19 OTHER SEBORRHEIC KERATOSIS 12/26/2013 TORREY FELIX MD 701.9 SKIN TAG 12/26/2013 TORREY FELIX MD 702.19 OTHER SEBORRHEIC KERATOSIS 12/26/2013 LOVE DODAVID K 701.9 SKIN TAG 12/26/2013 LOVE DO, DAVID K 702.19 OTHER SEBORRHEIC KERATOSIS 06/05/2014 Ot 780.79 06/05/2014 Ot 786.05 06/05/2014 Ot V76.12 06/05/2014 Ot 070.70 06/05/2014 Ot V72.83 06/05/2014 Ot V76.12 06/05/2014 JOANA GOFF, DAVID Reynoso Ot 458.29 06/05/2014 DAVID WORTHY MD Ot 780.2 06/05/2014 TESS GOFF, MARCO ANTONIO Zavala Ot V72.84 06/05/2014 RUPESH GOFF, ALEXEI Driver Ot 728.71 PLANTAR FIBROMATOSIS 06/05/2014 ALEXEI GODDARD MD Ot 729.5 PAIN IN LIMB 08/01/2014 DAVID WORTHY MD Ot 272.4 08/01/2014 DAVID WORTHY MD Ot 401.9 08/01/2014 DAVID WORTHY MD Ot 416.8 08/01/2014 DAVID WORTHY MD Ot 786.50 08/01/2014 DAVID WORTHY MD Ot 070.70 UNSPECIFIED VIRAL HEPATITIS C WITHOUT HE 08/01/2014 DAVID WORTHY MD Ot 272.4 HYPERLIPIDEMIA NEC/NOS 08/01/2014 DAVID WORTHY MD Ot 278.01 MORBID OBESITY 08/01/2014 DAVID WORTHY MD Ot 300.4 DYSTHYMIC DISORDER 08/01/2014 DAVID WORTHY MD Ot 401.9 HYPERTENSION NOS 08/01/2014 DAVID WORTHY MD Ot 414.01 CORONARY ATHEROSCLEROSIS OF [place] CORON 08/01/2014 DAVID WORTHY MD Ot 496 CHR AIRWAY OBSTRUCT NEC 08/01/2014 DAVID WORTHY MD Ot 786.09 RESPIRATORY ABNORM NEC 08/01/2014 DAVID WORTHY MD Ot 794.30 ABN CARDIOVASC STUDY NOS 08/01/2014 DAVID WORTHY MD Ot V58.69 OTH MED,LT,CURRENT USE 08/01/2014 DAVID WORTHY MD Ot V85.41 BODY MASS INDEX 40.0-44.9, ADULT 08/03/2014 DAVID WORTHY MD Ot 272.4 08/03/2014 DAVID WORTHY MD Ot 401.9 08/03/2014 DAVID WORTHY MD Ot 416.8 08/03/2014 DAVID WORTHY MD Ot 786.50 08/05/2014 DAVID WORTHY MD Ot 272.4 08/05/2014 DAVID WORTHY MD Ot 401.9 08/05/2014 DAVID WORTHY MD Ot 416.8 08/05/2014 DAVID WORTHY MD Ot 786.50 08/23/2014 DAVID WORTHY MD Ot 272.4 08/23/2014 DAVID WORTHY MD Ot 401.9 08/23/2014 DAVID WORTHY MD Ot 416.8 08/23/2014 DAVID WORTHY MD Ot 786.50 09/03/2014 DAVID WORTHY MD Ot 272.4 09/03/2014 DAVID WORTHY MD Ot 401.9 09/03/2014 DAVID WORTHY MD Ot 416.8 09/03/2014 DAVID WORTHY MD Ot 786.50 10/02/2014 SONDRA DO TIMMY Zavala Ot 278.01 10/02/2014 SONDRA TIMMY Zavala Ot 416.8 10/02/2014 SONDRA TIMMY Lucas Ot 427.89 10/02/2014 SONDRA TIMMY Lucas Ot 786.09 10/07/2014 SONDRA TIMMY Lucas Ot 327.51 PERIODIC LIMB MOVEMENT DISORDER 10/07/2014 SONDRA TIMMY Lucas Ot 786.09 RESPIRATORY ABNORM NEC 10/18/2014 SONDRA TIMMY Lucas Ot 278.01 10/18/2014 SONDRA TIMMY Zavala Ot 416.8 10/18/2014 SONDRA TIMMY Zavala Ot 427.89 10/18/2014 SONDRA TIMMY Lucas Ot 786.09 10/26/2014 SONDRA TIMMY Zavala Ot 278.01 10/26/2014 SONDRA TIMMY Zavala Ot 416.8 10/26/2014 SONDRA TIMMY Zavala Ot 427.89 10/26/2014 SONDRA PATTERSON TIMMY Lucas Ot 786.09 11/27/2014 TERESA QUIROGA DO Ot K62.5 HEMORRHAGE OF ANUS AND RECTUM 11/27/2014 TERESA QUIROGA DO Ot Z86.010 PERSONAL HISTORY OF COLONIC POLYPS 11/29/2015 Ot V76.12 OTH SCREEN MAMMO-MALIGN NEOPLASM OF [place] 11/29/2015 DAVID WORTHY MD Ot 458.29 OTHER IATROGENIC HYPOTENSION 11/29/2015 DAVID WORTHY MD Ot 780.2 SYNCOPE AND COLLAPSE 11/29/2015 TESS GOFF, MARCO ANTONIO Zavala Ot V72.84 EXAM PRE-OPERATIVE NOS 11/29/2015 DAVID WORTHY MD Ot 272.4 HYPERLIPIDEMIA NEC/NOS 11/29/2015 DAVID WORTHY MD Ot 401.9 HYPERTENSION NOS 11/29/2015 DAVID WORTHY MD Ot 416.8 CHR PULMON HEART DIS NEC 11/29/2015 DAVID WORTHY MD Ot 786.50 CHEST PAIN NOS 11/29/2015 DAVID WORTHY MD Ot 272.4 HYPERLIPIDEMIA NEC/NOS 11/29/2015 DAVID WORTHY MD Ot 401.9 HYPERTENSION NOS 11/29/2015 DAVID WORTHY MD Ot 416.8 CHR PULMON HEART DIS NEC 11/29/2015 DAVID WORTHY MD Ot 786.50 CHEST PAIN NOS 11/29/2015 TIMMY AMARO DO Ot 278.01 MORBID OBESITY 11/29/2015 TIMMY AMARO DO Ot 416.8 CHR PULMON HEART DIS NEC 11/29/2015 TIMMY AMARO DO Ot 427.89 CARDIAC DYSRHYTHMIAS NEC 11/29/2015 TIMMY AMARO DO Ot 786.09 RESPIRATORY ABNORM NEC 11/29/2015 TERESA QUIROGA DO Ot K62.5 HEMORRHAGE OF ANUS AND RECTUM 11/29/2015 TERESA QUIROGA DO Ot Z01.818 ENCOUNTER FOR OTHER PREPROCEDURAL EXAMIN 12/02/2015 ELVIRA GOFF, TORREY Ward Ot B18.2 CHRONIC VIRAL HEPATITIS C 12/23/2015 TORREY FELIX MD Ot B18.2 CHRONIC VIRAL HEPATITIS C 12/25/2015 TORREY FELIX MD Ot B18.2 CHRONIC VIRAL HEPATITIS C 12/27/2015 TORREY FELIX MD, Ot B18.2 CHRONIC VIRAL HEPATITIS C 01/03/2016 KHRIS ARREAGA DO Ot M16.0 BILATERAL PRIMARY OSTEOARTHRITIS OF HIP 01/03/2016 KHRIS ARREAGA DO Ot M47.814 SPONDYLOSIS W/O MYELOPATHY OR RADICULOPA 01/03/2016 KHRIS ARREAGA DO, Ot M47.816 SPONDYLOSIS W/O MYELOPATHY OR RADICULOPA 01/03/2016 KHRIS ARREAGA DO Ot M48.06 SPINAL STENOSIS, LUMBAR REGION 01/03/2016 KHRIS ARREAGA DO Ot N20.0 CALCULUS OF KIDNEY 01/03/2016 KHRIS ARREAGA DO, Ot R42 DIZZINESS AND GIDDINESS 01/03/2016 KHRIS ARREAGA DO, Ot S16.1XXA STRAIN OF MUSCLE, FASCIA AND TENDON AT N 01/03/2016 KHRIS ARREAGA DO Ot S29.012A STRAIN OF MUSCLE AND TENDON OF BACK WALL 01/03/2016 KHRIS ARREAGA DO Ot S39.012A STRAIN OF MUSCLE, FASCIA AND TENDON OF L 01/03/2016 KHRIS ARREAGA DO Ot S50.11XA CONTUSION OF RIGHT FOREARM, INITIAL ENCO 01/03/2016 KHRIS ARREAGA DO Ot S59.911A UNSPECIFIED INJURY OF RIGHT FOREARM, INI 01/03/2016 KHRIS ARREAGA DO Ot S70.12XA CONTUSION OF LEFT THIGH, INITIAL ENCOUNT 01/03/2016 KHRIS ARREAGA DO Ot W18.09XA STRIKING AGAINST OTH OBJECT W SUBSEQUENT 01/03/2016 KHRIS ARREAGA DO Ot Y92.[address] [facility] 01/03/2016 KHRIS ARREAGA DO Ot Y93.9 ACTIVITY, UNSPECIFIED 01/03/2016 KHRIS ARREAGA DO Ot Y99.8 OTHER EXTERNAL CAUSE STATUS 01/03/2016 KHRIS ARREAGA DO Ot Z98.1 ARTHRODESIS STATUS 01/06/2016 KHRIS ARREAGA DO Ot M16.0 BILATERAL PRIMARY OSTEOARTHRITIS OF HIP 01/06/2016 KHRIS ARREAGA DO Ot M47.814 SPONDYLOSIS W/O MYELOPATHY OR RADICULOPA 01/06/2016 KHRIS ARREAGA DO Ot M47.816 SPONDYLOSIS W/O MYELOPATHY OR RADICULOPA 01/06/2016 KHRIS ARREAGA DO Ot M48.06 SPINAL STENOSIS, LUMBAR REGION 01/06/2016 KHRIS RAREAGA DO Ot N20.0 CALCULUS OF KIDNEY 01/06/2016 KHRIS ARREAGA DO Ot R42 DIZZINESS AND GIDDINESS 01/06/2016 KHRIS ARREAGA DO Ot S16.1XXA STRAIN OF MUSCLE, FASCIA AND TENDON AT N 01/06/2016 KHRIS ARREAGA DO Ot S29.012A STRAIN OF MUSCLE AND TENDON OF BACK WALL 01/06/2016 KHRIS ARREAGA DO Ot S39.012A STRAIN OF MUSCLE, FASCIA AND TENDON OF L 01/06/2016 KHRIS ARREAGA DO Ot S50.11XA CONTUSION OF RIGHT FOREARM, INITIAL ENCO 01/06/2016 KHRIS ARREAGA DO Ot S59.911A UNSPECIFIED INJURY OF RIGHT FOREARM, INI 01/06/2016 KHRIS ARREAGA DO Ot S70.12XA CONTUSION OF LEFT THIGH, INITIAL ENCOUNT 01/06/2016 GIBSON KHRIS K Ot W18.09XA STRIKING AGAINST OTH OBJECT W SUBSEQUENT 01/06/2016 GIBSON PATTERSONBRITTANIEA Wild Ot Y92.[address] [facility] [address] [facility]IVATE 01/06/2016 GIBSON PATTERSON KHRIS Wild Ot Y93.9 ACTIVITY, UNSPECIFIED 01/06/2016 GIBSON KHRIS PATTERSON Ot Y99.8 OTHER EXTERNAL CAUSE STATUS 01/06/2016 GIBSON KHRIS PATTERSON Ot Z98.1 ARTHRODESIS STATUS 01/09/2016 GIBSON KHRSI PATTERSON Ot M16.0 BILATERAL PRIMARY OSTEOARTHRITIS OF HIP 01/09/2016 GIBSON KHRIS PATTERSON Ot M47.814 SPONDYLOSIS W/O MYELOPATHY OR RADICULOPA 01/09/2016 GIBSON KHRIS PATTERSON Ot M47.816 SPONDYLOSIS W/O MYELOPATHY OR RADICULOPA 01/09/2016 GIBSON KHRIS PATTERSON Ot M48.06 SPINAL STENOSIS, LUMBAR REGION 01/09/2016 GIBSON KHRIS PATTERSON Ot N20.0 CALCULUS OF KIDNEY 01/09/2016 GIBSON KHRIS PATTERSON Ot R42 DIZZINESS AND GIDDINESS 01/09/2016 GIBSON KHRIS PATTERSON Ot S16.1XXA STRAIN OF MUSCLE, FASCIA AND TENDON AT N 01/09/2016 KHRIS ARREAGA DO Ot S29.012A STRAIN OF MUSCLE AND TENDON OF BACK WALL 01/09/2016 KHRIS ARREAGA DO Ot S39.012A STRAIN OF MUSCLE, FASCIA AND TENDON OF L 01/09/2016 KHRIS ARREAGA DO Ot S50.11XA CONTUSION OF RIGHT FOREARM, INITIAL ENCO 01/09/2016 KHRIS ARREAGA DO Ot S59.911A UNSPECIFIED INJURY OF RIGHT FOREARM, INI 01/09/2016 KHRIS ARREAGA DO Ot S70.12XA CONTUSION OF LEFT THIGH, INITIAL ENCOUNT 01/09/2016 KHRIS ARREAGA DO Ot W18.09XA STRIKING AGAINST OTH OBJECT W SUBSEQUENT 01/09/2016 KHRIS ARREAGA DO Ot Y92.[address] IN [facility] 01/09/2016 GIBSON KHRIS Ot Y93.9 ACTIVITY, UNSPECIFIED 01/09/2016 GIBSON PATTERSON KHRIS Wild Ot Y99.8 OTHER EXTERNAL CAUSE STATUS 01/09/2016 GIBSON DO KHRIS Wild Ot Z98.1 ARTHRODESIS STATUS 01/10/2016 GIBSON PATTERSON KHRIS Wild Ot M16.0 BILATERAL PRIMARY OSTEOARTHRITIS OF HIP 01/10/2016 GIBSON KHRIS K Ot M47.814 SPONDYLOSIS W/O MYELOPATHY OR RADICULOPA 01/10/2016 GIBSON KHRIS K Ot M47.816 SPONDYLOSIS W/O MYELOPATHY OR RADICULOPA 01/10/2016 GIBSON KHRIS K Ot M48.06 SPINAL STENOSIS, LUMBAR REGION 01/10/2016 GIBSON KHRIS K Ot N20.0 CALCULUS OF KIDNEY 01/10/2016 GIBSON KHRIS Ot R42 DIZZINESS AND GIDDINESS 01/10/2016 GIBSON KHRIS K Ot S16.1XXA STRAIN OF MUSCLE, FASCIA AND TENDON AT N 01/10/2016 KHRIS ARREAGA DO Ot S29.012A STRAIN OF MUSCLE AND TENDON OF BACK WALL 01/10/2016 GIBSON KHRIS Ot S39.012A STRAIN OF MUSCLE, FASCIA AND TENDON OF L 01/10/2016 KHRIS ARREAGA DO Ot S50.11XA CONTUSION OF RIGHT FOREARM, INITIAL ENCO 01/10/2016 GIBSON KHRIS Ot S59.911A UNSPECIFIED INJURY OF RIGHT FOREARM, INI 01/10/2016 KHRIS ARREAGA DO Ot S70.12XA CONTUSION OF LEFT THIGH, INITIAL ENCOUNT 01/10/2016 GIBSON KHRIS Ot W18.09XA STRIKING AGAINST OTH OBJECT W SUBSEQUENT 01/10/2016 GIBSON KHRIS Ot Y92.[address] [facility] ([facility] 01/10/2016 GIBSON KHRIS K Ot Y93.9 ACTIVITY, UNSPECIFIED 01/10/2016 GIBSON KHRIS K Ot Y99.8 OTHER EXTERNAL CAUSE STATUS 01/10/2016 GIBSON KHRIS Ot Z98.1 ARTHRODESIS STATUS 07/31/2016 JOANA GOFF, DAVID Reynoso Ot B19.20 UNSPECIFIED VIRAL HEPATITIS C WITHOUT HE 07/31/2016 DAIVD WORTHY MD Ot E78.2 MIXED HYPERLIPIDEMIA 07/31/2016 DAVID WORTHY MD Ot G89.29 OTHER CHRONIC PAIN 07/31/2016 DAVID WORTHY MD Ot I65.23 OCCLUSION AND STENOSIS OF BILATERAL [place] 07/31/2016 DAVID WORTHY MD Ot R06.00 DYSPNEA, UNSPECIFIED 08/20/2016 DAVID WORTHY MD Ot B19.20 UNSPECIFIED VIRAL HEPATITIS C WITHOUT HE 08/20/2016 DAVID WORTHY MD Ot E78.2 MIXED HYPERLIPIDEMIA 08/20/2016 DAVID WORTHY MD Ot G89.29 OTHER CHRONIC PAIN 08/20/2016 DAVID WORTHY MD Ot I65.23 OCCLUSION AND STENOSIS OF BILATERAL [place] 08/20/2016 DAVID WORTHY MD Ot R06.00 DYSPNEA, UNSPECIFIED 08/27/2016 DAVID WORTHY MD Ot B19.20 UNSPECIFIED VIRAL HEPATITIS C WITHOUT HE 08/27/2016 DAVID WORTHY MD Ot E78.2 MIXED HYPERLIPIDEMIA 08/27/2016 DAVID WORTHY MD Ot G89.29 OTHER CHRONIC PAIN 08/27/2016 DAVID WORTHY MD Ot I65.23 OCCLUSION AND STENOSIS OF [place]ILATERAL [place] 08/27/2016 DAVID WORTHY MD Ot R06.00 DYSPNEA, UNSPECIFIED 09/25/2016 TORREY FELIX MD Ot B18.2 CHRONIC VIRAL HEPATITIS C 09/25/2016 TORREY FELIX MD Ot Z90.49 ACQUIRED ABSENCE OF OTHER SPECIFIED PART 10/16/2016 TORREY FELIX MD Ot B18.2 CHRONIC VIRAL HEPATITIS C 10/16/2016 TORREY FELIX MD Ot Z90.49 ACQUIRED ABSENCE OF OTHER SPECIFIED PART 10/23/2016 TORREY FELIX MD Ot B18.2 CHRONIC VIRAL HEPATITIS C 10/23/2016 TORREY FELIX MD Ot Z90.49 ACQUIRED ABSENCE OF OTHER SPECIFIED PART 11/26/2016 DAVID WORTHY MD Ot B19.20 UNSPECIFIED VIRAL HEPATITIS C WITHOUT HE 11/26/2016 DAVID WORTHY MD Ot E78.2 MIXED HYPERLIPIDEMIA 11/26/2016 DAVID WORTHY MD Ot G89.29 OTHER CHRONIC PAIN 11/26/2016 DAVID WORTHY MD Ot I65.23 OCCLUSION AND STENOSIS OF [place]ILATERAL [place] 11/26/2016 DAVID WORTHY MD Ot R06.00 DYSPNEA, UNSPECIFIED 12/17/2016 DAVID WORTHY MD Ot B19.20 UNSPECIFIED VIRAL HEPATITIS C WITHOUT HE 12/17/2016 DAVID WORTHY MD Ot E78.2 MIXED HYPERLIPIDEMIA 12/17/2016 DAVID WORTHY MD Ot G89.29 OTHER CHRONIC PAIN 12/17/2016 DAVID WORTHY MD Ot I65.23 OCCLUSION AND STENOSIS OF BILATERAL [place] 12/17/2016 DAVID WORTYH MD Ot R06.00 DYSPNEA, UNSPECIFIED 01/04/2017 DAVID WORTHY MD Ot B19.20 UNSPECIFIED VIRAL HEPATITIS C WITHOUT HE 01/04/2017 DAVID WORTHY MD Ot E78.2 MIXED HYPERLIPIDEMIA 01/04/2017 DAVID WORTHY MD Ot G89.29 OTHER CHRONIC PAIN 01/04/2017 DAVID WORTHY MD Ot I65.23 OCCLUSION AND STENOSIS OF BILATERAL [place] 01/04/2017 DAVID WORTHY MD Ot R06.00 DYSPNEA, UNSPECIFIED 05/19/2017 DAVID WORTHY MD Ot 458.29 OTHER IATROGENIC HYPOTENSION 05/19/2017 DAVID WORTHY MD Ot 780.2 SYNCOPE AND COLLAPSE 05/19/2017 TESS GOFF, MARCO ANTONIO Zavala Ot V72.84 EXAM PRE-OPERATIVE NOS 05/19/2017 DAVID WORTHY MD Ot 272.4 HYPERLIPIDEMIA NEC/NOS 05/19/2017 DAVID WORTHY MD Ot 401.9 HYPERTENSION NOS 05/19/2017 DAVID WORTHY MD Ot 416.8 CHR PULMON HEART DIS NEC 05/19/2017 DAVID WORTHY MD Ot 786.50 CHEST PAIN NOS 05/19/2017 DAVID WORTHY MD Ot 272.4 HYPERLIPIDEMIA NEC/NOS 05/19/2017 DAVID WORTHY MD Ot 401.9 HYPERTENSION NOS 05/19/2017 DAVID WORTHY MD Ot 416.8 CHR PULMON HEART DIS NEC 05/19/2017 DAVID WORTHY MD Ot 786.50 CHEST PAIN NOS 05/19/2017 TIMMY AMARO DO Ot 278.01 MORBID OBESITY 05/19/2017 TIMMY AMARO DO Ot 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 CHR PULMON HEART DIS NEC 05/19/2017 TIMMY AMARO DO Ot 427.89 CARDIAC DYSRHYTHMIAS NEC 05/19/2017 TIMMY AMARO DO Ot 786.09 RESPIRATORY ABNORM NEC 05/19/2017 QUIROGA DO TERESA Pancho Ot K62.5 HEMORRHAGE OF ANUS AND RECTUM 05/19/2017 QUIROGA WESLEY PATTERSONTT Pancho Ot Z01.818 ENCOUNTER FOR OTHER PREPROCEDURAL EXAMIN 05/19/2017 TORREY FELIX MD Ot B18.2 CHRONIC VIRAL HEPATITIS C 05/19/2017 DAVID WORTHY MD Ot B19.20 UNSPECIFIED VIRAL HEPATITIS C WITHOUT HE 05/19/2017 DAVID WORTHY MD Ot E78.2 MIXED HYPERLIPIDEMIA 05/19/2017 DAVID WORTHY MD Ot G89.29 OTHER CHRONIC PAIN 05/19/2017 DAVID WORTHY MD Ot I65.23 OCCLUSION AND STENOSIS OF BILATERAL [place] 05/19/2017 DAVID WORTHY MD Ot R06.00 DYSPNEA, UNSPECIFIED 05/19/2017 TORREY FELIX MD Ot B18.2 CHRONIC VIRAL HEPATITIS C 05/19/2017 TORREY FELIX MD Ot Z90.49 ACQUIRED ABSENCE OF OTHER SPECIFIED PART 05/19/2017 DAVID WORTHY MD Ot B19.20 UNSPECIFIED VIRAL HEPATITIS C WITHOUT HE 05/19/2017 DAVID WORTHY MD Ot E78.2 MIXED HYPERLIPIDEMIA 05/19/2017 DAVID WORTHY MD Ot G89.29 OTHER CHRONIC PAIN 05/19/2017 DAVID WORTHY MD Ot I65.23 OCCLUSION AND STENOSIS OF BILATERAL [place] 05/19/2017 DAVID WORTHY MD Ot R06.00 DYSPNEA, UNSPECIFIED 05/19/2017 DAVID WORTHY MD Ot 458.29 OTHER IATROGENIC HYPOTENSION 05/19/2017 DAVID WORTHY MD Ot 780.2 SYNCOPE AND COLLAPSE 05/19/2017 TESS GOFF, MARCO ANTONIO Zavala Ot V72.84 EXAM PRE-OPERATIVE NOS 05/19/2017 DAVID WORTHY MD Ot 272.4 HYPERLIPIDEMIA NEC/NOS 05/19/2017 DAVID WORTHY MD Ot 401.9 HYPERTENSION NOS 05/19/2017 DAVID WORTHY MD Ot 416.8 [facility] PULMON HEART DIS NEC 05/19/2017 DAVID WORTHY MD Ot 786.50 CHEST PAIN NOS 05/19/2017 DAVID WORTHY MD Ot 272.4 HYPERLIPIDEMIA NEC/NOS 05/19/2017 DAVID WORTHY MD Ot 401.9 HYPERTENSION NOS 05/19/2017 DAVID WORTHY MD Ot 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 CHR PULMON HEART DIS NEC 05/19/2017 DAVID WORTHY MD Ot 786.50 CHEST PAIN NOS 05/19/2017 TIMMY AMARO DO Ot 278.01 MORBID OBESITY 05/19/2017 TIMMY AMARO DO Ot 416.8 CHR PULMON HEART DIS NEC 05/19/2017 TIMMY AMARO DO Ot 427.89 CARDIAC DYSRHYTHMIAS NEC 05/19/2017 TIMMY AMARO DO Ot 786.09 RESPIRATORY ABNORM NEC 05/19/2017 TERESA QUIROGA DO Ot K62.5 HEMORRHAGE OF ANUS AND RECTUM 05/19/2017 TERESA QUIROGA DO Ot Z01.818 ENCOUNTER FOR OTHER PREPROCEDURAL EXAMIN 05/19/2017 TORREY FELIX MD Ot B18.2 CHRONIC VIRAL HEPATITIS C 05/19/2017 DAVID WORTHY MD Ot B19.20 UNSPECIFIED VIRAL HEPATITIS C WITHOUT HE 05/19/2017 DAVID WORTHY MD Ot E78.2 MIXED HYPERLIPIDEMIA 05/19/2017 DAVID WORTHY MD Ot G89.29 OTHER CHRONIC PAIN 05/19/2017 DAVID WORTHY MD Ot I65.23 OCCLUSION AND STENOSIS OF BILATERAL [place] 05/19/2017 DAVID WORTHY MD Ot R06.00 DYSPNEA, UNSPECIFIED 05/19/2017 TORREY FELIX MD Ot B18.2 CHRONIC VIRAL HEPATITIS C 05/19/2017 TORREY FELIX MD Ot Z90.49 ACQUIRED ABSENCE OF OTHER SPECIFIED PART 05/19/2017 DAVID WORTHY MD Ot B19.20 UNSPECIFIED VIRAL HEPATITIS C WITHOUT HE 05/19/2017 DAVDI WORTHY MD Ot E78.2 MIXED HYPERLIPIDEMIA 05/19/2017 DAVID WORTHY MD Ot G89.29 OTHER CHRONIC PAIN 05/19/2017 DAVID WORTHY MD Ot I65.23 OCCLUSION AND STENOSIS OF BILATERAL [place] 05/19/2017 DAVID WORTHY MD Ot R06.00 DYSPNEA, UNSPECIFIED 05/19/2017 STELLA GOFF, APURVA Ko Ot A41.9 SEPSIS, UNSPECIFIED ORGANISM 05/20/2017 APURVA DOUGLAS MD Ot A41.9 SEPSIS, UNSPECIFIED ORGANISM 05/20/2017 STELLA GOFF, APURVA Ko Ot E11.9 TYPE 2 DIABETES MELLITUS WITHOUT COMPLIC 05/20/2017 STELLA GOFF, APURVA Ko Ot E66.9 OBESITY, UNSPECIFIED 05/20/2017 STELLA GOFF, APURVA Ko Ot G20 PARKINSON'S DISEASE 05/20/2017 STELLA GOFF, APURVA Ko Ot I10 ESSENTIAL (PRIMARY) HYPERTENSION 05/20/2017 STELLA GOFF, APURVA Ko Ot J44.9 CHRONIC OBSTRUCTIVE PULMONARY DISEASE, U 05/20/2017 STELLA GOFF, APURVA Ko Ot K73.9 CHRONIC HEPATITIS, UNSPECIFIED 05/20/2017 STELLA GOFF, APURVA Ko Ot M54.9 DORSALGIA, UNSPECIFIED 05/20/2017 APURVA DOUGLAS MD Ot N20.1 CALCULUS OF URETER 05/20/2017 STELLA GOFF, APURVA Ko Ot N30.01 ACUTE CYSTITIS WITH HEMATURIA 05/20/2017 STELLA GOFF, APURVA Ko Ot R19.7 DIARRHEA, UNSPECIFIED 05/20/2017 STELLA GOFF, APURVA Ko Ot R42 DIZZINESS AND GIDDINESS 05/20/2017 STELLA GOFF, APURVA Ko Ot Z68.41 BODY MASS INDEX (BMI) 40.0-44.9, ADULT 05/21/2017 DAVID WORTHY MD Ot 458.29 OTHER IATROGENIC HYPOTENSION 05/21/2017 DAVID WORTHY MD Ot 780.2 SYNCOPE AND COLLAPSE 05/21/2017 TESS GOFF, MARCO ANTONIO Zvaala Ot V72.84 EXAM PRE-OPERATIVE NOS 05/21/2017 DAVID WORTHY MD Ot 272.4 HYPERLIPIDEMIA NEC/NOS 05/21/2017 DAVID WORTHY MD Ot 401.9 HYPERTENSION NOS 05/21/2017 DAVID WORTHY MD Ot 416.8 CHR PULMON HEART DIS NEC 05/21/2017 DAVID WORTHY MD Ot 786.50 CHEST PAIN NOS 05/21/2017 DAVID WORTHY MD Ot 272.4 HYPERLIPIDEMIA NEC/NOS 05/21/2017 DAVID WORTHY MD Ot 401.9 HYPERTENSION NOS 05/21/2017 DAVID WORTHY MD Ot 416.8 CHR PULMON HEART DIS NEC 05/21/2017 DAVID WORTHY MD Ot 786.50 CHEST PAIN NOS 05/21/2017 TIMMY AMARO DO Ot 278.01 MORBID OBESITY 05/21/2017 TIMMY AMARO DO Ot 416.8 CHR PULMON HEART DIS NEC 05/21/2017 TIMMY AMARO DO Ot 427.89 CARDIAC DYSRHYTHMIAS NEC 05/21/2017 TIMMY AMARO DO Ot 786.09 RESPIRATORY ABNORM NEC 05/21/2017 TERESA QUIROGA DO Ot K62.5 HEMORRHAGE OF ANUS AND RECTUM 05/21/2017 TERESA QUIROGA DO Ot Z01.818 ENCOUNTER FOR OTHER PREPROCEDURAL EXAMIN 05/21/2017 TORREY FELIX MD Ot B18.2 CHRONIC VIRAL HEPATITIS C 05/21/2017 DAVID WORTHY MD Ot B19.20 UNSPECIFIED VIRAL HEPATITIS C WITHOUT HE 05/21/2017 DAVID WORTHY MD Ot E78.2 MIXED HYPERLIPIDEMIA 05/21/2017 DAVID WORTHY MD Ot G89.29 OTHER CHRONIC PAIN 05/21/2017 DAVID WORTHY MD Ot I65.23 OCCLUSION AND STENOSIS OF BILATERAL [place] 05/21/2017 DAVID WORTHY MD Ot R06.00 DYSPNEA, UNSPECIFIED 05/21/2017 TORREY FELIX MD Ot B18.2 CHRONIC VIRAL HEPATITIS C 05/21/2017 TORREY FELIX MD Ot Z90.49 ACQUIRED ABSENCE OF OTHER SPECIFIED PART 05/21/2017 DAVID WORTHY MD Ot B19.20 UNSPECIFIED VIRAL HEPATITIS C WITHOUT HE 05/21/2017 DAVID WORTHY MD Ot E78.2 MIXED HYPERLIPIDEMIA 05/21/2017 DAVID WORTHY MD Ot G89.29 OTHER CHRONIC PAIN 05/21/2017 DAVID WORTHY MD Ot I65.23 OCCLUSION AND STENOSIS OF BILATERAL [place] 05/21/2017 DAVID WORTHY MD Ot R06.00 DYSPNEA, UNSPECIFIED 08/03/2017 TORREY FELIX MD Ot Z00.00 ENCNTR FOR GENERAL ADULT MEDICAL EXAM W/ 09/27/2017 DAVID WORTHY MD Ot 458.29 OTHER IATROGENIC HYPOTENSION 09/27/2017 DAVID WORTHY MD Ot 780.2 SYNCOPE AND COLLAPSE 09/27/2017 TESS GOFF, MARCO ANTONIO Zavala Ot V72.84 EXAM PRE-OPERATIVE NOS 09/27/2017 DAVID WORTHY MD Ot 272.4 HYPERLIPIDEMIA NEC/NOS 09/27/2017 DAVID WORTHY MD Ot 401.9 HYPERTENSION NOS 09/27/2017 DAVID WORTHY MD Ot 416.8 CHR PULMON HEART DIS NEC 09/27/2017 DAVID WORTHY MD Ot 786.50 CHEST PAIN NOS 09/27/2017 DAVID WORTHY MD Ot 272.4 HYPERLIPIDEMIA NEC/NOS 09/27/2017 DAVID WORTHY MD Ot 401.9 HYPERTENSION NOS 09/27/2017 DAVID WORTHY MD Ot 416.8 CHR PULMON HEART DIS NEC 09/27/2017 DAVID WORTHY MD Ot 786.50 CHEST PAIN NOS 09/27/2017 TIMMY AMARO DO Ot 278.01 MORBID OBESITY 09/27/2017 TIMMY AMARO DO Ot 416.8 CHR PULMON HEART DIS NEC 09/27/2017 TIMMY AMARO DO Ot 427.89 CARDIAC DYSRHYTHMIAS NEC 09/27/2017 TIMMY AMARO DO Ot 786.09 RESPIRATORY ABNORM NEC 09/27/2017 TERESA QUIROGA DO Ot K62.5 HEMORRHAGE OF ANUS AND RECTUM 09/27/2017 TERESA QUIROGA DO Ot Z01.818 ENCOUNTER FOR OTHER PREPROCEDURAL EXAMIN 09/27/2017 TORREY FELIX MD Ot B18.2 CHRONIC VIRAL HEPATITIS C 09/27/2017 DAVID WORTHY MD Ot B19.20 UNSPECIFIED VIRAL HEPATITIS C WITHOUT HE 09/27/2017 DAVID WORTHY MD Ot E78.2 MIXED HYPERLIPIDEMIA 09/27/2017 DAVID WORTHY MD Ot G89.29 OTHER CHRONIC PAIN 09/27/2017 DAVID WORTHY MD Ot I65.23 OCCLUSION AND STENOSIS OF BILATERAL [place] 09/27/2017 DAVID WORTHY MD Ot R06.00 DYSPNEA, UNSPECIFIED 09/27/2017 TORREY FELIX MD Ot B18.2 CHRONIC VIRAL HEPATITIS C 09/27/2017 TORREY FELIX MD Ot Z90.49 ACQUIRED ABSENCE OF OTHER SPECIFIED PART 09/27/2017 DAVID WORTHY MD Ot B19.20 UNSPECIFIED VIRAL HEPATITIS C WITHOUT HE 09/27/2017 JOANA GOFF, DAVID Reynoso Ot E78.2 MIXED HYPERLIPIDEMIA 09/27/2017 DAVID WORTHY MD Ot G89.29 OTHER CHRONIC PAIN 09/27/2017 JOANA GOFF, DAVID Reynoso Ot I65.23 OCCLUSION AND STENOSIS OF BILATERAL [place] 09/27/2017 JOANA GOFF, DAVID Reynoso Ot R06.00 DYSPNEA, UNSPECIFIED 09/29/2017 Ot B19.20 UNSPECIFIED VIRAL HEPATITIS C WITHOUT HE 09/29/2017 Ot I10 ESSENTIAL ( PRIMARY) HYPERTENSION 09/29/2017 Ot J44.9 CHRONIC OBSTRUCTIVE PULMONARY DISEASE, U 09/29/2017 Ot M54.6 PAIN IN THORACIC SPINE 09/29/2017 Ot R42 DIZZINESS AND GIDDINESS 09/29/2017 Ot S09.90XA UNSPECIFIED INJURY OF HEAD, INITIAL ENCO 09/29/2017 Ot S22.088A OTH FRACTURE OF T11-T12 VERTEBRA, INIT F 09/29/2017 Ot W01.190A FALL SAME LEV FROM SLIP/TRIP W STRIKE AG 09/29/2017 Ot Z88.6 ALLERGY STATUS TO ANALGESIC AGENT STATUS 09/29/2017 Ot Z88.8 ALLERGY STATUS TO OTH DRUG/MEDS/BIOL SUB 09/29/2017 Ot Z90.710 ACQUIRED ABSENCE OF BOTH CERVIX AND UTER 10/01/2017 Ot B19.20 UNSPECIFIED VIRAL HEPATITIS C WITHOUT HE 10/01/2017 Ot I10 ESSENTIAL ( PRIMARY) HYPERTENSION 10/01/2017 Ot J44.9 CHRONIC OBSTRUCTIVE PULMONARY DISEASE, U 10/01/2017 Ot M54.6 PAIN IN THORACIC SPINE 10/01/2017 Ot R42 DIZZINESS AND GIDDINESS 10/01/2017 Ot S09.90XA UNSPECIFIED INJURY OF HEAD, INITIAL ENCO 10/01/2017 Ot S22.088A OTH FRACTURE OF T11-T12 VERTEBRA, INIT F 10/01/2017 Ot W01.190A FALL SAME LEV FROM SLIP/TRIP W STRIKE AG 10/01/2017 Ot Z88.6 ALLERGY STATUS TO ANALGESIC AGENT STATUS 10/01/2017 Ot Z88.8 ALLERGY STATUS TO OTH DRUG/MEDS/BIOL SUB 10/01/2017 Ot Z90.710 ACQUIRED ABSENCE OF BOTH CERVIX AND UTER 12/23/2017 ELVIRA GOFF, TORREY Ward Ot H81.13 BENIGN PAROXYSMAL VERTIGO, BILATERAL 01/04/2018 ELVIRA GOFF, TORREY Ward Ot H81.13 BENIGN PAROXYSMAL VERTIGO, BILATERAL 01/11/2018 ELVIRA GOFF, TORREY Ward Ot H81.13 BENIGN PAROXYSMAL VERTIGO, BILATERAL 01/11/2018 ELVIRA GOFF, TORREY Ward Ot H81.13 BENIGN PAROXYSMAL VERTIGO, BILATERAL Procedures Code Description Performed By Performed On Cardiolog David Worthy 01/01/2012 33830 ROUTINE VENIPUNCTURE 01/07/2012 92311 HEP B SURFACE ANTIGEN (STATE ) 01/07/2012 80609 HIV-STATE LAB 01/07/2012 91747 A1C (IN-HOUSE) 01/07/2012 28791 URINE DRUG SCREEN (IN-HOUSE ) 01/07/2012 98593 MICRO ALBUMIN-IN HOUSE 01/07/2012 90380 CBC 01/07/2012 89764 CMP 01/07/2012 [id number] GFR CALC (RESULT ONLY) 01/07/2012 69316 PT/INR 01/08/2012 34846 HEP B SURFACE ANTIBODY 01/08/2012 34669 HEP A ANTIBODY, IGM (RML) 01/08/2012 10159 HEP C PCR QUANT (SERIAL) 01/12/2012 [facility] [place] 04/14/2012 68711 ROUTINE VENIPUNCTURE 06/14/2012 89056 A1C (IN-HOUSE) 06/14/2012 56628 CBC 06/14/2012 74644 CMP 06/15/2012 2989941 GFR CALC (RESULT ONLY) 06/15/2012 25671 ROUTINE VENIPUNCTURE 12/22/2012 G0008 FLU ADMINISTRATION ( MEDICARE ONLY) 12/22/2012 Marco Antonio Oh 12/22/2012 02160 UA LONG DIP 12/22/2012 10962 INR (IN HOUSE) 12/22/2012 51965 CBC 12/22/2012 61717 ROUTINE VENIPUNCTURE 09/05/2013 [id number] GFR CALC (RESULT ONLY) 09/05/2013 00277 CMP 09/05/2013 13610 ROUTINE VENIPUNCTURE 11/16/2013 53337 OXIMETRY 11/16/2013 43987 CBC 11/16/2013 38635 SKIN TAG REM LESIONS >15 ( USE WITH 51789) 12/26/2013 03868 CRYOTHERAPY OF SKIN 12/26/2013 99259 ROUTINE VENIPUNCTURE 05/07/2014 76418 CBC 05/07/2014 [id number] GFR CALC (RESULT ONLY) 05/07/2014 60655 CMP 05/07/2014 97186 PT/INR 05/07/2014 Results Test Result Range * Reference lab test name - 11/29/15 12:27 * Reference lab test results HCV GEN 1 NS5A NRG Complete blood count (CBC) with automated white blood cell (WBC) differential - 01/03/16 20:52 Blood leukocytes automated count (number/volume) 8.1 10*3/uL 4.3-11.0 Blood erythrocytes automated count (number/volume) 4.91 10*6/uL 4.35-5.85 Venous blood hemoglobin measurement (mass/volume) 15.2 g/dL 11.5-16.0 Blood hematocrit (volume fraction) 43 % 35-52 Automated erythrocyte mean corpuscular volume 88 [foz_us] 80-99 Automated erythrocyte mean corpuscular hemoglobin (mass per erythrocyte) 31 pg 25-34 Automated erythrocyte mean corpuscular hemoglobin concentration measurement ( mass/volume) 35 g/dL 32-36 Automated erythrocyte distribution width ratio 12.3 % 10.0-14.5 Automated blood platelet count (count/volume) 119 10*3/uL 130-400 Automated blood platelet mean volume measurement 10.8 [foz_us] 7.4-10.4 Automated blood neutrophils/100 leukocytes 65 % 42-75 Automated blood lymphocytes/100 leukocytes 24 % 12-44 Blood monocytes/100 leukocytes 9 % 0-12 Automated blood eosinophils/100 leukocytes 2 % 0-10 Automated blood basophils/100 leukocytes 0 % 0-10 Blood neutrophils automated count (number/volume) 5.2 10*3 1.8-7.8 Blood lymphocytes automated count (number/volume) 2.0 10*3 1.0-4.0 Blood monocytes automated count (number/volume) 0.7 10*3 0.0-1.0 Automated eosinophil count 0.2 10*3/uL 0.0-0.3 Automated blood basophil count (count/volume) 0.0 10*3/uL 0.0-0.1 PT panel in platelet poor plasma by coagulation assay - 01/03/16 20:52 Prothrombin time (PT) in platelet poor plasma by coagulation assay 14.4 s 12.2-14.7 INR in platelet poor plasma or blood by coagulation assay 1.2 0.8-1.4 Activated partial thromboplastin time (aPTT) in platelet poor plasma bycoagulation assay - 01/03/16 20:52 Activated partial thromboplastin time (aPTT) in platelet poor plasma bycoagulation assay 30 s 24-35 Comprehensive metabolic panel - 01/03/16 20:52 Serum or plasma sodium measurement (moles/volume) 136 mmol/L 135-145 Serum or plasma potassium measurement (moles/volume) 3.9 mmol/L 3.6-5.0 Serum or plasma chloride measurement (moles/volume) 106 mmol/L 98-107 Carbon dioxide 19 mmol/L 21-32 Serum or plasma anion gap determination (moles/volume) 11 mmol/L 5-14 Serum or plasma urea nitrogen measurement (mass/volume) 9 mg/dL 7-18 Serum or plasma creatinine measurement (mass/volume) 0.61 mg/dL 0.60-1.30 Serum or plasma urea nitrogen/creatinine mass ratio 15 NRG Serum or plasma creatinine measurement with calculation of estimated glomerular filtration rate > NRG Serum or plasma glucose measurement (mass/volume) 102 mg/dL 70-105 Serum or plasma calcium measurement (mass/volume) 9.6 mg/dL 8.5-10.1 Serum or plasma total bilirubin measurement (mass/volume) 1.1 mg/dL 0.1-1.0 Serum or plasma alkaline phosphatase measurement (enzymatic activity/volume) 81 U/L 40-136 Serum or plasma aspartate aminotransferase measurement (enzymatic activity/ volume) 39 U/L 5-34 Serum or plasma alanine aminotransferase measurement (enzymatic activity/volume ) 26 U/L 0-55 Serum or plasma protein measurement (mass/volume) 7.2 g/dL 6.4-8.2 Serum or plasma albumin measurement (mass/volume) 3.9 g/dL 3.2-4.5 Magnesium - 01/03/16 20:52 Magnesium 1.7 mg/dL 1.8-2.4 Comp. Metabolic Panel (14) - 09/01/16 12:06 Glucose, Serum 115 mg/dL 65-99 BUN 6 mg/dL 8-27 Creatinine, Serum 0.58 mg/dL 0.57-1.00 eGFR If NonAfricn Am 98 mL/min/1.73 >59 eGFR If Africn Am 113 mL/min/1.73 >59 BUN/Creatinine Ratio 10 12-28 Sodium, Serum 139 mmol/L 134-144 Potassium, Serum 3.7 mmol/L 3.5-5.2 Chloride, Serum 101 mmol/L 96-106 Carbon Dioxide, Total 20 mmol/L 18-29 Calcium, Serum 9.3 mg/dL 8.7-10.3 Protein, Total, Serum 7.3 g/dL 6.0-8.5 Albumin, Serum 4.0 g/dL 3.6-4.8 Globulin, Total 3.3 g/dL 1.5-4.5 A/G Ratio 1.2 1.2-2.2 Bilirubin, Total 0.6 mg/dL 0.0-1.2 Alkaline Phosphatase, S 96 IU/L 39-117 AST (SGOT) 32 IU/L 0-40 ALT (SGPT) 21 IU/L 0-32 HCV FibroSure - 09/10/16 12:03 Fibrosis Score 0.89 0.00-0.21 Fibrosis Stage Comment Necroinflammat Activity Score 0.18 0.00-0.17 Necroinflammat Activity Grade A0-A1 Alpha 2-Macroglobulins, Qn 531 mg/dL 110-276 Haptoglobin 44 mg/dL 34-200 Apolipoprotein A-1 148 mg/dL 116-209 Bilirubin, Total 0.8 mg/dL 0.0-1.2 GGT 72 IU/L 0-60 ALT (SGPT) P5P 20 IU/L 0-40 Interpretations: Comment Fibrosis Scoring: Comment Necroinflamm Activity Scoring: Comment Limitations: Comment Comment: Comment Ammonia, Plasma - 09/10/16 12:03 Ammonia, Plasma 150 ug/dL 19-87 Prothrombin Time (PT) - 09/10/16 12:03 INR 1.1 0.8-1.2 Prothrombin Time 11.2 sec 9.1-12.0 CBC With Differential/Platelet - 09/10/16 12:03 WBC 5.7 x10E3/uL 3.4-10.8 RBC 4.95 x10E6/uL 3.77-5.28 Hemoglobin 14.5 g/dL 11.1-15.9 Hematocrit 43.0 % 34.0-46.6 MCV 87 fL 79-97 MCH 29.3 pg 26.6-33.0 MCHC 33.7 g/dL 31.5-35.7 RDW 13.6 % 12.3-15.4 Platelets 156 x10E3/uL 150-379 Neutrophils 38 % Lymphs 50 % Monocytes 8 % Eos 4 % Basos 0 % Neutrophils (Absolute) 2.2 x10E3/uL 1.4-7.0 Lymphs (Absolute) 2.8 x10E3/uL 0.7-3.1 Monocytes(Absolute) 0.5 x10E3/uL 0.1-0.9 Eos (Absolute) 0.3 x10E3/uL 0.0-0.4 Baso (Absolute) 0.0 x10E3/uL 0.0-0.2 Immature Granulocytes 0 % Immature Grans (Abs) 0.0 x10E3/uL 0.0-0.1 HCV RT-PCR, Quant (Non-Graph) - 09/10/16 12:03 Hepatitis C Quantitation HCV Not Detected IU/mL Test Information: Comment Panel [id number] - 09/10/16 12:03 HIV Screen 4th Generation wRfx Non Reactive Non Reactive Bacterial blood culture - 05/18/17 23:15 Bacterial blood culture NG NRG Complete blood count (CBC) with automated white blood cell (WBC) differential - 05/18/17 23:20 Blood leukocytes automated count (number/volume) 14.1 10*3/uL 4.3-11.0 Blood erythrocytes automated count (number/volume) 4.56 10*6/uL 4.35-5.85 Venous blood hemoglobin measurement (mass/volume) 14.2 g/dL 11.5-16.0 Blood hematocrit (volume fraction) 40 % 35-52 Automated erythrocyte mean corpuscular volume 87 [foz_us] 80-99 Automated erythrocyte mean corpuscular hemoglobin (mass per erythrocyte) 31 pg 25-34 Automated erythrocyte mean corpuscular hemoglobin concentration measurement ( mass/volume) 36 g/dL 32-36 Automated erythrocyte distribution width ratio 12.1 % 10.0-14.5 Automated blood platelet count (count/volume) 126 10*3/uL 130-400 Automated blood platelet mean volume measurement 10.3 [foz_us] 7.4-10.4 Automated blood neutrophils/100 leukocytes 69 % 42-75 Automated blood lymphocytes/100 leukocytes 18 % 12-44 Blood monocytes/100 leukocytes 13 % 0-12 Automated blood eosinophils/100 leukocytes 0 % 0-10 Automated blood basophils/100 leukocytes 0 % 0-10 Blood neutrophils automated count (number/volume) 9.7 10*3 1.8-7.8 Blood lymphocytes automated count (number/volume) 2.5 10*3 1.0-4.0 Blood monocytes automated count (number/volume) 1.8 10*3 0.0-1.0 Automated eosinophil count 0.0 10*3/uL 0.0-0.3 Automated blood basophil count (count/volume) 0.0 10*3/uL 0.0-0.1 Blood lactic acid measurement (moles/volume) - 05/18/17 23:20 Blood lactic acid measurement (moles/volume) 2.76 mmol/L 0.50-2.00 Serum or plasma lithium measurement (moles/volume) - 05/18/17 23:20 BNP level 26.0 pg/mL <100.0 Comprehensive metabolic panel - 05/18/17 23:20 Serum or plasma sodium measurement (moles/volume) 133 mmol/L 135-145 Serum or plasma potassium measurement (moles/volume) 4.1 mmol/L 3.6-5.0 Serum or plasma chloride measurement (moles/volume) 102 mmol/L 98-107 Carbon dioxide 18 mmol/L 21-32 Serum or plasma anion gap determination (moles/volume) 13 mmol/L 5-14 Serum or plasma urea nitrogen measurement (mass/volume) 16 mg/dL 7-18 Serum or plasma creatinine measurement (mass/volume) 0.98 mg/dL 0.60-1.30 Serum or plasma urea nitrogen/creatinine mass ratio 16 NRG Serum or plasma creatinine measurement with calculation of estimated glomerular filtration rate 57 NRG Serum or plasma glucose measurement (mass/volume) 131 mg/dL 70-105 Serum or plasma calcium measurement (mass/volume) 9.5 mg/dL 8.5-10.1 Serum or plasma total bilirubin measurement (mass/volume) 1.3 mg/dL 0.1-1.0 Serum or plasma alkaline phosphatase measurement (enzymatic activity/volume) 58 U/L 40-136 Serum or plasma aspartate aminotransferase measurement (enzymatic activity/ volume) 21 U/L 5-34 Serum or plasma alanine aminotransferase measurement (enzymatic activity/volume ) 14 U/L 0-55 Serum or plasma protein measurement (mass/volume) 7.6 g/dL 6.4-8.2 Serum or plasma albumin measurement (mass/volume) 4.0 g/dL 3.2-4.5 Magnesium - 05/18/17 23:20 Magnesium 1.7 mg/dL 1.8-2.4 Ammonia - 05/18/17 23:20 Ammonia 22 umol/L 11-32 Serum or plasma C reactive protein measurement (mass/volume) - 05/18/17 23:20 Serum or plasma C reactive protein measurement (mass/volume) 2.17 mg /dL 0.00-0.50 Blood lactic acid measurement (moles/volume) - 05/19/17 03:05 Blood lactic acid measurement (moles/volume) 2.07 mmol/L 0.50-2.00 Whole blood basic metabolic panel - 05/19/17 05:18 Serum or plasma sodium measurement (moles/volume) 134 mmol/L 135-145 Serum or plasma potassium measurement (moles/volume) 4.0 mmol/L 3.6-5.0 Serum or plasma chloride measurement (moles/volume) 107 mmol/L 98-107 Carbon dioxide 17 mmol/L 21-32 Serum or plasma anion gap determination (moles/volume) 10 mmol/L 5-14 Serum or plasma urea nitrogen measurement (mass/volume) 13 mg/dL 7-18 Serum or plasma creatinine measurement (mass/volume) 0.83 mg/dL 0.60-1.30 Serum or plasma urea nitrogen/creatinine mass ratio 16 NRG Serum or plasma creatinine measurement with calculation of estimated glomerular filtration rate > NRG Serum or plasma glucose measurement (mass/volume) 126 mg/dL 70-105 Serum or plasma calcium measurement (mass/volume) 9.0 mg/dL 8.5-10.1 Serum or plasma lactate measurement (moles/volume) - 05/19/17 05:18 Serum or plasma lactate measurement (moles/volume) 2.61 mmol/L 0.50-2.00 Complete blood count (CBC) with automated white blood cell (WBC) differential - 05/19/17 05:18 Blood leukocytes automated count (number/volume) 11.9 10*3/uL 4.3-11.0 Blood erythrocytes automated count (number/volume) 4.43 10*6/uL 4.35-5.85 Venous blood hemoglobin measurement (mass/volume) 14.0 g/dL 11.5-16.0 Blood hematocrit (volume fraction) 39 % 35-52 Automated erythrocyte mean corpuscular volume 88 [foz_us] 80-99 Automated erythrocyte mean corpuscular hemoglobin (mass per erythrocyte) 32 pg 25-34 Automated erythrocyte mean corpuscular hemoglobin concentration measurement ( mass/volume) 36 g/dL 32-36 Automated erythrocyte distribution width ratio 12.3 % 10.0-14.5 Automated blood platelet count (count/volume) 126 10*3/uL 130-400 Automated blood platelet mean volume measurement 12.3 [foz_us] 7.4-10.4 Automated blood neutrophils/100 leukocytes 59 % 42-75 Automated blood lymphocytes/100 leukocytes 28 % 12-44 Blood monocytes/100 leukocytes 13 % 0-12 Automated blood eosinophils/100 leukocytes 0 % 0-10 Automated blood basophils/100 leukocytes 0 % 0-10 Blood neutrophils automated count (number/volume) 7.0 10*3 1.8-7.8 Blood lymphocytes automated count (number/volume) 3.3 10*3 1.0-4.0 Blood monocytes automated count (number/volume) 1.5 10*3 0.0-1.0 Automated eosinophil count 0.0 10*3/uL 0.0-0.3 Automated blood basophil count (count/volume) 0.0 10*3/uL 0.0-0.1 Blood lactic acid measurement (moles/volume) - 05/19/17 07:55 Blood lactic acid measurement (moles/volume) 1.84 mmol/L 0.50-2.00 Complete urinalysis with reflex to culture - 05/19/17 10:09 Urine color determination YELLOW NRG Urine clarity determination VERY CLOUDY NRG Urine pH measurement by test strip 6.5 5-9 Specific gravity of urine by test strip 1.005 1.016- 1.022 Urine protein assay by test strip, semi-quantitative NEGATIVE NEGATIVE Urine glucose detection by automated test strip NEGATIVE NEGATIVE Erythrocytes detection in urine sediment by light microscopy 4+ NEGATIVE Urine ketones detection by automated test strip NEGATIVE NEGATIVE Urine nitrite detection by test strip NEGATIVE NEGATIVE Urine total bilirubin detection by test strip NEGATIVE NEGATIVE Urine urobilinogen measurement by automated test strip (mass/volume) 4 mg/dL NORMAL Urine leukocyte esterase detection by dipstick 3+ NEGATIVE Automated urine sediment erythrocyte count by microscopy (number/high power field) [HPF] NR Automated urine sediment leukocyte count by microscopy (number/high power field ) [HPF] NRG Bacteria detection in urine sediment by light microscopy LARGE NRG Squamous epithelial cells detection in urine sediment by light microscopy 0-2 NRG Crystals detection in urine sediment by light microscopy PRESENT NRG Casts detection in urine sediment by light microscopy NONE NRG Mucus detection in urine sediment by light microscopy NEGATIVE NRG Complete urinalysis with reflex to culture YES NRG Amorphous sediment detection in urine sediment by light microscopy MOD LORI URATES NRG Bacterial urine culture - 05/19/17 10:09 Bacterial urine culture [id number] NRG COLONY COUNT >100,000/ML NRG Complete blood count (CBC) with automated white blood cell (WBC) differential - 05/20/17 06:55 Blood leukocytes automated count (number/volume) 6.8 10*3/uL 4.3-11.0 Blood erythrocytes automated count (number/volume) 3.90 10*6/uL 4.35-5.85 Venous blood hemoglobin measurement (mass/volume) 12.2 g/dL 11.5-16.0 Blood hematocrit (volume fraction) 34 % 35-52 Automated erythrocyte mean corpuscular volume 88 [foz_us] 80-99 Automated erythrocyte mean corpuscular hemoglobin (mass per erythrocyte) 31 pg 25-34 Automated erythrocyte mean corpuscular hemoglobin concentration measurement ( mass/volume) 36 g/dL 32-36 Automated erythrocyte distribution width ratio 12.4 % 10.0-14.5 Automated blood platelet count (count/volume) 111 10*3/uL 130-400 Automated blood platelet mean volume measurement 10.7 [foz_us] 7.4-10.4 Automated blood neutrophils/100 leukocytes 54 % 42-75 Automated blood lymphocytes/100 leukocytes 31 % 12-44 Blood monocytes/100 leukocytes 13 % 0-12 Automated blood eosinophils/100 leukocytes 3 % 0-10 Automated blood basophils/100 leukocytes 0 % 0-10 Blood neutrophils automated count (number/volume) 3.6 10*3 1.8-7.8 Blood lymphocytes automated count (number/volume) 2.1 10*3 1.0-4.0 Blood monocytes automated count (number/volume) 0.9 10*3 0.0-1.0 Automated eosinophil count 0.2 10*3/uL 0.0-0.3 Automated blood basophil count (count/volume) 0.0 10*3/uL 0.0-0.1 Comprehensive metabolic panel - 05/20/17 06:55 Serum or plasma sodium measurement (moles/volume) 136 mmol/L 135-145 Serum or plasma potassium measurement (moles/volume) 4.4 mmol/L 3.6-5.0 Serum or plasma chloride measurement (moles/volume) 108 mmol/L 98-107 Carbon dioxide 22 mmol/L 21-32 Serum or plasma anion gap determination (moles/volume) 6 mmol/L 5-14 Serum or plasma urea nitrogen measurement (mass/volume) 10 mg/dL 7-18 Serum or plasma creatinine measurement (mass/volume) 0.74 mg/dL 0.60-1.30 Serum or plasma urea nitrogen/creatinine mass ratio 14 NRG Serum or plasma creatinine measurement with calculation of estimated glomerular filtration rate > NRG Serum or plasma glucose measurement (mass/volume) 123 mg/dL 70-105 Serum or plasma calcium measurement (mass/volume) 9.0 mg/dL 8.5-10.1 Serum or plasma total bilirubin measurement (mass/volume) 0.8 mg/dL 0.1-1.0 Serum or plasma alkaline phosphatase measurement (enzymatic activity/volume) 47 U/L 40-136 Serum or plasma aspartate aminotransferase measurement (enzymatic activity/ volume) 26 U/L 5-34 Serum or plasma alanine aminotransferase measurement (enzymatic activity/volume ) 14 U/L 0-55 Serum or plasma protein measurement (mass/volume) 6.6 g/dL 6.4-8.2 Serum or plasma albumin measurement (mass/volume) 3.5 g/dL 3.2-4.5 CBC - 08/23/17 08:44 WHITE BLOOD CELL COUNT 9.1 Thousand/uL 3.8-10.8 RED BLOOD CELL COUNT 4.97 Million/uL 3.80-5.10 HEMOGLOBIN 15.4 g/dL 11.7-15.5 HEMATOCRIT 45.3 % 35.0-45.0 MCV 91.1 fL 80.0-100.0 MCH 31.0 pg 27.0-33.0 MCHC 34.0 g/dL 32.0-36.0 RDW 12.6 % 11.0-15.0 PLATELET COUNT 190 Thousand/uL 140-400 MPV 10.3 fL 7.5-12.5 ABSOLUTE NEUTROPHILS 3394 cells/uL 2491-0208 ABSOLUTE LYMPHOCYTES 4641 cells/uL 850-3900 ABSOLUTE MONOCYTES 728 cells/uL 200-950 ABSOLUTE EOSINOPHILS 291 cells/uL 15-500 ABSOLUTE BASOPHILS 46 cells/uL 0-200 NEUTROPHILS 37.3 % NRG LYMPHOCYTES 51.0 % NRG MONOCYTES 8.0 % NRG EOSINOPHILS 3.2 % NRG BASOPHILS 0.5 % NRG Encounters ACCT No. Visit Date/Time Discharge Status Pt. Type Provider Facility Loc./Unit Complaint [id number] 05/25/2014 07:54:00 05/25/2014 23:59:59 CLS Outpatient DAVID LOVE DO [id number] 05/07/2014 11:35:00 05/07/2014 23:59:59 CLS Outpatient TORREY FELIX MD [id number] 01/19/2014 15:24:00 01/19/2014 23:59:59 CLS Outpatient TORREY FELIX MD [id number] 12/26/2013 14:19:00 12/26/2013 23:59:59 CLS Outpatient RICHIE MENDOZA APRN [id number] 11/28/2013 16:26:00 11/28/2013 23:59:59 CLS Outpatient TORREY FELIX MD [id number] 11/16/2013 11:15:00 11/16/2013 23:59:59 CLS Outpatient TORREY FELIX MD [id number] 09/05/2013 14:22:00 09/05/2013 23:59:59 CLS Outpatient TORREY FELIX MD [id number] 07/21/2013 13:02:00 07/21/2013 23:59:59 CLS Outpatient PHIL SARAVIA DDS [id number] 05/16/2013 12:18:00 05/16/2013 23:59:59 CLS Outpatient TORREY FELIX MD [id number] 05/11/2013 10:37:00 05/11/2013 23:59:59 CLS Outpatient TORREY FELIX MD [id number] 12/22/2012 15:29:00 12/22/2012 23:59:59 CLS Outpatient TORREY FELIX MD [id number] 12/22/2012 15:29:00 12/22/2012 23:59:59 CLS Outpatient TORREY FELIX MD [id number] 06/14/2012 15:31:00 06/14/2012 23:59:59 CLS Outpatient TORREY FELIX MD [id number] 03/04/2012 10:46:00 03/04/2012 23:59:59 CLS Outpatient [id number] 01/25/2012 14:03:00 01/25/2012 23:59:59 CLS Outpatient TORREY FELIX MD [id number] 01/07/2012 15:23:00 01/07/2012 23:59:59 [place] [id number] 11/24/2011 13:11:00 11/24/2011 23:59:59 CLS Outpatient DAVID LOVE DO [id number] 06/14/2012 15:31:00 Document Registration [id number] 09/30/2017 09:40:00 09/30/2017 23:59:59 CLS Outpatient TORREY FELIX MD [facility] [id number] 08/23/2017 09:00:00 Document Registration [id number] 09/17/2016 07:05:00 Document Registration [id number] 09/11/2016 07:06:00 Document Registration [id number] 10/07/2014 03:16:00 ACT Document Registration [id number] 09/02/2016 08:08:00 Document Registration [id number] 12/06/2017 15:00:00 01/19/2018 10:32:00 DIS Outpatient TORREY FELIX MD [facility] REHAB [facility]ERTIGO [id number] 10/04/2017 11:46:00 10/04/2017 23:59:59 CLS Preadmit TORREY FELIX MD [facility] RAD S22.000A COMPRESSION FRACTURE THORACIC VERTEBRA [id number] 08/03/2017 08:15:00 08/03/2017 23:59:59 CLS Preadmit TORREY FELIX MD [facility] RAD ROUTINE ADULT HEALTH MAINTENANCE [id number] 05/19/2017 00:30:00 05/20/2017 16:10:00 DIS Inpatient STELLA GOFF, APURVA Ko [facility] 4TH UTI,SEPSIS,URETAL CALCULI ,HBV HX OF CIRRHOSIS [id number] 11/25/2016 07:32:00 11/25/2016 23:59:59 CLS Outpatient DAVID WORTHY MD [facility] CARD . [id number] 09/24/2016 08:32:00 09/24/2016 23:59:59 CLS Outpatient TORREY FELIX MD [facility] RAD B18.2 [id number] 09/23/2016 07:30:00 09/23/2016 23:59:59 CLS Preadmit DAVID WORTHY MD [facility] CARD CAROTID ARTERY STENOSIS [id number] 07/30/2016 11:21:00 07/30/2016 23:59:59 CLS Outpatient DAVID WORTHY MD [facility] CARD VALENTE I65.23 [id number] 06/08/2016 10:15:00 06/08/2016 23:59:59 CLS Preadmit DAVID WORTHY MD [facility] CARD I65.23,G89.29,R06.00 [id number] 06/05/2016 14:00:00 06/05/2016 23:59:59 CLS Preadmit DAVID WORTHY MD [facility] CARD I65.23,G89.29 [id number] 01/03/2016 19:03:00 01/03/2016 22:03:00 DIS Emergency KHRIS ARREAGA DO [facility] ER FALL X2 [id number] 11/29/2015 11:51:00 11/29/2015 23:59:59 CLS Outpatient TORREY FELIX MD [facility] LAB CHRONIC HEPATITIS C [id number] 11/27/2014 13:24:00 11/27/2014 15:55:00 DIS Outpatient TERESA QUIROGA DO [facility] SDC RECTAL BLEEDING [id number] 11/22/2014 05:35:00 11/22/2014 23:59:59 CLS Outpatient TERESA QUIROGA DO [facility] PREOP RECTAL BLEEDING [id number] 10/06/2014 21:00:00 10/07/2014 05:05:00 DIS Outpatient TIMMY AMARO DO [facility] SLEEP FINN [id number] 09/28/2014 13:01:00 09/28/2014 23:59:59 CLS Outpatient TIMMY AMARO DO [facility] RT DYSPNEA,PULMONARY HTN [id number] 08/01/2014 07:54:00 08/01/2014 21:53:00 DIS Outpatient DAVID WORTHY MD [facility] CATH ABNORMAL STRESS, CAD,HTN ,OBESITY [id number] 07/25/2014 11:53:00 07/25/2014 23:59:59 CLS Outpatient DAVID WORTHY MD [facility] CARD PULMONARY HTN,HTN,HLP [id number] 07/06/2014 13:56:00 07/06/2014 23:59:59 CLS Outpatient DAVID WORTHY MD [facility] CARD CP,HTN,PULMONARY HTN, HLP [id number] 06/05/2014 23:01:00 06/05/2014 23:51:00 DIS Emergency RUPESH GOFF, ALEXEI Driver [facility] ER L FOOT PAIN,SWELLING [id number] 04/26/2013 14:30:00 04/27/2013 12:10:00 DIS Inpatient ELVIRA GOFF, TORREY Ward [facility] 4TH FACIAL CELLULITIS [id number] 02/09/2013 20:08:00 02/09/2013 23:48:00 DIS Emergency ANTHONY GOFF, YAIR Rivera [facility] ER DIZZINESS, NAUSEA [id number] 01/23/2013 10:31:00 01/23/2013 16:15:00 DIS Outpatient MARCO ANTONIO PULIDO MD [facility] SDC RECTAL BLEEDING [id number] 01/19/2013 07:20:00 01/19/2013 23:59:59 CLS Outpatient MARCO ANTONIO PULIDO MD [facility] PREOP RECTAL BLEEDING [id number] 06/15/2012 13:59:00 06/15/2012 23:59:59 CLS Outpatient DAVID WORTHY MD [facility] CARD SYNCOPE [id number] 09/29/2017 11:57:00 Document Registration [id number] 09/27/2017 11:21:00 Document Registration [id number] 10/29/2011 07:44:00 Document Registration [id number] 05/14/2011 14:55:00 Document Registration [id number] 11/19/2009 06:12:00 Document Registration [id number] 11/14/2009 11:05:00 Document Registration [id number] 11/08/2009 14:58:00 Document Registration [id number] 08/16/2009 09:07:00 Document Registration [id number] 07/08/2009 23:37:00 Document Registration [id number] 06/19/2009 13:42:00 Document Registration [id number] 09/12/2016 17:06:00 Document Registration
[2018-05-08] MEDS ORDERED: KETOROLAC 30 MG/ML VIAL IVP STA (21:17)
[2018-05-08] MEDS ORDERED: SPIR25TA5 PO (21:18)
[2018-05-08] MEDS ORDERED: VENL150C98 PO (21:18)
[2018-05-08] MEDS ORDERED: TRAM50TA2 PO (21:19)
--- NOTE | 2018-05-08 21:38 | Diagnostic Imaging Report ---
INDICATION: Left groin pain. EXAMINATION: Supine and upright views of the abdomen were obtained. FINDINGS: Fecal material throughout the colon consistent with moderate constipation. The small bowel is normal. There is no free intraperitoneal air evident. There is no mass or calculus. There are changes of prior surgery with stabilization kristine seen in the lumbar spine from T12 through L2. IMPRESSION: Constipation. No acute abnormality is evident. Dictated by: Dictated on workstation # [id number]
--- NOTE | 2018-05-08 21:50 | Diagnostic Imaging Report ---
PROCEDURE: CT abdomen and pelvis without contrast. TECHNIQUE: Multiple contiguous axial images were obtained through the abdomen and pelvis without the use of intravenous contrast. Auto Exposure Controls were utilized during the CT exam to meet ALARA standards for radiation dose reduction. INDICATION: Left groin pain The lung bases are clear. Spleen is normal. The liver and bile ducts are normal. The pancreas and adrenals are normal. The kidneys, ureters and bladder are normal. No acute bowel abnormality is seen. There is no free intraperitoneal air or fluid. There is no acute bony abnormality. IMPRESSION: No acute abnormality is seen. Dictated by: Dictated on workstation # [id number]
[2018-05-08 22:11] LABS: BASOPHILS % (AUTO) 0 % (0-10); EOSINOPHILS # (AUTO) 0.4 10^3/uL (0.0-0.3); EOSINOPHILS % (AUTO) 5 % (0-10); HEMATOCRIT 40 % (35-52); HEMOGLOBIN 14.1 G/DL (11.5-16.0); LYMPHOCYTES # (AUTO) 3.2 X 10^3 (1.0-4.0); LYMPHOCYTES % (AUTO) 45 % (12-44); MEAN CORPUSCULAR HEMOGLOBIN 32 PG (25-34); MEAN CORPUSCULAR HGB CONC 36 G/DL (32-36); MEAN CORPUSCULAR VOLUME 89 FL (80-99); MEAN PLATELET VOLUME 10.5 FL (7.4-10.4); MONOCYTES # (AUTO) 0.7 X 10^3 (0.0-1.0); MONOCYTES % (AUTO) 10 % (0-12); NEUTROPHILS # (AUTO) 2.9 X 10^3 (1.8-7.8); NEUTROPHILS % (AUTO) 40 % (42-75); PLATELET COUNT 144 10^3/uL (130-400); RED CELL DISTRIBUTION WIDTH 12.7 % (10.0-14.5); WHITE BLOOD COUNT 7.2 10^3/uL (4.3-11.0)
[2018-05-08 22:30] LABS: ALBUMIN 4.1 GM/DL (3.2-4.5); BILIRUBIN,TOTAL 0.8 MG/DL (0.1-1.0); CALCIUM 10.1 MG/DL (8.5-10.1); CREATININE SERUM 1.03 MG/DL (0.60-1.30); POTASSIUM 3.5 MMOL/L (3.6-5.0); TOTAL PROTEIN 7.9 GM/DL (6.4-8.2)
[2018-05-08] MEDS ORDERED: fluCOnazole (DIFLUCAN) 100 MG TAB PO ONE (22:45)
[2018-05-08] MEDS ORDERED: CLINDAMYCIN 600 MG/50 ML IVPB 50 ML IV ONE (22:45)
[2018-05-08 23:33] LABS: BILIRUBIN,URINE NEGATIVE (NEGATIVE); CLARITY,URINE CLEAR; COLOR,URINE YELLOW; GLUCOSE, URINE (UA) NEGATIVE (NEGATIVE); KETONES,URINE NEGATIVE (NEGATIVE); LEUKOCYTE ESTERASE ,URINE NEGATIVE (NEGATIVE); NITRITE,URINE NEGATIVE (NEGATIVE); PH,URINE 5 (5-9); PROTEIN,URINE NEGATIVE (NEGATIVE); UROBILINOGEN,URINE NORMAL (NORMAL)
[2018-05-08 23:42] LABS: BACTERIA,URINE TRACE /HPF; SQUAMOUS EPITHELIAL CELL,UR 0-2 /HPF
[2018-05-08] MEDS ORDERED: NYST1POW22 MC (23:58)
[2018-05-08] MEDS ORDERED: SULF1TAB35 PO (23:58)
[2018-05-08] MEDS ORDERED: FLUC200T PO (23:58)
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
[2018-05-09 00:41] VITALS: BP 121/59
== END 2018-05-09 00:43 | disposition home or self-care (01) ==
LOC: EDUNIT# 20:29 → ER 20:30
DX: B37.49 Other urogenital candidiasis (principal); B37.2 Candidiasis of skin and nail; J44.9 Chronic obstructive pulmonary disease, unspecified; I10 Essential (primary) hypertension; E66.9 Obesity, unspecified; B19.20 Unspecified viral hepatitis C without hepatic coma; Z88.5 Allergy status to narcotic agent; Z91.048 Other nonmedicinal substance allergy status; Z79.51 Long term (current) use of inhaled steroids; Z82.49 Family history of ischemic heart disease and other diseases of the circulatory system; Z90.710 Acquired absence of both cervix and uterus
CPT/HCPCS: 36415; 74019; 74176; 80053; 81000; 85025; 96365; 96375

== ENCOUNTER 2019-02-01 22:42 | Emergency (ER) | payer MEDICAID, MEDICARE ==
[~2019-02-01] VITALS: Ht 154.9 cm; Wt 90.9 kg
[~2019-02-01 22:42] MED LIST changes: +FLUC200T PO; +NYST1POW22 MC; +SPIR25TA5 PO; +SULF1TAB35 PO; +TRAM50TA2 PO; +VENL150C98 PO
[2019-02-01] MEDS ORDERED: LACTATED RINGERS 1,000 ML IV ONE (22:52)
[2019-02-01] MEDS ORDERED: ONDANSETRON 4 MG/2 ML (SDV) Z0FRAN IVP ONE (23:00)
[2019-02-01 23:08] LABS: BASOPHILS % (AUTO) 0 % (0-10); EOSINOPHILS # (AUTO) 0.1 10^3/uL (0.0-0.3); EOSINOPHILS % (AUTO) 0 % (0-10); HEMATOCRIT 39 % (35-52); HEMOGLOBIN 13.4 G/DL (11.5-16.0); LYMPHOCYTES % (AUTO) 17 % (12-44); MEAN CORPUSCULAR HEMOGLOBIN 30 PG (25-34); MEAN CORPUSCULAR HGB CONC 35 G/DL (32-36); MEAN CORPUSCULAR VOLUME 88 FL (80-99); MEAN PLATELET VOLUME 10.4 FL (7.4-10.4); MONOCYTES # (AUTO) 1.2 X 10^3 (0.0-1.0); MONOCYTES % (AUTO) 10 % (0-12); NEUTROPHILS # (AUTO) 8.5 X 10^3 (1.8-7.8); NEUTROPHILS % (AUTO) 72 % (42-75); PLATELET COUNT 182 10^3/uL (130-400); WHITE BLOOD COUNT 11.8 10^3/uL (4.3-11.0)
[2019-02-01 23:20] LABS: INR 1.1 (0.8-1.4); PROTHROMBIN TIME PATIENT 14.5 SEC (12.2-14.7)
--- NOTE | 2019-02-01 23:30 | NUR ---
BLADDER SCAN= [phone]
[2019-02-01 23:56] LABS: ALANINE AMINOTRANSFERASE 16 U/L (0-55); ALBUMIN 3.9 GM/DL (3.2-4.5); ALKALINE PHOSPHATASE 79 U/L (40-136); AMYLASE 44 U/L (25-125); BILIRUBIN,TOTAL 1.2 MG/DL (0.1-1.0); BUN/CREATININE RATIO 15; CALCIUM 9.7 MG/DL (8.5-10.1); CARBON DIOXIDE 18 MMOL/L (21-32); CHLORIDE 103 MMOL/L (98-107); CREATINE KINASE 74 U/L (29-168); CREATININE SERUM 0.89 MG/DL (0.60-1.30); GFR ESTIMATED > 60; GLUCOSE 155 MG/DL (70-105); LIPASE < 4 U/L (8-78); MAGNESIUM 1.6 MG/DL (1.6-2.4); POTASSIUM 3.4 MMOL/L (3.6-5.0); SODIUM 134 MMOL/L (135-145); TOTAL PROTEIN 7.5 GM/DL (6.4-8.2)
[2019-02-02 00:03] LABS: CREATINE KINASE MB 1.6 NG/ML (<6.6)
[2019-02-02 00:13] LABS: BILIRUBIN,URINE NEGATIVE (NEGATIVE); CLARITY,URINE SL CLOUDY; COLOR,URINE YELLOW; GLUCOSE, URINE (UA) NEGATIVE (NEGATIVE); KETONES,URINE TRACE (NEGATIVE); LEUKOCYTE ESTERASE ,URINE 1+ (NEGATIVE); NITRITE,URINE NEGATIVE (NEGATIVE); PROTEIN,URINE NEGATIVE (NEGATIVE)
[2019-02-02 00:21] LABS: BACTERIA,URINE LARGE /HPF; RBC,URINE RARE /HPF; SQUAMOUS EPITHELIAL CELL,UR RARE /HPF
[2019-02-02 00:24] LABS: AMPHETAMINE SCREEN, URINE NEGATIVE (NEGATIVE); BARBITURATE SCREEN URINE NEGATIVE (NEGATIVE); BENZODIAZEPINES SCREEN URINE NEGATIVE (NEGATIVE); CANNABINOID SCREEN, URINE NEGATIVE (NEGATIVE); COCAINE SCREEN URINE NEGATIVE (NEGATIVE); METHADONE STAT NEGATIVE (NEGATIVE); METHAMPHETAMINE SCREEN URINE S NEGATIVE (NEGATIVE); OPIATE SCREEN URINE NEGATIVE (NEGATIVE); OXYCODONE STAT NEGATIVE (NEGATIVE); PROPOXYPHENE STAT NEGATIVE (NEGATIVE); TRICYCLIC ANTIDEPRESSANTS SCRE NEGATIVE (NEGATIVE)
[2019-02-02] MEDS ORDERED: methylPREDNISolone 125 MG (Solu-MEDROL) VIAL IVP ONE (00:30)
[2019-02-02] MEDS ORDERED: cefTRIAXone FOR IV USE 1,000 MG in WATER (STERILE) FOR INJECTION 10 ML IV ONE (00:30)
[2019-02-02] MEDS ORDERED: AZITHROMYCIN INJECTION 500 MG in NS (IVPB) 250 ML IV ONE (00:30)
--- NOTE | 2019-02-02 00:41 | NUR ---
BLOOD CULTURES X2 DRAWN BY LAB.
[2019-02-02] MEDS ORDERED: TAMSULOSIN 0.4 MG (FLOMAX) CAP PO SCH (01:00)
[2019-02-02] MEDS ORDERED: AZIT500T PO (01:09)
[2019-02-02] MEDS ORDERED: CEFD300C3 PO (01:09)
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
[2019-02-02 01:45] VITALS: BP 139/59
--- NOTE | 2019-02-02 06:12 | Diagnostic Imaging Report ---
INDICATION: Cough and congestion. Portable chest 11:17 PM FINDINGS: Heart size and pulmonary vascularity are normal. Lungs are clear. There are no effusions or pneumothoraces. IMPRESSION: Negative chest. Dictated by: Dictated on workstation # [id number]
== END 2019-02-02 01:46 | disposition home or self-care (01) ==
LOC: EDUNIT# 22:42 → ER 22:43
DX: N39.0 Urinary tract infection, site not specified (principal); J44.9 Chronic obstructive pulmonary disease, unspecified; I10 Essential (primary) hypertension; E66.9 Obesity, unspecified; B19.20 Unspecified viral hepatitis C without hepatic coma; Z87.440 Personal history of urinary (tract) infections; Z90.49 Acquired absence of other specified parts of digestive tract; Z88.5 Allergy status to narcotic agent; Z68.37 Body mass index [BMI] 37.0-37.9, adult; Z95.9 Presence of cardiac and vascular implant and graft, unspecified; Z90.710 Acquired absence of both cervix and uterus; Z88.8 Allergy status to other drugs, medicaments and biological substances; Z79.51 Long term (current) use of inhaled steroids; Z77.22 Contact with and (suspected) exposure to environmental tobacco smoke (acute) (chronic); Z82.49 Family history of ischemic heart disease and other diseases of the circulatory system
CPT/HCPCS: 36415; 51702; 71045; 80053; 80306; 80320; 81000; 82150; 82550; 82553; 83605; 83690; 83735; 83880; 84484; 85025; 85610; 85730; 87040; 87077; 87088; 87186; 87804; 93005; 93041; 96361; 96365; 96375

== ENCOUNTER → 2019-03-08 | Outpatient (CLI) | payer MEDICAID, MEDICARE ==
[~2019-03-08] MED LIST changes: +AZIT500T PO; +CEFD300C3 PO; -METO-387 PO; +MTP25TSR PO; -TRAM50TA2 PO; +TRM50T PO
[2019-03-08 13:04] LABS: ALANINE AMINOTRANSFERASE 15 U/L (0-55); ALBUMIN 3.9 GM/DL (3.2-4.5); ALKALINE PHOSPHATASE 110 U/L (40-136); BILIRUBIN,TOTAL 0.6 MG/DL (0.1-1.0); BUN/CREATININE RATIO 13; CALCIUM 9.3 MG/DL (8.5-10.1); CARBON DIOXIDE 24 MMOL/L (21-32); CHLORIDE 107 MMOL/L (98-107); CHOLESTEROL 153 MG/DL (< 200); CREATININE SERUM 0.75 MG/DL (0.60-1.30); GFR ESTIMATED > 60; GLUCOSE 126 MG/DL (70-105); HDL CHOLESTEROL 50 MG/DL (40-60); POTASSIUM 4.2 MMOL/L (3.6-5.0); SODIUM 138 MMOL/L (135-145); TOTAL PROTEIN 7.2 GM/DL (6.4-8.2); TRIGLYCERIDES 75 MG/DL (<150); VLDL CHOLESTEROL 15 MG/DL (5-40)
== END ==
LOC: CARD 11:43
PROVIDERS: ATTEND Internal Medicine Cardiovascular Disease
DX: I10 Essential (primary) hypertension (principal); R55 Syncope and collapse; E78.2 Mixed hyperlipidemia; R06.09 Other forms of dyspnea
CPT/HCPCS: 36415; 80053; 80061; 93306

== ENCOUNTER 2020-07-30 05:39 | Outpatient (CLI) | payer MEDICARE, MEDICAID ==
[~2020-07-30] VITALS: Ht 152.4 cm; Wt 96.0 kg
[~2020-07-30 05:39] MED LIST changes: -CIPR500T4 PO; +CIPR500T5 PO; -MECL-106 PO; +MECL-149 PO
== END 2020-07-30 16:00 | disposition home or self-care (01) ==
LOC: PREOP 05:39
PROVIDERS: ATTEND Surgery
DX: Z01.818 Encounter for other preprocedural examination (principal)

== ENCOUNTER 2020-08-06 10:57 | Day surgery (SDC) | payer MEDICARE, MEDICAID ==
[~2020-08-06] VITALS: Ht 152 cm; Wt 96.0 kg
[2020-08-06] MEDS ORDERED: LACTATED RINGERS 1,000 ML IV STA (11:01)
[2020-08-06] MEDS ORDERED: LACTATED RINGERS 1,000 ML IV ONE (11:04)
[2020-08-06 11:15] VITALS: BP 142/88
[2020-08-06] MEDS ORDERED: proPOfol 200 MG/20 ML (DIPRIVAN) VIAL IV ONE (12:41)
[2020-08-06 13:20] VITALS: BP 121/58
--- NOTE | 2020-08-06 13:23 | Progress Note-Post Operative ---
Post-Operative Progess Note Surgeon (s)/Director Of Informatics (s) Surgeon TERESA QUIROGA DO Director Of Informatics: na Pre-Operative Diagnosis rectal bleeding Post-Operative Diagnosis poor prep Procedure & Operative Findings Date of Procedure 08/06/20 Procedure Performed/Findings anoscopy Anesthesia Type per [facility] Estimated Blood Loss Estimated blood loss (mL): none Specimens/Packing Specimens Removed na TERESA QUIROGA DO Aug 06, 2020 13:23
[2020-08-06 13:25] VITALS: BP 128/55
[2020-08-06 13:30] VITALS: BP 139/61
[2020-08-06 14:00] VITALS: BP 146/86
--- NOTE | 2020-08-06 14:40 | Anesthesia-General Post-Op ---
MAC Patient Condition Mental Status/LOC: Same as Preop Cardiovascular: Satisfactory Nausea/Vomiting: Absent Respiratory: Satisfactory Pain: Controlled Complications: Absent Post Op Complications Complications None Follow Up Care/Instructions Patient Instructions None needed. Anesthesiology Discharge Order Discharge Order Patient was seen after the procedure and she was doing well, no complaints, stable vital signs, no apparent adverse anesthesia problems. KELLY CHRISTOPHER DO Aug 06, 2020 14:40
--- NOTE | 2020-08-06 17:19 | OPERATIVE REPORT ---
DATE OF SERVICE: 08/06/2020 PREOPERATIVE DIAGNOSIS: Rectal bleeding. POSTOPERATIVE DIAGNOSIS: Poor prep. PROCEDURE: Anoscopy. SURGEON: Teresa Carlson DO ANESTHESIA: Per MDA. ESTIMATED BLOOD LOSS: None. COMPLICATIONS: None. INDICATIONS: The patient is a 69-year-old female here for colonoscopy due to rectal bleeding. She understands risks and benefits of procedure and wished to proceed. Consent was signed in the chart. DESCRIPTION OF PROCEDURE: The patient was taken to the endoscopy suite, placed in left lateral recumbent position. Timeout was performed. Digital rectal exam was performed noting significant stool load. Scope was then inserted and encountered a significant amount of stool throughout the entire rectal vault, which continued. Prep was poor. Therefore, scope was then slowly retracted back until completely removed, noting no other pathology. RECOMMENDATIONS: The patient will need 2-day prep. We will have the patient follow up in the office to discuss. The patient tolerated procedure well without any complications. 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
== END 2020-08-06 14:05 | disposition home or self-care (01) ==
LOC: ENDO 10:57
PROVIDERS: ATTEND Surgery
DX: K62.5 Hemorrhage of anus and rectum (principal); I10 Essential (primary) hypertension; I25.10 Atherosclerotic heart disease of native coronary artery without angina pectoris; J44.9 Chronic obstructive pulmonary disease, unspecified; G62.9 Polyneuropathy, unspecified; E78.2 Mixed hyperlipidemia; F32.9 Major depressive disorder, single episode, unspecified; G89.29 Other chronic pain; E66.01 Morbid (severe) obesity due to excess calories; Z68.41 Body mass index [BMI] 40.0-44.9, adult; Z79.51 Long term (current) use of inhaled steroids; K62.89 Other specified diseases of anus and rectum; Z79.899 Other long term (current) drug therapy

== ENCOUNTER 2020-09-12 19:00 | Emergency (ER) | payer MEDICARE, MEDICAID ==
[~2020-09-12] VITALS: Ht 154.9 cm; Wt 210.0 kg
[~2020-09-12 19:00] MED LIST changes: -SULF1TAB35 PO; +SULF1TAB38 PO
[2020-09-12 19:58] LABS: HEMATOCRIT 37 % (35-52)
[2020-09-12 20:00] LABS: BASOPHILS % (AUTO) 0 % (0-10); EOSINOPHILS % (AUTO) 0 % (0-10); HEMOGLOBIN 12.6 g/dL (11.5-16.0); LYMPHOCYTES # (AUTO) 0.5 10^3/uL (1.0-4.0); LYMPHOCYTES % (AUTO) 6 % (12-44); MEAN CORPUSCULAR HEMOGLOBIN 30 pg (25-34); MEAN CORPUSCULAR HGB CONC 34 g/dL (32-36); MEAN CORPUSCULAR VOLUME 87 fL (80-99); MONOCYTES # (AUTO) 0.8 10^3/uL (0.0-1.0); MONOCYTES % (AUTO) 11 % (0-12); NEUTROPHILS # (AUTO) 6.4 10^3/uL (1.8-7.8); NEUTROPHILS % (AUTO) 82 % (42-75); PLATELET COUNT 107 10^3/uL (130-400)
[2020-09-12] MEDS ORDERED: fentaNYL INJ 100 MCG/2 ML AMP IVP ONE (20:00)
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
[2020-09-12 20:09] LABS: ALBUMIN 3.5 GM/DL (3.2-4.5); CHLORIDE 96 MMOL/L (98-107); POTASSIUM 3.6 MMOL/L (3.6-5.0); SODIUM 133 MMOL/L (135-145)
[2020-09-12 20:10] LABS: BILIRUBIN,URINE 1+ (NEGATIVE); CLARITY,URINE SL CLOUDY; COLOR,URINE ORANGE; GLUCOSE, URINE (UA) NEGATIVE (NEGATIVE); KETONES,URINE TRACE (NEGATIVE); LEUKOCYTE ESTERASE ,URINE 3+ (NEGATIVE); NITRITE,URINE POSITIVE (NEGATIVE); PH,URINE 5.5 (5-9); PROTEIN,URINE 2+ (NEGATIVE)
[2020-09-12 20:11] LABS: CALCIUM 9.1 MG/DL (8.5-10.1)
[2020-09-12 20:12] LABS: GLUCOSE 159 MG/DL (70-105); TOTAL PROTEIN 7.2 GM/DL (6.4-8.2)
[2020-09-12 20:13] LABS: CARBON DIOXIDE 24 MMOL/L (21-32)
[2020-09-12 20:14] LABS: BILIRUBIN,TOTAL 2.1 MG/DL (0.1-1.0)
[2020-09-12 20:15] LABS: ALKALINE PHOSPHATASE 87 U/L (40-136)
[2020-09-12 20:16] LABS: CREATININE SERUM 0.83 MG/DL (0.60-1.30); GFR ESTIMATED 68
[2020-09-12 20:17] LABS: BUN/CREATININE RATIO 12
[2020-09-12 20:19] LABS: ALANINE AMINOTRANSFERASE 6 U/L (0-55); LIPASE < 4 U/L (8-78)
[2020-09-12 20:23] LABS: ATYPICAL LYMPHOCYTES 1 %; BAND NEUTROPHILS 6 %; EOSINOPHILS % (MANUAL) 1 %; LYMPHOCYTES % (MANUAL) 6 %; MICROCYTOSIS SLIGHT; MONOCYTES % (MANUAL) 12 %; NEUTROPHILS % (MANUAL) 74 %
[2020-09-12 20:26] LABS: WHITE BLOOD COUNT 7.8 10^3/uL (4.3-11.0)
[2020-09-12 20:30] LABS: BACTERIA,URINE LARGE /HPF; RBC,URINE 50-100 /HPF; WBC,URINE 25-50 /HPF
[2020-09-12] MEDS ORDERED: KETOROLAC 30 MG/ML VIAL IVP ONE (20:45)
[2020-09-12] MEDS ORDERED: cefTRIAXone 1,000 MG in WATER (STERILE) FOR INJECTION 10 ML IV ONE (20:45)
--- NOTE | 2020-09-12 20:57 | Diagnostic Imaging Report ---
PROCEDURE: CT urinary tract, rule out kidney stone. TECHNIQUE: Multiple contiguous axial images were obtained through the abdomen and pelvis without the use of intravenous contrast. Auto Exposure Controls were utilized during the CT exam to meet ALARA standards for radiation dose reduction. INDICATION: Abdominal pain. CORRELATION STUDY: 05/08/2018. FINDINGS: LOWER THORAX: Clear. LIVER: Nodular appearance about the liver compatible with cirrhosis. Upper abdominal varicosities are present including recanalized umbilical vein. GALLBLADDER: Not visualized, appears absent. SPLEEN: Lobulated mildly enlarged. PANCREAS: Unremarkable. ADRENAL GLANDS: Unremarkable. KIDNEYS: Right kidney and collecting system are unremarkable. Approximately 4 x 6 mm stone in the proximal left ureter results in moderate left-sided obstruction with engorgement of the left kidney and prominent perinephric stranding. The remainder of the ureter appears unremarkable. ABDOMINAL AORTA: Unremarkable, nonaneurysmal. GASTROINTESTINAL TRACT: No definitive obstruction or inflammation. Appendix not localized. Very slight haziness in the mesentery. No significant ascites. URINARY BLADDER: Unremarkable. REPRODUCTIVE: Post hysterectomy. OSSEOUS STRUCTURES: Posterior fusion hardware of the T12-L2 level transfixing L1 vertebral body. OTHER: None. IMPRESSION: 1. Approximately 4 x 6 mm stone in proximal left ureter results in moderate left-sided obstruction. 2. Findings consistent with chronic liver disease/cirrhosis with upper abdominal varicosities and borderline splenic enlargement. Dictated by: Dictated on workstation # [id number]
[2020-09-12] MEDS ORDERED: TAMSULOSIN 0.4 MG (FLOMAX) CAP PO SCH (21:30)
[2020-09-12] MEDS ORDERED: RX-OXYCODONE/APAP 5-325 MG #4 TAB PK PO PRN (21:30)
[2020-09-12] MEDS ORDERED: OXYC1TAB11 PO (21:41)
[2020-09-12] MEDS ORDERED: LEVO750T39 PO (21:41)
[2020-09-12] MEDS ORDERED: TMSL.4C PO (21:41)
--- NOTE | 2020-09-12 21:47 | Diagnostic Imaging Report ---
INDICATION: Left ureteral stone . TECHNIQUE: Two supine views of the abdomen at 9:38 PM. CORRELATION STUDY: Renal colic CT 09/12/2020. FINDINGS: Approximately 3 mm calcification projects over the superior left L4 transverse process. This corresponds to the recently identified left ureteric stone. Phlebolith calcifications in the pelvis. Bowel gas pattern is non-obstructed. IMPRESSION: The known left proximal ureteral stone projects just above the left L4 transverse process. Dictated by: Dictated on workstation # [id number]
[2020-09-12 22:13] VITALS: BP 135/72
== END 2020-09-12 22:14 | disposition home or self-care (01) ==
LOC: EDUNIT# 19:00 → ER 19:01
DX: N39.0 Urinary tract infection, site not specified (principal); N13.2 Hydronephrosis with renal and ureteral calculous obstruction; J44.9 Chronic obstructive pulmonary disease, unspecified; I10 Essential (primary) hypertension; E66.9 Obesity, unspecified; Z68.41 Body mass index [BMI] 40.0-44.9, adult
CPT/HCPCS: 36415; 74018; 74176; 80053; 81000; 83690; 85007; 85027; 87077; 87088; 87186

== ENCOUNTER 2020-10-08 05:43 | Outpatient (CLI) | payer MEDICARE, MEDICAID ==
[~2020-10-08] VITALS: Ht 152.4 cm; Wt 95.7 kg
[~2020-10-08 05:43] MED LIST changes: +LEVO750T39 PO; +OXYC1TAB11 PO; +TMSL.4C PO
[2020-10-08] MEDS ORDERED: LACT10SO3 PO (15:00)
== END 2020-10-08 15:41 ==
LOC: PREOP 05:43
PROVIDERS: ATTEND Surgery
DX: Z01.818 Encounter for other preprocedural examination (principal)

== ENCOUNTER 2020-10-15 09:32 | Day surgery (SDC) | payer MEDICARE, MEDICAID ==
[~2020-10-15] VITALS: Ht 152.4 cm; Wt 95.7 kg
[~2020-10-15 09:32] MED LIST changes: +LACT10SO3 PO
[2020-10-15] MEDS ORDERED: LACTATED RINGERS 1,000 ML IV STA (09:39)
[2020-10-15] MEDS ORDERED: LACTATED RINGERS 1,000 ML IV ONE (09:51)
--- NOTE | 2020-10-15 09:59 | Progress Note-Pre Operative ---
Pre-Operative Progress Note H&P Reviewed The H&P was reviewed, patient examined and no changes noted. Date Seen by Provider: Oct 15, 2020 Time Seen by Provider: 09:58 Date H&P Reviewed: Oct 15, 2020 Time H&P Reviewed: 09:58 Pre-Operative Diagnosis: rectal bleeding TERESA QUIROGA DO Oct 15, 2020 09:59
[2020-10-15 10:15] VITALS: BP 156/67
[2020-10-15] MEDS ORDERED: PROPOFOL INJECTION 50 ML IV ONE (10:23)
--- NOTE | 2020-10-15 11:07 | Progress Note-Post Operative ---
Post-Operative Progess Note Surgeon (s)/Pad Machine Feeder (s) Surgeon TERESA QUIROGA DO Pad Machine Feeder: na Pre-Operative Diagnosis rectal bleeding Post-Operative Diagnosis ascending colon polyp, mucosal change rectum Procedure & Operative Findings Date of Procedure 10/15/20 Procedure Performed/Findings colonoscopy c hot bx polypectomy x 1 and cold biopsy rectum Anesthesia Type per tile grader Estimated Blood Loss Estimated blood loss (mL): scant Specimens/Packing Specimens Removed ascending colon polyp, rectum TERESA QUIROGA DO Oct 15, 2020 11:07
--- NOTE | 2020-10-15 11:07 | Anesthesia-General Post-Op ---
MAC Patient Condition Mental Status/LOC: Same as Preop Cardiovascular: Satisfactory Nausea/Vomiting: Absent Respiratory: Satisfactory Pain: Controlled Complications: Absent Post Op Complications Complications None Follow Up Care/Instructions Patient Instructions None needed. Anesthesiology Discharge Order Discharge Order Patient is doing well, no complaints, stable vital signs, no apparent adverse anesthesia problems. No complications reported per nursing. ALPHONSO LYNN CRNA Oct 15, 2020 11:07
--- NOTE | 2020-10-15 11:07 | Discharge Inst-Simple/Standard ---
Discharge Inst-Standard Patient Instructions/Follow Up Plan of Care/Instructions/FU: 2 weeks Aldo Activity as Tolerated: Yes Discharge Diet: Regular Diet TERESA QUIROGA DO Oct 15, 2020 11:07
[2020-10-15 11:10] VITALS: BP 134/60
[2020-10-15 11:15] VITALS: BP 130/60
[2020-10-15 11:20] VITALS: BP 149/71
[2020-10-15 11:40] VITALS: BP 105/70
[2020-10-15 11:45] VITALS: BP 105/70
--- NOTE | 2020-10-15 14:04 | OPERATIVE REPORT ---
DATE OF SERVICE: 10/15/2020 PREOPERATIVE DIAGNOSIS: Rectal bleeding. POSTOPERATIVE DIAGNOSIS: Ascending colon polyp and mucosal change of rectum. PROCEDURE: Colonoscopy with hot biopsy polypectomy x1, cold biopsy of the rectum. SURGEON: Teresa Carlson DO ANESTHESIA: Per ASSEMBLER FAUCETS. ESTIMATED BLOOD LOSS: Scant. COMPLICATIONS: None. INDICATIONS: The patient is a 70-year-old female with rectal bleeding. She understands risks and benefits of procedure and wished to proceed with procedure. Consent was signed in the chart. DESCRIPTION OF PROCEDURE: The patient was taken to the endoscopy suite, placed in left lateral recumbent position. Timeout was performed. Digital rectal exam was performed. There were no palpable polyps, masses or ulcerations. Small hemorrhoid present. Scope was inserted in the rectum, advanced all the way to cecum with minimal difficulty. Prep was better than last attempt. She had a lot of irrigation and suction was used to irrigate. No polyps, masses or ulcerations visualized within the cecum. A polyp was visualized within the ascending colon, which hot biopsy polypectomy was performed. Scope was then continuously retracted back. No other polyps, masses or ulcerations within the remainder of the ascending, transverse, descending colon, and sigmoid colon. In the rectum, slight erythematous mucosal change, which cold biopsy was obtained. Scope was retroflexed noting no other pathology. Scope was returned to its normal position, slowly withdrawn until completely removed. The patient tolerated procedure well without any complications. She was taken to recovery room in stable condition. RECOMMENDATIONS: Would recommend repeat colonoscopy in 3 to 5 years. Any issues before that be seen at that time. She will follow up in the office to discuss pathology results and findings. Job ID: [id number] DocumentID: [id number] Dictated Date: 10/15/2020 11:39:57 Bearingizer Date: 10/15/2020 14:04:21 Dictated By: TERESA CARLSON DO [facility]
== END 2020-10-15 11:46 | disposition home or self-care (01) ==
LOC: ENDO 09:32
PROVIDERS: ATTEND Surgery
DX: K62.5 Hemorrhage of anus and rectum (principal); D12.2 Benign neoplasm of ascending colon; K62.89 Other specified diseases of anus and rectum; K64.8 Other hemorrhoids; I25.10 Atherosclerotic heart disease of native coronary artery without angina pectoris; I10 Essential (primary) hypertension; J45.909 Unspecified asthma, uncomplicated; J44.9 Chronic obstructive pulmonary disease, unspecified; K21.9 Gastro-esophageal reflux disease without esophagitis; Z79.899 Other long term (current) drug therapy; Z79.891 Long term (current) use of opiate analgesic; Z90.49 Acquired absence of other specified parts of digestive tract; Z90.710 Acquired absence of both cervix and uterus; Z80.8 Family history of malignant neoplasm of other organs or systems

== ENCOUNTER 2020-11-03 04:04 | Emergency (ER) | payer MEDICARE, MEDICAID ==
[~2020-11-03] VITALS: Ht 154 cm; Wt 90.0 kg
[2020-11-03 04:17] LABS: BILIRUBIN,URINE NEGATIVE (NEGATIVE); CLARITY,URINE CLEAR; COLOR,URINE YELLOW; GLUCOSE, URINE (UA) NEGATIVE (NEGATIVE); KETONES,URINE NEGATIVE (NEGATIVE); LEUKOCYTE ESTERASE ,URINE TRACE (NEGATIVE); NITRITE,URINE NEGATIVE (NEGATIVE); PH,URINE 6.5 (5-9); PROTEIN,URINE NEGATIVE (NEGATIVE)
[2020-11-03 04:30] LABS: BACTERIA,URINE NEGATIVE /HPF; RBC,URINE RARE /HPF; SQUAMOUS EPITHELIAL CELL,UR 0-2 /HPF
[2020-11-03 04:42] LABS: BASOPHILS % (AUTO) 0 % (0-10); EOSINOPHILS # (AUTO) 0.2 10^3/uL (0.0-0.3); EOSINOPHILS % (AUTO) 4 % (0-10); HEMATOCRIT 40 % (35-52); HEMOGLOBIN 13.6 g/dL (11.5-16.0); LYMPHOCYTES # (AUTO) 2.7 10^3/uL (1.0-4.0); LYMPHOCYTES % (AUTO) 40 % (12-44); MEAN CORPUSCULAR HEMOGLOBIN 30 pg (25-34); MEAN CORPUSCULAR HGB CONC 34 g/dL (32-36); MEAN CORPUSCULAR VOLUME 87 fL (80-99); MEAN PLATELET VOLUME 10.8 fL (9.0-12.2); MONOCYTES # (AUTO) 0.6 10^3/uL (0.0-1.0); MONOCYTES % (AUTO) 9 % (0-12); NEUTROPHILS # (AUTO) 3.3 10^3/uL (1.8-7.8); NEUTROPHILS % (AUTO) 47 % (42-75); PLATELET COUNT 165 10^3/uL (130-400); WHITE BLOOD COUNT 6.9 10^3/uL (4.3-11.0)
[2020-11-03 04:47] LABS: POTASSIUM 3.7 MMOL/L (3.6-5.0)
[2020-11-03 04:48] LABS: CALCIUM 9.7 MG/DL (8.5-10.1)
[2020-11-03 04:49] LABS: TOTAL PROTEIN 7.8 GM/DL (6.4-8.2)
[2020-11-03 04:51] LABS: BILIRUBIN,TOTAL 0.9 MG/DL (0.1-1.0)
[2020-11-03 04:53] LABS: CREATININE SERUM 0.73 MG/DL (0.60-1.30)
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
[2020-11-03] MEDS ORDERED: NS IV 1000 ML 1,000 ML IV SCH (05:00)
[2020-11-03 05:02] LABS: INR 1.1 (0.8-1.4); PROTHROMBIN TIME PATIENT 14.1 SEC (12.2-14.7)
[2020-11-03] MEDS ORDERED: KETOROLAC 30 MG/ML VIAL IVP ONE (05:15)
[2020-11-03] MEDS ORDERED: CEPHALEXIN 250 MG (KEFLEX) CAP PO ONE (06:00)
[2020-11-03] MEDS ORDERED: OXYC1TAB16 PO (06:09)
[2020-11-03] MEDS ORDERED: CEPH500T PO (06:09)
[2020-11-03] MEDS ORDERED: ONDA4TAB11 PO (06:09)
[2020-11-03] MEDS ORDERED: TMSL.4C PO (06:09)
[2020-11-03 06:23] VITALS: BP 136/112
--- NOTE | 2020-11-03 06:36 | Diagnostic Imaging Report ---
EXAMINATION: CT abdomen and pelvis without contrast. TECHNIQUE: Multiple contiguous axial images were obtained through the abdomen and pelvis without the use of intravenous contrast. All CT scans use one or more of the following dose optimizing techniques: automated exposure control, MA and/or KvP adjustment based on patient size and exam type or iterative reconstruction. HISTORY: Right-sided abdominal pain COMPARISON: 09/12/2020 FINDINGS: Limited views of the lower thorax are unremarkable. Liver is cirrhotic. No focal liver lesion is seen There is no biliary ductal dilation. Gallbladder is not seen and there are varices in the upper abdomen related to a recanalized umbilical vein extending cranially above the hofyo-he-ylvs in the subcutaneous tissues Pancreas is normal. Spleen is normal. Adrenal glands are normal. There is a 5 mm stone in the proximal left ureter with mild left-sided hydronephrosis unchanged from prior exam Urinary bladder is normal. Visualized bowel is normal in caliber without obstruction or inflammation. No free fluid or air. No abdominal or pelvic lymphadenopathy. Aorta is normal in caliber without aneurysm. There are no suspicious osseus lesions. There has been a thoracolumbar fusion. IMPRESSION: 1. Unchanged 5 mm stone in the proximal left ureter with mild hydronephrosis. 2. Cirrhotic liver with recanalized umbilical vein and subcutaneous varicosities. There is no significant disagreement with the preliminary report. Dictated by: Dictated on workstation # [id number]
--- NOTE | 2020-11-03 07:42 | Diagnostic Imaging Report ---
History: Right abdominal pain. History of back surgery and kidney stones TECHNIQUE: Frontal view the abdomen COMPARISON: 09/12/2020 FINDINGS: No significant small bowel distention is seen. There is moderate stool in the colon. Multiple phleboliths are noted in the pelvis. The bowel and stool overlie the kidneys. The previously seen calcification in the region of the proximal left ureter appears unchanged. There are postsurgical changes of the lumbar spine. IMPRESSION: 1. Small calcification at the proximal left ureter appears unchanged. 2. Moderate stool in the colon. No high-grade small bowel distention is seen. Dictated by: Dictated on workstation # [id number]
== END 2020-11-03 07:21 | disposition home or self-care (01) ==
LOC: EDUNIT# 04:04 → ER 04:06
DX: N13.2 Hydronephrosis with renal and ureteral calculous obstruction (principal); I10 Essential (primary) hypertension; J44.9 Chronic obstructive pulmonary disease, unspecified; E66.9 Obesity, unspecified; G89.29 Other chronic pain; M54.9 Dorsalgia, unspecified; F32.9 Major depressive disorder, single episode, unspecified; Z68.37 Body mass index [BMI] 37.0-37.9, adult; Z90.710 Acquired absence of both cervix and uterus; Z98.890 Other specified postprocedural states; Z79.891 Long term (current) use of opiate analgesic; Z79.899 Other long term (current) drug therapy
CPT/HCPCS: 36415; 74018; 74176; 80053; 81000; 83690; 85025; 85610; 85730; 86141

== ENCOUNTER 2021-01-12 00:02 | Emergency (ER) | payer MEDICARE, MEDICAID ==
[~2021-01-12] VITALS: Ht 155 cm; Wt 72.5 kg
[~2021-01-12 00:02] MED LIST changes: +CEPH500T PO; +CYCL10TA25 PO; -CYCL10TA9 PO; +ONDA4TAB11 PO; +OXYC1TAB16 PO; +SCOP1PAT10 TD; -SCOP1PAT11 TD
[2021-01-12 00:03] VITALS: BP 120/57
[2021-01-12] MEDS ORDERED: ORPHENADRINE 60 MG/2 ML (NORFLEX) AMP (ED ONLY) IV STA (00:36)
[2021-01-12] MEDS ORDERED: fentaNYL INJ 100 MCG/2 ML AMP IVP STA (00:36)
[2021-01-12 00:44] LABS: BASOPHILS # (AUTO) 0.1 10^3/uL (0.0-0.1); BASOPHILS % (AUTO) 1 % (0-10); EOSINOPHILS # (AUTO) 0.3 10^3/uL (0.0-0.3); EOSINOPHILS % (AUTO) 4 % (0-10); HEMATOCRIT 46 % (35-52); HEMOGLOBIN 15.3 g/dL (11.5-16.0); LYMPHOCYTES # (AUTO) 2.7 10^3/uL (1.0-4.0); LYMPHOCYTES % (AUTO) 34 % (12-44); MEAN CORPUSCULAR HEMOGLOBIN 30 pg (25-34); MEAN CORPUSCULAR HGB CONC 34 g/dL (32-36); MEAN CORPUSCULAR VOLUME 90 fL (80-99); MEAN PLATELET VOLUME 10.5 fL (9.0-12.2); MONOCYTES # (AUTO) 0.9 10^3/uL (0.0-1.0); MONOCYTES % (AUTO) 11 % (0-12); NEUTROPHILS # (AUTO) 3.9 10^3/uL (1.8-7.8); NEUTROPHILS % (AUTO) 50 % (42-75); PLATELET COUNT 145 10^3/uL (130-400); WHITE BLOOD COUNT 7.7 10^3/uL (4.3-11.0)
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
[2021-01-12 00:46] LABS: CALCIUM 9.8 MG/DL (8.5-10.1)
[2021-01-12 00:47] LABS: TOTAL PROTEIN 8.1 GM/DL (6.4-8.2)
[2021-01-12 00:51] LABS: CREATININE SERUM 0.73 MG/DL (0.60-1.30)
[2021-01-12 01:03] LABS: BILIRUBIN,URINE NEGATIVE (NEGATIVE); CLARITY,URINE CLEAR; COLOR,URINE YELLOW; GLUCOSE, URINE (UA) NEGATIVE (NEGATIVE); KETONES,URINE NEGATIVE (NEGATIVE); LEUKOCYTE ESTERASE ,URINE NEGATIVE (NEGATIVE); NITRITE,URINE NEGATIVE (NEGATIVE); PROTEIN,URINE NEGATIVE (NEGATIVE)
[2021-01-12 01:13] LABS: BACTERIA,URINE TRACE /HPF; SQUAMOUS EPITHELIAL CELL,UR 0-2 /HPF; WBC,URINE 0-2 /HPF
[2021-01-12] MEDS ORDERED: CYCL10TA25 PO (01:35)
[2021-01-12] MEDS ORDERED: PRD20T PO (01:35)
[2021-01-12] MEDS ORDERED: oxyCODONE/APAP 5/325MG (PERCOCET 5) TABLET PO ONE (01:45)
== END 2021-01-12 01:48 | disposition home or self-care (01) ==
LOC: ER 00:02 → EDUNIT# 00:04 → ER 01:48
DX: S39.012A Strain of muscle, fascia and tendon of lower back, initial encounter (principal); J44.9 Chronic obstructive pulmonary disease, unspecified; I10 Essential (primary) hypertension; F32.9 Major depressive disorder, single episode, unspecified; G89.29 Other chronic pain; M54.9 Dorsalgia, unspecified; E66.9 Obesity, unspecified; Z68.37 Body mass index [BMI] 37.0-37.9, adult; Z79.891 Long term (current) use of opiate analgesic; Z79.899 Other long term (current) drug therapy; X58.XXXA Exposure to other specified factors, initial encounter
CPT/HCPCS: 36415; 51701; 80053; 81000; 85025

== ENCOUNTER 2021-02-17 13:01 | Emergency (ER) | payer MEDICARE, MEDICAID ==
[~2021-02-17 13:01] MED LIST changes: +PRD20T PO
== END 2021-02-17 13:48 | disposition left against medical advice (07) ==
LOC: EDUNIT# 13:01 → ER 13:03
DX: R06.02 Shortness of breath (principal)

== ENCOUNTER → 2021-09-17 | Outpatient (CLI) | payer MEDICARE, MEDICAID | LOC: RAD 14:10 | PROVIDERS: ATTEND Internal Medicine | DX: R92.8 Other abnormal and inconclusive findings on diagnostic imaging of breast (principal) ==

== ENCOUNTER → 2021-10-06 | Outpatient (CLI) | payer MEDICARE, MEDICAID ==
[~2021-10-06] VITALS: Ht 154.9 cm; Wt 90.9 kg
[~2021-10-06] MED LIST changes: +LIDOCAINE 1% INJ 50 ML (XYLOCAINE) VIAL IJ ONE
--- NOTE | 2021-10-06 11:42 | Diagnostic Imaging Report ---
Indication: Left breast calcifications. Patient presents for stereotactic biopsy. Patient brought to stereotactic suite and placed in a chair in a sitting upright position. The left breast was positioned mediolateral. Calcifications in the upper inner left breast were stereotactically targeted. The medial left breast was then prepped and draped in usual sterile fashion. Small amount of 1% lidocaine was utilized for local anesthesia. The 8 gauge vacuum-assisted needle was advanced into left breast from a mediolateral approach and placed per stereotactic coordinates. 4 core biopsies were obtained with a gauge vacuum-assisted device. Specimen radiograph demonstrates calcifications within sample labeled #2 and 3. Marker clip was then deployed. Hemostasis was obtained using manual compression. All images were viewed on a dedicated workstation. Patient tolerated the procedure well and was sent for post procedure mammogram in satisfactory condition. Post procedure mammogram does show some clip migration. The clip is located in the lateral portion of the breast. IMPRESSION: Stereotactic biopsy of calcifications in the upper inner left breast utilizing the vacuum-assisted device. Pathology results are currently pending. Dictated by: Dictated on workstation # [id number]
== END ==
LOC: RAD 08:22
PROVIDERS: ATTEND Internal Medicine
DX: R92.1 Mammographic calcification found on diagnostic imaging of breast (principal)
CPT/HCPCS: 19081; A4648

== ENCOUNTER 2021-11-04 12:27 | Outpatient (RCR) | payer MEDICARE, MEDICAID ==
[~2021-11-04 12:27] MED LIST changes: +LEVO750T PO; -LEVO750T39 PO; -LIDOCAINE 1% INJ 50 ML (XYLOCAINE) VIAL IJ ONE
== END 2021-11-07 | disposition home or self-care (01) ==
LOC: ONC 12:27
PROVIDERS: ATTEND Internal Medicine Hematology & Oncology
DX: D05.02 Lobular carcinoma in situ of left breast (principal); I10 Essential (primary) hypertension; E78.2 Mixed hyperlipidemia; E66.01 Morbid (severe) obesity due to excess calories
CPT/HCPCS: 99204

== ENCOUNTER 2021-11-10 22:50 | Emergency (ER) | payer MEDICARE, MEDICAID ==
[~2021-11-10] VITALS: Ht 155 cm; Wt 90.9 kg
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
[2021-11-11 00:40] LABS: BILIRUBIN,URINE NEGATIVE (NEGATIVE); CLARITY,URINE CLEAR; COLOR,URINE YELLOW; GLUCOSE, URINE (UA) NEGATIVE (NEGATIVE); KETONES,URINE NEGATIVE (NEGATIVE); LEUKOCYTE ESTERASE ,URINE NEGATIVE (NEGATIVE); NITRITE,URINE NEGATIVE (NEGATIVE); PROTEIN,URINE NEGATIVE (NEGATIVE)
[2021-11-11 00:49] LABS: BACTERIA,URINE TRACE /HPF; WBC,URINE RARE /HPF
[2021-11-11 00:57] VITALS: BP 162/97
--- NOTE | 2021-11-11 07:46 | Diagnostic Imaging Report ---
INDICATION: leg pain COMPARISON: None. FINDINGS: Multiple radiographic views of the left tibia and fibula were obtained and show no fractures, dislocations, or other acute bony abnormalities. Joint spaces are well maintained throughout. The soft tissues appear unremarkable. No unexpected radiopaque foreign bodies are identified. IMPRESSION: Unremarkable radiographic exam of the left tibia and fibula. Dictated by: Dictated on workstation # [id number]
--- NOTE | 2021-11-11 07:48 | Diagnostic Imaging Report ---
INDICATION: ankle pain COMPARISON: None. FINDINGS: Multiple radiographic views of the left ankle were obtained. There is no acute fracture or dislocation. No focal osseous lesions are seen. The surrounding soft tissue structures are unremarkable. There are no radiopaque foreign bodies. IMPRESSION: 1. No acute fracture or dislocation in the left ankle. Dictated by: Dictated on workstation # [id number]
--- NOTE | 2021-11-11 08:06 | Diagnostic Imaging Report ---
PROCEDURE: CT cervical spine without contrast. TECHNIQUE: Multiple contiguous axial images were obtained through the cervical spine without the use of intravenous contrast. Sagittal and coronal reformations were then performed. Auto Exposure Controls were utilized during the CT exam to meet ALARA standards for radiation dose reduction. INDICATION: Fall. Now with neck pain. COMPARISON: 09/29/2017 FINDINGS: Static alignment of the cervical spine is maintained. There is no significant anterolisthesis or retrolisthesis. There is no evidence of jumped facets. Vertebral body heights are maintained. There is no acute fracture. No bony fragments are seen within the spinal canal. There are multilevel degenerative changes consistent with intervertebral disc height loss with endplate osteophyte formations and mild facet arthropathy. Pre and paravertebral soft tissue structures are unremarkable. Included portions lung apices are clear. IMPRESSION: 1. No acute fracture or dislocation cervical spine. 2. Mild multilevel degenerative changes. Dictated by: Dictated on workstation # [id number]
--- NOTE | 2021-11-11 08:16 | Diagnostic Imaging Report ---
PROCEDURE: CT thoracic and lumbar spine without contrast. TECHNIQUE: Multiple contiguous axial images were obtained through the thoracic and lumbar spine without the use of intravenous contrast. Sagittal and coronal reformations were then performed. All CT scans use one or more of the following dose optimizing techniques: automated exposure control, MA and/or KvP adjustment based on a patient size and exam type, or iterative reconstruction. INDICATION: Back pain status post injury. COMPARISON: CT abdomen and pelvis dated 11/03/2020 FINDINGS: CT thoracic spine: Patient is status post previous thoracolumbar fusion of T12 and L2 with old compression deformity of L1. Bilateral interpedicular screws appear well-seated. There is no evidence of loosening. Screws are intact. Posterior fusion rods are intact as well. No unexpected radiopaque foreign bodies are seen. Evaluation remainder of the thoracic spine demonstrates chronic deformity of the superior endplate of T11. This was present on previous CT abdomen and pelvis dated 11/03/2020. Chronic compression deformity at T3 is also noted. Remainder of the thoracic vertebral body heights are preserved. No new acute fracture is seen. Static alignment is maintained. There is no significant anterolisthesis or retrolisthesis. There is no evidence of jumped facets. Mild multilevel degenerative changes are also noted. Pre and paravertebral soft tissue structures are unremarkable. Included portions of the lungs are clear. CT lumbar spine: Postsurgical changes of previous thoracolumbar fusion as detailed above. Again, there is chronic compression deformity of L1. This is stable compared to prior CT abdomen and pelvis dated 11/03/2020. Remaining lumbar vertebral body heights are preserved. No new acute fracture is identified. No bony fragments are seen within the spinal canal. There are mild multilevel degenerative changes, greatest at L4-L5. Pre and paravertebral soft tissue structures are unremarkable. Note is made of left nonobstructive renal calculus. IMPRESSION: 1. Postsurgical changes of previous thoracolumbar fusion with chronic compression deformity of L1. No evidence of hardware compromise. 2. Chronic compression deformities of T3 and T11 are also identified. 3. No new acute fracture or dislocation of the thoracic or lumbar spine is identified. Dictated by: Dictated on workstation # [id number]
== END 2021-11-11 00:57 | disposition home or self-care (01) ==
LOC: EDUNIT# 22:50 → ER 22:52
DX: S93.402A Sprain of unspecified ligament of left ankle, initial encounter (principal); S39.012A Strain of muscle, fascia and tendon of lower back, initial encounter; E66.9 Obesity, unspecified; Z98.890 Other specified postprocedural states; Z68.37 Body mass index [BMI] 37.0-37.9, adult; Z77.22 Contact with and (suspected) exposure to environmental tobacco smoke (acute) (chronic); Z28.310 Unvaccinated for COVID-19; X50.1XXA Overexertion from prolonged static or awkward postures, initial encounter; W17.2XXA Fall into hole, initial encounter; Y93.01 Activity, walking, marching and hiking; Y92.009 Unspecified place in unspecified non-institutional (private) residence as the place of occurrence of the external cause
CPT/HCPCS: 72125; 72128; 72131; 73590; 73610; 81000